=== PATIENT | male | born 1935 | race Caucasian/White ===

== ENCOUNTER 2023-05-15 15:19 | Inpatient (IN) ==
--- NOTE | 2023-05-15 15:48 | ED Triage Note ---
Date of Service May 15, 2023 History of Present Illness This patient was briefly evaluated while in triage. An abbreviated physical exam was performed. This patient is a 88-year-old Male who presents to the ED for evaluation of an elevated d-dimer. He has had shortness of breath with exertion for one month. His PCP saw him today and did some testing which indicated he may have a blood clot. He was sent here by his PCP. Physical Exam VITALS: Vitals are noted on the nurse's note and reviewed by myself. GENERAL: This is an 88-year-old male, in no acute distress, sitting in a chair in triage. SKIN: The skin was without rashes. MOUTH: Mucous membranes moist. NECK: Supple without nuchal rigidity. HEART: Regular rate and rhythm without murmurs gallops or rubs. LUNGS: Clear to auscultation bilaterally without wheezes, rales or rhonchi. NEURO: Patient was alert and oriented to person place and time. Initial orders for labs and / or imaging were placed and patient was placed in the waiting area until a bed is available. Please see further documentation for the full ED course.
[2023-05-15 17:25] LABS: Basophils # (auto) 0.06 K/uL (0-0.2); Basophils % (auto) 0.8 %; Eosinophils # (auto) 0.24 K/uL (0-0.50); Eosinophils % (auto) 3.3 %; Hematocrit (blood only) 34.4 % (42.0-52.0); Immature Granulocytes # (auto) 0.03 K/uL (0.01-0.20); Immature Granulocytes % (auto) 0.4 %; Lymphocytes # (auto) 2.57 K/uL (1.2-3.4); Lymphocytes % (auto) 35.8 %; Mean Corpuscular Hemoglobin 29.7 pg (25.0-34.0); Mean Corpuscular Hgb Conc 34.9 g/dL (32.0-36.0); Mean Corpuscular Volume 85.1 fL (80.0-100.0); Monocytes # (auto) 0.69 K/uL (0.11-0.59); Monocytes % (auto) 9.6 %; Neutrophils # (auto) 3.58 K/uL (1.40-6.50); Neutrophils % (auto) 50.1 %; Platelet Count 206 K/uL (130-400); RDW Coefficient of Variation 13.1 % (11.5-14.5); RDW Standard Deviation 40.8 fL (36.4-46.3); Red Blood Count 4.04 M/uL (4.70-6.10); White Blood Count 7.17 K/ul (4.8-10.8)
[2023-05-15 17:37] LABS: Albumin Globulin Ratio 1.5 (0.9-2); Albumin Level 4.5 gm/dl (3.4-5.0); BUN Creatinine Ratio 14.7 (10-20); Bilirubin,Total 0.6 mg/dl (0.2-1.0); Calcium 9.3 mg/dl (8.6-10.3); Creatinine Clr Calc Pharmacy 25.1 ml/min; Globulin 3.1 gm/dl (2.5-4.0); Potassium 4.3 mmol/L (3.5-5.1); Total Protein 7.6 gm/dl (6.0-8.3)
[2023-05-15 17:43] LABS: Troponin I High Sensitivity 24.1 pg/ml (0-20)
[2023-05-15] MEDS ORDERED: ALBUT/IPRATROP 3MG/0.5MG NEB 3 ML VIAL NEB STA (20:10)
[2023-05-15] MEDS ORDERED: cefTRIAXone SODIUM 1,000 MG in DEXTROSE 5% AD-VAN 50 ML IV STA (20:10)
[2023-05-15] MEDS ORDERED: AZITHROMYCIN 500 MG in DEXTROSE 5% 250 ML IV STA (20:10)
[2023-05-15] MEDS ORDERED: SODIUM CHLORIDE 0.9% 500 ML IV ONE (20:35)
[2023-05-15] MEDS ORDERED: carvediloL 3.125 MG TAB PO STA (20:37)
[2023-05-15 20:43] LABS: Magnesium 2.1 mg/dl (1.7-2.4)
[2023-05-15] MEDS ORDERED: Heparin IV Adult Wt-Based Standard *NO* Bolus Protocol IV STA (21:22)
[2023-05-15] MEDS ORDERED: ALPRAZolam 0.5 MG TABLET PO STA (21:23)
[2023-05-15] MEDS ORDERED: AMPICILLIN/SULBACTAM SOD 3,000 MG in 0.9 % SODIUM CHLORIDE 100 ML IV STA (21:24)
--- NOTE | 2023-05-15 21:25 | History & Physical Report ---
Date of Service May 15, 2023 Assessment & Plan (1) Shortness of breath on exertion: Plan: With cough symptoms Protracted asthma exacerbation secondary to possible aspiration pneumonia Underlying pulmonary hypertension Patient not septic. Rule out PE given abnormal outpatient dimer and past history of blood clots as per patient account (patient unable to provide details blood clot) Troponin elevation secondary to above in the setting of chronic kidney dysfunct ion Hyponatremia secondary to illness, home diuretic Rx chronic systolic heart failure (EF 37% TTE 2020) status post ICD, patient euvolemic to dry hx CAD status post stent chronic LBBB valvular heart disease (moderate to severe MR/TR, mild WI/AR) chronic anemia, hemoglobin at baseline hypothyroidism, euthyroid as of today's TSH paranoid schizophrenia/anxiety/mood disorder, at baseline past tobacco abuse Medical telemetry Unasyn Aspiration precautions, swallow eval Nebs RTC Patient refusing prednisone given worsening psychiatric symptoms with previous steroid Rx. VQ scan, LE Dopplers for PE work-up (CT angio study precluded by kidney dysfunction.) IV heparin until PE ruled out Follow troponin, TTE for progression Careful correction of sodium, hyponatremia work-up [facility]patient [facility] consult as per patient request for follow-up evaluation. (Patient convinced pulmonary symptoms related to recent pacemaker procedure.) DVT prophylaxis. IV heparin Conditional CODE STATUS (no intubation, okay with CPR/defibrillation ) Patient requesting updates providers. Ms. Carly Fountain, contact #[phone]. Text document was generated using [employer] voice recognition software. It may contain grammatical or spelling errors. Kindly contact undersigned for clarification of any documentation item in question. History of Present Illness Chief Complaint: Abnormal lab work, shortness of breath Primary Care Provider: Indra Asif MD History obtained from patient, family, and records. Medical history significant for chronic systolic heart failure (EF 37% TTE 2020) status post ICD, CAD status post stent, chronic LBBB, valvular heart disease (moderate to severe MR/TR, mild WI/AR), pulmonary hypertension, bronchial asthma, history of blood clots as per patient, CRI (baseline creatinine 1.9), chronic anemia (baseline hemoglobin 12), GERD, postsurgical hypothyroidism, BPH, paranoid schizophrenia, anxiety/mood disorder, past tobacco abuse. Patient underwent pacemaker generator change at same-day surgery by [facility] social services counselor 3 months ago. Normal function on subsequent interrogation on EPS follow-up visit 3 weeks ago. Patient has not felt well since EPS procedure 3 months ago. Shortness of breath worse on exertion. Junky cough symptoms. Patient admits to coughing with food/water intake if not careful. Intermittent left-sided chest pain complaints. No fluid retention. Patient compliant with home medications. Usual anxiety. Patient seen at [facility] outsole paraffiner office 2 weeks ago. He was told that his heart was okay. Bronchospasm noted on examination as per note. Patient advised to follow-up with PCP. Patient seen at PCPs office 1 today. Rhonchi and wheezing noted on lung exam. Patient prescribed doxycycline for possible bronchitis. Outpatient chest x-ray and labs requested. Abnormal dimer noted on outpatient blood work. Patient sent to the ER for evaluation. Ceftriaxone and neb treatment administered at the ER. Medical History as above Surgical History : ICD, thyroidectomy, TURP, cataract surgery, eye surgery, hernia repair, dental surgery Family History : DM, heart disease Personal/Social history : Past tobacco abuse, no EtOH intake, lives with Allergies Allergy/AdvReac Type Severity Reaction Status Date / Time sertraline Allergy Intermediate Swollen Unverified 05/15/23 20:36 Ankles prednisone AdvReac Intermediate crazy Verified 05/15/23 21:24 pantoprazole [From Protonix] AdvReac Unknown Diarrhea Unverified 05/15/23 20:36 Home Medications Medication Instructions Recorded Confirmed Type ascorbate calcium (vitamin C) 500 500 mg PO QAM 08/27/21 05/15/23 History mg tablet aspirin 81 mg tablet,delayed 81 mg PO 3XWK 08/27/21 05/15/23 History release ferrous sulfate 325 mg (65 mg 325 mg PO QAM 08/27/21 05/15/23 History iron) tablet olanzapine 10 mg tablet (Zyprexa) 10 mg PO HS 08/27/21 05/15/23 History omeprazole 20 mg capsule,delayed 20 mg PO DAILYBB 08/27/21 05/15/23 History release alprazolam 0.25 mg tablet (Xanax) See Rx Instructions .Route 09/16/21 05/15/23 History .COMPLEX PRN Anxiety clonidine HCl 0.1 mg tablet 0.05 mg PO BID #30 tabs 09/16/21 05/15/23 Rx albuterol sulfate 90 mcg/actuation 1 inh inhalation Q6H PRN shortness 12/24/21 05/15/23 Rx aerosol inhaler of breath or wheezing #8.5 grams atorvastatin 40 mg tablet 40 mg PO HS 12/24/21 05/15/23 History fluticasone furoate 100 1 inh inhalation QAM 12/24/21 05/15/23 History mcg-vilanterol 25 mcg/dose inhalation powder (Breo Ellipta) tamsulosin 0.4 mg capsule (Flomax) 0.4 mg PO QAM 12/24/21 05/15/23 History carvedilol 3.125 mg tablet 3.125 mg PO BIDM #90 tabs 03/10/22 05/15/23 Rx allopurinol 100 mg tablet 100 mg PO QAM #90 tabs 09/05/22 05/15/23 Rx furosemide 20 mg tablet 20 mg PO Q OTHER DAY #60 tabs 11/27/22 05/15/23 Rx furosemide 40 mg tablet (Lasix) 40 mg PO Q OTHER DAY #60 tabs 11/27/22 05/15/23 Rx docusate sodium 100 mg tablet 100 mg PO DAILY 03/06/23 05/15/23 History acetaminophen 500 mg tablet 1,000 mg PO DAILY PRN pain or fever 05/15/23 05/15/23 History levothyroxine 75 mcg tablet 75 mcg PO QAM 05/15/23 05/15/23 History Past Med/Surg History Medical History Aortic valve disorder Asymptomatic arteriosclerosis of coronary artery Atypical angina Atypical chest pain Automatic implantable cardiac defibrillator in situ CAD in [place] artery Cardiomyopathy Carpal tunnel syndrome Chest pain Chronic obstructive pulmonary disease Depression Dizziness Dyslipidemia Dyspnea on exertion Encounter for adjustment or management of automatic implantable cardioverter- defibrillator GERD (gastroesophageal reflux disease) Gout Hernia Hyperlipidemia Hyperplasia of prostate without lower urinary tract symptoms (LUTS) Hypertension, benign Hypothyroidism Mitral valve disorder Mitral valve insufficiency Nonrheumatic aortic (valve) insufficiency 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 cardiomyopathies Pulmonary valve disorder Shortness of breath Unspecified disorder of kidney and ureter Unspecified venous (peripheral) insufficiency Surgical History H/O heart artery stent H/O partial thyroidectomy H/O transurethral resection of prostate History of esophagogastroduodenoscopy (EGD) S/P cardiac cath S/P cataract surgery S/P eye surgery S/P hernia repair S/P tooth extraction Family History Father CHF (congestive heart failure) Mother Diabetes Brother Heart disease Social History Smoking Status: Former smoker Hx Alcohol Use: No Hx Substance Use: No Preferred Language: Greenlandic Cloth Spreader Screen Printing Required: No Beliefs That Will Affect Care: None marital status: marital status details: Carly Current Living Situation: Spouse current occupational status: retired current occupation: Clerical Feels Safe at Home: Yes caffeine: Yes (1-2 cups per day) Assistive Devices: Walker Review of Systems Review of Systems: As per HPI, all other systems reviewed and negative Physical Exam Physical Exam: GENERAL: Anxious, no respiratory distress SKIN: Pallor, warm HEENT: Partial alopecia, bespectacled, pale palpebral conjunctivae, no ptosis, dry buccal mucosa NECK : Supple, no tenderness CHEST : Decreased breath sounds, diffuse expiratory wheezes, no tenderness HEART : RRR, systolic murmur ABDOMEN: no distention, nontender EXTREMITIES : Minimal LE swelling, no LE tenderness, no other conspicuous deformities noted NEUROLOGIC : Coherent, no facial asymmetry, no other gross focality Results & Data Results & Data Vital Signs (Past 12 Hours) Vital Signs Temp Pulse Pulse Resp BP BP Pulse Ox 05/15/23 19:41 100 05/15/23 19:41 62 18 161/90 H 100 05/15/23 15:43 36.4 C L 66 20 133/82 100 O2 Del Method 05/15/23 19:41 Room Air 05/15/23 19:41 Room Air 05/15/23 15:43 Room Air Laboratory Results Laboratory Results WBC 7.17 K/ul (4.8-10.8) 05/15/23 16:56 RBC 4.04 M/uL (4.70-6.10) L 05/15/23 16:56 Hgb 12.0 g/dl (14.0-18.0) L 05/15/23 16:56 Hct 34.4 % (42.0-52.0) L 05/15/23 16:56 MCV 85.1 fL (80.0-100.0) 05/15/23 16:56 MCH 29.7 pg (25.0-34.0) 05/15/23 16:56 MCHC 34.9 g/dL (32.0-36.0) 05/15/23 16:56 RDW Std Deviation 40.8 fL (36.4-46.3) 05/15/23 16:56 RDW Coeff of Ruth 13.1 % (11.5-14.5) 05/15/23 16:56 Plt Count 206 K/uL (130-400) 05/15/23 16:56 MPV 10.0 fL (9.4-12.4) 05/15/23 16:56 Immature Gran % (Auto) 0.4 % 05/15/23 16:56 Neut % (Auto) 50.1 % 05/15/23 16:56 Lymph % (Auto) 35.8 % 05/15/23 16:56 Campbell % (Auto) 9.6 % 05/15/23 16:56 Eos % (Auto) 3.3 % 05/15/23 16:56 Baso % (Auto) 0.8 % 05/15/23 16:56 Neut # (Auto) 3.58 K/uL (1.40-6.50) 05/15/23 16:56 Lymph # (Auto) 2.57 K/uL (1.2-3.4) 05/15/23 16:56 Campbell # (Auto) 0.69 K/uL (0.11-0.59) H 05/15/23 16:56 Eos # (Auto) 0.24 K/uL (0-0.50) 05/15/23 16:56 Baso # (Auto) 0.06 K/uL (0-0.2) 05/15/23 16:56 Immature Gran # (Auto) 0.03 K/uL (0.01-0.20) 05/15/23 16:56 Sodium 127 mmol/L (136-145) L 05/15/23 16:56 Potassium 4.3 mmol/L (3.5-5.1) 05/15/23 16:56 Chloride 89 mmol/L (98-107) L 05/15/23 16:56 Carbon Dioxide 31 mmol/L (21-32) 05/15/23 16:56 Anion Gap 7 (3-11) 05/15/23 16:56 BUN 28 mg/dl (6-23) H 05/15/23 16:56 Creatinine 1.91 mg/dl (0.6-1.4) H 05/15/23 16:56 Est Cr Clr Drug Dosing 25.1 ml/min 05/15/23 16:56 Est GFR ( Amer) 36.0 ml/min 05/15/23 16:56 Est GFR (Non-Af Amer) 31.0 ml/min 05/15/23 16:56 BUN/Creatinine Ratio 14.7 (10-20) 05/15/23 16:56 Glucose 102 mg/dl (70-99(Fasting)) H 05/15/23 16:56 Osmolality 275 mOsm/kg (280-300) L 05/15/23 16:56 Calcium 9.3 mg/dl (8.6-10.3) 05/15/23 16:56 Magnesium 2.1 mg/dl (1.7-2.4) 05/15/23 16:56 Total Bilirubin 0.6 mg/dl (0.2-1.0) 05/15/23 16:56 AST 19 U/L (13-39) 05/15/23 16:56 ALT 16 U/L (7-52) 05/15/23 16:56 Alkaline Phosphatase 78 U/L (34-104) 05/15/23 16:56 Troponin I High Sens 24.1 pg/ml (0-20) H 05/15/23 16:56 Total Protein 7.6 gm/dl (6.0-8.3) 05/15/23 16:56 Albumin 4.5 gm/dl (3.4-5.0) 05/15/23 16:56 Globulin 3.1 gm/dl (2.5-4.0) 05/15/23 16:56 Albumin/Globulin Ratio 1.5 (0.9-2) 05/15/23 16:56 Diagnostic Findings Chest x-ray : 1. Cardiomegaly and AICD without radiographic evidence of congestive failure. 2. Right basilar opacities are unchanged from yesterday. Correlate clinically for evidence of a mild pneumonitis. Radiographic follow-up to resolution is recommended. EKG as per my interpretation : Rate 65, paced rhythm
[2023-05-15] MEDS ORDERED: PROMETHAZINE HCL 6.25 MG in SODIUM CHLORIDE 0.9% 50 ML IV PRN ×2 (21:38→23:13)
--- NOTE | 2023-05-15 22:10 | XRay Report ---
SINGLE VIEW CHEST CLINICAL HISTORY: Dyspnea FINDINGS: An AP, portable, upright chest radiograph is compared to study dated 05/15/2023. A 3-lead ca rdiac AICD is unchanged in position. The heart is enlarged noting atherosclerotic calcification of th e thoracic aorta. The pulmonary vasculature is noncongested. Chronic interstitial thickening is simil ar to previous. Right basilar opacities are similar to yesterday. Scarring/atelectasis is seen at bot h lung bases. No large pleural effusion or pneumothorax is identified. The skeletal structures are os teopenic. The bony thorax is grossly intact. IMPRESSION: 1. Cardiomegaly and AICD without radiographic evidence of congestive failure. 2. Right basilar opacities are unchanged from yesterday. Correlate clinically for evidence of a mild pneumonitis. Radiographic follow-up to resolution is recommended. ACT 112: Negative or not required by law. Electronically signed by: Mario Mccord M.D. 05/15/2023 10:08 PM
[2023-05-15 22:15] LABS: Partial Thromboplastin Time 29.6 Seconds (21.0-31.0)
--- NOTE | 2023-05-15 22:30 | Ultrasound Report ---
ULTRASOUND BILATERAL LOWER EXTREMITY VENOUS CLINICAL HISTORY: Elevated d-dimer. Dyspnea. COMPARISON STUDY: No priors. TECHNIQUE: Real-time, grayscale, and color Doppler sonography of the deep veins of the right and left lower extremity was performed from the inguinal crease to the calf. Compression and augmentation wer e utilized. FINDINGS: There is no sonographic evidence of deep venous thrombosis identified in the right or left lower extremity. The common femoral, superficial femoral, and popliteal veins are patent and normally compressible bilaterally. The greater saphenous vein and the profunda femoris vein at the junction w ith the common femoral vein are clear in both legs. The visualized calf veins are patent bilaterally. IMPRESSION: There is no sonographic evidence of deep venous thrombosis identified in the right or lef t lower extremity. ACT 112: Negative or not required by law. Electronically signed by: Mario Mccord M.D. 05/15/2023 10:28 PM
[2023-05-15] MEDS: HEPARIN SODIUM/DEXTROSE 25,000 UNITS/500 ML BAG IV SCH (22:41)
[2023-05-15] MEDS ORDERED: LEVALBUTEROL 1.25 MG/3 ML NEB ONE (23:56)
[2023-05-16] MEDS: OLANZapine 10 MG TAB PO SCH ×2 (00:03→21:39)
[2023-05-16] MEDS: IPRATROPIUM BROMIDE NEB SOLN 0.02% 2.5 ML VIAL INH SCH ×4 (00:13→19:15)
[2023-05-16] MEDS: LEVALBUTEROL 1.25 MG/3 ML NEB NEB SCH ×4 (00:14→19:15)
[2023-05-16 00:58] LABS: Appearance Urine Clear (Clear); Bilirubin Urine Negative (Negative); Blood Urine Negative (Negative); Color Urine Yellow; Glucose Urine UA Negative (Negative); Ketones Urine Negative (Negative); Leukocyte Esterase Urine Negative (Negative); Nitrite Urine Negative (Negative); Protein Urine Negative (Negative); Specific Gravity Urine 1.004 (1.000-1.030); Urobilinogen Urine Negative (Negative); pH Urine 7.5 (4.5-7.5)
[2023-05-16] MEDS ORDERED: XOPENEX/ATROVENT 1.25mg/0.5MG NEB COMBO NEB SCH (01:00)
[2023-05-16 01:36] LABS: Troponin I High Sensitivity 26.1 pg/ml (0-20)
--- NOTE | 2023-05-16 03:47 | Emergency Department Note ---
History of Present Illness General Chief Complaint: Referred by Doctor Stated Complaint: POSSIBLE BLOOD CLOT IN LUNGS Time Seen by Provider: 05/15/23 19:43 History of Present Illness Provider Complaint: shortness of breath Onset (ago): month(s) (1) Severity: moderate Relieved By: + rest Exacerbated By: + exertion and + coughing Known history of: asthma Associated symptoms: + chest pain, + cough, + wheezing, + sputum production and + chest congestion; no hemoptysis Home Medications Medication Instructions Recorded Confirmed Type ascorbate calcium (vitamin C) 500 500 mg PO QAM 08/27/21 05/15/23 History mg tablet aspirin 81 mg tablet,delayed 81 mg PO 3XWK 08/27/21 05/15/23 History release ferrous sulfate 325 mg (65 mg 325 mg PO QAM 08/27/21 05/15/23 History iron) tablet olanzapine 10 mg tablet (Zyprexa) 10 mg PO HS 08/27/21 05/15/23 History omeprazole 20 mg capsule,delayed 20 mg PO DAILYBB 08/27/21 05/15/23 History release alprazolam 0.25 mg tablet (Xanax) See Rx Instructions .Route 09/16/21 05/15/23 History .COMPLEX PRN Anxiety clonidine HCl 0.1 mg tablet 0.05 mg PO BID #30 tabs 09/16/21 05/15/23 Rx albuterol sulfate 90 mcg/actuation 1 inh inhalation Q6H PRN shortness 12/24/21 05/15/23 Rx aerosol inhaler of breath or wheezing #8.5 grams atorvastatin 40 mg tablet 40 mg PO HS 12/24/21 05/15/23 History fluticasone furoate 100 1 inh inhalation QAM 12/24/21 05/15/23 History mcg-vilanterol 25 mcg/dose inhalation powder (Breo Ellipta) tamsulosin 0.4 mg capsule (Flomax) 0.4 mg PO QAM 12/24/21 05/15/23 History carvedilol 3.125 mg tablet 3.125 mg PO BIDM #90 tabs 03/10/22 05/15/23 Rx allopurinol 100 mg tablet 100 mg PO QAM #90 tabs 09/05/22 05/15/23 Rx furosemide 20 mg tablet 20 mg PO Q OTHER DAY #60 tabs 11/27/22 05/15/23 Rx furosemide 40 mg tablet (Lasix) 40 mg PO Q OTHER DAY #60 tabs 11/27/22 05/15/23 Rx docusate sodium 100 mg tablet 100 mg PO DAILY 03/06/23 05/15/23 History acetaminophen 500 mg tablet 1,000 mg PO DAILY PRN pain or fever 05/15/23 05/15/23 History levothyroxine 75 mcg tablet 75 mcg PO QAM 05/15/23 05/15/23 History Allergies Allergy/AdvReac Type Severity Reaction Status Date / Time sertraline Allergy Intermediate Swollen Unverified 05/15/23 20:36 Ankles prednisone AdvReac Intermediate crazy Verified 05/15/23 21:24 pantoprazole [From Protonix] AdvReac Unknown Diarrhea Unverified 05/15/23 20:36 Past Med/Surg History Medical History Aortic valve disorder Asymptomatic arteriosclerosis of coronary artery Atypical angina Atypical chest pain Automatic implantable cardiac defibrillator in situ CAD in [place] artery Cardiomyopathy Carpal tunnel syndrome Chest pain Chronic obstructive pulmonary disease Depression Dizziness Dyslipidemia Dyspnea on exertion Encounter for adjustment or management of automatic implantable cardioverter- defibrillator GERD (gastroesophageal reflux disease) Gout Hernia Hyperlipidemia Hyperplasia of prostate without lower urinary tract symptoms (LUTS) Hypertension, benign Hypothyroidism Mitral valve disorder Mitral valve insufficiency Nonrheumatic aortic (valve) insufficiency 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 cardiomyopathies Pulmonary valve disorder Shortness of breath Unspecified disorder of kidney and ureter Unspecified venous (peripheral) insufficiency Surgical History H/O heart artery stent H/O partial thyroidectomy H/O transurethral resection of prostate History of esophagogastroduodenoscopy (EGD) S/P cardiac cath S/P cataract surgery S/P eye surgery S/P hernia repair S/P tooth extraction Family History Father CHF (congestive heart failure) Mother Diabetes Brother Heart disease Social History Smoking Status: Former smoker Hx Alcohol Use: No Hx Substance Use: No Preferred Language: Azeri Vocational Coordinator Required: No Beliefs That Will Affect Care: None marital status: marital status details: Carly Current Living Situation: Spouse current occupational status: retired current occupation: Clerical Feels Safe at Home: Yes caffeine: Yes (1-2 cups per day) Assistive Devices: Walker Physical Exam Vital Signs: Vital Signs - 24 hr 05/15/23 15:43 05/15/23 19:41 05/15/23 19:41 Temperature 36.4 C L Temperature Source Temporal Artery Sc an Pulse Rate 66 Pulse Rate [Apical ] 62 Respiratory Rate 20 18 Respiratory Effort / Characteristics Spontaneous SOB on Exertion Non-Labored Sponta neous Respiratory Depth Normal Normal Respiratory Patter n Regular Blood Pressure 133/82 Blood Pressure [Ri ght Arm] 161/90 H Blood Pressure Leonor n 99 Blood Pressure Leonor n [Right Arm] 113 Blood Pressure Pos ition [Right Arm] Lying Pulse Oximetry 100 100 100 Oxygen Delivery Me thod Room Air Room Air Room Air Sepsis Recent Feve r Within 48 Hours No Sepsis New/Unexpla ined Change in Men gordon Status N/A Sepsis Action Take n by Nursing No Action Required Physical Exam: Physical Exam GENERAL: oriented to person, place, and time. appears well-developed and well- nourished. HENT: Exam performed. - Head: Normocephalic and atraumatic. EYES: Conjunctivae and EOM are normal. Right eye exhibits no discharge. Left eye exhibits no discharge. No scleral icterus. NECK: Normal range of motion. Neck supple. No JVD present. CV: Normal rate, regular rhythm, normal heart sounds and intact distal pulses. There is no peripheral edema. Palpable radial pulses bue. PULM/CHEST: Expiratory wheezes bilaterally. ABD: The abdomen is soft. There is no tenderness. NEURO: Motor and sensation grossly intact. SKIN: Skin is warm and dry. He is not diaphoretic. PSYCH: normal mood and affect. Behavior is normal. Judgment and thought content normal. Course Course 194: The patient was evaluated in room C12. A complete history and physical exam was performed Administered Medications Heparin Sodium/Dextrose (Heparin Sodium/Dextrose) 25,000 units in 500 mls @ 24 mls/hr IV .[id number] [facility]; Protocol Stop: 06/14/23 21:44 Last Admin: 05/15/23 22:41 Dose: 1,200 units/hr, 24 mls/hr Documented By: HIEN Co-signed By: EDUARDO Ipratropium Orange (Ipratropium Orange Neb Soln 0.02% 2.5 Ml Vial) 0.5 mg INH Q6R ANOOP Stop: 06/15/23 00:59 Last Admin: 05/16/23 00:13 Dose: 0.5 mg Documented By: EBONY Levalbuterol HCl (Levalbuterol 1.25 Mg/3 Ml Neb) 1.25 mg NEB Q6R ANOOP Stop: 06/15/23 00:59 Last Admin: 05/16/23 00:14 Dose: Not Given Documented By: EBONY Olanzapine (Olanzapine 10 Mg Tab) 10 mg PO HS ANOOP Stop: 06/14/23 23:12 Last Admin: 05/16/23 00:03 Dose: 10 mg Documented By: BEATRIZ Discontinued Medications Albuterol (Albut/Ipratrop 3mg/0.5mg Neb 3 Ml Vial) 3 ml NEB NOW STA; Protocol Stop: 05/15/23 20:11 Last Admin: 05/15/23 20:28 Dose: 3 ml Documented By: HIEN Alprazolam (Alprazolam 0.5 Mg Tablet) 0.25 mg PO NOW STA Stop: 05/15/23 21:24 Last Admin: 05/15/23 22:39 Dose: 0.25 mg Documented By: HIEN Carvedilol (Carvedilol 3.125 Mg Tab) 3.125 mg PO NOW STA Stop: 05/15/23 20:38 Last Admin: 05/15/23 20:45 Dose: 3.125 mg Documented By: HIEN Heparin Sodium/Dextrose (Heparin Iv Adult Wt-Based Standard *No* Bolus Protocol) 1 each IV ONE STA; Protocol Stop: 05/15/23 21:23 Last Admin: 05/15/23 22:33 Dose: Not Given Documented By: HIEN Ceftriaxone Sodium 1,000 mg/ (Dextrose) 50 mls @ 100 mls/hr IV NOW STA Stop: 05/15/23 20:39 Last Infusion: 05/15/23 21:39 Dose: 0 mls/hr Documented By: Admin: 05/15/23 20:45 Dose: 100 mls/hr Documented By: HIEN Azithromycin 500 mg/ Dextrose 255 mls @ 127.5 mls/hr IV NOW STA Stop: 05/15/23 22:09 Last Admin: 05/15/23 22:33 Dose: Not Given Documented By: HIEN Sodium Chloride (Nss) 500 mls @ 75 mls/hr IV .[id number] ONE Stop: 05/16/23 03:14 Last Admin: 05/15/23 20:51 Dose: 75 mls/hr Documented By: HIEN Ampicillin Sodium/Sulbactam Sodium 3,000 mg/ Sodium Chloride 108 mls @ 200 mls/hr IV NOW STA Stop: 05/15/23 21:56 Last Infusion: 05/15/23 23:19 Dose: 0 mls/hr Documented By: Admin: 05/15/23 22:20 Dose: 200 mls/hr Documented By: HIEN Levalbuterol HCl (Levalbuterol 1.25 Mg/3 Ml Neb) Confirm Administered Dose 1.25 mg .ROUTE .STK-MED ONE Stop: 05/15/23 23:57 Last Admin: 05/16/23 00:14 Dose: 1.25 mg Documented By: EBONY Medical Decision Making Medical Records Attestation: I reviewed the patient's medical records. External medical records were reviewed. Patient had blood work done today which showed a D-dimer of 1440. Patient had a chest x-ray done outpatient which show ed right-sided infiltrates concerning for pneumonia. Laboratory Data Attestation: I reviewed the patient's lab results. 05/15/23 16:56 05/16/23 00:29 Lab Results 05/15/23 05/15/23 05/15/23 Range/Units 16:56 16:56 16:56 WBC 7.17 (4.8-10.8) K/ul RBC 4.04 L (4.70-6.10) M/uL Hgb 12.0 L (14.0-18.0) g/dl Hct 34.4 L (42.0-52.0) % MCV 85.1 (80.0-100.0) fL MCH 29.7 (25.0-34.0) pg MCHC 34.9 (32.0-36.0) g/dL RDW Std Deviation 40.8 (36.4-46.3) fL RDW Coeff of Ruth 13.1 (11.5-14.5) % Plt Count 206 (130-400) K/uL MPV 10.0 (9.4-12.4) fL Immature Gran % (Auto) 0.4 % Neut % (Auto) 50.1 % Lymph % (Auto) 35.8 % Geary % (Auto) 9.6 % Eos % (Auto) 3.3 % Baso % (Auto) 0.8 % Neut # (Auto) 3.58 (1.40-6.50) K/uL Lymph # (Auto) 2.57 (1.2-3.4) K/uL Geary # (Auto) 0.69 H (0.11-0.59) K/uL Eos # (Auto) 0.24 (0-0.50) K/uL Baso # (Auto) 0.06 (0-0.2) K/uL Immature Gran # (Auto) 0.03 (0.01-0.20) K/uL APTT (21.0-31.0) Seconds PTT Ratio Sodium 127 L (136-145) mmol/L Potassium 4.3 (3.5-5.1) mmol/L Chloride 89 L (98-107) mmol/L Carbon Dioxide 31 (21-32) mmol/L Anion Gap 7 (3-11) BUN 28 H (6-23) mg/dl Creatinine 1.91 H (0.6-1.4) mg/dl Est Cr Clr Drug Dosing 25.1 ml/min Est GFR ( Amer) 36.0 ml/min Est GFR (Non-Af Amer) 31.0 ml/min BUN/Creatinine Ratio 14.7 (10-20) Glucose 102 H (70-99(Fasting)) mg/dl Osmolality (280-300) mOsm/kg Calcium 9.3 (8.6-10.3) mg/dl Magnesium 2.1 (1.7-2.4) mg/dl Total Bilirubin 0.6 (0.2-1.0) mg/dl AST 19 (13-39) U/L ALT 16 (7-52) U/L Alkaline Phosphatase 78 (34-104) U/L Troponin I High Sens 24.1 H (0-20) pg/ml Total Protein 7.6 (6.0-8.3) gm/dl Albumin 4.5 (3.4-5.0) gm/dl Globulin 3.1 (2.5-4.0) gm/dl Albumin/Globulin Ratio 1.5 (0.9-2) TSH 3.723 (0.300-4.500) uIu/ml SARS-CoV-2, RNA, NAAT (NEGATIVE) 05/15/23 05/15/23 05/15/23 Range/Units 16:56 16:56 19:59 WBC (4.8-10.8) K/ul RBC (4.70-6.10) M/uL Hgb (14.0-18.0) g/dl Hct (42.0-52.0) % MCV (80.0-100.0) fL MCH (25.0-34.0) pg MCHC (32.0-36.0) g/dL RDW Std Deviation (36.4-46.3) fL RDW Coeff of Ruth (11.5-14.5) % Plt Count (130-400) K/uL MPV (9.4-12.4) fL Immature Gran % (Auto) % Neut % (Auto) % Lymph % (Auto) % Geary % (Auto) % Eos % (Auto) % Baso % (Auto) % Neut # (Auto) (1.40-6.50) K/uL Lymph # (Auto) (1.2-3.4) K/uL Geary # (Auto) (0.11-0.59) K/uL Eos # (Auto) (0-0.50) K/uL Baso # (Auto) (0-0.2) K/uL Immature Gran # (Auto) (0.01-0.20) K/uL APTT 29.6 (21.0-31.0) Seconds PTT Ratio 1.0 Sodium (136-145) mmol/L Potassium (3.5-5.1) mmol/L Chloride (98-107) mmol/L Carbon Dioxide (21-32) mmol/L Anion Gap (3-11) BUN (6-23) mg/dl Creatinine (0.6-1.4) mg/dl Est Cr Clr Drug Dosing ml/min Est GFR ( Amer) ml/min Est GFR (Non-Af Amer) ml/min BUN/Creatinine Ratio (10-20) Glucose (70-99(Fasting)) mg/dl Osmolality 275 L (280-300) mOsm/kg Calcium (8.6-10.3) mg/dl Magnesium (1.7-2.4) mg/dl Total Bilirubin (0.2-1.0) mg/dl AST (13-39) U/L ALT (7-52) U/L Alkaline Phosphatase (34-104) U/L Troponin I High Sens (0-20) pg/ml Total Protein (6.0-8.3) gm/dl Albumin (3.4-5.0) gm/dl Globulin (2.5-4.0) gm/dl Albumin/Globulin Ratio (0.9-2) TSH (0.300-4.500) uIu/ml SARS-CoV-2, RNA, NAAT NEGATIVE (NEGATIVE) ECG Data Attestation: I personally reviewed and interpreted this ECG as follows: Interpretation: Paced rhythm with rate of 67. NH 106 QRS 186 QTc 496. No ectopy. MDM Narrative Cardiac monitoring: An order was placed for continuous cardiac monitoring. The monitor shows a rate of 60 with paced rhythm interpreted by me Patient was seen during a time of extreme volume and extreme acuity in the emergency department. Nursing triage protocols were initiated and labs were drawn by protocol in the triage area. Labs show a normal white blood cell count. Sodium 127 creatinine 1.91 at patient's baseline. BNP 505.. Initial troponin 18.3 trending upwards at 24.1. Patient not reporting any chest pain. It is thought that the patient's pneumonia is causing him to have some demand ischemia. Patient be treated with IV Rocephin and IV azithromycin admitted to the [facility]ist team Dr. Baum notified. Dr. Baum notified to possibly obtain VQ scan given the patient's elevated D-dimer however it is thought that he most likely has a pneumonia based off his chest x-ray findings. Impression & Plan Pneumonia, Elevated troponin Discharge Plan Visit Data Chief Complaint: Referred by Doctor Stated Complaint: POSSIBLE BLOOD CLOT IN LUNGS ED Provider: Noah Mondragon Discharge Problem: Pneumonia, Elevated troponin Patient Disposition: Admitted As Inpatient Discharge Instructions Interventions: ED Discharge Assessment Last Done: 05/15/23 23:35
[2023-05-16] MEDS ORDERED: METOPROLOL TARTRATE 1 MG/ML VIAL IV STA (05:24)
[2023-05-16] MEDS: LEVOTHYROXINE SODIUM 75 MCG TABLET PO SCH (05:45)
[2023-05-16] MEDS: PANTOprazole 40 MG TAB PO SCH (05:46)
[2023-05-16 06:42] LABS: Basophils # (auto) 0.06 K/uL (0-0.2); Basophils % (auto) 0.9 %; Eosinophils # (auto) 0.18 K/uL (0-0.50); Eosinophils % (auto) 2.6 %; Hemoglobin 11.3 g/dl (14.0-18.0); Immature Granulocytes # (auto) 0.03 K/uL (0.01-0.20); Immature Granulocytes % (auto) 0.4 %; Lymphocytes # (auto) 2.06 K/uL (1.2-3.4); Lymphocytes % (auto) 29.7 %; Mean Corpuscular Hemoglobin 29.8 pg (25.0-34.0); Mean Corpuscular Hgb Conc 35.3 g/dL (32.0-36.0); Mean Corpuscular Volume 84.4 fL (80.0-100.0); Mean Platelet Volume 10.2 fL (9.4-12.4); Monocytes # (auto) 0.59 K/uL (0.11-0.59); Monocytes % (auto) 8.5 %; Neutrophils # (auto) 4.02 K/uL (1.40-6.50); Neutrophils % (auto) 57.9 %; Platelet Count 178 K/uL (130-400); RDW Coefficient of Variation 13.2 % (11.5-14.5); RDW Standard Deviation 40.8 fL (36.4-46.3); Red Blood Count 3.79 M/uL (4.70-6.10); White Blood Count 6.94 K/ul (4.8-10.8)
[2023-05-16 06:55] LABS: BUN Creatinine Ratio 14.5 (10-20); Calcium 8.7 mg/dl (8.6-10.3); Creatinine Clr Calc Pharmacy 27.8 ml/min; Est GFR (African American) 40.8 ml/min; Est GFR (Non-African American) 35.2 ml/min; Potassium 3.9 mmol/L (3.5-5.1)
[2023-05-16 07:01] LABS: Troponin I High Sensitivity 23.5 pg/ml (0-20)
[2023-05-16] MEDS: TAMSULOSIN HCL 0.4 MG CAP PO SCH (08:40)
[2023-05-16] MEDS: carvediloL 3.125 MG TAB PO SCH ×2 (08:41→16:50)
[2023-05-16] MEDS: DOCUSATE SODIUM 100 MG CAP PO SCH (08:41)
[2023-05-16] MEDS: FERROUS SULFATE 325 MG TAB PO SCH (08:41)
[2023-05-16] MEDS: FLUTICASONE/VILANTEROL 100/25MCG 14 PUFFS/INHALER INH SCH (08:42)
[2023-05-16] MEDS: allopurinoL 100 MG TAB PO SCH (08:42)
[2023-05-16] MEDS: ALPRAZolam 0.25 MG TABLET PO SCH ×2 (08:44→21:39)
[2023-05-16] MEDS: cloNIDine HCL 0.1 MG TAB PO SCH (08:44)
[2023-05-16 09:30] LABS: Partial Thromboplastin Ratio > 4.9
[2023-05-16 09:55] LABS: Partial Thromboplastin Time > 139.0 Seconds (21.0-31.0)
[2023-05-16] MEDS: AMPICILLIN/SULBACTAM SOD 1,500 MG in 0.9 % SODIUM CHLORIDE 100 ML IV SCH ×2 (10:24→21:39)
[2023-05-16 11:42] LABS: Partial Thromboplastin Ratio 3.9
[2023-05-16 11:45] LABS: Partial Thromboplastin Time 110.2 Seconds (21.0-31.0)
[2023-05-16 13:54] LABS: Partial Thromboplastin Ratio 1.3; Partial Thromboplastin Time 35.3 Seconds (21.0-31.0)
[2023-05-16] MEDS ORDERED: HEPARIN SOD (PORCINE) 1000 UNIT/ML IV ONE (14:08)
--- NOTE | 2023-05-16 14:27 | Hospitalist Progress Note ---
Date of Service May 16, 2023 Assessment & Plan (1) Shortness of breath on exertion: Plan 88-year-old male with PMH of chronic systolic heart failure [2020 TTE with EF of 37%] status post ICD, CAD status post stent, chronic LBBB, valvular heart disease [moderate to severe MR/TR, mild OR/AR], pulmonary HTN, bronchial asthma, CKD [baseline creatinine 1.9], chronic anemia [baseline hemoglobin 12], GERD, postsurgical hypothyroidism, BPH, paranoid schizophrenia, anxiety/mood disorder, past tobacco abuse, recent pacemaker generator exchange at same-day surgery by [facility] [place] research phlebotomist 3 months ago [normal function on subsequent interrogation on APS follow-up about 3 weeks ago] presented to the ED 05/15 with complaint of shortness of breath on exertion, reports occasional cough. Patient reports not feeling well since EPS procedure 3 months ago [employer]. Patient had abnormal D-dimer as an outpatient recently. He is being managed for the following: Dyspnea on exertion Mild asthma exacerbation Possible pneumonia Patient presents with shortness of breath on exertion, with occasional coughs. Was bronchospastic on examination on day 1. Admitting CXR with right lower lung airspace opacities which favor pneumonia. Not septic at presentation. Speech evaluated, no suspected signs and symptoms of aspiration at bedside exam. Continue with minced and moist diet, maintain aspiration precaution. Continue with Unasyn 05/16, fluticasone vilanterol inhaler, continue with RTC ipratropium and levalbuterol for now. Due to recent cardiac intervention, patient wanted cardiology eval, cardiology consulted. Concern for blood clot/PE: Patient with shortness of breath with minimal exertion, D-dimer elevated as an outpatient. Admitting BLE Doppler negative for DVT. Renal function precludes CTA chest. Awaiting VQ scan. Plan for heparin drip until VQ scan resulted. Hyponatremia secondary to illness, home diuretic Rx, improving Likely demand ischemia: Troponin mildly elevated, flat trended. Likely secondary to respiratory distress/asthma exacerbation. Other chronic medical condition: c/w home meds as able. chronic systolic heart failure (EF 37% TTE 2020) status post ICD, patient euvolemic to dry hx CAD status post stent chronic LBBB valvular heart disease (moderate to severe MR/TR, mild OR/AR) chronic anemia, hemoglobin at baseline hypothyroidism, euthyroid as of this admission's TSH paranoid schizophrenia/anxiety/mood disorder, at baseline past tobacco abuse DVT prophylaxis: Patient on IV heparin until VQ scan resulted Conditional CODE STATUS (no intubation, okay with CPR/defibrillation ) Patient Ms. Carly Fountain, contact #[phone]. Admission and Anticipated Discharge Date Admission Date: May 15, 2023 Subjective Patient seen and examined at bedside as a follow-up of shortness of breath on exertion likely secondary to protracted asthma exacerbation secondary to possible pneumonia. Patient was lying in bed, on room air, NAD, reports no new acute event overnight, reports shortness of breath with activity, was wheezing bilaterally on examination, reports eating okay and moving bowels okay, denies any chest pain, denies any headache or dizziness. Physical Exam Physical Exam: GENERAL: Alert and oriented x3. NAD, on RA. Appears anxious. HEENT: No pallor, no icterus. Pupils equal, round and reactive to light. Oral mucosa moist. NECK: No JVD, no neck masses. HEART: S1 and S2 heard. Regular rate and rhythm. + Murmur, no gallop. RESPIRATORY SYSTEM: Normal AP diameter. No accessory muscle use. + Wheezing, occasional crackles. ABDOMEN: Soft, bowel sounds present, nontender, no distention. CENTRAL NERVOUS SYSTEM: No facial droop. Speech is clear. Obeys simple commands. Moves extremities. EXTREMITIES: No edema, no erythema seen. Results & Data Results & Data Vital Signs (Past 12 Hours) Vital Signs Temp Pulse Pulse Resp BP BP Pulse Ox 05/16/23 13:07 84 16 98 05/16/23 11:42 36.8 C 65 18 142/89 H 100 05/16/23 08:00 61 05/16/23 10:31 36.8 C 68 20 134/79 99 05/16/23 09:14 05/16/23 08:08 36.8 C 60 20 143/75 H 98 05/16/23 07:01 75 16 98 05/16/23 06:11 77 115/68 05/16/23 05:45 72 130/79 05/16/23 04:27 37.1 C 65 20 130/79 98 O2 Del Method 05/16/23 13:07 Room Air 05/16/23 11:42 Room Air 05/16/23 08:00 05/16/23 10:31 Room Air 05/16/23 09:14 Room Air 05/16/23 08:08 Room Air 05/16/23 07:01 Room Air 05/16/23 06:11 05/16/23 05:45 05/16/23 04:27 Room Air
[2023-05-16] MEDS ORDERED: predniSONE 20 MG TAB PO SCH (14:45)
[2023-05-16] MEDS: ALPRAZolam 0.5 MG TABLET PO SCH (14:55)
[2023-05-16] MEDS ORDERED: ALPRAZolam 0.5 MG TABLET PO SCH (15:00)
--- NOTE | 2023-05-16 16:54 | Cardiology Consultation ---
Date of Consultation May 16, 2023 Assessment & Plan (1) HFrEF (heart failure with reduced ejection fraction): (2) Cardiomyopathy: (3) CAD in [place] artery: (4) H/O heart artery stent: (5) Hypertension, benign: (6) Hyperlipidemia: (7) Mitral valve insufficiency: (8) Shortness of breath on exertion: (9) Elevated troponin: (10) 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: Plan ASSESSMENT/PLAN: 1. Chronic heart failure with reduced EF: He does not appear to be hypervolemic but rather euvolemic. Can continue outpatient dose of diuretic. Low-sodium diet. Daily weights. Strict I's and O's while hospitalized. Continue carvedilol. Recommend Entresto for long-term management if no contraindication. Would start with low-dose. If tolerated, could then consider aldosterone antagonist and SGLT2 inhibitor as an outpatient. He is not here with heart failure exacerbation. 2. Dyspnea on exertion: Etiology unclear. Has biventricular device in place. Appears euvolemic. Chest x-ray concerning for pneumonia and is being treated by primary hospitalist service. VQ scan is pending for possible pulmonary embolism. If symptoms continue following treatment for pneumonia and if no PE, could consider outpatient myocardial perfusion study. Cannot exclude deconditioning playing a role to some degree or his underlying pulmonary issues. Could consider PFTs if not done recently. 3. CAD s/p LAD PCI: No angina. Continue aspirin 81 mg daily indefinitely. Continue beta-igor. Continue high intensity statin therapy. 4. Cardiomyopathy: Ischemic per history. Biventricular ICD in place. Medical therapy as above. Follows with EP for ICD. 5. Mitral regurgitation: Nonsevere. Monitor as an outpatient. 6. Hypertension: Blood pressure acceptable. Plan as above. 7. Dyslipidemia: High intensity statin therapy. Goal LDL <70. 8. Elevated troponin: He did not present with acute coronary syndrome. Could consider outpatient myocardial perfusion study if dyspnea exertion does not improve as noted above or if no identifiable etiology. Urgent ischemic evaluation is not necessary at this time. Heparin drip is not necessary from the standpoint but currently being used by hospitalist service while ruling out pulmonary embolism. 9. Disposition: Cardiology will continue to follow. Plan of care communicated with Dr. Kuo, of the primary hospitalist service. Today's visit was approximately 77 minutes in duration. This included [id number] time, counseling patient, coordinating care, reviewing records, personally reviewing echo images as outlined, reviewing telemetry, and completing documentation. History of Present Illness Reason for Consultation: CAD, ICD, cardiomyopathy, SOB Requesting Physician: Josué Attending Physician: Narinder Kuo MD History of Present Illness Mr. Fountain is a pleasant 88-year-old gentleman with a history significant for ischemic cardiomyopathy, CAD s/p LAD PCI (2012), LBBB, biventricular ICD, heart failure with reduced EF, hypertension, asthma, and dyslipidemia. His primary manager retirement is Dr. Westfall. He was last seen by Dr. Westfall on 05/01/2023. Echo was ordered as he was reporting dyspnea on exertion. Patient states that when he moved to this area approximately 2 years ago, he has since developed dyspnea on exertion while climbing stairs. His states that their prior home before moving had no steps but he was able to manage them when they first moved here. Now he has to sometimes stop and sit down to catch his breath after climbing a flight of stairs. After sitting a few minutes, dyspnea resolves. He denies any chest pain. He denies orthopnea. He had some transient ankle swelling after starting Zoloft for 1 week but the edema resolved with discontinuation of Zoloft. He has chronically taken Lasix alternating 40 mg with 20 mg every other day. Weight at home has been stable. He maintains a low-sodium diet. He was seen by his PCP yesterday for dyspnea. D-dimer was elevated and he was sent to the emergency department for concern of pulmonary embolism. While here, he underwent lower extremity Doppler but no DVT was noted on 05/15/2023 study. He has no symptoms while laying in bed today. He is concerned that perhaps his cardiac or pulmonary status is to blame for his breathing and he would very much like to further investigate. He reports that he received myocardial perfusion studies on a regular basis before moving to this area. He is very afraid of dying from myocardial infarction. He also notes that the dyspnea on exertion began here approximately 2 weeks after his generator change. He has been seen by electrophysiology and has been told that his device is functioning appropriately. He had an echo done as an outpatient through [facility] office yesterday. It has not yet been interpreted. His reports ejection fraction of 35% and moderate mitral regurgitation before moving to this area. He also reports a history of asthma throughout his life and uses inhalers regularly. He has noted rare sharp/dull/ache left-sided chest pain at rest lasting only 1 or 2 seconds. He denies any exertional chest discomfort. He denies melena, hematochezia, hematuria, syncope, near syncope, palpitations. Review of systems: As above. Review of systems otherwise negative/unremarkable. Family history: Family history notable for CAD and CHF. Social history: Quit smoking at the age of 12:35 years of smoking. Denies alcohol or drug abuse. Lives at home with his . They have a son who lives nearby. His was present at the bedside. Allergies Allergy/AdvReac Type Severity Reaction Status Date / Time sertraline Allergy Intermediate Swollen Unverified 05/15/23 20:36 Ankles prednisone AdvReac Intermediate crazy Verified 05/15/23 21:24 pantoprazole [From Protonix] AdvReac Unknown Diarrhea Unverified 05/15/23 20:36 Home Medications Medication Instructions Recorded Confirmed Type ascorbate calcium (vitamin C) 500 500 mg PO QAM 08/27/21 05/15/23 History mg tablet aspirin 81 mg tablet,delayed 81 mg PO [id number] 08/27/21 05/15/23 History release ferrous sulfate 325 mg (65 mg 325 mg PO QAM 08/27/21 05/15/23 History iron) tablet olanzapine 10 mg tablet (Zyprexa) 10 mg PO HS 08/27/21 05/15/23 History omeprazole 20 mg capsule,delayed 20 mg PO DAILYBB 08/27/21 05/15/23 History release alprazolam 0.25 mg tablet (Xanax) See Rx Instructions .Route 09/16/21 05/15/23 History .COMPLEX PRN Anxiety clonidine HCl 0.1 mg tablet 0.05 mg PO BID #30 tabs 09/16/21 05/15/23 Rx albuterol sulfate 90 mcg/actuation 1 inh inhalation Q6H PRN shortness 12/24/21 05/15/23 Rx aerosol inhaler of breath or wheezing #8.5 grams atorvastatin 40 mg tablet 40 mg PO HS 12/24/21 05/15/23 History fluticasone furoate 100 1 inh inhalation QAM 12/24/21 05/15/23 History mcg-vilanterol 25 mcg/dose inhalation powder (Breo Ellipta) tamsulosin 0.4 mg capsule (Flomax) 0.4 mg PO QAM 12/24/21 05/15/23 History carvedilol 3.125 mg tablet 3.125 mg PO BIDM #90 tabs 03/10/22 05/15/23 Rx allopurinol 100 mg tablet 100 mg PO QAM #90 tabs 09/05/22 05/15/23 Rx furosemide 20 mg tablet 20 mg PO Q OTHER DAY #60 tabs 11/27/22 05/15/23 Rx furosemide 40 mg tablet (Lasix) 40 mg PO Q OTHER DAY #60 tabs 11/27/22 05/15/23 Rx docusate sodium 100 mg tablet 100 mg PO DAILY 03/06/23 05/15/23 History acetaminophen 500 mg tablet 1,000 mg PO DAILY PRN pain or fever 05/15/23 05/15/23 History levothyroxine 75 mcg tablet 75 mcg PO QAM 05/15/23 05/15/23 History Patient History Medical History (Updated 05/16/23 @ 17:09 by Mark Hayward MD) Aortic valve disorder Asymptomatic arteriosclerosis of coronary artery Atypical angina Atypical chest pain Automatic implantable cardiac defibrillator in situ CAD in curyung artery Cardiomyopathy Carpal tunnel syndrome Chest pain Chronic obstructive pulmonary disease Depression Dizziness Dyslipidemia Dyspnea on exertion Encounter for adjustment or management of automatic implantable cardioverter- defibrillator GERD (gastroesophageal reflux disease) Gout Hernia HFrEF (heart failure with reduced ejection fraction) Hyperlipidemia Hyperplasia of prostate without lower urinary tract symptoms (LUTS) Hypertension, benign Hypothyroidism Mitral valve disorder Mitral valve insufficiency Nonrheumatic aortic (valve) insufficiency 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 cardiomyopathies Pulmonary valve disorder Shortness of breath Unspecified disorder of kidney and ureter Unspecified venous (peripheral) insufficiency Surgical History (Updated 05/16/23 @ 17:09 by Mark Hayward MD) H/O heart artery stent H/O partial thyroidectomy H/O transurethral resection of prostate History of esophagogastroduodenoscopy (EGD) S/P cardiac cath S/P cataract surgery S/P eye surgery S/P hernia repair S/P tooth extraction Family History Father CHF (congestive heart failure) Mother Diabetes Brother Heart disease Social History Smoking Status: Former smoker Hx Alcohol Use: No Hx Substance Use: No Preferred Language: Malay Color Print Inspector Required: No Beliefs That Will Affect Care: None marital status: marital status details: Carly Current Living Situation: Spouse current occupational status: retired current occupation: Clerical Feels Safe at Home: Yes caffeine: Yes (1-2 cups per day) Assistive Devices: Walker Physical Exam Physical Exam: Gen.: No acute distress. Alert. HEENT: Anicteric sclera. Neck: No JVD. No hepatojugular reflux noted. No bruits. Normal carotid upstrokes bilaterally. Cardiac: No ventricular heave. Regular. Normal S1-S2. 1/6 systolic murmur. Pulmonary: With deep inspiration, bilateral expiratory wheezing. With more controlled breathing, lungs were clear but decreased breath sounds bilaterally. Abdomen: Soft, nontender, nondistended, with normoactive bowel sounds. No bruits noted. Extremities: 2+ radial pulses bilaterally. 2+ posterior tibialis pulses bilaterally. No edema or cyanosis. Results & Data Vital Signs (Past 12 Hours) Vital Signs Temp Pulse Pulse Pulse Resp BP BP 05/16/23 15:55 36.9 C 62 18 101/64 05/16/23 15:10 77 05/16/23 13:07 84 16 05/16/23 11:42 36.8 C 65 18 05/16/23 08:00 61 05/16/23 10:31 36.8 C 68 20 05/16/23 09:14 05/16/23 08:08 36.8 C 60 20 05/16/23 07:01 75 16 05/16/23 06:11 77 115/68 05/16/23 05:45 72 130/79 BP Pulse Ox O2 Del Method 05/16/23 15:55 98 Room Air 05/16/23 15:10 05/16/23 13:07 98 Room Air 05/16/23 11:42 142/89 H 100 Room Air 05/16/23 08:00 05/16/23 10:31 134/79 99 Room Air 05/16/23 09:14 Room Air 05/16/23 08:08 143/75 H 98 Room Air 05/16/23 07:01 98 Room Air 05/16/23 06:11 05/16/23 05:45 Laboratory Results Laboratory Results - last 24 hr 05/15/23 05/15/23 05/15/23 16:56 16:56 16:56 WBC 7.17 RBC 4.04 L Hgb 12.0 L Hct 34.4 L MCV 85.1 MCH 29.7 MCHC 34.9 RDW Std Deviation 40.8 RDW Coeff of Ruth 13.1 Plt Count 206 MPV 10.0 Immature Gran % (Auto) 0.4 Neut % (Auto) 50.1 Lymph % (Auto) 35.8 [place] % (Auto) 9.6 Eos % (Auto) 3.3 Baso % (Auto) 0.8 Neut # (Auto) 3.58 Lymph # (Auto) 2.57 [place] # (Auto) 0.69 H Eos # (Auto) 0.24 Baso # (Auto) 0.06 Immature Gran # (Auto) 0.03 APTT PTT Ratio Sodium 127 L Potassium 4.3 Chloride 89 L Carbon Dioxide 31 Anion Gap 7 BUN 28 H Creatinine 1.91 H Est Cr Clr Drug Dosing 25.1 Est GFR ( Amer) 36.0 Est GFR (Non-Af Amer) 31.0 BUN/Creatinine Ratio 14.7 Glucose 102 H Osmolality Calcium 9.3 Magnesium 2.1 Total Bilirubin 0.6 AST 19 ALT 16 Alkaline Phosphatase 78 Troponin I High Sens 24.1 H Total Protein 7.6 Albumin 4.5 Globulin 3.1 Albumin/Globulin Ratio 1.5 TSH 3.723 Urine Color Urine Appearance Urine pH Ur Specific [place] Urine Protein Urine Glucose (UA) Urine Ketones Urine Blood Urine Nitrite Urine Bilirubin Urine Urobilinogen Ur Leukocyte Esterase Urine Osmolality Ur Random Sodium SARS-CoV-2, RNA, NAAT 05/15/23 05/15/23 05/15/23 16:56 16:56 19:59 WBC RBC Hgb Hct MCV MCH MCHC RDW Std Deviation RDW Coeff of Ruth Plt Count MPV Immature Gran % (Auto) Neut % (Auto) Lymph % (Auto) [place] % (Auto) Eos % (Auto) Baso % (Auto) Neut # (Auto) Lymph # (Auto) [place] # (Auto) Eos # (Auto) Baso # (Auto) Immature Gran # (Auto) APTT 29.6 PTT Ratio 1.0 Sodium Potassium Chloride Carbon Dioxide Anion Gap BUN Creatinine Est Cr Clr Drug Dosing Est GFR ( Amer) Est GFR (Non-Af Amer) BUN/Creatinine Ratio Glucose Osmolality 275 L Calcium Magnesium Total Bilirubin AST ALT Alkaline Phosphatase Troponin I High Sens Total Protein Albumin Globulin Albumin/Globulin Ratio TSH Urine Color Urine Appearance Urine pH Ur Specific [place] Urine Protein Urine Glucose (UA) Urine Ketones Urine Blood Urine Nitrite Urine Bilirubin Urine Urobilinogen Ur Leukocyte Esterase Urine Osmolality Ur Random Sodium SARS-CoV-2, RNA, NAAT NEGATIVE 05/16/23 05/16/23 05/16/23 00:29 00:47 00:47 WBC RBC Hgb Hct MCV MCH MCHC RDW Std Deviation RDW Coeff of Ruth Plt Count MPV Immature Gran % (Auto) Neut % (Auto) Lymph % (Auto) [place] % (Auto) Eos % (Auto) Baso % (Auto) Neut # (Auto) Lymph # (Auto) [place] # (Auto) Eos # (Auto) Baso # (Auto) Immature Gran # (Auto) APTT PTT Ratio Sodium 131 L Potassium Chloride Carbon Dioxide Anion Gap BUN Creatinine Est Cr Clr Drug Dosing Est GFR ( Amer) Est GFR (Non-Af Amer) BUN/Creatinine Ratio Glucose Osmolality Calcium Magnesium Total Bilirubin AST ALT Alkaline Phosphatase Troponin I High Sens 26.1 H Total Protein Albumin Globulin Albumin/Globulin Ratio TSH Urine Color Yellow Urine Appearance Clear Urine pH 7.5 Ur Specific [place] 1.004 Urine Protein Negative Urine Glucose (UA) Negative Urine Ketones Negative Urine Blood Negative Urine Nitrite Negative Urine Bilirubin Negative Urine Urobilinogen Negative Ur Leukocyte Esterase Negative Urine Osmolality 116 L Ur Random Sodium SARS-CoV-2, RNA, NAAT 05/16/23 05/16/23 05/16/23 00:47 05:37 05:37 WBC 6.94 RBC 3.79 L Hgb 11.3 L Hct 32.0 L MCV 84.4 MCH 29.8 MCHC 35.3 RDW Std Deviation 40.8 RDW Coeff of Ruth 13.2 Plt Count 178 MPV 10.2 Immature Gran % (Auto) 0.4 Neut % (Auto) 57.9 Lymph % (Auto) 29.7 [place] % (Auto) 8.5 Eos % (Auto) 2.6 Baso % (Auto) 0.9 Neut # (Auto) 4.02 Lymph # (Auto) 2.06 [place] # (Auto) 0.59 Eos # (Auto) 0.18 Baso # (Auto) 0.06 Immature Gran # (Auto) 0.03 APTT PTT Ratio Sodium 135 L Potassium 3.9 Chloride 99 Carbon Dioxide 28 Anion Gap 8 BUN 25 H Creatinine 1.72 H Est Cr Clr Drug Dosing 27.8 Est GFR ( Amer) 40.8 Est GFR (Non-Af Amer) 35.2 BUN/Creatinine Ratio 14.5 Glucose 106 H Osmolality Calcium 8.7 Magnesium Total Bilirubin AST ALT Alkaline Phosphatase Troponin I High Sens 23.5 H Total Protein Albumin Globulin Albumin/Globulin Ratio TSH Urine Color Urine Appearance Urine pH Ur Specific [place] Urine Protein Urine Glucose (UA) Urine Ketones Urine Blood Urine Nitrite Urine Bilirubin Urine Urobilinogen Ur Leukocyte Esterase Urine Osmolality Ur Random Sodium 29 SARS-CoV-2, RNA, NAAT 05/16/23 05/16/23 05/16/23 05:37 08:30 10:42 WBC RBC Hgb Hct MCV MCH MCHC RDW Std Deviation RDW Coeff of Ruth Plt Count MPV Immature Gran % (Auto) Neut % (Auto) Lymph % (Auto) [place] % (Auto) Eos % (Auto) Baso % (Auto) Neut # (Auto) Lymph # (Auto) [place] # (Auto) Eos # (Auto) Baso # (Auto) Immature Gran # (Auto) APTT Cancelled > 139.0 H* 110.2 H* PTT Ratio Cancelled > 4.9 3.9 Sodium Potassium Chloride Carbon Dioxide Anion Gap BUN Creatinine Est Cr Clr Drug Dosing Est GFR ( Amer) Est GFR (Non-Af Amer) BUN/Creatinine Ratio Glucose Osmolality Calcium Magnesium Total Bilirubin AST ALT Alkaline Phosphatase Troponin I High Sens Total Protein Albumin Globulin Albumin/Globulin Ratio TSH Urine Color Urine Appearance Urine pH Ur Specific [place] Urine Protein Urine Glucose (UA) Urine Ketones Urine Blood Urine Nitrite Urine Bilirubin Urine Urobilinogen Ur Leukocyte Esterase Urine Osmolality Ur Random Sodium SARS-CoV-2, RNA, NAAT 05/16/23 05/16/23 11:59 13:05 WBC RBC Hgb Hct MCV MCH MCHC RDW Std Deviation RDW Coeff of Ruth Plt Count MPV Immature Gran % (Auto) Neut % (Auto) Lymph % (Auto) [place] % (Auto) Eos % (Auto) Baso % (Auto) Neut # (Auto) Lymph # (Auto) [place] # (Auto) Eos # (Auto) Baso # (Auto) Immature Gran # (Auto) APTT Cancelled 35.3 H PTT Ratio Cancelled 1.3 Sodium Potassium Chloride Carbon Dioxide Anion Gap BUN Creatinine Est Cr Clr Drug Dosing Est GFR ( Amer) Est GFR (Non-Af Amer) BUN/Creatinine Ratio Glucose Osmolality Calcium Magnesium Total Bilirubin AST ALT Alkaline Phosphatase Troponin I High Sens Total Protein Albumin Globulin Albumin/Globulin Ratio TSH Urine Color Urine Appearance Urine pH Ur Specific [place] Urine Protein Urine Glucose (UA) Urine Ketones Urine Blood Urine Nitrite Urine Bilirubin Urine Urobilinogen Ur Leukocyte Esterase Urine Osmolality Ur Random Sodium SARS-CoV-2, RNA, NAAT Diagnostic Findings Telemetry personally reviewed: Ventricular paced. Outpatient echo from 05/15/2023 images personally reviewed: Preliminary review moderately to severely reduced systolic function with an estimated EF of 30 to 35%. Global hypokinesis but akinesis of the inferolateral wall with severe hypokinesis to akinesis of the apex and akinesis of the basal anterolateral wall. Moderate mitral regurgitation. Formal review pending by Dr. Westfall. Hospital history and physical and progress note reviewed. Chest x-ray 05/15/2023 report reviewed: Right basilar opacity in the mid right lower lung, favoring pneumonia per radiology. Venous Doppler report reviewed as noted above in HPI. ECG personally reviewed from 05/15/2023: Ventricular paced. Atrial sensed. 67 bpm. Labs personally reviewed from 05/16/2023: Abnormal but stable renal function, normal potassium, high-sensitivity troponin mildly elevated peaking at 26. BNP elevated on 05/15/2023. Stable hemoglobin. Medications Administered Current Inpatient Medications Allopurinol (Allopurinol 100 Mg Tab) 100 mg PO QAM [facility] Stop: 06/15/23 08:59 Last Admin: 05/16/23 08:42 Dose: 100 mg Alprazolam (Alprazolam 0.25 Mg Tablet) 0.25 mg PO BID@0900,2200 [facility] Stop: 06/15/23 08:59 Last Admin: 05/16/23 08:44 Dose: 0.25 mg Alprazolam (Alprazolam 0.5 Mg Tablet) 0.5 mg PO 1500 ANOOP Stop: 06/15/23 14:59 Last Admin: 05/16/23 14:55 Dose: 0.5 mg Aspirin (Aspirin 81 Mg Ectab) 81 mg PO MoWeFr [facility] Stop: 06/17/23 08:59 Atorvastatin Calcium (Atorvastatin 40 Mg Tab) 40 mg PO HS [facility] Stop: 06/15/23 20:59 Carvedilol (Carvedilol 3.125 Mg Tab) 3.125 mg PO BIDM [facility] Stop: 06/15/23 07:59 Last Admin: 05/16/23 16:50 Dose: 3.125 mg Clonidine HCl (Clonidine Hcl 0.1 Mg Tab) 0.05 mg PO DAILY [facility] Stop: 06/15/23 08:59 Last Admin: 05/16/23 08:44 Dose: 0.05 mg Docusate Sodium (Docusate Sodium 100 Mg Cap) 100 mg PO DAILY [facility] Stop: 06/15/23 08:59 Last Admin: 05/16/23 08:41 Dose: 100 mg Ferrous Sulfate (Ferrous Sulfate 325 Mg Tab) 325 mg PO QAM [facility] Stop: 06/15/23 08:59 Last Admin: 05/16/23 08:41 Dose: 325 mg Fluticasone/Vilanterol (Fluticasone/Vilanterol 100/25mcg 14 Puffs/Inhaler) [facility] Stop: 06/15/23 08:59 Last Admin: 05/16/23 08:42 Dose: 1 puffs Heparin Sodium/Dextrose (Heparin Sodium/Dextrose) 25,000 units in 500 mls @ 17 mls/hr IV .Q24H [facility]; Protocol Stop: 06/14/23 21:44 Last Titration: 05/16/23 14:53 Dose: 850 units/hr, 17 mls/hr Promethazine HCl 6.25 mg/ (Sodium Chloride) 50.25 mls @ 201 mls/hr IV Q6H PRN PRN Reason: Nausea And Vomiting Stop: 06/14/23 21:37 Promethazine HCl 6.25 mg/ (Sodium Chloride) 50.25 mls @ 201 mls/hr IV Q6H PRN PRN Reason: Nausea And Vomiting Stop: 06/14/23 23:12 Ampicillin Sodium/Sulbactam Sodium 1,500 mg/ Sodium Chloride 104 mls @ 200 mls/hr IV Q12H [facility]; Protocol Stop: 05/23/23 09:59 Last Infusion: 05/16/23 10:57 Dose: Infused Ipratropium Huxley (Ipratropium [place] Neb Soln 0.02% 2.5 Ml Vial) 0.5 mg INH Q6R [facility] Stop: 06/15/23 00:59 Last Admin: 05/16/23 13:07 Dose: 0.5 mg Levalbuterol HCl (Levalbuterol 1.25 Mg/3 Ml Neb) 1.25 mg NEB Q6R [facility] Stop: 06/15/23 00:59 Last Admin: 05/16/23 13:06 Dose: 1.25 mg Levothyroxine Sodium (Levothyroxine Sodium 75 Mcg Tablet) [facility]: 06/15/23 06:29 Last Admin: 05/16/23 05:45 Dose: 75 mcg Olanzapine (Olanzapine 10 Mg Tab) 10 mg PO HS [facility] Stop: 06/14/23 23:12 Last Admin: 05/16/23 00:03 Dose: 10 mg Pantoprazole Sodium (Pantoprazole 40 Mg Tab) 40 mg PO DAILYBB [facility] Stop: 06/15/23 06:29 Last Admin: 05/16/23 05:46 Dose: 40 mg Tamsulosin HCl (Tamsulosin Hcl 0.4 Mg Cap) [facility].4 [facility] Stop: 06/15/23 08:59 Last Admin: 05/16/23 08:40 Dose: 0.4 mg PG Care Time/CCT Total # of Minutes Spent Total Time Spent with Patient: Total time spent is greater than 50% in coordination of care (as documented) at patient's floor/unit and/or counseling patient: Coding Level of Care Code 86795 INT INP/OBS CARE 3/75MIN Diagnoses HFrEF (heart failure with reduced ejection fraction) I50.20 Cardiomyopathy I42.9 CAD in [place] artery I25.10 H/O heart artery stent Z95.5 Hypertension, benign I10 Hyperlipidemia E78.5 Mitral valve insufficiency I34.0 Shortness of breath on exertion R06.02 Elevated troponin R77.8 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 Z45.02 Time Spent (min) 77
[2023-05-16 20:49] LABS: Partial Thromboplastin Ratio 2.2
[2023-05-16 21:06] LABS: Partial Thromboplastin Time 61.2 Seconds (21.0-31.0)
[2023-05-16] MEDS: ATORVASTATIN 40 MG TAB PO SCH (21:39)
--- NOTE | 2023-05-16 21:46 | Electrocardiogram Report ---
Test Reason : Blood Pressure : / mmHG Vent. Rate : 067 BPM Atrial Rate : 067 BPM P-R Int : 106 ms QRS Dur : 186 ms QT Int : 470 ms P-R-T Axes : 074 232 061 degrees QTc Int : 496 ms Atrial-sensed ventricular-paced rhythm Biventricular pacemaker detected Abnormal ECG When compared with ECG of 24-DEC-2021 05:52, Ventricular pacing is now present Vent. rate has decreased BY 48 BPM Confirmed by Mark Hayward ([id number]) on 05/16/2023 9:45:56 PM Referred By: Debra Green Confirmed By:Mark Hayward
[2023-05-17] MEDS: HEPARIN SODIUM/DEXTROSE 25,000 UNITS/500 ML BAG IV SCH ×2 (02:40→08:36)
[2023-05-17] MEDS: LEVOTHYROXINE SODIUM 75 MCG TABLET PO SCH (06:08)
[2023-05-17] MEDS: PANTOprazole 40 MG TAB PO SCH (06:09)
[2023-05-17] MEDS: LEVALBUTEROL 1.25 MG/3 ML NEB NEB SCH ×4 (07:03→20:06)
[2023-05-17] MEDS: IPRATROPIUM BROMIDE NEB SOLN 0.02% 2.5 ML VIAL INH SCH ×4 (07:03→20:06)
[2023-05-17 07:09] LABS: Hematocrit (blood only) 30.4 % (42.0-52.0); Hemoglobin 10.4 g/dl (14.0-18.0); Mean Corpuscular Hemoglobin 29.9 pg (25.0-34.0); Mean Corpuscular Hgb Conc 34.2 g/dL (32.0-36.0); Mean Corpuscular Volume 87.4 fL (80.0-100.0); Mean Platelet Volume 9.9 fL (9.4-12.4); Platelet Count 159 K/uL (130-400); RDW Coefficient of Variation 13.5 % (11.5-14.5); RDW Standard Deviation 42.9 fL (36.4-46.3); Red Blood Count 3.48 M/uL (4.70-6.10); White Blood Count 6.62 K/ul (4.8-10.8)
[2023-05-17 07:36] LABS: BUN Creatinine Ratio 12.8 (10-20); Calcium 8.3 mg/dl (8.6-10.3); Creatinine Clr Calc Pharmacy 24.4 ml/min; Est GFR (African American) 34.9 ml/min; Est GFR (Non-African American) 30.1 ml/min; Magnesium 2.1 mg/dl (1.7-2.4); Phosphorus 3.4 mg/dl (2.5-4.9); Potassium 4.1 mmol/L (3.5-5.1)
[2023-05-17 08:09] LABS: Partial Thromboplastin Ratio 2.8
[2023-05-17 08:14] LABS: Partial Thromboplastin Time 80.3 Seconds (21.0-31.0)
[2023-05-17] MEDS: allopurinoL 100 MG TAB PO SCH (08:37)
[2023-05-17] MEDS: carvediloL 3.125 MG TAB PO SCH ×2 (08:37→16:47)
[2023-05-17] MEDS: TAMSULOSIN HCL 0.4 MG CAP PO SCH (08:37)
[2023-05-17] MEDS: FERROUS SULFATE 325 MG TAB PO SCH (08:37)
[2023-05-17] MEDS: DOCUSATE SODIUM 100 MG CAP PO SCH (08:37)
[2023-05-17] MEDS: FLUTICASONE/VILANTEROL 100/25MCG 14 PUFFS/INHALER INH SCH (08:40)
[2023-05-17] MEDS: ALPRAZolam 0.25 MG TABLET PO SCH ×2 (08:43→20:56)
[2023-05-17] MEDS: cloNIDine HCL 0.1 MG TAB PO SCH (08:43)
[2023-05-17] MEDS: AMPICILLIN/SULBACTAM SOD 1,500 MG in 0.9 % SODIUM CHLORIDE 100 ML IV SCH (10:23)
[2023-05-17] MEDS ORDERED: bisacodyL 5 MG TABEC PO PRN (10:48)
--- NOTE | 2023-05-17 11:10 | Cardiology Progress Note ---
Date of Service May 17, 2023 Assessment & Plan (1) HFrEF (heart failure with reduced ejection fraction): (2) Cardiomyopathy: (3) CAD in [place] artery: (4) H/O heart artery stent: (5) Hypertension, benign: (6) Hyperlipidemia: (7) Mitral valve insufficiency: (8) Shortness of breath on exertion: (9) Elevated troponin: (10) 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: Plan ASSESSMENT/PLAN: 1. Chronic heart failure with reduced EF: He did not present with heart failure exacerbation. Euvolemic on exam. Can continue outpatient dose of diuretic. Low-sodium diet. Daily weights. Strict I's and O's while hospitalized. Continue carvedilol. Recommend Entresto for long-term management if no contraindication. Would start with low-dose. If tolerated, could then consider aldosterone antagonist and SGLT2 inhibitor as an outpatient. He is not here w ith heart failure exacerbation. 2. Dyspnea on exertion: Etiology unclear. Has biventricular device in place. Appears euvolemic. Chest x-ray concerning for pneumonia and is being treated by primary hospitalist service. VQ scan is pending for possible pulmonary embolism. If symptoms continue following treatment for pneumonia and if no PE, could consider outpatient myocardial perfusion study. Could consider PFTs if not done recently. Overall, feeling better with antibiotic therapy after producing thick green sputum. 3. CAD s/p LAD PCI: No angina. Continue aspirin 81 mg daily indefinitely. Continue beta-igor. Continue high intensity statin therapy. 4. Cardiomyopathy: Ischemic per history. Biventricular ICD in place. Medical therapy as above. Follows with EP for ICD. 5. Mitral regurgitation: Nonsevere. Monitor as an outpatient. 6. Hypertension: Blood pressure acceptable. Plan as above. 7. Dyslipidemia: High intensity statin therapy. Goal LDL <70. 8. Elevated troponin: He did not present with acute coronary syndrome. Could consider outpatient myocardial perfusion study if dyspnea exertion does not improve as noted above or if no identifiable etiology. Urgent ischemic evaluation is not necessary at this time. Heparin drip is not necessary from the standpoint but currently being used by hospitalist service while ruling out pulmonary embolism. 9. Disposition: Dr. Westfall to resume his cardiology care tomorrow. Admission and Anticipated Discharge Date Admission Date: May 15, 2023 Subjective Patient seen this morning. He states that his breathing has significantly improved. He was able to cough and produce thick green sputum. He believes that his symptoms are due to bronchitis. He feels much better overall. He is very anxious about his recent ICD generator change. He asked multiple times if it is appropriately functioning. He has been seen by electrophysiology recently. He denies chest pain, syncope, palpitations, edema, or bleeding. He was alone in his hospital room. Physical Exam Physical Exam: Gen.: No acute distress. Alert. HEENT: Anicteric sclera. Neck: No JVD. No hepatojugular reflux noted. Cardiac: No ventricular heave. Regular. Normal S1-S2. 1/6 systolic murmur. Pulmonary: Bilateral expiratory wheezing. Abdomen: Soft, nontender, nondistended, with normoactive bowel sounds. No bruits noted. Extremities: 2+ radial pulses bilaterally. 2+ posterior tibialis pulses bilaterally. No edema or cyanosis. Results & Data Vital Signs (Past 12 Hours) Vital Signs Temp Pulse Pulse Resp BP Pulse Ox O2 Del Method 05/17/23 07:29 36.4 C L 84 18 145/95 H 100 Room Air 05/17/23 07:05 72 16 98 Room Air 05/17/23 03:00 36.6 C 80 16 116/76 95 Room Air 05/17/23 01:00 66 05/16/23 23:57 75 18 94 Room Air Intake & Output 05/15/23 05/16/23 05/17/23 05/18/23 06:59 06:59 06:59 06:59 Intake Total 838 / 838 1817.584 / 1817.584 200.900 / 200.900 Output Total 850 / 850 275 / 275 Balance - 1542.584 / 1542.584 200.900 / 200.900 Weight 143 lb 4.807 oz 143 lb 4.807 oz Laboratory Results Laboratory Results - last 24 hr 05/16/23 05/16/23 05/17/23 13:05 19:43 06:49 WBC 6.62 RBC 3.48 L Hgb 10.4 L Hct 30.4 L MCV 87.4 MCH 29.9 MCHC 34.2 RDW Std Deviation 42.9 RDW Coeff of Ruth 13.5 Plt Count 159 MPV 9.9 APTT 35.3 H 61.2 H* PTT Ratio 1.3 2.2 Sodium Potassium Chloride Carbon Dioxide Anion Gap BUN Creatinine Est Cr Clr Drug Dosing Est GFR ( Amer) Est GFR (Non-Af Amer) BUN/Creatinine Ratio Glucose Calcium Phosphorus Magnesium 05/17/23 05/17/23 06:49 06:49 WBC RBC Hgb Hct MCV MCH MCHC RDW Std Deviation RDW Coeff of Ruth Plt Count MPV APTT 80.3 H* PTT Ratio 2.8 Sodium 133 L Potassium 4.1 Chloride 99 Carbon Dioxide 29 Anion Gap 5 BUN 25 H Creatinine 1.96 H Est Cr Clr Drug Dosing 24.4 Est GFR ( Amer) 34.9 Est GFR (Non-Af Amer) 30.1 BUN/Creatinine Ratio 12.8 Glucose 95 Calcium 8.3 L Phosphorus 3.4 Magnesium 2.1 Diagnostic Findings On 05/17/2023, chart, labs, telemetry personally reviewed. Telemetry: V paced. Labs from 05/17/2023 demonstrated stable hyponatremia, abnormal but stable renal function, mild anemia. Medications Administered Current Inpatient Medications Allopurinol (Allopurinol 100 Mg Tab) 100 mg PO QAM [facility] Stop: 06/15/23 08:59 Last Admin: 05/17/23 08:37 Dose: 100 mg Alprazolam (Alprazolam 0.25 Mg Tablet) 0.25 mg PO BID@0900,2200 [facility] Stop: 06/15/23 08:59 Last Admin: 05/17/23 08:43 Dose: 0.25 mg Alprazolam (Alprazolam 0.5 Mg Tablet) 0.5 mg PO 1500 [facility] Stop: 06/15/23 14:59 Last Admin: 05/16/23 14:55 Dose: 0.5 mg Aspirin (Aspirin 81 Mg Ectab) 81 mg PO MoWeFr [facility] Stop: 06/17/23 08:59 Atorvastatin Calcium (Atorvastatin 40 Mg Tab) 40 mg PO HS [facility] Stop: 06/15/23 20:59 Last Admin: 05/16/23 21:39 Dose: 40 mg Bisacodyl (Bisacodyl 5 Mg Tabec) 5 mg PO BID PRN PRN Reason: Constipation Stop: 06/16/23 10:47 Carvedilol (Carvedilol 3.125 Mg Tab) 3.125 mg PO BIDM [facility] Stop: 06/15/23 07:59 Last Admin: 05/17/23 08:37 Dose: 3.125 mg Clonidine HCl (Clonidine Hcl 0.1 Mg Tab) 0.05 mg PO DAILY [facility] Stop: 06/15/23 08:59 Last Admin: 05/17/23 08:43 Dose: 0.05 mg Docusate Sodium (Docusate Sodium 100 Mg Cap) 100 mg PO DAILY [facility] Stop: 06/15/23 08:59 Last Admin: 05/17/23 08:37 Dose: 100 mg Ferrous Sulfate (Ferrous Sulfate 325 Mg Tab) 325 mg PO QAM [facility] Stop: 06/15/23 08:59 Last Admin: 05/17/23 08:37 Dose: 325 mg Fluticasone/Vilanterol (Fluticasone/Vilanterol 100/25mcg 14 Puffs/Inhaler) [facility] [place]: 06/15/23 08:59 Last Admin: 05/17/23 08:40 Dose: 1 puffs Heparin Sodium/Dextrose (Heparin Sodium/Dextrose) 25,000 units in 500 mls @ 16 mls/hr IV .Q24H [facility]; Protocol Stop: 06/14/23 21:44 Last Admin: 05/17/23 08:36 Dose: Not Given Promethazine HCl 6.25 mg/ (Sodium Chloride) 50.25 mls @ 201 mls/hr IV Q6H PRN PRN Reason: Nausea And Vomiting Stop: 06/14/23 21:37 Promethazine HCl 6.25 mg/ (Sodium Chloride) 50.25 mls @ 201 mls/hr IV Q6H PRN PRN Reason: Nausea And Vomiting Stop: 06/14/23 23:12 Ampicillin Sodium/Sulbactam Sodium 1,500 mg/ Sodium Chloride 104 mls @ 200 mls/hr IV Q12H [facility]; Protocol Stop: 05/23/23 09:59 Last Infusion: 05/17/23 11:25 Dose: Infused Ipratropium Rentz (Ipratropium Rentz Neb Soln 0.02% 2.5 Ml Vial) 0.5 mg INH Q6R [facility] Stop: 06/15/23 00:59 Last Admin: 05/17/23 07:03 Dose: 0.5 mg Levalbuterol HCl (Levalbuterol 1.25 Mg/3 Ml Neb) 1.25 mg NEB Q6R [facility] Stop: 06/15/23 00:59 Last Admin: 05/17/23 07:03 Dose: 1.25 mg Levothyroxine Sodium (Levothyroxine Sodium 75 Mcg Tablet) 75 mcg PO DAILYBB [facility] Stop: 06/15/23 06:29 Last Admin: 05/17/23 06:08 Dose: 75 mcg Olanzapine (Olanzapine 10 Mg Tab) 10 mg PO HS [facility] Stop: 06/14/23 23:12 Last Admin: 05/16/23 21:39 Dose: 10 mg Pantoprazole Sodium (Pantoprazole 40 Mg Tab) 40 mg PO DAILYBB [facility] Stop: 06/15/23 06:29 Last Admin: 05/17/23 06:09 Dose: 40 mg Tamsulosin HCl (Tamsulosin Hcl 0.4 Mg Cap) 0.4 mg PO QAM [facility] Stop: 06/15/23 08:59 Last Admin: 05/17/23 08:37 Dose: 0.4 mg PG Care Time/CCT Total # of Minutes Spent Total Time Spent with Patient: Total time spent is greater than 50% in coordination of care (as documented) at patient's floor/unit and/or counseling patient: Coding Level of Care Code 44747 SUB INP/OBS CARE 2/35MIN Diagnoses HFrEF (heart failure with reduced ejection fraction) I50.20 Cardiomyopathy I42.9 CAD in [place] artery I25.10 H/O heart artery stent Z95.5 Hypertension, benign I10 Hyperlipidemia E78.5 Mitral valve insufficiency I34.0 Shortness of breath on exertion R06.02 Elevated troponin R77.8 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 Z45.02
[2023-05-17] MEDS ORDERED: POLYETHYLENE (MIRALAX) 17 GM PACK PO PRN (13:24)
[2023-05-17] MEDS: ALPRAZolam 0.5 MG TABLET PO SCH (14:50)
--- NOTE | 2023-05-17 15:23 | Hospitalist Progress Note ---
Date of Service May 17, 2023 Assessment & Plan (1) Shortness of breath on exertion: Plan 88-year-old male with PMH of chronic systolic heart failure [2020 TTE with EF of 37%] status post ICD, CAD status post stent, chronic LBBB, valvular heart disease [moderate to severe MR/TR, mild [place]/AR], pulmonary HTN, bronchial asthma, CKD [baseline creatinine 1.9], chronic anemia [baseline hemoglobin 12], GERD, postsurgical hypothyroidism, BPH, paranoid schizophrenia, anxiety/mood disorder, past tobacco abuse, recent pacemaker generator exchange at same-day surgery by [facility] [place] last pattern grader 3 months ago [normal function on subsequent interrogation on APS follow-up about 3 weeks ago] presented to the ED 05/15 with complaint of shortness of breath on exertion, reports occasional cough. Patient reports not feeling well since EPS procedure 3 months ago [employer]. Patient had abnormal D-dimer as an outpatient recently. He is being managed for the following: Dyspnea on exertion Mild asthma exacerbation Possible pneumonia Patient presents with shortness of breath on exertion, with occasional coughs. Was bronchospastic on examination on day 1. Admitting CXR with right lower lung airspace opacities which favor pneumonia. Not septic at presentation. Speech evaluated, no suspected signs and symptoms of aspiration at bedside exam. Continue with minced and moist diet, maintain aspiration precaution. Continue with Unasyn 05/16, fluticasone vilanterol inhaler, continue with RTC ipratropium and levalbuterol for now. Mucinex added. Due to recent cardiac intervention, patient wanted cardiology eval, cardiology recommending initiation of entresto w/ plan to add aldactone and SGLT2 inhibitor as OP. Closely f/u cardio on DC. Concern for blood clot/PE: Patient with shortness of breath with minimal exerti on, D-dimer elevated as an outpatient. Admitting BLE Doppler negative for DVT. Renal function precludes CTA chest. Awaiting VQ scan. Plan for heparin drip until VQ scan resulted. Hyponatremia secondary to illness, home diuretic Rx, improving Likely demand ischemia: Troponin mildly elevated, flat trended. Likely secon david to respiratory distress/asthma exacerbation. Other chronic medical condition: c/w home meds as able. chronic systolic heart failure (EF 37% TTE 2020) status post ICD, patient euvolemic to dry hx CAD status post stent chronic LBBB valvular heart disease (moderate to severe MR/TR, mild [place]/AR) chronic anemia, hemoglobin at baseline hypothyroidism, euthyroid as of this admission's TSH paranoid schizophrenia/anxiety/mood disorder, at baseline past tobacco abuse DVT prophylaxis: Patient on IV heparin until VQ scan resulted Conditional CODE STATUS (no intubation, okay with CPR/defibrillation ) Patient Ms. Carly Fountain, contact #[phone]. Admission and Anticipated Discharge Date Admission Date: May 15, 2023 Subjective Patient seen and examined at bedside as a follow-up of shortness of breath on exertion likely secondary to protracted asthma exacerbation secondary to possible pneumonia. Patient was lying in bed, on room air, NAD, reports no new acute event overnight, reports feeling better w/ sob and also reports thick green mucus w/ cough; will add mucinex, was again wheezing bilaterally on examination, reports eating okay and moving bowels okay, denies any chest pain, denies any headache or dizziness. Physical Exam Physical Exam: GENERAL: Alert and oriented x3. NAD, on RA. Appears anxious. HEENT: No pallor, no icterus. Pupils equal, round and reactive to light. Oral mucosa moist. NECK: No JVD, no neck masses. HEART: S1 and S2 heard. Regular rate and rhythm. + Murmur, no gallop. RESPIRATORY SYSTEM: Normal AP diameter. No accessory muscle use. + Wheezing b/l, occasional crackles. ABDOMEN: Soft, bowel sounds present, nontender, no distention. CENTRAL NERVOUS SYSTEM: No facial droop. Speech is clear. Obeys simple commands. Moves extremities. EXTREMITIES: No edema, no erythema seen. Results & Data Results & Data Vital Signs (Past 12 Hours) Vital Signs Temp Pulse Resp BP Pulse Ox O2 Del Method 05/17/23 15:08 36.9 C 81 18 117/77 98 Room Air 05/17/23 13:18 74 16 99 Room Air 05/17/23 12:31 Room Air 05/17/23 11:40 37.0 C 81 18 131/77 95 Room Air 05/17/23 07:29 36.4 C L 84 18 145/95 H 100 Room Air 05/17/23 07:05 72 16 98 Room Air
[2023-05-17 15:44] LABS: Partial Thromboplastin Ratio 1.7
[2023-05-17 15:54] LABS: Partial Thromboplastin Time 48.4 Seconds (21.0-31.0)
[2023-05-17] MEDS: guaiFENesin 600 MG TABCR PO SCH ×2 (16:47→22:01)
[2023-05-17] MEDS: OLANZapine 10 MG TAB PO SCH (20:56)
[2023-05-17] MEDS: ATORVASTATIN 40 MG TAB PO SCH (20:56)
[2023-05-17] MEDS: VALSARTAN/SACUBITRIL 26/24MG TAB PO SCH (20:56)
[2023-05-17] MEDS: AMPICILLIN/SULBACTAM SOD 3,000 MG in 0.9 % SODIUM CHLORIDE 100 ML IV SCH (22:01)
[2023-05-18] MEDS: LEVALBUTEROL 1.25 MG/3 ML NEB NEB SCH ×3 (00:50→13:19)
[2023-05-18] MEDS: IPRATROPIUM BROMIDE NEB SOLN 0.02% 2.5 ML VIAL INH SCH ×3 (00:50→13:19)
[2023-05-18] MEDS: PANTOprazole 40 MG TAB PO SCH (06:00)
[2023-05-18] MEDS: LEVOTHYROXINE SODIUM 75 MCG TABLET PO SCH (06:00)
[2023-05-18 07:39] LABS: Hematocrit (blood only) 31.5 % (42.0-52.0); Hemoglobin 10.9 g/dl (14.0-18.0); Mean Corpuscular Hemoglobin 29.7 pg (25.0-34.0); Mean Corpuscular Hgb Conc 34.6 g/dL (32.0-36.0); Mean Corpuscular Volume 85.8 fL (80.0-100.0); Mean Platelet Volume 10.2 fL (9.4-12.4); Platelet Count 164 K/uL (130-400); RDW Coefficient of Variation 13.4 % (11.5-14.5); RDW Standard Deviation 41.9 fL (36.4-46.3); Red Blood Count 3.67 M/uL (4.70-6.10); White Blood Count 7.05 K/ul (4.8-10.8)
[2023-05-18 07:52] LABS: BUN Creatinine Ratio 14.3 (10-20); Calcium 8.3 mg/dl (8.6-10.3); Creatinine Clr Calc Pharmacy 24.4 ml/min; Est GFR (African American) 34.9 ml/min; Est GFR (Non-African American) 30.1 ml/min; Potassium 4.2 mmol/L (3.5-5.1)
[2023-05-18] MEDS: allopurinoL 100 MG TAB PO SCH (08:08)
[2023-05-18] MEDS: TAMSULOSIN HCL 0.4 MG CAP PO SCH (08:08)
[2023-05-18] MEDS: guaiFENesin 600 MG TABCR PO SCH (08:08)
[2023-05-18] MEDS: DOCUSATE SODIUM 100 MG CAP PO SCH (08:08)
[2023-05-18] MEDS: VALSARTAN/SACUBITRIL 26/24MG TAB PO SCH ×2 (08:08→18:19)
[2023-05-18] MEDS: FERROUS SULFATE 325 MG TAB PO SCH (08:08)
[2023-05-18] MEDS: carvediloL 3.125 MG TAB PO SCH ×2 (08:08→17:13)
[2023-05-18] MEDS: FLUTICASONE/VILANTEROL 100/25MCG 14 PUFFS/INHALER INH SCH (08:09)
[2023-05-18] MEDS: cloNIDine HCL 0.1 MG TAB PO SCH (08:12)
[2023-05-18] MEDS: ALPRAZolam 0.25 MG TABLET PO SCH (08:12)
[2023-05-18 08:23] LABS: Partial Thromboplastin Ratio 2.5
[2023-05-18 08:53] LABS: Partial Thromboplastin Time 71.1 Seconds (21.0-31.0)
[2023-05-18] MEDS ORDERED: ASPIRIN 81 MG ECTAB PO SCH (09:00)
[2023-05-18] MEDS: AMPICILLIN/SULBACTAM SOD 3,000 MG in 0.9 % SODIUM CHLORIDE 100 ML IV SCH (09:05)
[2023-05-18] MEDS: HEPARIN SODIUM/DEXTROSE 25,000 UNITS/500 ML BAG IV SCH (09:06)
--- NOTE | 2023-05-18 10:45 | Nuclear Medicine Report ---
NM pul perfusion CLINICAL HISTORY: Atypical chest pain. Assess for pulmonary embolus.. COMPARISON STUDY: Chest x-ray 05/15/2023. TECHNIQUE: Immediately following the intravenous administration of 5.5 mCi of technetium 99 M MAA for the perfusion scan, anterior, oblique, lateral, and posterior views of the chest were obtained. FINDINGS: The cardiac silhouette is mildly enlarged. Normal perfusion within the left lung. There are small to moderate-sized wedge-shaped perfusion defects seen within the right mid to lower lung zone. No corresponding abnormality on the recent chest x-ray. IMPRESSION: Wedge-shaped perfusion defects within the right mid to lower lung zone suggest the possi bility of an intermediate to high probability scan. ACT 112: Negative or not required by law. Electronically signed by: Lele Pena M.D. 05/18/2023 10:44 AM
[2023-05-18] MEDS: ALPRAZolam 0.5 MG TABLET PO SCH (15:05)
--- NOTE | 2023-05-18 15:21 | Discharge Summary ---
Date of Service May 18, 2023 Admission HPI Per Admitting Provider History obtained from patient, family, and records. 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 Patient underwent pacemaker generator change at same-day surgery by [facility] line construction engineer 3 months ago. Normal function on subsequent interrogation on EPS follow-up visit 3 weeks ago. Patient has not felt well since EPS procedure 3 months ago. Shortness of breath worse on exertion. Junky cough symptoms. Patient admits to coughing with food/water intake if not careful. Intermittent left-sided chest pain complaints. No fluid retention. Patient compliant with home medications. Usual anxiety. Patient seen at [facility] brass molder helper office 2 weeks ago. He was told that his heart was okay. Bronchospasm noted on examination as per note. Patient advised to follow-up with PCP. Patient seen at PCPs office 1 today. Rhonchi and wheezing noted on lung exam. Patient prescribed doxycycline for possible bronchitis. Outpatient chest x-ray and labs requested. Abnormal dimer noted on outpatient blood work. Patient sent to the ER for evaluation. Ceftriaxone and neb treatment administered at the ER. Medical History as above Surgical History : ICD, thyroidectomy, TURP, cataract surgery, eye surgery, hernia repair, dental surgery Family History : DM, heart disease Personal/Social history : Past tobacco abuse, no EtOH intake, lives with Admission Exam Per Admitting Provider GENERAL: Anxious, no respiratory distress SKIN: Pallor, warm HEENT: Partial alopecia, bespectacled, pale palpebral conjunctivae, no ptosis, dry buccal mucosa NECK : Supple, no tenderness CHEST : Decreased breath sounds, diffuse expiratory wheezes, no tenderness HEART : RRR, systolic murmur ABDOMEN: no distention, nontender EXTREMITIES : Minimal LE swelling, no LE tenderness, no other conspicuous deformities noted NEUROLOGIC : Coherent, no facial asymmetry, no other gross focality Principal Diagnosis Dyspnea on exertion Mild asthma exacerbation Possible pneumonia Pulmonary embolism Hyponatremia Demand ischemia Discharge Exam GENERAL: Alert and oriented x3. NAD, on RA. Appears anxious. HEENT: No pallor, no icterus. Pupils equal, round and reactive to light. Oral mucosa moist. NECK: No JVD, no neck masses. HEART: S1 and S2 heard. Regular rate and rhythm. + Murmur, no gallop. RESPIRATORY SYSTEM: Normal AP diameter. No accessory muscle use. + Wheezing b/l improving, occasional crackles leticia rll. ABDOMEN: Soft, bowel sounds present, nontender, no distention. CENTRAL NERVOUS SYSTEM: No facial droop. Speech is clear. Obeys simple commands. Moves extremities. EXTREMITIES: No edema, no erythema seen. Discharge Data Allergies Allergy/AdvReac Type Severity Reaction Status Date / Time sertraline Allergy Intermediate Swollen Unverified 05/15/23 20:36 Ankles prednisone AdvReac Intermediate crazy Verified 05/15/23 21:24 pantoprazole [From Protonix] AdvReac Unknown Diarrhea Unverified 05/15/23 20:36 Consultations 05/15/23 20:11 ED Decision to Admit Stat 05/15/23 21:36 Consult Cardiology Routine Ordered Studies 05/15/23 21:22 US venous doppler [facility] Hospital Course (1) Shortness of breath on exertion: Plan 88-year-old male with PMH of chronic systolic heart failure [2020 TTE with EF of 37%] status post ICD, CAD status post stent, chronic LBBB, valvular heart disease [moderate to severe MR/TR, mild MO/AR], pulmonary HTN, bronchial asthma, CKD [baseline creatinine 1.9], chronic anemia [baseline hemoglobin 12], GERD, po stsurgical hypothyroidism, BPH, paranoid schizophrenia, anxiety/mood disorder, past tobacco abuse, recent pacemaker generator exchange at same-day surgery by [facility] line construction engineer 3 months ago [normal function on subsequent interrogation on APS follow-up about 3 weeks ago] presented to the ED 05/15 with complaint of shortness of breath on exertion, reports occasional cough. Patient reports not feeling well since EPS procedure 3 months ago REGISTERED NURSE CARDIAC TELEMETRY. Patient had abnormal D-dimer as an outpatient recently. He was managed for the following: Dyspnea on exertion Mild asthma exacerbation Possible pneumonia Patient presents with shortness of breath on exertion, with occasional coughs. Was bronchospastic on examination on day 1. Admitting CXR with right lower lung airspace opacities which favor pneumonia. Not septic at presentation. Speech evaluated, no suspected signs and symptoms of aspiration at bedside exam. Continue with minced and moist diet, maintain aspiration precaution. Continue with Unasyn 05/16 to augmentin on dc to complete the course, c/w home fluticasone vilanterol inhaler, continue with RTC combivent respimat on dc for 5-7 days ---> pt and his explained at bedside. c/w Mucinex for 5 days on dc. Due to recent cardiac intervention, patient wanted cardiology eval, cardiology recommending initiation of entresto w/ plan to add aldactone and SGLT2 inhibitor as OP. Closely f/u cardio on DC. Concern for blood clot/PE: Patient with shortness of breath with minimal exertion, D-dimer elevated as an outpatient. Admitting BLE Doppler negative for DVT. Renal function precludes CTA chest. VQ scan::: Wedge-shaped perfusion defects within the right mid to lower lung zone suggest the possibility of an intermediate to high probability scan. . Transition to eliquis 10 mg bidx 7 days f/b 5 mg bid from today evening, pt and his made aware of dosing schedule. Hyponatremia secondary to illness, improving. Likely demand ischemia: Troponin mildly elevated, flat trended. Likely secondary to respiratory distress/asthma exacerbation. Other chronic medical condition: c/w home meds as able. 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 Carly Fountain, contact #[phone]. Patient being discharged home with home health with following instruction at the point of discharge: Follow-up with your primary care physician within a week time and likely you will need labs CBC/CMP/magnesium/phosphorus. For your pneumonia, you will be discharged on oral antibiotic, complete the course as prescribed. You will need repeat chest x-ray in 6 weeks time to document resolution. Coordinate with your PCP office. For your mild asthma exacerbation, continue to use DuoNebs every 4-6 hours for 5 to 7 days upon discharge. Then you can use rescue inhalers as prescribed before. Also use your other daily inhalers. Because of your blood clot history, you will benefit from hematology evaluation in 2 months time upon discharge. Coordinate with your PCP office for referral. Follow-up with cardiology as prior, you have been started on Entresto per cardiology recommendation while in hospital. Please make sure that you are able to get your medications today by calling your pharmacy before you leave the hospital so that your treatment continuity is not broken. Home Health Attestation I certify that this patient is under my care and that I, or a physicians assistant to the director working with me, had a face to-face encounter that meets the home health [id number] encounter requirements with this patient. The encounter with the patient was in whole, or in part, for the following medical condition, which is the primary reason for home health care (list medical condition): I certify that, based on my findings, the following services are medically necessary home health services: My clinical findings support the need for the above services because: Further, I certify that my clinical findings support that this patient is homebound (i.e. absences from home require considerable and taxing effort and are for medical reasons or oriental orthodox services or infrequently or of short duration when for other reasons) because: Certification for Home Health Services: Based on the above findings, I certify that this patient is confined to the home and needs intermittent usp care, physical therapy and/or speech therapy or continues to need occupational therapy. The patient is under my care, and I have initiated the establishment of the plan of care. This patient will be followed by a physician who will periodically review the plan of care. Total Time Total Time Spent Total Time Spent (In Minutes): 50 Discharge Plan Discharge Items Patient Disposition: Home - Home Health Services Reason For Visit: HYPONATREMIA, ASP PNX Discharge Diagnosis: Dyspnea on exertion Mild asthma exacerbation Possible pneumonia Pulmonary embolism Hyponatremia Demand ischemia Activity: Resume your previous activity Non-emergency contact: Primary Care Provider Call non-emergency contact if: you have any medication questions Follow-up/Referrals: Indra Asif MD [Primary Care Provider] - Diet: Heart Healthy Diet Texture: Easy to Chew Addtl Attending Provider Instructions: Follow-up with your primary care physician within a week time and likely you will need labs CBC/CMP/magnesium/phosphorus. For your pneumonia, you will be discharged on oral antibiotic, complete the course as prescribed. You will need repeat chest x-ray in 6 weeks time to document resolution. Coordinate with your PCP office. For your mild asthma exacerbation, continue to use DuoNebs every 4-6 hours for 5 to 7 days upon discharge. Then you can use rescue inhalers as prescribed befo re. Also use your other daily inhalers. Because of your blood clot history, you will benefit from hematology evaluation in 2 months time upon discharge. Coordinate with your PCP office for referral. Follow-up with cardiology as prior, you have been started on Entresto per cardiology recommendation while in hospital. Please make sure that you are able to get your medications today by calling your pharmacy before you leave the hospital so that your treatment continuity is not broken. Pending Studies at Discharge: No Stand-Alone Forms: My [facility] [employer], Smoking Cessation Medications and DC Order Prescriptions: New Eliquis 5 mg tablet 5 mg PO UD Qty: 74 0RF Rx Instructions: 10 mg twice a day for 7 days followed by 5 mg twice a day. Entresto 24-26 mg Tablet 1 tab PO BID Qty: 60 0RF guaifenesin [Mucinex] 600 mg Tablet Extended Release 12hr 600 mg PO Q12 5 Days Qty: 10 0RF amoxicillin-pot clavulanate 500-125 mg tablet 1 tab PO BID 5 Days Qty: 10 0RF Combivent Respimat 20-100 mcg/actuation mist 1 puff inhalation QID 5 Days Qty: 4 0RF Rx Instructions: space evenly during waking hours Continued clonidine HCl 0.1 mg tablet 0.05 mg PO BID Qty: 30 5RF alprazolam [Xanax] 0.25 mg tablet See Rx Instructions .ROUTE .COMPLEX PRN (Reason: Anxiety) Rx Instructions: Take 1 tablet in the morning, 2 tablets at 3pm and 1 tablet at 10pm carvedilol 3.125 mg tablet 3.125 mg PO BIDM Qty: 90 3RF Rx Instructions: must administer with a meal/food allopurinol 100 mg tablet 100 mg PO QAM Qty: 90 3RF furosemide 20 mg tablet 20 mg PO Q OTHER DAY Qty: 60 3RF Rx Instructions: Alternating with 40mg furosemide [Lasix] 40 mg tablet 40 mg PO Q OTHER DAY Qty: 60 3RF Rx Instructions: Alternating with 20mg aspirin 81 mg tablet,delayed release (DR/EC) 81 mg PO 3XWK Rx Instructions: Mon, Wed, Fri in the morning ferrous sulfate 325 mg (65 mg iron) tablet 325 mg PO QAM omeprazole 20 mg capsule,delayed release(DR/EC) 20 mg PO DAILYBB olanzapine [Zyprexa] 10 mg tablet 10 mg PO HS ascorbate calcium (vitamin C) 500 mg tablet 500 mg PO QAM atorvastatin 40 mg tablet 40 mg PO HS tamsulosin [Flomax] 0.4 mg capsule 0.4 mg PO QAM fluticasone furoate-vilanterol [Breo Ellipta] 100-25 mcg/dose blister with device 1 inh inhalation QAM albuterol sulfate 90 mcg/actuation HFA aerosol inhaler 1 inh inhalation Q6H PRN (Reason: shortness of breath or wheezing) Qty: 8.5 0RF docusate sodium 100 mg Tablet 100 mg PO DAILY acetaminophen [Tylenol Ex Str Rapid Release] 500 mg Tablet 1,000 mg PO DAILY PRN (Reason: pain or fever) levothyroxine 75 mcg tablet 75 mcg PO QAM Discharge Orders: Discharge Order (Routine); Ordered 05/18/23 Ordered By: Narinder Kuo Admission Data Admit Date/Time: 05/15/23 21:32 Attending Provider: Narinder Kuo Admit Provider: James Moses Primary Care Provider: Indra Asif Other Providers: Marcos Westfall ; James Moses ; [place]
[2023-05-18 16:14] LABS: Partial Thromboplastin Ratio 1.9
[2023-05-18 16:20] LABS: Partial Thromboplastin Time 53.4 Seconds (21.0-31.0)
[2023-05-18] MEDS ORDERED: VALSARTAN/SACUBITRIL 26/24MG TAB PO SCH (17:15)
[2023-05-18] MEDS ORDERED: IPRATROPIUM BROMIDE/ALBUTEROL respimat INH INH SCH (17:30)
[2023-05-18] MEDS ORDERED: IPRATROPIUM BROMIDE HFA INHALER INH SCH (19:00)
[2023-05-18] MEDS ORDERED: ALBUTEROL HFA 8 GM INHALER INH SCH (19:00)
[2023-05-18] MEDS ORDERED: APIXABAN 5 MG TABLET PO SCH (21:00)
== END 2023-05-18 19:13 | disposition home health service (06) | DRG 193 ==
LOC: ED 15:19 → 2W 21:32

== ENCOUNTER 2023-06-26 10:47 | Inpatient (IN) ==
[2023-06-26] MEDS ORDERED: PANTOprazole 40 MG in SYRINGE 0 ML IV ONE (11:14)
--- NOTE | 2023-06-26 11:16 | Emergency Department Note ---
Impression & Plan UGIB (upper gastrointestinal bleed), Anemia, Acute hyponatremia, Generalized muscle weakness ED Provider Note NAME: ANNE VENCES AGE: 88 SEX: M : 1935 ARRIVES VIA: Ambulance INFORMANT: Patient, ED PROVIDER(S): Marcos Stout DO CHIEF COMPLAINT: Shortness of breath HPI: The patient is an 88-year-old male who presented to the emergency department for an evaluation of weakness and shortness of breath. The patient has been getting progressively more weak especially with exertion as well as having shortness of breath and dizziness upon standing over the course the last 3 weeks. He was recently admitted to our facility and diagnosed with a pulmonary embolism with a VQ scan that was high probability. He does take Eliquis. He has noticed dark stool but he also takes iron supplementation and thought this was no problem. The patient himself went to his family doctor this week. He had laboratory studies drawn and was told to go to the emergency department because of a very low hemoglobin. He denies having any chest pain. He does note some swelling in his legs but nothing worse than usual. The patient denies having any fever. He denies having any abdominal pain. ROS: See above HPI for pertinent positives & negatives. A total of 10 systems reviewed and were otherwise negative. PAST MEDICAL HISTORY: See Below PAST SURGICAL HISTORY: See Below FAMILY HISTORY: See Below SOCIAL HISTORY: See Below HOME MEDICATIONS: See Below ALLERGIES: See Below VITALS: See Below PHYSICAL EXAMINATION: GENERAL: Patient is awake alert in no acute distress patient is resting comfortably and showing no signs of anxiety EYES: The conjunctivae are clear. The pupils are round and reactive. EARS, NOSE, MOUTH AND THROAT: The nose is without any evidence of any deformity. NECK: The neck is nontender and supple. RESPIRATORY: Normal respiratory effort is noted there is no evidence of wheezing rhonchi or rales CARDIOVASCULAR: Ectopic heart sounds were noted to auscultation. Systolic murmur was suggested. GASTROINTESTINAL: The abdomen is soft. Abdomen is nontender. Rectal exam revealed dark stool which was strongly heme positive. MUSCULOSKELETAL/EXTREMITIES: There is no evidence of gross deformity full range of motion is noted in the hips and shoulders. SKIN: There is no obvious evidence of any rash. There are no petechiae, pallor or cyanosis noted. NEUROLOGIC: Patient is awake alert and oriented x3 MEDICAL DECISION MAKING: The patient is an 88-year-old male who presented to the emergency department for an evaluation of weakness and difficulty breathing with exertion. The patient had outpatient laboratory studies which did show that he was anemic. The patient was found to have heme positive stool in the emergency department. I discussed the patient's laboratory and radiographic studies with him. Because of his findings he was started on Protonix and Pepcid in the emergency department. I discussed his condition with the on-call [facility] hospitalist group. They have agreed to evaluate the patient in the emergency department for further management and disposition. Triage Nursing notes reviewed. Prior medical records reviewed Vital Signs: reviewed and remarkable for no significant abnormalities Differential diagnosis: Infection, dehydration, metabolic abnormality, hypo/hyperglycemia, electrolyte disturbance, anemia, hypoxia, cardiac sources, intracerebral event, toxicologic, neurologic, as well as other pathologies. ER treatment provided: See below Diagnostics interpreted by me: ECG: EKG was obtained in the emergency department. My interpretation is ventricular paced rhythm at 76 bpm. [place] PVCs were also noted. This was compared to a tracing from May 15, 2023. No changes were noted. Cardiac Monitoring: An order was placed for continuous cardiac monitoring. The monitor shows a rate of 71 bpm with sinus rhythm Laboratory studies: As stated above and show below. Imaging studies: See below. Radiographic imaging was reviewed by myself Consultation(s): I discussed this case with Elizabeth who is on-call for the [facility] hospitalist group. Past Med/Surg History Medical History Aortic valve disorder Asymptomatic arteriosclerosis of coronary artery Atypical angina Atypical chest pain Automatic implantable cardiac defibrillator in situ CAD in [place] artery Cardiomyopathy Carpal tunnel syndrome Chest pain Chronic obstructive pulmonary disease Depression Dizziness Dyslipidemia Dyspnea on exertion Encounter for adjustment or management of automatic implantable cardioverter- defibrillator GERD (gastroesophageal reflux disease) Gout Hernia HFrEF (heart failure with reduced ejection fraction) Hyperlipidemia Hyperplasia of prostate without lower urinary tract symptoms (LUTS) Hypertension, benign Hypothyroidism Mitral valve disorder Mitral valve insufficiency Nonrheumatic aortic (valve) insufficiency 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 cardiomyopathies Pulmonary valve disorder Shortness of breath Unspecified disorder of kidney and ureter Unspecified venous (peripheral) insufficiency Surgical History H/O heart artery stent H/O partial thyroidectomy H/O transurethral resection of prostate History of esophagogastroduodenoscopy (EGD) S/P cardiac cath S/P cataract surgery S/P eye surgery S/P hernia repair S/P tooth extraction Family History Father CHF (congestive heart failure) Mother Diabetes Brother Heart disease Social History Smoking Status: Former smoker Tobacco Type: Cigarettes Hx Alcohol Use: No Hx Substance Use: No Preferred Language: Dutch Communication Ability: Effective Computer Repairer Required: No Beliefs That Will Affect Care: None marital status: marital status details: Carly Current Living Situation: Spouse current occupational status: retired current occupation: Clerical Feels Safe at Home: Yes caffeine: Yes (1-2 cups per day) Assistive Devices: Walker and Other Allergies Allergies Allergy/AdvReac Type Severity Reaction Status Date / Time sertraline Allergy Intermediate Swollen Unverified 05/15/23 20:36 Ankles prednisone AdvReac Intermediate crazy Verified 05/15/23 21:24 pantoprazole [From Protonix] AdvReac Unknown Diarrhea Unverified 05/15/23 20:36 ticagrelor AdvReac bleeding Verified 06/26/23 12:23 Home Meds Home Medications Medication Instructions Recorded Confirmed ascorbate calcium (vitamin C) 500 500 mg PO QAM 08/27/21 05/15/23 mg tablet aspirin 81 mg tablet,delayed 81 mg PO 3XWK 08/27/21 05/15/23 release ferrous sulfate 325 mg (65 mg 325 mg PO QAM 08/27/21 05/15/23 iron) tablet olanzapine 10 mg tablet (Zyprexa) 10 mg PO HS 08/27/21 05/15/23 omeprazole 20 mg capsule,delayed 20 mg PO DAILYBB 08/27/21 05/15/23 release alprazolam 0.25 mg tablet (Xanax) See Rx Instructions .Route 09/16/21 05/15/23 .COMPLEX PRN Anxiety atorvastatin 40 mg tablet 40 mg PO HS 12/24/21 05/15/23 fluticasone furoate 100 1 inh inhalation QAM 12/24/21 05/15/23 mcg-vilanterol 25 mcg/dose inhalation powder (Breo Ellipta) tamsulosin 0.4 mg capsule (Flomax) 0.4 mg PO QAM 12/24/21 05/15/23 docusate sodium 100 mg tablet 100 mg PO DAILY 03/06/23 05/15/23 acetaminophen 500 mg tablet 1,000 mg PO DAILY PRN pain or fever 05/15/23 05/15/23 levothyroxine 75 mcg tablet 75 mcg PO QAM 05/15/23 05/15/23 ipratropium 0.5 mg-albuterol 3 mg 3 ml inhalation QID 06/26/23 06/26/23 (2.5 mg base)/3 mL nebulization soln Previous Rx's Medication Instructions Recorded clonidine HCl 0.1 mg tablet 0.05 mg PO BID #30 tabs 09/16/21 albuterol sulfate 90 mcg/actuation 1 inh inhalation Q6H PRN shortness 12/24/21 aerosol inhaler of breath or wheezing #8.5 grams carvedilol 3.125 mg tablet 3.125 mg PO BIDM #90 tabs 03/10/22 allopurinol 100 mg tablet 100 mg PO QAM #90 tabs 09/05/22 furosemide 20 mg tablet 20 mg PO Q OTHER DAY #60 tabs 11/27/22 furosemide 40 mg tablet (Lasix) 40 mg PO Q OTHER DAY #60 tabs 11/27/22 apixaban 5 mg tablet (Eliquis) 5 mg PO UD #74 tabs 05/18/23 Results & Data (ED) Vital Signs Vital Signs - 24 hr 06/26/23 10:50 06/26/23 11:31 06/26/23 12:00 Temperature 36.6 C Temperature Source Axillary Pulse Rate 62 75 Pulse Rate from SpO2 Sensor Respiratory Rate 14 16 Respiratory Depth Normal Normal Blood Pressure 126/82 Blood Pressure [Right Arm] 121/73 Blood Pressure Mean 96 Blood Pressure Mean [Right Arm] 89 Pulse Oximetry 100 98 Oxygen Delivery Method Room Air Room Air Sepsis Recent Fever Within 48 Hours No Sepsis New/Unexplained Change in Mental Status N/A Sepsis Action Taken by Nursing No Action Required 06/26/23 11:08 06/26/23 11:30 06/26/23 12:30 Temperature Temperature Source Pulse Rate 78 74 71 Pulse Rate from SpO2 Sensor 79 79 71 Respiratory Rate 20 14 13 Respiratory Depth Blood Pressure 121/73 Blood Pressure [Right Arm] Blood Pressure Mean 89 Blood Pressure Mean [Right Arm] Pulse Oximetry 100 96 99 Oxygen Delivery Method Sepsis Recent Fever Within 48 Hours Sepsis New/Unexplained Change in Mental Status Sepsis Action Taken by Long Term Medications Current Medication List: was personally reviewed by me Laboratory Data Attestation: I reviewed the patient's lab results. 06/26/23 11:00 06/26/23 11:00 Lab Results 06/26/23 06/26/23 06/26/23 Range/Units 10:58 11:00 11:00 WBC 6.25 (4.8-10.8) K/ul RBC 2.32 L (4.70-6.10) M/uL Hgb 7.1 L (14.0-18.0) g/dl Hct 21.2 L (42.0-52.0) % MCV 91.4 (80.0-100.0) fL MCH 30.6 (25.0-34.0) pg MCHC 33.5 (32.0-36.0) g/dL RDW Std Deviation 48.8 H (36.4-46.3) fL RDW Coeff of Ruth 14.6 H (11.5-14.5) % Plt Count 152 (130-400) K/uL MPV 10.9 (9.4-12.4) fL Immature Gran % (Auto) 0.3 % Neut % (Auto) 68.7 % Lymph % (Auto) 20.6 % [place] % (Auto) 6.9 % Eos % (Auto) 3.2 % Baso % (Auto) 0.3 % Reticulocyte % (Auto) 3.6 H (0.5-2.0) % Neut # (Auto) 4.29 (1.40-6.50) K/uL Lymph # (Auto) 1.29 (1.2-3.4) K/uL [place] # (Auto) 0.43 (0.11-0.59) K/uL Eos # (Auto) 0.20 (0-0.50) K/uL Baso # (Auto) 0.02 (0-0.2) K/uL Reticulocyte # 0.08 (0.02-0.10) 10^6/uL Immature Gran # (Auto) 0.02 (0.01-0.20) K/uL Polychromasia 1+ Acanthocytes (Spur) 2+ PT 12.0 (9.0-12.0) Seconds INR 1.1 (0.9-1.1) APTT 34.2 H (21.0-31.0) Seconds PTT Ratio 1.2 Sodium (136-145) mmol/L Potassium (3.5-5.1) mmol/L Chloride (98-107) mmol/L Carbon Dioxide (21-32) mmol/L Anion Gap (3-11) BUN (6-23) mg/dl Creatinine (0.6-1.4) mg/dl Est Cr Clr Drug Dosing ml/min Est GFR ( Amer) ml/min Est GFR (Non-Af Amer) ml/min BUN/Creatinine Ratio (10-20) Glucose (70-99(Fasting)) mg/dl Calcium (8.6-10.3) mg/dl Iron (35-175) mcg/dl Transferrin (200-360) mg/dl Ferritin (8-388) ng/ml Total Bilirubin (0.2-1.0) mg/dl AST (13-39) U/L ALT (7-52) U/L Alkaline Phosphatase (34-104) U/L Troponin I High Sens (0-20) pg/ml Total Protein (6.0-8.3) gm/dl Albumin (3.4-5.0) gm/dl Globulin (2.5-4.0) gm/dl Albumin/Globulin Ratio (0.9-2) Lipase (11-82) U/L Vitamin B12 (180-914) pg/ml Folate (>5.38) ng/ml Crossmatch See Detail 06/26/23 06/26/23 06/26/23 Range/Units 11:00 11:00 11:00 WBC (4.8-10.8) K/ul RBC (4.70-6.10) M/uL Hgb (14.0-18.0) g/dl Hct (42.0-52.0) % MCV (80.0-100.0) fL MCH (25.0-34.0) pg MCHC (32.0-36.0) g/dL RDW Std Deviation (36.4-46.3) fL RDW Coeff of Ruth (11.5-14.5) % Plt Count (130-400) K/uL MPV (9.4-12.4) fL Immature Gran % (Auto) % Neut % (Auto) % Lymph % (Auto) % [place] % (Auto) % Eos % (Auto) % Baso % (Auto) % Reticulocyte % (Auto) (0.5-2.0) % Neut # (Auto) (1.40-6.50) K/uL Lymph # (Auto) (1.2-3.4) K/uL [place] # (Auto) (0.11-0.59) K/uL Eos # (Auto) (0-0.50) K/uL Baso # (Auto) (0-0.2) K/uL Reticulocyte # (0.02-0.10) 10^6/uL Immature Gran # (Auto) (0.01-0.20) K/uL Polychromasia Acanthocytes (Spur) PT (9.0-12.0) Seconds INR (0.9-1.1) APTT (21.0-31.0) Seconds PTT Ratio Sodium 127 L (136-145) mmol/L Potassium 4.5 (3.5-5.1) mmol/L Chloride 93 L (98-107) mmol/L Carbon Dioxide 25 (21-32) mmol/L Anion Gap 9 (3-11) BUN 36 H (6-23) mg/dl Creatinine 2.17 H (0.6-1.4) mg/dl Est Cr Clr Drug Dosing 22.8 ml/min Est GFR ( Amer) 30.8 ml/min Est GFR (Non-Af Amer) 26.6 ml/min BUN/Creatinine Ratio 16.6 (10-20) Glucose 120 H (70-99(Fasting)) mg/dl Calcium 8.4 L (8.6-10.3) mg/dl Iron 30 L (35-175) mcg/dl Transferrin 202 (200-360) mg/dl Ferritin 85.3 (8-388) ng/ml Total Bilirubin 0.7 (0.2-1.0) mg/dl AST 17 (13-39) U/L ALT 11 (7-52) U/L Alkaline Phosphatase 45 (34-104) U/L Troponin I High Sens 19.2 (0-20) pg/ml Total Protein 6.3 (6.0-8.3) gm/dl Albumin 3.8 (3.4-5.0) gm/dl Globulin 2.5 (2.5-4.0) gm/dl Albumin/Globulin Ratio 1.5 (0.9-2) Lipase 17 (11-82) U/L Vitamin B12 215 (180-914) pg/ml Folate 17.65 (>5.38) ng/ml Crossmatch Administered Medications Discontinued Medications Albuterol (Albut/Ipratrop 3mg/0.5mg Neb 3 Ml Vial) 3 ml NEB NOW STA; Protocol Stop: 06/26/23 13:11 Last Admin: 06/26/23 13:47 Dose: 3 ml Documented By: JOHNNY Famotidine (Pepcid 20mg Iv Push) 20 mg in 5 mls @ 2.5 mls/min IV NOW STA Stop: 06/26/23 11:15 Last Admin: 06/26/23 11:53 Dose: 2.5 mls/min Documented By: Admin: 06/26/23 11:53 Dose: 2.5 mls/min Documented By: JOHNNY Pantoprazole Sodium 40 mg/ (Syringe) 10 mls @ 5 mls/min IV NOW ONE Stop: 06/26/23 11:15 Last Admin: 06/26/23 11:55 Dose: 5 mls/min Documented By: JOHNNY Sodium Chloride (Nss 1000ml) 500 mls @ 999 mls/hr IV .Q31M ONE Stop: 06/26/23 12:46 Last Admin: 06/26/23 13:04 Dose: 999 mls/hr Documented By: JOHNNY Imaging Data Attestation: I personally reviewed and interpreted this imaging study as follows: My Impression: 1 view chest x-ray was obtained in the emergency department. My interpretation is no free air or definite infiltrate, final report below. Radiologist's Impression: Chest X-Ray 06/26/23 11:08 XR chest 1V portable CLINICAL HISTORY: Chest pain, nonspecific TECHNIQUE: Single frontal radiograph of the chest was obtained. Comparison: Comparison is made to chest radiograph 05/15/2023 FINDINGS: Pacemaker defibrillator is seen. Cardiomegaly is noted. The aortic arch is calcified. The lungs are clear. No evidence of pleural effusion or pneumothorax. IMPRESSION: No acute chest disease. ACT 112: Negative or not required by law. Electronically signed by: Reza Neri M.D. 06/26/2023 11:41 AM Discharge Plan Visit Data Chief Complaint: Abnormal Labs/Diagnostic Testing Stated Complaint: ABNORMAL LABS ED Provider: Marcos Stout Discharge Problem: UGIB (upper gastrointestinal bleed), Anemia, Acute hyponatremia, Generalized muscle weakness Patient Disposition: Being Evaluated by Hospitalist Forms Stand Alone Forms: [facility] Prescriptions Prescriptions: No Action clonidine HCl 0.1 mg tablet 0.05 mg PO BID Qty: 30 5RF alprazolam [Xanax] 0.25 mg tablet See Rx Instructions .ROUTE .COMPLEX PRN (Reason: Anxiety) Rx Instructions: Take 1 tablet in the morning, 2 tablets at 3pm and 1 tablet at 10pm carvedilol 3.125 mg tablet 3.125 mg PO BIDM Qty: 90 3RF Rx Instructions: must administer with a meal/food allopurinol 100 mg tablet 100 mg PO QAM Qty: 90 3RF furosemide 20 mg tablet 20 mg PO Q OTHER DAY Qty: 60 3RF Rx Instructions: Alternating with 40mg furosemide [Lasix] 40 mg tablet 40 mg PO Q OTHER DAY Qty: 60 3RF Rx Instructions: Alternating with 20mg aspirin 81 mg tablet,delayed release (DR/EC) 81 mg PO 3XWK Rx Instructions: Mon, Wed, Fri in the morning ferrous sulfate 325 mg (65 mg iron) tablet 325 mg PO QAM omeprazole 20 mg capsule,delayed release(DR/EC) 20 mg PO DAILYBB olanzapine [Zyprexa] 10 mg tablet 10 mg PO HS ascorbate calcium (vitamin C) 500 mg tablet 500 mg PO QAM atorvastatin 40 mg tablet 40 mg PO HS tamsulosin [Flomax] 0.4 mg capsule 0.4 mg PO QAM fluticasone furoate-vilanterol [Breo Ellipta] 100-25 mcg/dose blister with device 1 inh inhalation QAM albuterol sulfate 90 mcg/actuation HFA aerosol inhaler 1 inh inhalation Q6H PRN (Reason: shortness of breath or wheezing) Qty: 8.5 0RF ipratropium-albuterol 0.5 mg-3 mg(2.5 mg base)/3 mL solution for nebulization 3 ml INHALATION QID docusate sodium 100 mg Tablet 100 mg PO DAILY acetaminophen 500 mg Tablet 1,000 mg PO DAILY PRN (Reason: pain or fever) levothyroxine 75 mcg tablet 75 mcg PO QAM Eliquis 5 mg tablet 5 mg PO UD Qty: 74 0RF Rx Instructions: 10 mg twice a day for 7 days followed by 5 mg twice a day. Referrals Referrals: Indra Asif MD [Primary Care Provider] -
[2023-06-26 11:27] LABS: Basophils # (auto) 0.02 K/uL (0-0.2); Basophils % (auto) 0.3 %; Eosinophils % (auto) 3.2 %; Hematocrit (blood only) 21.2 % (42.0-52.0); Hemoglobin 7.1 g/dl (14.0-18.0); Immature Granulocytes # (auto) 0.02 K/uL (0.01-0.20); Immature Granulocytes % (auto) 0.3 %; Lymphocytes # (auto) 1.29 K/uL (1.2-3.4); Lymphocytes % (auto) 20.6 %; Mean Corpuscular Hemoglobin 30.6 pg (25.0-34.0); Mean Corpuscular Hgb Conc 33.5 g/dL (32.0-36.0); Mean Corpuscular Volume 91.4 fL (80.0-100.0); Mean Platelet Volume 10.9 fL (9.4-12.4); Monocytes # (auto) 0.43 K/uL (0.11-0.59); Monocytes % (auto) 6.9 %; Neutrophils # (auto) 4.29 K/uL (1.40-6.50); Neutrophils % (auto) 68.7 %; Platelet Count 152 K/uL (130-400); RDW Coefficient of Variation 14.6 % (11.5-14.5); RDW Standard Deviation 48.8 fL (36.4-46.3); Red Blood Count 2.32 M/uL (4.70-6.10); Reticulocyte % 3.6 % (0.5-2.0); Reticulocytes # 0.08 10^6/uL (0.02-0.10); White Blood Count 6.25 K/ul (4.8-10.8)
--- NOTE | 2023-06-26 11:42 | XRay Report ---
XR chest 1V portable CLINICAL HISTORY: Chest pain, nonspecific TECHNIQUE: Single frontal radiograph of the chest was obtained. Comparison: Comparison is made to chest radiograph 05/15/2023 FINDINGS: Pacemaker defibrillator is seen. Cardiomegaly is noted. The aortic arch is calcified. The lungs are c lear. No evidence of pleural effusion or pneumothorax. IMPRESSION: No acute chest disease. ACT 112: Negative or not required by law. Electronically signed by: Reza Neri M.D. 06/26/2023 11:41 AM
[2023-06-26 11:45] LABS: Acanthocytes 2+; Albumin Globulin Ratio 1.5 (0.9-2); Albumin Level 3.8 gm/dl (3.4-5.0); BUN Creatinine Ratio 16.6 (10-20); Bilirubin,Total 0.7 mg/dl (0.2-1.0); Calcium 8.4 mg/dl (8.6-10.3); Creatinine Clr Calc Pharmacy 22.8 ml/min; Est GFR (African American) 30.8 ml/min; Est GFR (Non-African American) 26.6 ml/min; Globulin 2.5 gm/dl (2.5-4.0); Polychromasia 1+; Potassium 4.5 mmol/L (3.5-5.1); Total Protein 6.3 gm/dl (6.0-8.3)
[2023-06-26 11:51] LABS: Troponin I High Sensitivity 19.2 pg/ml (0-20)
[2023-06-26] MEDS: FAMOTIDINE 20MG IV PUSH 20 MG/5 ML SYR IV STA (11:53)
[2023-06-26 11:55] LABS: INR 1.1 (0.9-1.1); Partial Thromboplastin Ratio 1.2; Partial Thromboplastin Time 34.2 Seconds (21.0-31.0)
[2023-06-26] MEDS ORDERED: SODIUM CHLORIDE 0.9% 1000ML 500 ML IV ONE (12:16)
--- NOTE | 2023-06-26 12:36 | History & Physical Report ---
Date of Service June 26, 2023 Assessment & Plan (1) Symptomatic anemia: (2) UGIB (upper gastrointestinal bleed): Plan: Patient is 88 y/o M with PMH HTN, dyslipidemia, CAD s/p LAD PCI, history ischemic cardiomyopathy, s/p ICD, systolic CHF, asthma, CKD III, hyponatremia, anxiety, recent PE on Eliquis presented to ER for worsening exertional breath and weakness x 2 weeks Possible Upper GI bleed Hgb: 7.1 (06/24/23Hgb: 7.4, 10.9 on 05/18/23). BUN: 36, Cr: 2.1 In ER given 500 mL NSS, 40 mg Protonix IV, 20 mg Pepcid IV Reported positive Hemoccult stool in ER Anemia labs pending Protonix IV twice daily Type and cross Recheck H&H this evening, if Hgb dropping plan to transfuse PRBC and give dose IV Lasix with transfusion H&H Q6H Clear liquids NPO Midnight Hold Eliquis and aspirin. Thorough discussion with patient and patient's about risks and benefits of holding with patient's possible GI bleed and recently diagnosed PE GI consult, recommends PPI IV BID, no current indication for emergent scope CBC, BMP in a.m. Blood consent was obtained from the patient as delegated by Dr. Kwok. Risks and benefits were explained. All questions were answered, and the patient and were offered the opportunity to discuss with attending physician and declined. (3) Hyponatremia: Plan: Acute on chronic hyponatremia Na: 127. Baseline ~130 Repeat BMP tonight with Na: 132 (4) Pulmonary embolism: Plan: 05/18/23 VQ Scan: Wedge-shaped perfusion defects within the right mid to lower lung zone suggest the possibility of an intermediate to high probability scan. 05/05/2023: Venous Doppler BLE without DVT CTA chest to rule out PE was unable to be performed secondary to patient's CKD On Eliquis Hold Eliquis as above for anemia and possible GI bleed Vascular surgery consult, spoke to Anamika Parnell PA-C who recommends repeating LE venous doppler to r/o DVT Repeat venous Doppler BLE today: Negative for DVT (5) CKD (chronic kidney disease), stage III: Plan: Cr: 2.1. Baseline Cr: 1.9-2.0 Monitor renal functions, avoid nephrotoxic agents when able (6) Asthma: Plan: No signs exacerbation Continue home Breo, scheduled DuoNebs (7) HFrEF (heart failure with reduced ejection fraction): (8) Cardiomyopathy: Plan: History ischemic cardiomyopathy S/P ICD Echo 05/15/2023: EF: 35-40%, apical akinesis, moderate mitral regurgitation, mild tricuspid regurgitation Will hold Lasix and reassess volume status tomorrow (9) Hypertension, benign: Plan: Continue carvedilol, clonidine (10) CAD in [place] artery: Plan: S/P LAD PCI Hold aspirin Continue carvedilol, atorvastatin (11) Paranoid schizophrenia: Plan: Continue Zyprexa, alprazolam DVT Prophylaxis SCDs Conditional Code as per discussion with pt and pt's . Does not want intubation or mechanical ventilation, is okay with CPR, defibrillation Follows with Dr Asif for routine care Pt was seen and care coordinated with Dr Kwok. See addendum I spent a total of 83 minutes reviewing notes, outpatient records, labs, medication, coordinating, documenting and providing care for this patient excluding time spent in the performance of separately billed services. History of Present Illness Chief Complaint: exertional SOB Primary Care Provider: Indra Asif MD Patient is 88 y/o M with PMH HTN, dyslipidemia, CAD s/p LAD PCI, history ischemic cardiomyopathy, s/p ICD, systolic CHF, asthma, CKD III, hyponatremia, anxiety, PE presented to ER for worsening exertional breath and weakness x 2 weeks. History obtained from patient, patient's , as well as inpatient and outpatient chart review. Patient with history of hospitalization at [facility] on 05/15/23-05/18/2023 for dyspnea on exertion, asthma exacerbation, possible pneumonia, pulmonary embolism diagnosed by intermediate to high probability VQ scan and hyponatremia. Was discharged on Eliquis. Per outpatient chart review was seen PCPs office 06/24/2023 for increased shortness of breath thought possible to asthma exacerbation, possible CHF exacerbation. 06/24/23 Outpatient labs with hemoglobin 7.4 and was referred to ER for further evaluation. Patient states at rest doesn't have any complaints. When walking and climbing stairs is SOB and dizzy. Feels like becoming more weak with walking. Uses walker at baseline. Denies any falls. Patient reports chronic dark brown/black color stools and relates this to being on iron supplements. Denies any red blood, diarrhea, abdominal pain. reports colonoscopy approximately 10 years ago and was reported as "ok". History of GI bleed and Sadia-Law tear 10 years ago while on Brilinta and states required couple units PRBCs at that time. Stopped Entresto 05/26/23 as noticed BLE edema and notified cardiology who recommended discontinuing. States has had BLE edema since discharge from hospital and denies any acute worsening. Denies fever/chills, diaphoresis, N/V/D/C, [place], syncope, vision changes, CP, SOB, orthopnea, palpitations, cough, rhinorrhea, abdominal pain, paresthesias, rashes, urinary symptoms. Allergies Allergy/AdvReac Type Severity Reaction Status Date / Time sertraline Allergy Intermediate Swollen Unverified 05/15/23 20:36 Ankles prednisone AdvReac Intermediate crazy Verified 05/15/23 21:24 pantoprazole [From Protonix] AdvReac Unknown Diarrhea Unverified 05/15/23 20:36 ticagrelor AdvReac bleeding Verified 06/26/23 12:23 Home Medications Medication Instructions Recorded Confirmed Type ascorbate calcium (vitamin C) 500 500 mg PO QAM 08/27/21 06/26/23 History mg tablet aspirin 81 mg tablet,delayed 81 mg PO 3XWK 08/27/21 06/26/23 History release ferrous sulfate 325 mg (65 mg 325 mg PO QAM 08/27/21 06/26/23 History iron) tablet olanzapine 10 mg tablet (Zyprexa) 10 mg PO HS 08/27/21 06/26/23 History omeprazole 20 mg capsule,delayed 20 mg PO DAILYBB 08/27/21 06/26/23 History release alprazolam 0.25 mg tablet (Xanax) 0.25 mg PO QID PRN Anxiety 09/16/21 06/26/23 History clonidine HCl 0.1 mg tablet 0.05 mg PO BID #30 tabs 09/16/21 06/26/23 Rx albuterol sulfate 90 mcg/actuation 1 inh inhalation Q6H PRN shortness 12/24/21 06/26/23 Rx aerosol inhaler of breath or wheezing #8.5 grams atorvastatin 40 mg tablet 40 mg PO HS 12/24/21 06/26/23 History fluticasone furoate 100 1 inh inhalation QAM 12/24/21 06/26/23 History mcg-vilanterol 25 mcg/dose inhalation powder (Breo Ellipta) tamsulosin 0.4 mg capsule (Flomax) 0.4 mg PO QAM 12/24/21 06/26/23 History carvedilol 3.125 mg tablet 3.125 mg PO BIDM #90 tabs 03/10/22 06/26/23 Rx allopurinol 100 mg tablet 100 mg PO QAM #90 tabs 09/05/22 06/26/23 Rx furosemide 20 mg tablet 20 mg PO Q OTHER DAY #60 tabs 11/27/22 06/26/23 Rx furosemide 40 mg tablet (Lasix) 40 mg PO Q OTHER DAY #60 tabs 11/27/22 06/26/23 Rx docusate sodium 100 mg tablet 100 mg PO DAILY 03/06/23 06/26/23 History acetaminophen 500 mg tablet 1,000 mg PO DAILY PRN pain or fever 05/15/23 06/26/23 History levothyroxine 75 mcg tablet 75 mcg PO QAM 05/15/23 06/26/23 History apixaban 5 mg tablet (Eliquis) 5 mg PO BID 06/26/23 06/26/23 History ipratropium 0.5 mg-albuterol 3 mg 3 ml inhalation QID 06/26/23 06/26/23 History (2.5 mg base)/3 mL nebulization soln Past Med/Surg History Medical History Aortic valve disorder Asymptomatic arteriosclerosis of coronary artery Atypical angina Atypical chest pain Automatic implantable cardiac defibrillator in situ CAD in [place] artery Cardiomyopathy Carpal tunnel syndrome Chest pain Chronic obstructive pulmonary disease CKD (chronic kidney disease), stage III Depression Dizziness Dyslipidemia Dyspnea on exertion Encounter for adjustment or management of automatic implantable cardioverter- defibrillator GERD (gastroesophageal reflux disease) Gout Hernia HFrEF (heart failure with reduced ejection fraction) Hyperlipidemia Hyperplasia of prostate without lower urinary tract symptoms (LUTS) Hypertension, benign Hypothyroidism Mitral valve disorder Mitral valve insufficiency Nonrheumatic aortic (valve) insufficiency 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 cardiomyopathies Paranoid schizophrenia Pulmonary valve disorder Shortness of breath Unspecified disorder of kidney and ureter Unspecified venous (peripheral) insufficiency Surgical History H/O heart artery stent H/O partial thyroidectomy H/O transurethral resection of prostate History of esophagogastroduodenoscopy (EGD) S/P cardiac cath S/P cataract surgery S/P eye surgery S/P hernia repair S/P tooth extraction Family History Father CHF (congestive heart failure) Mother Diabetes Brother Heart disease Social History Smoking Status: Former smoker Tobacco Type: Cigarettes Hx Alcohol Use: No Hx Substance Use: No Preferred Language: Georgian Communication Ability: Effective Pump Assembler Required: No Beliefs That Will Affect Care: None marital status: marital status details: Carly Current Living Situation: Spouse current occupational status: retired current occupation: Clerical Feels Safe at Home: Yes caffeine: Yes (1-2 cups per day) Assistive Devices: Walker and Other Review of Systems Review of Systems: All systems reviewed & are unremarkable except as noted in HPI & below Physical Exam Physical Exam: General: no acute distress, WDWN Head: normocephalic, atraumatic Eyes: conjunctiva non-injected, anicteric ENT: normal inspection external ears, nose, mucous membranes moist Neck: supple, trachea midline Lungs: clear, no respiratory distress, no wheezing/rhonchi/rales CV: RRR, no murmur, 1-2+ pretibial edema Abd: normal BS, soft, non-tender Ext: no cyanosis, no calf tenderness Neuro: A&O x 3, no focal deficits noted, normal affect Skin: warm, dry Results & Data Results & Data Vital Signs (Past 12 Hours) Vital Signs Temp Pulse Resp BP Pulse Ox O2 Del Method 06/26/23 11:31 75 06/26/23 10:50 36.6 C 62 14 126/82 100 Room Air ECG Additional Comments: Rate 72, paced rhythm per my interpretation Supervising Physician Co-Signing Physician Notes Pt seen and examined by myself, Zainab Kwok MD on the day of service. Care was coordinated with Tressa Tidwell PA-C. Please refer to her note for additional information. 88yoM with CKD and Hx of PE diagnosed on V/Q scan presenting with acutely decreased Hgb of 7.1, dizziness with ambulation and heme positive stools. AAOx3, breath sounds clear, RRR, abdomen nontender. q4h hgb trend, transfuse if decreased further, PPI drip, GI consult. Also hyponatremic, received 500ml of NSS in the ED. Otherwise as above.
[2023-06-26] MEDS ORDERED: ALBUT/IPRATROP 3MG/0.5MG NEB 3 ML VIAL NEB STA (13:10)
[2023-06-26 13:42] LABS: Ferritin 85.3 ng/ml (8-388)
--- NOTE | 2023-06-26 14:25 | Gastrointestinal Consultation ---
Date of Consultation June 26, 2023 Assessment & Plan (1) Anemia: 88 year old male with history of HTN, dyslipidemia, CAD s/p cardiac stenting, history ischemic cardiomyopathy s/p ICD, systolic CHF, asthma, CKD3, hyponatremia, anxiety, PE anticoagulated on ASA and Eliquis who is admitted thorough the ED for exertional SOB and weakness, symptomatic anemia hgb 7 without BUN elevation but report of heme positive stools in the ED. He reports formed, black stools (normal for him on PO iron) every other day without any GI distress or reports of tarry stools, BRBPR, hematemesis or coffee ground emesis. He also notes that at his age he would prefer to avoid endoscopic evaluation unless urgently needed. Recommend conservative measures for now. Trend H&H. Monitor and document GI output. Transfuse PRN. May hold AC for now. No NSAIDs. IV PPI BID x 48 hours then PO PPI BID x 3 months then 40 mg once daily thereafter. May continue iron. In the event endoscopic intervention is required, he will need to be medically optimizes as he notes worsening cardiopulmonary status requiring use of his nebulizer/inhaler a few times daily x months and new lower extremity edema. Thank you for allowing us to participate in the care of this patient. Please call with any acute changes, questions or concerns. Please see addendum below with additional recommendation from my supervising physician. Supervising Physician Co-Signing Physician Notes I saw and evaluated the patient. We were consulted for a recent drop in the patient's hemoglobin in the setting of chronic dark stools. Of note the patient is on antiplatelet therapy and anticoagulation as result of his underlying cardiac disease. Patient is quite elderly and appears to be somewhat frail. PE: No obvious distress, friendly patient, frail-appearing pallor of skin noted no abdominal tenderness We did have a long discussion with he and his and they would like to proceed with endoscopic evaluation for further assessment of his symptoms. Based on the appearance I wonder if he may have arteriovenous malformations or perhaps occult loss as result of his chronic anticoagulation and antiplatelet use. As patient does not have evidence of an acute gastrointestinal bleed we will make arrangements for the upper endoscopy and colonoscopy early next week once he has been cleared by our cardiology service (emergency endoscopy does not appear to be needed at the present time). Over the weekend please call with any additional questions or concerns otherwise coverage to resume on Thursday History of Present Illness Reason for Consultation: heme positive stools, symptomatic anemia Requesting Physician: Tressa Tidwell PA-C Attending Physician: Tressa Tidwell PA-C History of Present Illness 88 year old male with history of HTN, dyslipidemia, CAD s/p LAD PCI, history ischemic cardiomyopathy s/p ICD, systolic CHF, asthma, CKD3, hyponatremia, anxiety, PE anticoagulated on ASA and Eliquis who is admitted thorough the ED for exertional SOB and weakness. GI was asked to evaluate for a possible GI bleed. Pt was seen and evaluated in [facility] ED. at bedside who aids in history. He suggests he has been on PO iron "forever" and has chronic black, formed stools. Notes that he was started on iron as he has a chronic anemia thought secondary to chronic disease and iron deficiency. Notes that with this regimen he typically has a formed, black stool daily or every day. No change in bowel output of recent. Denies any increase in stool frequency or any dark, tarry stools. No BRB. He also denies abd pain, nausea, vomiting. No previous reports of black or bloody emesis. He does recall years ago he was on AC and had an UGI bleed secondary to bouts of vomiting and a meron dodd tear. He suggests this was about 10-20 years ago. He suggests he last had an EGD/Colonoscopy in the [facility]. Reports both of these tests are normal and was told he never needed to have a follow up. HGB 12 --> 11 --> 10.4 --> 10.9 --> 7.1 Iron 30, Ferritin 85 BUN 36, CHILD ADOLESCENT PSYCHIATRIST 2.17 Normal LFTs Normal lipase Stools were reported to me as heme positive however I cannot find this lab in the computer No ABD imaging Ate breakfast this AM Not currently interested in EGD/Colonoscopy unless emergency because of his age Allergies Allergy/AdvReac Type Severity Reaction Status Date / Time sertraline Allergy Intermediate Swollen Unverified 05/15/23 20:36 Ankles prednisone AdvReac Intermediate crazy Verified 05/15/23 21:24 pantoprazole [From Protonix] AdvReac Unknown Diarrhea Unverified 05/15/23 20:36 ticagrelor AdvReac bleeding Verified 06/26/23 12:23 Home Medications Medication Instructions Recorded Confirmed Type ascorbate calcium (vitamin C) 500 500 mg PO QAM 08/27/21 06/26/23 History mg tablet aspirin 81 mg tablet,delayed 81 mg PO 3XWK 08/27/21 06/26/23 History release ferrous sulfate 325 mg (65 mg 325 mg PO QAM 08/27/21 06/26/23 History iron) tablet olanzapine 10 mg tablet (Zyprexa) 10 mg PO HS 08/27/21 06/26/23 History omeprazole 20 mg capsule,delayed 20 mg PO DAILYBB 08/27/21 06/26/23 History release alprazolam 0.25 mg tablet (Xanax) 0.25 mg PO QID PRN Anxiety 09/16/21 06/26/23 History clonidine HCl 0.1 mg tablet 0.05 mg PO BID #30 tabs 09/16/21 06/26/23 Rx albuterol sulfate 90 mcg/actuation 1 inh inhalation Q6H PRN shortness 12/24/21 06/26/23 Rx aerosol inhaler of breath or wheezing #8.5 grams atorvastatin 40 mg tablet 40 mg PO HS 12/24/21 06/26/23 History fluticasone furoate 100 1 inh inhalation QAM 12/24/21 06/26/23 History mcg-vilanterol 25 mcg/dose inhalation powder (Breo Ellipta) tamsulosin 0.4 mg capsule (Flomax) 0.4 mg PO QAM 12/24/21 06/26/23 History carvedilol 3.125 mg tablet 3.125 mg PO BIDM #90 tabs 03/10/22 06/26/23 Rx allopurinol 100 mg tablet 100 mg PO QAM #90 tabs 09/05/22 06/26/23 Rx furosemide 20 mg tablet 20 mg PO Q OTHER DAY #60 tabs 11/27/22 06/26/23 Rx furosemide 40 mg tablet (Lasix) 40 mg PO Q OTHER DAY #60 tabs 11/27/22 06/26/23 Rx docusate sodium 100 mg tablet 100 mg PO DAILY 03/06/23 06/26/23 History acetaminophen 500 mg tablet 1,000 mg PO DAILY PRN pain or fever 05/15/23 06/26/23 History levothyroxine 75 mcg tablet 75 mcg PO QAM 05/15/23 06/26/23 History apixaban 5 mg tablet (Eliquis) 5 mg PO BID 06/26/23 06/26/23 History ipratropium 0.5 mg-albuterol 3 mg 3 ml inhalation QID 06/26/23 06/26/23 History (2.5 mg base)/3 mL nebulization soln Patient History Medical History Aortic valve disorder Asymptomatic arteriosclerosis of coronary artery Atypical angina Atypical chest pain Automatic implantable cardiac defibrillator in situ CAD in [place] artery Cardiomyopathy Carpal tunnel syndrome Chest pain Chronic obstructive pulmonary disease Depression Dizziness Dyslipidemia Dyspnea on exertion Encounter for adjustment or management of automatic implantable cardioverter- defibrillator GERD (gastroesophageal reflux disease) Gout Hernia HFrEF (heart failure with reduced ejection fraction) Hyperlipidemia Hyperplasia of prostate without lower urinary tract symptoms (LUTS) Hypertension, benign Hypothyroidism Mitral valve disorder Mitral valve insufficiency Nonrheumatic aortic (valve) insufficiency 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 cardiomyopathies Pulmonary valve disorder Shortness of breath Unspecified disorder of kidney and ureter Unspecified venous (peripheral) insufficiency Surgical History H/O heart artery stent H/O partial thyroidectomy H/O transurethral resection of prostate History of esophagogastroduodenoscopy (EGD) S/P cardiac cath S/P cataract surgery S/P eye surgery S/P hernia repair S/P tooth extraction Family History Father CHF (congestive heart failure) Mother Diabetes Brother Heart disease Social History Smoking Status: Former smoker Tobacco Type: Cigarettes Hx Alcohol Use: No Hx Substance Use: No Preferred Language: Pashto Communication Ability: Effective Pillowcase Cutter Required: No Beliefs That Will Affect Care: None marital status: marital status details: Carly Current Living Situation: Spouse current occupational status: retired current occupation: Clerical Feels Safe at Home: Yes caffeine: Yes (1-2 cups per day) Assistive Devices: Walker and Other Review of Systems Review of Systems: All systems reviewed & are unremarkable except as noted in HPI & below Physical Exam Constitutional: WD/WN, vitals as above Respiratory: normal respiratory effort and + respiratory distress (actively using nebulizer in ER) Cardiovascular: Rate/Rhythm: regular rate and regular rhythm Gastrointestinal (Abdomen): normal bowel sounds, soft, nontender, no hepatos plenomegaly Skin: no rashes, warm and dry Results & Data Vital Signs (Past 12 Hours) Vital Signs Temp Pulse Resp BP BP Pulse Ox O2 Del Method 06/26/23 12:30 71 13 99 06/26/23 11:30 74 14 121/73 96 06/26/23 11:08 78 20 100 06/26/23 12:00 16 121/73 98 Room Air 06/26/23 11:31 75 06/26/23 10:50 36.6 C 62 14 126/82 100 Room Air Laboratory Results 06/26/23 06/26/23 06/26/23 Range/Units 11:00 11:00 11:00 WBC (4.8-10.8) K/ul RBC (4.70-6.10) M/uL Hgb (14.0-18.0) g/dl Hct (42.0-52.0) % MCV (80.0-100.0) fL MCH (25.0-34.0) pg MCHC (32.0-36.0) g/dL RDW Std Deviation (36.4-46.3) fL RDW Coeff of Ruth (11.5-14.5) % Plt Count (130-400) K/uL MPV (9.4-12.4) fL Immature Gran % (Auto) % Neut % (Auto) % Lymph % (Auto) % Sutter % (Auto) % Eos % (Auto) % Baso % (Auto) % Reticulocyte % (Auto) (0.5-2.0) % Neut # (Auto) (1.40-6.50) K/uL Lymph # (Auto) (1.2-3.4) K/uL Sutter # (Auto) (0.11-0.59) K/uL Eos # (Auto) (0-0.50) K/uL Baso # (Auto) (0-0.2) K/uL Reticulocyte # (0.02-0.10) 10^6/uL Immature Gran # (Auto) (0.01-0.20) K/uL Polychromasia Acanthocytes (Spur) PT (9.0-12.0) Seconds INR (0.9-1.1) APTT (21.0-31.0) Seconds PTT Ratio Sodium 127 L (136-145) mmol/L Potassium 4.5 (3.5-5.1) mmol/L Chloride 93 L (98-107) mmol/L Carbon Dioxide 25 (21-32) mmol/L Anion Gap 9 (3-11) BUN 36 H (6-23) mg/dl Creatinine 2.17 H (0.6-1.4) mg/dl Est Cr Clr Drug Dosing 22.8 ml/min Est GFR ( Amer) 30.8 ml/min Est GFR (Non-Af Amer) 26.6 ml/min BUN/Creatinine Ratio 16.6 (10-20) Glucose 120 H (70-99(Fasting)) mg/dl Calcium 8.4 L (8.6-10.3) mg/dl Iron 30 L (35-175) mcg/dl Transferrin 202 (200-360) mg/dl Ferritin 85.3 (8-388) ng/ml Total Bilirubin 0.7 (0.2-1.0) mg/dl AST 17 (13-39) U/L ALT 11 (7-52) U/L Alkaline Phosphatase 45 (34-104) U/L Troponin I High Sens 19.2 (0-20) pg/ml Total Protein 6.3 (6.0-8.3) gm/dl Albumin 3.8 (3.4-5.0) gm/dl Globulin 2.5 (2.5-4.0) gm/dl Albumin/Globulin Ratio 1.5 (0.9-2) Lipase 17 (11-82) U/L Vitamin B12 215 (180-914) pg/ml Folate 17.65 (>5.38) ng/ml Blood Type Antibody Screen Crossmatch 06/26/23 06/26/23 06/26/23 Range/Units 11:00 11:00 10:58 WBC 6.25 (4.8-10.8) K/ul RBC 2.32 L (4.70-6.10) M/uL Hgb 7.1 L (14.0-18.0) g/dl Hct 21.2 L (42.0-52.0) % MCV 91.4 (80.0-100.0) fL MCH 30.6 (25.0-34.0) pg MCHC 33.5 (32.0-36.0) g/dL RDW Std Deviation 48.8 H (36.4-46.3) fL RDW Coeff of Ruth 14.6 H (11.5-14.5) % Plt Count 152 (130-400) K/uL MPV 10.9 (9.4-12.4) fL Immature Gran % (Auto) 0.3 % Neut % (Auto) 68.7 % Lymph % (Auto) 20.6 % Sutter % (Auto) 6.9 % Eos % (Auto) 3.2 % Baso % (Auto) 0.3 % Reticulocyte % (Auto) 3.6 H (0.5-2.0) % Neut # (Auto) 4.29 (1.40-6.50) K/uL Lymph # (Auto) 1.29 (1.2-3.4) K/uL Sutter # (Auto) 0.43 (0.11-0.59) K/uL Eos # (Auto) 0.20 (0-0.50) K/uL Baso # (Auto) 0.02 (0-0.2) K/uL Reticulocyte # 0.08 (0.02-0.10) 10^6/uL Immature Gran # (Auto) 0.02 (0.01-0.20) K/uL Polychromasia 1+ Acanthocytes (Spur) 2+ PT 12.0 (9.0-12.0) Seconds INR 1.1 (0.9-1.1) APTT 34.2 H (21.0-31.0) Seconds PTT Ratio 1.2 Sodium (136-145) mmol/L Potassium (3.5-5.1) mmol/L Chloride (98-107) mmol/L Carbon Dioxide (21-32) mmol/L Anion Gap (3-11) BUN (6-23) mg/dl Creatinine (0.6-1.4) mg/dl Est Cr Clr Drug Dosing ml/min Est GFR ( Amer) ml/min Est GFR (Non-Af Amer) ml/min BUN/Creatinine Ratio (10-20) Glucose (70-99(Fasting)) mg/dl Calcium (8.6-10.3) mg/dl Iron (35-175) mcg/dl Transferrin (200-360) mg/dl Ferritin (8-388) ng/ml Total Bilirubin (0.2-1.0) mg/dl AST (13-39) U/L ALT (7-52) U/L Alkaline Phosphatase (34-104) U/L Troponin I High Sens (0-20) pg/ml Total Protein (6.0-8.3) gm/dl Albumin (3.4-5.0) gm/dl Globulin (2.5-4.0) gm/dl Albumin/Globulin Ratio (0.9-2) Lipase (11-82) U/L Vitamin B12 (180-914) pg/ml Folate (>5.38) ng/ml Blood Type Pending Antibody Screen Pending Crossmatch See Detail (1) Anemia Anemia type: unspecified type Qualified Code(s): D64.9 - Anemia, unspecified
[2023-06-26] MEDS ORDERED: SODIUM CHLORIDE 0.9% 250 ML IV PRN ×2 (15:03→23:40)
[2023-06-26] MEDS ORDERED: ACETAMINOPHEN 325 MG TAB PO PRN (15:03)
[2023-06-26] MEDS ORDERED: POLYETHYLENE (MIRALAX) 17 GM PACK PO PRN (15:03)
[2023-06-26] MEDS ORDERED: PANTOprazole 40 MG in DEXTROSE 5% 100 ML IV SCH (15:30)
[2023-06-26] MEDS: ALBUT/IPRATROP 3MG/0.5MG NEB 3 ML VIAL NEB SCH ×2 (16:35→18:22)
[2023-06-26] MEDS: carvediloL 3.125 MG TAB PO SCH (16:51)
--- NOTE | 2023-06-26 17:02 | Ultrasound Report ---
US venous doppler LE BI CLINICAL HISTORY: R/O DVT, recent dx PE TECHNIQUE: Bilateral lower extremity real-time compression venous ultrasound with Color Doppler imagi ng. Utilizing real-time ultrasonic imaging multiple real time high-resolution ultrasonic images with compression and noncompression maneuvers of the deep venous system in addition to color doppler imagi ng were performed from the common femoral vein through the proximal calf veins. COMPARISON: None available at the time of this dictation. FINDINGS/IMPRESSION: Currently there is normal compressibility of the deep venous system from the common femoral vein thro ugh the proximal calf veins. No superficial venous thrombosis is identified. ACT 112: Negative or not required by law. Electronically signed by: Reza Neri M.D. 06/26/2023 5:00 PM
[2023-06-26 17:44] LABS: Hematocrit (blood only) 21.1 % (42.0-52.0); Hemoglobin 7.1 g/dl (14.0-18.0)
--- NOTE | 2023-06-26 17:51 | Electrocardiogram Report ---
Test Reason : Blood Pressure : / mmHG Vent. Rate : 076 BPM Atrial Rate : 076 BPM P-R Int : 110 ms QRS Dur : 192 ms QT Int : 454 ms P-R-T Axes : 013 232 048 degrees QTc Int : 510 ms Atrial-sensed ventricular-paced rhythm with occasional Premature ventricular complexes Biventricular pacemaker detected Abnormal ECG When compared with ECG of 15-MAY-2023 16:54, Premature ventricular complexes are now Present Vent. rate has increased BY 9 BPM Confirmed by Herberth Roe ([id number]) on 06/26/2023 5:50:57 PM Referred By: Confirmed By:Valentin Roe
[2023-06-26 17:55] LABS: BUN Creatinine Ratio 16.4 (10-20); Calcium 8.4 mg/dl (8.6-10.3); Creatinine Clr Calc Pharmacy 23.9 ml/min; Est GFR (African American) 32.6 ml/min; Est GFR (Non-African American) 28.2 ml/min; Potassium 3.9 mmol/L (3.5-5.1)
[2023-06-26] MEDS: ATORVASTATIN 40 MG TAB PO SCH (22:01)
[2023-06-26] MEDS: OLANZapine 10 MG TAB PO SCH (22:02)
[2023-06-26] MEDS: PANTOprazole 40 MG in SYRINGE 0 ML IV SCH (22:02)
[2023-06-26] MEDS: cloNIDine HCL 0.1 MG TAB PO SCH (22:03)
[2023-06-26] MEDS ORDERED: ALPRAZolam 0.5 MG TABLET PO PRN (22:50)
[2023-06-26 23:35] LABS: Hemoglobin 7.1 g/dl (14.0-18.0)
[2023-06-26] MEDS: ALPRAZolam 0.25 MG TABLET PO PRN (23:39)
[2023-06-27] MEDS: LEVOTHYROXINE SODIUM 75 MCG TABLET PO SCH (05:04)
[2023-06-27] MEDS: ALBUT/IPRATROP 3MG/0.5MG NEB 3 ML VIAL NEB SCH ×4 (07:03→19:26)
[2023-06-27 07:57] LABS: BUN Creatinine Ratio 14.4 (10-20); Calcium 8.5 mg/dl (8.6-10.3); Creatinine Clr Calc Pharmacy 23.7 ml/min; Est GFR (African American) 33.6 ml/min; Hematocrit (blood only) 23.2 % (42.0-52.0); Hemoglobin 7.7 g/dl (14.0-18.0); Mean Corpuscular Hemoglobin 30.2 pg (25.0-34.0); Mean Corpuscular Hgb Conc 33.2 g/dL (32.0-36.0); Mean Platelet Volume 10.3 fL (9.4-12.4); Platelet Count 165 K/uL (130-400); Potassium 3.7 mmol/L (3.5-5.1); RDW Coefficient of Variation 14.6 % (11.5-14.5); Red Blood Count 2.55 M/uL (4.70-6.10); White Blood Count 4.18 K/ul (4.8-10.8)
[2023-06-27] MEDS: allopurinoL 100 MG TAB PO SCH (11:04)
[2023-06-27] MEDS: FERROUS SULFATE 325 MG TAB PO SCH (11:04)
[2023-06-27] MEDS: cloNIDine HCL 0.1 MG TAB PO SCH ×2 (11:04→20:33)
[2023-06-27] MEDS: carvediloL 3.125 MG TAB PO SCH ×2 (11:04→17:57)
[2023-06-27] MEDS: TAMSULOSIN HCL 0.4 MG CAP PO SCH (11:04)
[2023-06-27] MEDS: FLUTICASONE/VILANTEROL 100/25MCG 14 PUFFS/INHALER INH SCH (11:05)
[2023-06-27] MEDS: DOCUSATE SODIUM 100 MG CAP PO SCH (11:05)
[2023-06-27] MEDS: PANTOprazole 40 MG in SYRINGE 0 ML IV SCH ×2 (11:05→20:35)
--- NOTE | 2023-06-27 18:13 | Hospitalist Progress Note ---
Date of Service June 27, 2023 Assessment & Plan (1) Symptomatic anemia: (2) UGIB (upper gastrointestinal bleed): Plan: Patient is 88 y/o M with PMH HTN, dyslipidemia, CAD s/p LAD PCI, history ischemic cardiomyopathy, s/p ICD, systolic CHF, asthma, CKD III, hyponatremia, anxiety, recent PE on Eliquis presented to ER for worsening exertional breath and weakness x 2 weeks Possible Upper GI bleed H/H improved after 1 unit of pRBC overnight Reported positive Hemoccult stool in ER Cont Protonix IV twice daily per GI wtih endoscopy early next week Hold eliquis and aspirin. Cont Clear liquids NPO Midnight (3) Hyponatremia: Plan: resolved (4) Pulmonary embolism: Plan: 05/18/23 VQ Scan: Wedge-shaped perfusion defects within the right mid to lower lung zone suggest the possibility of an intermediate to high probability scan. 05/05/2023: Venous Doppler BLE without DVT CTA chest to rule out PE was unable to be performed secondary to patient's CK Hold Eliquis as above for anemia and possible GI bleed Vascular surgery consult, spoke to Anamika Parnell PA-C who recommends repeating LE venous doppler to r/o DVT Repeat venous Doppler BLE today: Negative for DVT (5) CKD (chronic kidney disease), stage III: Plan: chronic, stable. Cr: 2.1. Baseline Cr: 1.9-2.0 Monitor renal functions, avoid nephrotoxic agents when able (6) Asthma: Plan: slight wheezing on exam today at bases. Patient denies any active wheezing or difficulties with breathing. He feels his asthma is stable. Continue home gustavo Gomes PRN (7) HFrEF (heart failure with reduced ejection fraction): Plan: chronic, stable. Ischemic cardiomyopathy with h/o ICD placement. Echo 05/15/2023: EF: 35-40%, apical akinesis, moderate mitral regurgitation, mild t ricuspid regurgitation Cont holding Lasix and reassess volume status tomorrow Cont Coreg, Lipitor. For unknown reason, entresto was not added to home med list. Will discuss with patient tomorrow and add back if he didn't stop taking it. (8) Hypertension, benign: Plan: chronic, stable. Continue carvedilol, clonidine per home regimen (9) CAD in [place] artery: Plan: chronic, stable. S/P LAD PCI. Aspirin held on admission. Continue carvedilol, atorvastatin (10) Paranoid schizophrenia: Plan: chronic, stable. Continue Zyprexa, alprazolam DVT Prophylaxis SCDs Conditional Code as per discussion with pt and pt's . Does not want intubation or mechanical ventilation, is okay with CPR, defibrillation Follows with Dr Asif for routine care I spent a total of 60 minutes coordinating, documenting, and providing care for this patient excluding time spent in the performance of separately billed services Lola Conrad DO [facility] Hospitalist Admission and Anticipated Discharge Date Admission Date: June 26, 2023 Subjective 88 yo M with known HFrEF presents with worsening shortness of breath. He was recently admitted for a similar issue and workup found possible pneumonia on the right and was treated with a course of antibiotic. He also underwent a VQ scan revealing possibility of a right lung PE. Lower extremity dopplers were negative for DVT. He was discharged on apixaban. H/H at discharge on 05/18 was 10.9/31.5. He returned with H/H 7.1/21.2 and reported weakness and shortness of breath. Today he denies any blood per rectum or chest pain. He is tolerating a clear liquid diet. He is fine with proceeding with endoscopy early next week. Hb is improved after 1 unit of blood overnight. Review of Systems Review of Systems: All systems were reviewed and negative except as indicated on subjective above. Physical Exam Physical Exam: CONSTITUTIONAL: thin, elderly, vitals as above, generally well-appearing, NAD EYES: normal conjunctivae, no scleral icterus ENT: external ear and nose normal, oropharynx clear, MMM NECK: trachea midline RESPIRATORY: clear to auscultation bilaterally, no crackles, rales or wheezes, normal respiratory effort CARDIOVASCULAR: regular rate and rhythm, S1 and 2 heard without murmurs, gallops or rubs, no JVD, no peripheral edema GASTROINTESTINAL: soft, nontender, ND, no guarding MUSCULOSKELETAL: strength 5/5 throughout, head is normocephalic and atraumatic SKIN: warm and dry NEUROLOGIC: CN 2-12 grossly intact, no sensory deficit, normal cognition, normal speech, no tremor PSYCHIATRIC: alert cooperative and oriented to person, place and time. Euthymic mood, makes good eye contact, language grossly intact, recent and remote memory grossly intact. Results & Data Results & Data Vital Signs (Past 12 Hours) Vital Signs Temp Pulse Pulse Pulse Resp BP Pulse Ox 06/27/23 17:56 77 16 116/67 96 06/27/23 08:00 86 06/27/23 15:27 36.6 C 78 16 95/56 L 94 06/27/23 14:34 79 15 97 06/27/23 12:18 37.2 C 81 18 132/78 95 06/27/23 10:39 79 16 99 06/27/23 08:40 36.9 C 78 18 120/71 97 06/27/23 07:05 79 15 98 O2 Del Method FiO2 06/27/23 17:56 Room Air 06/27/23 08:00 06/27/23 15:27 Room Air 06/27/23 14:34 Room Air 21 06/27/23 12:18 Room Air 06/27/23 10:39 Room Air 21 06/27/23 08:40 Room Air 06/27/23 07:05 Room Air 21 Laboratory Results Short CBC 06/26/23 06/27/23 Range/Units 23:18 06:56 WBC 4.18 L (4.8-10.8) K/ul Hgb 7.1 L 7.7 L (14.0-18.0) g/dl Hct 21.0 L 23.2 L (42.0-52.0) % Plt Count 165 (130-400) K/uL BMP 06/27/23 06:56 Sodium 135 L Potassium 3.7 Chloride 100 Carbon Dioxide 28 BUN 29 H Creatinine 2.02 H Glucose 90 Calcium 8.5 L Medications Administered Current Inpatient Medications Acetaminophen (Acetaminophen 325 Mg Tab) 650 mg PO Q4H PRN PRN Reason: Pain or Fever Stop: 07/26/23 15:02 Albuterol (Albut/Ipratrop 3mg/0.5mg Neb 3 Ml Vial) 3 ml NEB QIDR [facility]; Protocol Stop: 07/26/23 15:02 Last Admin: 06/27/23 14:34 Dose: 3 ml Allopurinol (Allopurinol 100 Mg Tab) [facility] [place] Stop: 07/27/23 08:59 Last Admin: 06/27/23 11:04 Dose: 100 mg Alprazolam (Alprazolam 0.25 Mg Tablet) 0.25 mg PO QID PRN PRN Reason: Anxiety Stop: 07/26/23 18:43 Last Admin: 06/26/23 23:39 Dose: 0.25 mg Atorvastatin Calcium (Atorvastatin 40 Mg Tab) 40 mg PO HS ANOOP Stop: 07/26/23 20:59 Last Admin: 06/26/23 22:01 Dose: 40 mg Carvedilol (Carvedilol 3.125 Mg Tab) 3.125 mg PO BIDM ANOOP Stop: 07/26/23 16:59 Last Admin: 06/27/23 17:57 Dose: 3.125 mg Clonidine HCl (Clonidine Hcl 0.1 Mg Tab) 0.05 mg PO BID ANOOP Stop: 07/26/23 20:59 Last Admin: 06/27/23 11:04 Dose: 0.05 mg Docusate Sodium (Docusate Sodium 100 Mg Cap) 100 mg PO DAILY ANOOP Stop: 07/27/23 08:59 Last Admin: 06/27/23 11:05 Dose: 100 mg Ferrous Sulfate (Ferrous Sulfate 325 Mg Tab) 325 mg PO QAM ANOOP Stop: 07/27/23 08:59 Last Admin: 06/27/23 11:04 Dose: 325 mg Fluticasone/Vilanterol (Fluticasone/Vilanterol 100/25mcg 14 Puffs/Inhaler) 1 puffs INH QAM ANOOP Stop: 07/27/23 08:59 Last Admin: 06/27/23 11:05 Dose: 1 puffs Pantoprazole Sodium 40 mg/ (Syringe) 10 mls @ 5 mls/min IV BID ANOOP Stop: 07/26/23 20:59 Last Admin: 06/27/23 11:05 Dose: 5 mls/min Levothyroxine Sodium (Levothyroxine Sodium 75 Mcg Tablet) 75 mcg PO DAILYBB ANOOP Stop: 07/27/23 06:29 Last Admin: 06/27/23 05:04 Dose: 75 mcg Olanzapine (Olanzapine 10 Mg Tab) 10 mg PO HS ANOOP Stop: 07/26/23 20:59 Last Admin: 06/26/23 22:02 Dose: 10 mg Ondansetron HCl (Ondansetron Inj 2 Mg/Ml 2 Ml Vial) 4 mg IV Q6H PRN PRN Reason: Nausea Stop: 07/26/23 15:02 Polyethylene Glycol (Polyethylene (Miralax) 17 Gm Pack) 17 gm PO DAILY PRN PRN Reason: Constipation Stop: 07/26/23 15:02 Tamsulosin HCl (Tamsulosin Hcl 0.4 Mg Cap) 0.4 mg PO [facility] Stop: 07/27/23 08:59 Last Admin: 06/27/23 11:04 Dose: 0.4 mg
[2023-06-27 18:55] LABS: Hemoglobin 8.6 g/dl (14.0-18.0); Mean Corpuscular Hemoglobin 30.6 pg (25.0-34.0); Mean Corpuscular Hgb Conc 33.1 g/dL (32.0-36.0); Mean Corpuscular Volume 92.5 fL (80.0-100.0); Mean Platelet Volume 9.7 fL (9.4-12.4); Platelet Count 166 K/uL (130-400); RDW Coefficient of Variation 14.6 % (11.5-14.5); RDW Standard Deviation 49.4 fL (36.4-46.3); Red Blood Count 2.81 M/uL (4.70-6.10); White Blood Count 5.66 K/ul (4.8-10.8)
[2023-06-27 19:10] LABS: BUN Creatinine Ratio 13.8 (10-20); Calcium 8.7 mg/dl (8.6-10.3); Creatinine Clr Calc Pharmacy 23.6 ml/min; Est GFR (African American) 33.4 ml/min; Est GFR (Non-African American) 28.8 ml/min; Magnesium 2.1 mg/dl (1.7-2.4); Potassium 3.4 mmol/L (3.5-5.1)
[2023-06-27] MEDS ORDERED: POTASSIUM CHLORIDE CRTAB 20 MEQ TABCR PO STA (20:14)
[2023-06-27] MEDS: OLANZapine 10 MG TAB PO SCH (20:34)
[2023-06-27] MEDS: ATORVASTATIN 40 MG TAB PO SCH (20:35)
[2023-06-27] MEDS ORDERED: ALBUT/IPRATROP 3MG/0.5MG NEB 3 ML VIAL NEB PRN (21:51)
[2023-06-28] MEDS: LEVOTHYROXINE SODIUM 75 MCG TABLET PO SCH (06:12)
[2023-06-28 08:31] LABS: Hemoglobin 8.2 g/dl (14.0-18.0); Mean Corpuscular Hemoglobin 30.8 pg (25.0-34.0); Mean Corpuscular Hgb Conc 34.2 g/dL (32.0-36.0); Mean Corpuscular Volume 90.2 fL (80.0-100.0); Mean Platelet Volume 10.1 fL (9.4-12.4); Platelet Count 165 K/uL (130-400); RDW Coefficient of Variation 14.4 % (11.5-14.5); RDW Standard Deviation 47.4 fL (36.4-46.3); Red Blood Count 2.66 M/uL (4.70-6.10)
[2023-06-28 08:46] LABS: BUN Creatinine Ratio 12.4 (10-20); Calcium 8.4 mg/dl (8.6-10.3); Creatinine Clr Calc Pharmacy 22.1 ml/min; Est GFR (African American) 30.8 ml/min; Est GFR (Non-African American) 26.6 ml/min
[2023-06-28] MEDS: TAMSULOSIN HCL 0.4 MG CAP PO SCH (09:03)
[2023-06-28] MEDS: FERROUS SULFATE 325 MG TAB PO SCH (09:03)
[2023-06-28] MEDS: carvediloL 3.125 MG TAB PO SCH ×2 (09:03→17:46)
[2023-06-28] MEDS: allopurinoL 100 MG TAB PO SCH (09:03)
[2023-06-28] MEDS: FLUTICASONE/VILANTEROL 100/25MCG 14 PUFFS/INHALER INH SCH (09:04)
[2023-06-28] MEDS: PANTOprazole 40 MG in SYRINGE 0 ML IV SCH ×2 (09:04→21:07)
[2023-06-28] MEDS: DOCUSATE SODIUM 100 MG CAP PO SCH (09:08)
[2023-06-28] MEDS: cloNIDine HCL 0.1 MG TAB PO SCH ×2 (09:08→21:06)
--- NOTE | 2023-06-28 10:02 | Hospitalist Progress Note ---
Date of Service June 28, 2023 Assessment & Plan (1) Symptomatic anemia: Plan: 2/ apixaban which was discontinued. (2) UGIB (upper gastrointestinal bleed): Plan: Possible Upper GI bleed H/H improved after 1 unit of pRBC overnight Reported positive Hemoccult stool in ER Cont Protonix IV twice daily per GI wtih endoscopy early next week Hold eliquis and aspirin. Cont Clear liquid diet with plans to start prep for colonoscopy early next week. (3) Hyponatremia: Plan: resolved (4) Pulmonary embolism: Plan: 05/18/23 VQ Scan: Wedge-shaped perfusion defects within the right mid to lower lung zone suggest the possibility of an intermediate to high probability scan. 05/05/2023: Venous Doppler BLE without DVT CTA chest to rule out PE was unable to be performed secondary to patient's CK Hold Eliquis as above for anemia and possible GI bleed Vascular surgery consult, spoke to Anamika Parnell PA-C who recommends repeating LE venous doppler to r/o DVT Repeat venous Doppler BLE today: Negative for DVT 06/28: need to definitively rule out PE with contrasted CT chest to avoid any additional comorbidity if unnecessary. Hold Entresto and Lasix and given gentle fluids to support renal function. CT chest w contrast this am. If negative, there is no further indication for entresto with no evidence of DVT. CT scan reviewed and negative for PE. There is no further indication for apixaban here. Given baseline CKD, his Entresto was stopped prior to this admission. (5) CKD (chronic kidney disease), stage III: Plan: chronic, stable. Cr: 2.1. Baseline Cr: 1.9-2.0 Monitor renal functions, avoid nephrotoxic agents when able Holding Lasix, cont IVf gently (6) Asthma: Plan: chronic, stable. continue home Breo, duonebs PRN (7) HFrEF (heart failure with reduced ejection fraction): Plan: chronic, stable. Ischemic cardiomyopathy with h/o ICD placement. Echo 05/15/2023: EF: 35-40%, apical akinesis, moderate mitral regurgitation, mild tricuspid regurgitation Cont holding Lasix and reassess volume status tomorrow Cont Coreg, Lipitor. BOBBY/ARB/Entresto contraindicated given CKD. (8) Hypertension, benign: Plan: chronic, stable. Continue carvedilol, clonidine per home regimen (9) CAD in [place] artery: Plan: chronic, stable. S/P LAD PCI. Aspirin held on admission. Cont to hold for now and may be added back after discharge as outpatient per cardiology. Continue carvedilol, atorvastatin (10) Paranoid schizophrenia: Plan: chronic, stable. Continue Zyprexa, alprazolam DVT Prophylaxis SCDs Conditional Code as per discussion with pt and pt's . Does not want intubation or mechanical ventilation, is okay with CPR, defibrillation Follows with Dr Asif for routine care I spent a total of 60 minutes coordinating, documenting, and providing care for this patient excluding time spent in the performance of separately billed services Lola Conrad DO [place] Hospitalist Admission and Anticipated Discharge Date Admission Date: June 26, 2023 Subjective 88 yo M with known HFrEF presents with worsening shortness of breath. He was recently admitted for a similar issue and workup found possible pneumonia on the right and was treated with a course of antibiotic. He also underwent a VQ scan revealing possibility of a right lung PE. Lower extremity dopplers were negative for DVT. He was discharged on apixaban. H/H at discharge on 05/18 was 10.9/31.5. He returned with H/H 7.1/21.2 and reported weakness and shortness of breath. He denies any blood per rectum and endorses constipation He prefers miralax and declines suppository or enema. CT scan reviewed with patient and his at bedside No PE noted, no indication for trying to rechallenge with blood thinner at this time There is some resolving pneumonia. Denies SOB today or other issues Not up and walking much but typically uses a walker at home and he was encouraged to do this. Review of Systems Review of Systems: All systems were reviewed and negative except as indicated on subjective above. Physical Exam Physical Exam: CONSTITUTIONAL: thin, elderly, vitals as above, generally well-appearing, NAD EYES: normal conjunctivae, no scleral icterus ENT: external ear and nose normal, oropharynx clear, MMM NECK: trachea midline RESPIRATORY: clear to auscultation bilaterally, no crackles, rales or wheezes, normal respiratory effort CARDIOVASCULAR: regular rate and rhythm, S1 and 2 heard without murmurs, gallops or rubs, no JVD, no peripheral edema GASTROINTESTINAL: soft, nontender, ND, no guarding MUSCULOSKELETAL: strength 5/5 throughout, head is normocephalic and atraumatic SKIN: warm and dry NEUROLOGIC: CN 2-12 grossly intact, no sensory deficit, normal cognition, normal speech, no tremor PSYCHIATRIC: alert cooperative and oriented to person, place and time. Euthymic mood, makes good eye contact, language grossly intact, recent and remote memory grossly intact. Results & Data Results & Data Vital Signs (Past 12 Hours) Vital Signs Temp Pulse Pulse Resp BP Pulse Ox O2 Del Method 06/28/23 08:22 36.8 C 82 16 124/74 97 Room Air 06/28/23 07:19 82 06/28/23 03:14 36.9 C 79 18 103/65 94 Room Air 06/27/23 23:06 37.3 C 78 18 97/59 L 96 Room Air Laboratory Results Short CBC 06/27/23 06/28/23 Range/Units 18:39 07:45 WBC 5.66 5.70 (4.8-10.8) K/ul Hgb 8.6 L 8.2 L (14.0-18.0) g/dl Hct 26.0 L 24.0 L (42.0-52.0) % Plt Count 166 165 (130-400) K/uL BMP 06/27/23 06/28/23 18:39 07:45 Sodium 136 134 L Potassium 3.4 L 4.0 Chloride 101 102 Carbon Dioxide 25 25 BUN 28 H 27 H Creatinine 2.03 H 2.17 H Glucose 141 H 99 Calcium 8.7 8.4 L Medications Administered Current Inpatient Medications Acetaminophen (Acetaminophen 325 Mg Tab) 650 mg PO Q4H PRN PRN Reason: Pain or Fever Stop: 07/26/23 15:02 Albuterol (Albut/Ipratrop 3mg/0.5mg Neb 3 Ml Vial) 3 ml NEB QIDR PRN; Protocol PRN Reason: SOB/wheezing Stop: 07/26/23 15:02 Allopurinol (Allopurinol 100 Mg Tab) 100 mg PO QAM ANOOP Stop: 07/27/23 08:59 Last Admin: 06/28/23 09:03 Dose: 100 mg Alprazolam (Alprazolam 0.25 Mg Tablet) 0.25 mg PO QID PRN PRN Reason: Anxiety Stop: 07/26/23 18:43 Last Admin: 06/26/23 23:39 Dose: 0.25 mg Atorvastatin Calcium (Atorvastatin 40 Mg Tab) 40 mg PO HS ANOOP Stop: 07/26/23 20:59 Last Admin: 06/27/23 20:35 Dose: 40 mg Carvedilol (Carvedilol 3.125 Mg Tab) 3.125 mg PO BIDM ANOOP Stop: 07/26/23 16:59 Last Admin: 06/28/23 09:03 Dose: 3.125 mg Clonidine HCl (Clonidine Hcl 0.1 Mg Tab) 0.05 mg PO BID ANOOP Stop: 07/26/23 20:59 Last Admin: 06/28/23 09:08 Dose: 0.05 mg Docusate Sodium (Docusate Sodium 100 Mg Cap) 100 mg PO DAILY ANOOP Stop: 07/27/23 08:59 Last Admin: 06/28/23 09:08 Dose: 100 mg Ferrous Sulfate (Ferrous Sulfate 325 Mg Tab) 325 mg PO QAM ANOOP Stop: 07/27/23 08:59 Last Admin: 06/28/23 09:03 Dose: 325 mg Fluticasone/Vilanterol (Fluticasone/Vilanterol 100/25mcg 14 Puffs/Inhaler) 1 puffs INH QAM ANOOP Stop: 07/27/23 08:59 Last Admin: 06/28/23 09:04 Dose: 1 puffs Pantoprazole Sodium 40 mg/ (Syringe) 10 mls @ 5 mls/min IV BID ANOOP Stop: 07/26/23 20:59 Last Admin: 06/28/23 09:04 Dose: 5 mls/min Sodium Chloride (Nss 1000ml) 1,000 mls @ 80 mls/hr IV .[id number] [facility] Stop: 06/29/23 10:59 Levothyroxine Sodium (Levothyroxine Sodium 75 Mcg Tablet) 75 mcg PO DAILYBB ANOOP Stop: 07/27/23 06:29 Last Admin: 06/28/23 06:12 Dose: 75 mcg Olanzapine (Olanzapine 10 Mg Tab) 10 mg PO HS [facility] Stop: 07/26/23 20:59 Last Admin: 06/27/23 20:34 Dose: 10 mg Ondansetron HCl (Ondansetron Inj 2 Mg/Ml 2 Ml Vial) 4 mg IV Q6H PRN PRN Reason: Nausea Stop: 07/26/23 15:02 Polyethylene Glycol (Polyethylene (Miralax) 17 Gm Pack) 17 gm PO DAILY PRN PRN Reason: Constipation Stop: 07/26/23 15:02 Last Admin: 06/28/23 09:08 Dose: 17 gm Tamsulosin HCl (Tamsulosin Hcl 0.4 Mg Cap) [facility] [place]: 07/27/23 08:59 Last Admin: 06/28/23 09:03 Dose: 0.4 mg
[2023-06-28] MEDS: SODIUM CHLORIDE 0.9% 1000ML 1,000 ML IV SCH (10:31)
--- NOTE | 2023-06-28 10:55 | Cardiology Consultation ---
Date of Consultation June 28, 2023 Assessment & Plan (1) CAD in [place] artery: -s/p LAD KIMBERLY, December 2012. -quiescent on current medications. (2) Cardiomyopathy: -mild to moderate left ventricular dysfunction with ejection fraction of 35-40%. -continue carvedilol. -not on ACEI/ARB due to renal insufficiency. (3) HFrEF (heart failure with reduced ejection fraction): -as above. -follows daily weights and sliding-scale diuretics as an outpatient. (4) Automatic implantable cardiac defibrillator in situ: -follows with Dr. Garber. -normal function on interrogation, April 2023. (5) Preop cardiovascular exam: -acceptable cardiac risk for endoscopic evaluation. History of Present Illness Attending Physician: Lola Conrad, History of Present Illness Mr. Fountain is an 88-year-old male June 26 with weakness, shortness of breath, and a significant anemia. He is to undergo upper and lower endoscopies to investigate possible GI source of his anemia. This consultation was ordered as a pre procedure evaluation. Note, patient is well known to me from the outpatient setting. His recent history began on May 18 when he was diagnosed with acute pulmonary embolism. He was placed on Eliquis and discharged home in stable fashion. Since that time, he has noted progressive exertional dyspnea, fatigue, and weakness. He carries a history of coronary artery disease which began in December 2012 when he presented with a non ST elevation AL. Cardiac catheterization revealed a tight proximal LAD stenosis and a KIMBERLY was placed at that position. 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 Left ventricular ejection fraction was 35% with an anteroapical wall motion abnormality. The patient had a biventricular ICD placed on September 14, 2014. Last interrogation was April 21, 2023 which demonstrated normal lead impedances, sensing, and thresholds. There were no defibrillator discharges. The patient was pacing 90% of the time in the ventricles. He had an echocardiogram performed on May 18 which noted mild to moderate left ventricular dysfunction with ejection fraction of 35-40%. There was apical akinesis and general hypokinesis. There was moderate mitral and mild tricuspid regurgitation. Currently, patient is resting comfortably in bed without complaints. Past medical and surgical history 1. Coronary artery disease-see above 2. Proximal LAD KIMBERLY-December 2012 3. Ischemic cardiomyopathy-35% 4. Chronic systolic CHF 5. Hypertension 6. Hypercholesterolemia 7. Mild aortic insufficiency 8. Moderate mitral regurgitation 9. Cerebrovascular disease-see above 10. Chronic renal failure 11. Hypothyroidism 12. COPD 13. GERD 14. Hiatal hernia 15. Sadia-Law tear-January 2013 16. Gout 17. BPH 18. Carpal tunnel syndrome 19. Anxiety/depression 20. Cognitive deficit 21. TURP 22. Bilateral intra-ocular lens implants 23. Right thyroid lobectomy -2006 24. Testicular cyst 25. Pulmonary embolism-May 2023 Social history and lives with his [place]oved [place] this [place] be closer to their only child Quit tobacco use at age 37 No alcohol Family history Noncontributory Review of systems A 10 review systems was undertaken and negative except for that described above. Allergies Allergy/AdvReac Type Severity Reaction Status Date / Time sertraline Allergy Intermediate Swollen Unverified 05/15/23 20:36 Ankles prednisone AdvReac Intermediate crazy Verified 05/15/23 21:24 pantoprazole [From Protonix] AdvReac Unknown Diarrhea Unverified 05/15/23 20:36 ticagrelor AdvReac bleeding Verified 06/26/23 12:23 Home Medications Medication Instructions Recorded Confirmed Type ascorbate calcium (vitamin C) 500 500 mg PO QAM 08/27/21 06/26/23 History mg tablet aspirin 81 mg tablet,delayed 81 mg PO 3XWK 08/27/21 06/26/23 History release ferrous sulfate 325 mg (65 mg 325 mg PO QAM 08/27/21 06/26/23 History iron) tablet olanzapine 10 mg tablet (Zyprexa) 10 mg PO HS 08/27/21 06/26/23 History omeprazole 20 mg capsule,delayed 20 mg PO DAILYBB 08/27/21 06/26/23 History release alprazolam 0.25 mg tablet (Xanax) 0.25 mg PO QID PRN Anxiety 09/16/21 06/26/23 History clonidine HCl 0.1 mg tablet 0.05 mg PO BID #30 tabs 09/16/21 06/26/23 Rx albuterol sulfate 90 mcg/actuation 1 inh inhalation Q6H PRN shortness 12/24/21 06/26/23 Rx aerosol inhaler of breath or wheezing #8.5 grams atorvastatin 40 mg tablet 40 mg PO HS 12/24/21 06/26/23 History fluticasone furoate 100 1 inh inhalation QAM 12/24/21 06/26/23 History mcg-vilanterol 25 mcg/dose inhalation powder (Breo Ellipta) tamsulosin 0.4 mg capsule (Flomax) 0.4 mg PO QAM 12/24/21 06/26/23 History carvedilol 3.125 mg tablet 3.125 mg PO BIDM #90 tabs 03/10/22 06/26/23 Rx allopurinol 100 mg tablet 100 mg PO QAM #90 tabs 09/05/22 06/26/23 Rx furosemide 20 mg tablet 20 mg PO Q OTHER DAY #60 tabs 11/27/22 06/26/23 Rx furosemide 40 mg tablet (Lasix) 40 mg PO Q OTHER DAY #60 tabs 11/27/22 06/26/23 Rx docusate sodium 100 mg tablet 100 mg PO DAILY 03/06/23 06/26/23 History acetaminophen 500 mg tablet 1,000 mg PO DAILY PRN pain or fever 05/15/23 06/26/23 History levothyroxine 75 mcg tablet 75 mcg PO QAM 05/15/23 06/26/23 History apixaban 5 mg tablet (Eliquis) 5 mg PO BID 06/26/23 06/26/23 History ipratropium 0.5 mg-albuterol 3 mg 3 ml inhalation QID 06/26/23 06/26/23 History (2.5 mg base)/3 mL nebulization soln sacubitril 24 mg-valsartan 26 mg 1 tab PO BID 06/27/23 06/27/23 History tablet (Entresto) Patient History Medical History Aortic valve disorder Asymptomatic arteriosclerosis of coronary artery Atypical angina Atypical chest pain Automatic implantable cardiac defibrillator in situ CAD in [place] artery Cardiomyopathy Carpal tunnel syndrome Chest pain Chronic obstructive pulmonary disease CKD (chronic kidney disease), stage III Depression Dizziness Dyslipidemia Dyspnea on exertion Encounter for adjustment or management of automatic implantable cardioverter- defibrillator GERD (gastroesophageal reflux disease) Gout Hernia HFrEF (heart failure with reduced ejection fraction) Hyperlipidemia Hyperplasia of prostate without lower urinary tract symptoms (LUTS) Hypertension, benign Hypothyroidism Mitral valve disorder Mitral valve insufficiency Nonrheumatic aortic (valve) insufficiency 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 cardiomyopathies Paranoid schizophrenia Pulmonary valve disorder Shortness of breath Unspecified disorder of kidney and ureter Unspecified venous (peripheral) insufficiency Surgical History H/O heart artery stent H/O partial thyroidectomy H/O transurethral resection of prostate History of esophagogastroduodenoscopy (EGD) S/P cardiac cath S/P cataract surgery S/P eye surgery S/P hernia repair S/P tooth extraction Family History Father CHF (congestive heart failure) Mother Diabetes Brother Heart disease Social History Smoking Status: Former smoker Tobacco Type: Cigarettes Smoking End Date: 1969; Second Hand Exposure: No; Hx Alcohol Use: No Hx Substance Use: No Preferred Language: Argentine Communication Ability: Effective Travel Cota Required: No Beliefs That Will Affect Care: None marital status: marital status details: Carly Current Living Situation: Spouse Current Living Situation Comment: Patient lives in an apartment with his . Son lives close by. current occupational status: retired current occupation: Clerical Other Information That Helps Us Care for You: No Feels Safe at Home: Yes Safety Concerns: Feels Safe At This Time caffeine: Yes (1-2 cups per day) Assistive Devices: Glasses and Walker Physical Exam Physical Exam: In general is well-developed well-nourished white male in no acute distress. H EENT exam notes poor dentition. Neck is supple with full carotid upstrokes. No carotid bruits. Jugular venous pressure is flat at 90. There is no thyromegaly. Cardiovascular exam reveals a regular rhythm with distant heart sounds. A 1/6 basal systolic ejection murmurs noted. No S3. Chest reveals a palpable device in the left subclavicular region. Lungs are clear without rales, rhonchi or wheezes. Abdomen is soft and nontender without bruits. Extremities reveal intact radial artery pulses bilaterally. There is no peripheral edema. Results & Data Vital Signs (Past 12 Hours) Vital Signs Temp Pulse Pulse Resp BP Pulse Ox O2 Del Method 06/28/23 08:22 36.8 C 82 16 124/74 97 Room Air 06/28/23 07:19 82 06/28/23 03:14 36.9 C 79 18 103/65 94 Room Air 06/27/23 23:06 37.3 C 78 18 97/59 L 96 Room Air Laboratory Results CBC notes hemoglobin 8.2, hematocrit 24.0, white count 5.7, platelet count 165 1000. Electrolytes note a sodium of 134, potassium 4.0, chloride 102, bicarb 25, BUN 27, creatinine 2.17, and glucose of 99. High sensitivity troponin is 19.2. Diagnostic Findings EKG notes atrial sensing and ventricular pacing. Biventricular device is noted. Chest x-ray notes cardiomegaly and an implantable defibrillator. PG Care Time/CCT Total # of Minutes Spent Total Time Spent with Patient: Total time spent is greater than 50% in coordination of care (as documented) at patient's floor/unit and/or counseling patient: Coding Level of Care Code 19519 INT INP/OBS CARE 375MIN Diagnoses CAD in [place] artery I25.10 Cardiomyopathy I42.9 HFrEF (heart failure with reduced ejection fraction) I50.20 Automatic implantable cardiac defibrillator in situ Z95.810 Preop cardiovascular exam Z01.810
[2023-06-28] MEDS ORDERED: IOVERSOL 350 MG 125mL Prefilled Syringe IV ONE (11:32)
[2023-06-28] MEDS ORDERED: bisacodyL 10 MG SUPP PR PRN (13:21)
--- NOTE | 2023-06-28 14:10 | CT Scan Report ---
CT angio chest PE protocol CLINICAL HISTORY: PE TECHNIQUE: Multidetector row helical CT of the chest was performed with angiographic protocol. Holloway l and sagittal reformations were obtained. Coronal and sagittal MIPS were obtained from the axial thompson a set and were submitted for review. Automated dose lowering techniques and/or adjustment according to patient size were utilized for this exam. CT DOSE: 529.04 mGy.cm Comparison: Comparison is made to chest radiograph 06/26/2023 FINDINGS: Lungs and pleura: Focal airspace opacities are seen. There is small bilateral pleural effusions. Heart and pericardium: Cardiomegaly is seen with biatrial enlargement. Vessels: No evidence of pulmonary embolism. Severe atherosclerosis is seen. Mediastinum and malina: Unremarkable. Chest wall and lower neck: Unremarkable. Abdomen: A hiatal hernia is seen. Hyperdense exophytic lesion arising from the right kidney superior pole is seen. Bones: Degenerative changes in the thoracic spine. T6 compression deformity is seen. IMPRESSION: 1. No acute abnormality and in particular no evidence of pulmonary embolus. 2. Faint airspace opacities compatible with pneumonia. Trace bilateral pleural effusions. ACT 112: Negative or not required by law. Electronically signed by: Reza Neri M.D. 06/28/2023 2:07 PM
[2023-06-28] MEDS ORDERED: IPRATROPIUM BROMIDE NEB SOLN 0.02% 2.5 ML VIAL NEB STA (20:27)
[2023-06-28 20:49] LABS: Magnesium 2.1 mg/dl (1.7-2.4)
[2023-06-28] MEDS: ALPRAZolam 0.25 MG TABLET PO PRN (21:06)
--- NOTE | 2023-06-28 21:06 | Communication Note ---
Date of Service: June 28, 2023 Patient requesting for additional neb treatment for asthma. Dry cough symptoms present on admission. Adamantly refusing steroids due to being 'crazy' from past medication administration. Patient inquiring about [id number] home neb treatment Rx. Resume DuoNebs 4 times daily home regimen.
[2023-06-28] MEDS: ATORVASTATIN 40 MG TAB PO SCH (21:07)
[2023-06-28] MEDS: OLANZapine 10 MG TAB PO SCH (21:07)
[2023-06-28] MEDS: ALBUT/IPRATROP 3MG/0.5MG NEB 3 ML VIAL NEB PRN (21:17)
[2023-06-29] MEDS: SODIUM CHLORIDE 0.9% 1000ML 1,000 ML IV SCH (01:00)
[2023-06-29] MEDS: ALBUT/IPRATROP 3MG/0.5MG NEB 3 ML VIAL NEB PRN (01:04)
[2023-06-29] MEDS: ALPRAZolam 0.25 MG TABLET PO PRN ×4 (03:24→20:58)
[2023-06-29] MEDS: LEVOTHYROXINE SODIUM 75 MCG TABLET PO SCH (05:28)
[2023-06-29] MEDS: ALBUTEROL HFA 8 GM INHALER INH PRN (05:34)
[2023-06-29] MEDS: ALBUT/IPRATROP 3MG/0.5MG NEB 3 ML VIAL NEB SCH ×5 (07:09→23:41)
--- NOTE | 2023-06-29 07:46 | XRay Report ---
XR chest 1V portable CLINICAL HISTORY: wheeze TECHNIQUE: Single frontal radiograph of the chest was obtained. Comparison: Comparison is made to chest radiograph 10/05/2023. FINDINGS: Pacemaker defibrillator is seen. Cardiomegaly is noted. The aortic arch is calcified. The lungs are c lear. No evidence of pleural effusion or pneumothorax. IMPRESSION: No acute abnormalities and in particular no radiographic evidence of pneumonia. ACT 112: Negative or not required by law. Electronically signed by: Reza Neri M.D. 06/29/2023 7:44 AM
[2023-06-29 08:14] LABS: Hemoglobin 8.6 g/dl (14.0-18.0); Mean Corpuscular Hemoglobin 30.4 pg (25.0-34.0); Mean Corpuscular Hgb Conc 33.1 g/dL (32.0-36.0); Mean Corpuscular Volume 91.9 fL (80.0-100.0); Mean Platelet Volume 10.1 fL (9.4-12.4); Platelet Count 183 K/uL (130-400); RDW Coefficient of Variation 13.9 % (11.5-14.5); RDW Standard Deviation 46.9 fL (36.4-46.3); Red Blood Count 2.83 M/uL (4.70-6.10); White Blood Count 8.35 K/ul (4.8-10.8)
[2023-06-29] MEDS: FLUTICASONE/VILANTEROL 100/25MCG 14 PUFFS/INHALER INH SCH (08:16)
[2023-06-29] MEDS: FERROUS SULFATE 325 MG TAB PO SCH (08:17)
[2023-06-29] MEDS: carvediloL 3.125 MG TAB PO SCH ×2 (08:17→16:45)
[2023-06-29] MEDS: PANTOprazole 40 MG in SYRINGE 0 ML IV SCH ×2 (08:17→20:58)
[2023-06-29] MEDS: TAMSULOSIN HCL 0.4 MG CAP PO SCH (08:17)
[2023-06-29] MEDS: allopurinoL 100 MG TAB PO SCH (08:17)
[2023-06-29] MEDS: cloNIDine HCL 0.1 MG TAB PO SCH ×2 (08:19→20:57)
[2023-06-29] MEDS: DOCUSATE SODIUM 100 MG CAP PO SCH (08:19)
[2023-06-29 08:24] LABS: BUN Creatinine Ratio 11.6 (10-20); Calcium 8.5 mg/dl (8.6-10.3); Creatinine Clr Calc Pharmacy 26.4 ml/min; Est GFR (African American) 38.4 ml/min; Est GFR (Non-African American) 33.1 ml/min; Phosphorus 3.1 mg/dl (2.5-4.9); Potassium 4.1 mmol/L (3.5-5.1)
[2023-06-29] MEDS ORDERED: bisacodyL 5 MG TABEC PO ONE (10:12)
[2023-06-29] MEDS ORDERED: LAVAGE SOLUTION 4000ML PO SCH (10:30)
--- NOTE | 2023-06-29 10:59 | Consultation ---
Date of Consultation June 29, 2023 Assessment & Plan (1) Pulmonary embolism: Pt with hx of PE dx based on high likelihood V/Q scan and sx. No definite DVT on US or sx of DVT. AC has been D/C. No indications for IVC filter insertion at this time. Pt aware. Please call if needed. History of Present Illness Reason for Consultation: PE, GI bleed Attending Physician: Lola Conrad DO History of Present Illness 88 yo m with multiple medical problems, including CAD, cardiomyopathy, ICD placement, HFrEF, CKD, hyperlipidmeia, HTN, paranoid schizophrenia, asthma, admitted with possible GI bleed, seen in consultation today to eval for IVC filter. Pt recently diagnosed with PE in May 2023 after a 3 month hx of perceived WOOD. A CTA chest was not performed d/t severe CKD, and V/Q scan indicated likelihood of PE, so AC was started. Pt with known EF of 35-40%, and was also treated for pneumonia that admission. Presents this admission with anemia and possible GI bleed. AC was stopped, and 1 U PRBC transfused, hgb appears to have stabilized. Pt denies any sx presently. Denies [place], fever, chest pain, SOB, abd pain, N/V, rest pain, claudication, other complaints. Venous US of BLE demonstrates no DVT. Venous US performed last admission also negative. Allergies Allergy/AdvReac Type Severity Reaction Status Date / Time sertraline Allergy Intermediate Swollen Unverified 05/15/23 20:36 Ankles prednisone AdvReac Intermediate crazy Verified 05/15/23 21:24 pantoprazole [From Protonix] AdvReac Unknown Diarrhea Unverified 05/15/23 20:36 ticagrelor AdvReac bleeding Verified 06/26/23 12:23 Home Medications Medication Instructions Recorded Confirmed Type ascorbate calcium (vitamin C) 500 500 mg PO QAM 08/27/21 06/26/23 History mg tablet aspirin 81 mg tablet,delayed 81 mg PO 3XWK 08/27/21 06/26/23 History release ferrous sulfate 325 mg (65 mg 325 mg PO QAM 08/27/21 06/26/23 History iron) tablet olanzapine 10 mg tablet (Zyprexa) 10 mg PO HS 08/27/21 06/26/23 History omeprazole 20 mg capsule,delayed 20 mg PO DAILYBB 08/27/21 06/26/23 History release alprazolam 0.25 mg tablet (Xanax) 0.25 mg PO QID PRN Anxiety 09/16/21 06/26/23 History clonidine HCl 0.1 mg tablet 0.05 mg PO BID #30 tabs 09/16/21 06/26/23 Rx albuterol sulfate 90 mcg/actuation 1 inh inhalation Q6H PRN shortness 12/24/21 06/26/23 Rx aerosol inhaler of breath or wheezing #8.5 grams atorvastatin 40 mg tablet 40 mg PO HS 12/24/21 06/26/23 History fluticasone furoate 100 1 inh inhalation QAM 12/24/21 06/26/23 History mcg-vilanterol 25 mcg/dose inhalation powder (Breo Ellipta) tamsulosin 0.4 mg capsule (Flomax) 0.4 mg PO QAM 12/24/21 06/26/23 History carvedilol 3.125 mg tablet 3.125 mg PO BIDM #90 tabs 03/10/22 06/26/23 Rx allopurinol 100 mg tablet 100 mg PO QAM #90 tabs 09/05/22 06/26/23 Rx furosemide 20 mg tablet 20 mg PO Q OTHER DAY #60 tabs 11/27/22 06/26/23 Rx furosemide 40 mg tablet (Lasix) 40 mg PO Q OTHER DAY #60 tabs 11/27/22 06/26/23 Rx docusate sodium 100 mg tablet 100 mg PO DAILY 03/06/23 06/26/23 History acetaminophen 500 mg tablet 1,000 mg PO DAILY PRN pain or fever 05/15/23 06/26/23 History levothyroxine 75 mcg tablet 75 mcg PO QAM 05/15/23 06/26/23 History apixaban 5 mg tablet (Eliquis) 5 mg PO BID 06/26/23 06/26/23 History ipratropium 0.5 mg-albuterol 3 mg 3 ml inhalation QID 06/26/23 06/28/23 History (2.5 mg base)/3 mL nebulization soln Patient History Medical History Aortic valve disorder Asymptomatic arteriosclerosis of coronary artery Atypical angina Atypical chest pain Automatic implantable cardiac defibrillator in situ CAD in [place] artery Cardiomyopathy Carpal tunnel syndrome Chest pain Chronic obstructive pulmonary disease CKD (chronic kidney disease), stage III Depression Dizziness Dyslipidemia Dyspnea on exertion Encounter for adjustment or management of automatic implantable cardioverter- defibrillator GERD (gastroesophageal reflux disease) Gout Hernia HFrEF (heart failure with reduced ejection fraction) Hyperlipidemia Hyperplasia of prostate without lower urinary tract symptoms (LUTS) Hypertension, benign Hypothyroidism Mitral valve disorder Mitral valve insufficiency Nonrheumatic aortic (valve) insufficiency 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 cardiomyopathies Paranoid schizophrenia Pulmonary valve disorder Shortness of breath Unspecified disorder of kidney and ureter Unspecified venous (peripheral) insufficiency Surgical History H/O heart artery stent H/O partial thyroidectomy H/O transurethral resection of prostate History of esophagogastroduodenoscopy (EGD) S/P cardiac cath S/P cataract surgery S/P eye surgery S/P hernia repair S/P tooth extraction Family History Father CHF (congestive heart failure) Mother Diabetes Brother Heart disease Social History Smoking Status: Former smoker Tobacco Type: Cigarettes Smoking End Date: 1969; Second Hand Exposure: No; Hx Alcohol Use: No Hx Substance Use: No Preferred Language: Chinese Communication Ability: Effective Plastic Molder Required: No Beliefs That Will Affect Care: None marital status: marital status details: Carly Current Living Situation: Spouse Current Living Situation Comment: Patient lives in an apartment with his . Son lives close by. current occupational status: retired current occupation: Clerical Other Information That Helps Us Care for You: No Feels Safe at Home: Yes Safety Concerns: Feels Safe At This Time caffeine: Yes (1-2 cups per day) Assistive Devices: Walker Review of Systems Review of Systems: All systems reviewed & are unremarkable except as noted in HPI & below Physical Exam Constitutional: WD/WN, vitals as above + thin, cooperative and comfortable; not ill appearing and not in distress Neck: trachea midline Respiratory: normal respiratory effort Auscultation: + diminished lung sounds and + wheezes (occasional) Cardiovascular: Rate/Rhythm: regular rate and regular rhythm Vessels: femoral pulses present, dorsalis pedis pulses present and radial pulses present; + abnormal peripheral pulses Extremities: normal capillary refill Gastrointestinal (Abdomen): Inspection/Auscultation: abdomen normal to inspection and normal bowel sounds Percussion/Palpation: abdomen soft; abdomen nontender Musculoskeletal: no cyanosis or clubbing, extremities motor strength 5/5 Skin: no rashes, warm and dry Neurologic: moves all extremities and awake; no focal motor deficits and not confused Psychiatric: A+Ox3, euthymic affect Results & Data Vital Signs (Past 12 Hours) Vital Signs Temp Pulse Pulse Resp BP BP Pulse Ox 06/29/23 07:26 06/29/23 07:27 37.3 C 91 H 19 135/81 99 06/29/23 05:56 62 06/29/23 07:09 69 20 96 06/29/23 05:35 88 19 96 06/28/23 23:55 06/29/23 01:04 88 18 97 06/28/23 23:45 36.9 C 84 18 112/69 97 06/28/23 23:09 87 O2 Del Method 06/29/23 07:26 Room Air 06/29/23 07:27 Room Air 06/29/23 05:56 06/29/23 07:09 Room Air 06/29/23 05:35 Room Air 06/28/23 23:55 Nebulizer 06/29/23 01:04 Room Air 06/28/23 23:45 Room Air 06/28/23 23:09
[2023-06-29] MEDS: ONDANSETRON INJ 2 MG/ML 2 ML VIAL IV PRN ×2 (13:42→20:58)
[2023-06-29] MEDS: METOCLOPRAMIDE HCL 5 MG TABLET PO SCH (18:43)
[2023-06-29] MEDS: ATORVASTATIN 40 MG TAB PO SCH (20:57)
[2023-06-30] MEDS: ALBUTEROL HFA 8 GM INHALER INH PRN (04:41)
[2023-06-30] MEDS: LEVOTHYROXINE SODIUM 75 MCG TABLET PO SCH (05:37)
[2023-06-30] MEDS: ALBUT/IPRATROP 3MG/0.5MG NEB 3 ML VIAL NEB SCH ×3 (07:02→15:17)
--- NOTE | 2023-06-30 08:01 | Anesthesiology Consultation ---
Date of Service June 30, 2023 Assessment & Plan (1) Encounter for pre-operative examination: Chart Review Chart Review: Acceptable Risk for Surgery, Patient NOT seen in Pre Admission Testing and entry level programmer initiated Consults Requested none History Surgery Operation Date: 06/30/23 16:30 Proposed Procedures p Colonscopy EGD Dr Kaba - Laquita Kaba MD Height/Weight Height: 5 ft 6 in Weight: 64.5 kg Allergies Allergy/AdvReac Type Severity Reaction Status Date / Time sertraline Allergy Intermediate Swollen Unverified 05/15/23 20:36 Ankles prednisone AdvReac Intermediate crazy Verified 05/15/23 21:24 pantoprazole [From Protonix] AdvReac Unknown Diarrhea Unverified 05/15/23 20:36 ticagrelor AdvReac bleeding Verified 06/26/23 12:23 Medications Home Medications Medication Instructions Recorded Confirmed Last Taken ascorbate calcium (vitamin C) 500 500 mg PO QAM 08/27/21 06/26/23 06/26/23 mg tablet aspirin 81 mg tablet,delayed 81 mg PO 3XWK 08/27/21 06/26/23 06/24/23 release ferrous sulfate 325 mg (65 mg 325 mg PO QAM 08/27/21 06/26/23 06/26/23 iron) tablet olanzapine 10 mg tablet (Zyprexa) 10 mg PO HS 08/27/21 06/26/23 06/26/23 omeprazole 20 mg capsule,delayed 20 mg PO DAILYBB 08/27/21 06/26/23 06/26/23 release alprazolam 0.25 mg tablet (Xanax) 0.25 mg PO QID PRN Anxiety 09/16/21 06/26/23 06/26/23 clonidine HCl 0.1 mg tablet 0.05 mg PO BID #30 tabs 09/16/21 06/26/23 06/26/23 albuterol sulfate 90 mcg/actuation 1 inh inhalation Q6H PRN shortness 12/24/21 06/26/23 Unknown aerosol inhaler of breath or wheezing #8.5 grams atorvastatin 40 mg tablet 40 mg PO HS 12/24/21 06/26/23 06/25/23 fluticasone furoate 100 1 inh inhalation QAM 12/24/21 06/26/23 06/26/23 mcg-vilanterol 25 mcg/dose inhalation powder (Breo Ellipta) tamsulosin 0.4 mg capsule (Flomax) 0.4 mg PO QAM 12/24/21 06/26/23 06/26/23 carvedilol 3.125 mg tablet 3.125 mg PO BIDM #90 tabs 03/10/22 06/26/23 06/26/23 allopurinol 100 mg tablet 100 mg PO QAM #90 tabs 09/05/22 06/26/23 06/26/23 furosemide 20 mg tablet 20 mg PO Q OTHER DAY #60 tabs 11/27/22 06/26/23 06/25/23 furosemide 40 mg tablet (Lasix) 40 mg PO Q OTHER DAY #60 tabs 11/27/22 06/26/23 06/26/23 docusate sodium 100 mg tablet 100 mg PO DAILY 03/06/23 06/26/23 06/26/23 acetaminophen 500 mg tablet 1,000 mg PO DAILY PRN pain or fever 05/15/23 06/26/23 Unknown levothyroxine 75 mcg tablet 75 mcg PO QAM 05/15/23 06/26/23 06/26/23 apixaban 5 mg tablet (Eliquis) 5 mg PO BID 06/26/23 06/26/23 06/25/23 ipratropium 0.5 mg-albuterol 3 mg 3 ml inhalation QID 06/26/23 06/28/23 Unknown (2.5 mg base)/3 mL nebulization soln Active Medications Generic Name Dose Route Start Last Admin Trade Name Freq PRN Reason Stop Dose Admin Albuterol 3 ml 06/28/23 20:30 06/29/23 01:04 Albut/Ipratrop 3mg/0.5mg Neb 3 Ml Vial NEB 07/28/23 20:29 3 ml Q2H PRN Administration Wheezing Protocol Albuterol 3 ml 06/29/23 07:00 06/30/23 07:02 Albut/Ipratrop 3mg/0.5mg Neb 3 Ml Vial NEB 07/29/23 06:59 3 ml QIDR ANOOP Administration Protocol Albuterol 2 puffs 06/29/23 03:58 06/30/23 04:41 Albuterol Hfa 8 Gm Inhaler INH 07/29/23 03:57 2 puffs Q2H PRN Administration sob/wheeze Allopurinol 100 mg 06/27/23 09:00 06/29/23 08:17 Allopurinol 100 Mg Tab PO 07/27/23 08:59 100 mg QAM ANOOP Administration Alprazolam 0.25 mg 06/26/23 18:44 06/29/23 20:58 Alprazolam 0.25 Mg Tablet PO 07/26/23 18:43 0.25 mg QID PRN Administration Anxiety Atorvastatin Calcium 40 mg 06/26/23 21:00 06/29/23 20:57 Atorvastatin 40 Mg Tab PO 07/26/23 20:59 40 mg HS ANOOP Administration Bisacodyl 10 mg 06/28/23 13:21 06/29/23 17:20 Bisacodyl 10 Mg Supp NM 07/28/23 13:20 10 mg Q24H PRN Administration Constipation Carvedilol 3.125 mg 06/26/23 17:00 06/29/23 16:45 Carvedilol 3.125 Mg Tab PO 07/26/23 16:59 3.125 mg BIDM ANOOP Administration Clonidine HCl 0.05 mg 06/26/23 21:00 06/29/23 20:57 Clonidine Hcl 0.1 Mg Tab PO 07/26/23 20:59 0.05 mg BID ANOOP Administration Docusate Sodium 100 mg 06/27/23 09:00 06/29/23 08:19 Docusate Sodium 100 Mg Cap PO 07/27/23 08:59 100 mg DAILY ANOOP Administration Fluticasone/Vilanterol 1 puffs 06/27/23 09:00 06/29/23 08:16 Fluticasone/Vilanterol 100/25mcg 14 Puffs/Inhaler INH 07/27/23 08:59 1 puffs QAM ANOOP Administration Pantoprazole Sodium 40 mg/ 10 mls @ 5 mls/min 06/26/23 21:00 06/29/23 20:58 Syringe IV 07/26/23 20:59 5 mls/min BID ANOOP Administration Levothyroxine Sodium 75 mcg 06/27/23 06:30 06/30/23 05:37 Levothyroxine Sodium 75 Mcg Tablet PO 07/27/23 06:29 75 mcg DAILYBB ANOOP Administration Metoclopramide HCl 5 mg 06/29/23 17:30 06/29/23 18:43 Metoclopramide Hcl 5 Mg Tablet PO 07/29/23 17:29 5 mg AC ANOOP Administration Olanzapine 10 mg 06/26/23 21:00 06/28/23 21:07 Olanzapine 10 Mg Tab PO 07/26/23 20:59 10 mg HS ANOOP Administration Ondansetron HCl 4 mg 06/26/23 15:03 06/29/23 20:58 Ondansetron Inj 2 Mg/Ml 2 Ml Vial IV 07/26/23 15:02 4 mg Q6H PRN Administration Nausea Polyethylene Glycol 17 gm 06/26/23 15:03 06/28/23 09:08 Polyethylene (Miralax) 17 Gm Pack PO 07/26/23 15:02 17 gm DAILY PRN Administration Constipation Tamsulosin HCl 0.4 mg 06/27/23 09:00 06/29/23 08:17 Tamsulosin Hcl 0.4 Mg Cap PO 07/27/23 08:59 0.4 mg QAM ANOOP Administration Past Medical History Medical History (Updated 06/30/23 @ 08:07 by Herberth Perez MD) Aortic valve disorder Asymptomatic arteriosclerosis of coronary artery Atypical angina Atypical chest pain Automatic implantable cardiac defibrillator in situ CAD in [place] artery Cardiomyopathy Carpal tunnel syndrome Chest pain Chronic obstructive pulmonary disease CKD (chronic kidney disease), stage III Depression Dizziness Dyslipidemia Dyspnea on exertion Encounter for adjustment or management of automatic implantable cardioverter- defibrillator Encounter for pre-operative examination GERD (gastroesophageal reflux disease) Gout Hernia HFrEF (heart failure with reduced ejection fraction) Hyperlipidemia Hyperplasia of prostate without lower urinary tract symptoms (LUTS) Hypertension, benign Hypothyroidism Mitral valve disorder Mitral valve insufficiency Nonrheumatic aortic (valve) insufficiency 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 cardiomyopathies Paranoid schizophrenia Pulmonary valve disorder Shortness of breath Unspecified disorder of kidney and ureter Unspecified venous (peripheral) insufficiency Past Family History Family History Father CHF (congestive heart failure) Mother Diabetes Brother Heart disease Past Surgical History Surgical History H/O heart artery stent H/O partial thyroidectomy H/O transurethral resection of prostate History of esophagogastroduodenoscopy (EGD) S/P cardiac cath S/P cataract surgery S/P eye surgery S/P hernia repair S/P tooth extraction Social History Smoking Status: Former smoker Smoking End Date: 1969 Hx Alcohol Use: No Hx Substance Use: No Physical Exam Vital Signs Last Vital Signs Temp 36.7 C 06/30/23 03:17 Pulse 70 06/30/23 07:19 Resp 18 06/30/23 07:02 BP 131/81 06/30/23 03:17 Pulse Ox 93 06/30/23 07:02 O2 Del Method Room Air 06/30/23 07:02 FiO2 21 06/27/23 14:34 Testing Laboratory Results 06/29/23 07:21 06/29/23 07:21 PT 12.0 Seconds (9.0-12.0) 06/26/23 11:00 INR 1.1 (0.9-1.1) 06/26/23 11:00 APTT 34.2 Seconds (21.0-31.0) H 06/26/23 11:00 Blood Type O Positive 06/26/23 10:58 Antibody Screen NEGATIVE 06/26/23 10:58 Electrocardiogram Date: 06/26/23 Test Reason : Blood Pressure : / mmHG Vent. Rate : 076 BPM Atrial Rate : 076 BPM P-R Int : 110 ms QRS Dur : 192 ms QT Int : 454 ms P-R-T Axes : 013 232 048 degrees QTc Int : 510 ms Atrial-sensed ventricular-paced rhythm with occasional Premature ventricular complexes Biventricular pacemaker detected Abnormal ECG When compared with ECG of 15-MAY-2023 16:54, Premature ventricular complexes are now Present Vent. rate has increased BY 9 BPM Confirmed by Herberth Roe ([id number]) on 06/26/2023 5:50:57 PM Chest X-Ray Date: 06/28/23 XR chest 1V portable CLINICAL HISTORY: wheeze TECHNIQUE: Single frontal radiograph of the chest was obtained. Comparison: Comparison is made to chest radiograph 10/05/2023. FINDINGS: Pacemaker defibrillator is seen. Cardiomegaly is noted. The aortic arch is calcified. The lungs are clear. No evidence of pleural effusion or pneumothorax. IMPRESSION: No acute abnormalities and in particular no radiographic evidence of pneumonia. Echocardiogram Date: 05/18/23 EF: 35-40 LV Function: dysfunctional RWMA: + akinetic (apical) Other Findings: + LVH (mild; LV mod dilated) Valvular Disease: + MR (moderate; mild TR)
--- NOTE | 2023-06-30 08:37 | History & Physical Report ---
Date of Service June 30, 2023 Assessment & Plan Admission and Anticipated Discharge Date Admission Date: June 26, 2023 History of Present Illness Primary Care Provider: Indra Asif MD dark stool CV: RRR Resp: CTA Abd: soft A/p: EGD + Cscopy today Allergies Allergy/AdvReac Type Severity Reaction Status Date / Time sertraline Allergy Intermediate Swollen Unverified 05/15/23 20:36 Ankles prednisone AdvReac Intermediate crazy Verified 05/15/23 21:24 pantoprazole [From Protonix] AdvReac Unknown Diarrhea Unverified 05/15/23 20:36 ticagrelor AdvReac bleeding Verified 06/26/23 12:23 Home Medications Medication Instructions Recorded Confirmed Type ascorbate calcium (vitamin C) 500 500 mg PO QAM 08/27/21 06/26/23 History mg tablet aspirin 81 mg tablet,delayed 81 mg PO 3XWK 08/27/21 06/26/23 History release ferrous sulfate 325 mg (65 mg 325 mg PO QAM 08/27/21 06/26/23 History iron) tablet olanzapine 10 mg tablet (Zyprexa) 10 mg PO HS 08/27/21 06/26/23 History omeprazole 20 mg capsule,delayed 20 mg PO DAILYBB 08/27/21 06/26/23 History release alprazolam 0.25 mg tablet (Xanax) 0.25 mg PO QID PRN Anxiety 09/16/21 06/26/23 History clonidine HCl 0.1 mg tablet 0.05 mg PO BID #30 tabs 09/16/21 06/26/23 Rx albuterol sulfate 90 mcg/actuation 1 inh inhalation Q6H PRN shortness 12/24/21 06/26/23 Rx aerosol inhaler of breath or wheezing #8.5 grams atorvastatin 40 mg tablet 40 mg PO HS 12/24/21 06/26/23 History fluticasone furoate 100 1 inh inhalation QAM 12/24/21 06/26/23 History mcg-vilanterol 25 mcg/dose inhalation powder (Breo Ellipta) tamsulosin 0.4 mg capsule (Flomax) 0.4 mg PO QAM 12/24/21 06/26/23 History carvedilol 3.125 mg tablet 3.125 mg PO BIDM #90 tabs 03/10/22 06/26/23 Rx allopurinol 100 mg tablet 100 mg PO QAM #90 tabs 09/05/22 06/26/23 Rx furosemide 20 mg tablet 20 mg PO Q OTHER DAY #60 tabs 11/27/22 06/26/23 Rx furosemide 40 mg tablet (Lasix) 40 mg PO Q OTHER DAY #60 tabs 11/27/22 06/26/23 Rx docusate sodium 100 mg tablet 100 mg PO DAILY 03/06/23 06/26/23 History acetaminophen 500 mg tablet 1,000 mg PO DAILY PRN pain or fever 05/15/23 06/26/23 History levothyroxine 75 mcg tablet 75 mcg PO QAM 05/15/23 06/26/23 History apixaban 5 mg tablet (Eliquis) 5 mg PO BID 06/26/23 06/26/23 History ipratropium 0.5 mg-albuterol 3 mg 3 ml inhalation QID 06/26/23 06/28/23 History (2.5 mg base)/3 mL nebulization soln Past Med/Surg History Medical History (Updated 06/30/23 @ 08:07 by Herberth Perez MD) Aortic valve disorder Asymptomatic arteriosclerosis of coronary artery Atypical angina Atypical chest pain Automatic implantable cardiac defibrillator in situ CAD in [place] artery Cardiomyopathy Carpal tunnel syndrome Chest pain Chronic obstructive pulmonary disease CKD (chronic kidney disease), stage III Depression Dizziness Dyslipidemia Dyspnea on exertion Encounter for adjustment or management of automatic implantable cardioverter- defibrillator Encounter for pre-operative examination GERD (gastroesophageal reflux disease) Gout Hernia HFrEF (heart failure with reduced ejection fraction) Hyperlipidemia Hyperplasia of prostate without lower urinary tract symptoms (LUTS) Hypertension, benign Hypothyroidism Mitral valve disorder Mitral valve insufficiency Nonrheumatic aortic (valve) insufficiency 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 cardiomyopathies Paranoid schizophrenia Pulmonary valve disorder Shortness of breath Unspecified disorder of kidney and ureter Unspecified venous (peripheral) insufficiency Surgical History H/O heart artery stent H/O partial thyroidectomy H/O transurethral resection of prostate History of esophagogastroduodenoscopy (EGD) S/P cardiac cath S/P cataract surgery S/P eye surgery S/P hernia repair S/P tooth extraction Family History Father CHF (congestive heart failure) Mother Diabetes Brother Heart disease Social History Smoking Status: Former smoker Tobacco Type: Cigarettes Smoking End Date: 1969; Second Hand Exposure: No; Hx Alcohol Use: No Hx Substance Use: No Preferred Language: Amharic Communication Ability: Effective Service Worker Required: No Beliefs That Will Affect Care: None marital status: marital status details: Carly Current Living Situation: Spouse Current Living Situation Comment: Patient lives in an apartment with his . Son lives close by. current occupational status: retired current occupation: Clerical Other Information That Helps Us Care for You: No Feels Safe at Home: Yes Safety Concerns: Feels Safe At This Time caffeine: Yes (1-2 cups per day) Assistive Devices: Walker Results & Data Results & Data Vital Signs (Past 12 Hours) Vital Signs Temp Pulse Pulse Resp BP BP Pulse Ox 06/30/23 08:26 36.5 C 82 18 154/86 H 100 06/30/23 08:00 36.5 C 73 18 112/72 100 06/30/23 07:19 70 06/30/23 07:02 80 18 93 06/30/23 03:59 74 19 96 06/30/23 03:17 36.7 C 52 L 16 131/81 100 06/30/23 01:35 70 06/30/23 01:35 37.2 C 97 H 18 120/73 98 06/29/23 23:41 18 95 06/29/23 22:48 O2 Del Method 06/30/23 08:26 Room Air 06/30/23 08:00 Room Air 06/30/23 07:19 06/30/23 07:02 Room Air 06/30/23 03:59 Room Air 06/30/23 03:17 Room Air 06/30/23 01:35 06/30/23 01:35 Room Air 06/29/23 23:41 Room Air 06/29/23 22:48 Room Air Code Status & VTE Plan VTE Prophylaxis Plan VTE Prophylaxis will be ordered: No
[2023-06-30] MEDS ORDERED: ALBUTEROL 0.083% NEBU SOLN 3 ML VIAL INH STA (08:42)
[2023-06-30] MEDS ORDERED: KETAMINE 50 MG/5 ML SYRINGE ONE (09:05)
[2023-06-30] MEDS ORDERED: LIDOCAINE 2% 2 ML VIAL/AMP(20MG/ML) INFIL ONE (09:06)
[2023-06-30] MEDS ORDERED: PROPOFOL IV EMULSION 10 MG/ML 20 ML VIAL IV ONE (09:06)
[2023-06-30] MEDS ORDERED: GLUCAGON FOR INJ 1 MG VIAL ONE (09:26)
--- NOTE | 2023-06-30 10:12 | GI REPORT ---
Patient Name: Jb Fountain Procedure Date: 06/30/2023 8:27 AM Date of : 1935 Admit Type: Inpatient Age: 88 Gender: Male Attending MD: Laquita Kaba MD, Procedure: Upper GI endoscopy/ small bowel enteroscopy Providers: Laquita Kaba MD Referring MD: Davide Whitley Md Indications: Iron deficiency anemia secondary to chronic blood loss Medicines: See the Anesthesia note for documentation of the administered medications Complications: No immediate complications. Estimated Blood Loss: Estimated blood loss: none. Procedure: Pre-Anesthesia Assessment: - ASA Grade Assessment: IV - A patient with severe systemic disease that is a constant threat to life. After obtaining informed consent, the endoscope was passed under direct vision. Throughout the procedure, the patient's blood pressure, pulse, and oxygen saturations were monitored continuously. The Endoscope was introduced through the mouth, and advanced to the proximal jejunum. The upper GI endoscopy was accomplished without difficulty. The patient tolerated the procedure well. Findings: The GE junction was at 37 cm. The esophagus was normal. There was a hiatal hernia measuring 5-6 cm in length. Hill 4. There was patchy erythema in the fundus. There was a small 2-3 mm linear erosion in the fundus. The stomach was otherwise normal. Random biopsies done. The duodenum was normal. 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 This was clipped x 1. Impression: Anemia may be related to Dylan's erosions or AVM's. Recommendation: - Discharge patient to floor. See cscopy note for recommendations. Laquita Kaba M.D. Laquita Kaba MD 06/30/2023 10:11:38 AM This report has been signed electronically. Note Initiated On: 06/30/2023 8:27 AM Number of Addenda: 0 I attest to the content of the Intraoperative Record and orders documented therein, exceptions below {[id number]}
--- NOTE | 2023-06-30 10:22 | GI REPORT ---
Patient Name: Jb Fountain Procedure Date: 06/30/2023 8:27 AM Date of : 1935 Admit Type: Inpatient Age: 88 Gender: Male Attending MD: Laquita Kaba MD, Procedure: Colonoscopy Providers: Laquita Kaba MD Referring MD: Davide Whitley Md Indications: Iron deficiency anemia secondary to chronic blood loss Medicines: See the Anesthesia note for documentation of the administered medications Complications: No immediate complications. Estimated Blood Loss: Estimated blood loss: none. Procedure: Pre-Anesthesia Assessment: - ASA Grade Assessment: IV - A patient with severe systemic disease that is a constant threat to life. After I obtained informed consent, the scope was passed under direct vision. Throughout the procedure, the patient's blood pressure, pulse, and oxygen saturations were monitored continuously. The scope was introduced through the anus with the intention of advancing to the ileum. The scope was advanced to the rectum before the procedure was aborted. Medications were given. The colonoscopy was performed without difficulty. The patient tolerated the procedure well. The quality of the bowel preparation was unsatisfactory. Findings: Hemorrhoids were found on perianal exam. There was a large amount of stool in the rectum, and the procedure was aborted. Impression: - Preparation of the colon was unsatisfactory. - Hemorrhoids found on perianal exam. - No specimens collected. Recommendation: - Discharge patient to floor. Given his frailty and his comorbids, would not pursue re-attempt at colonoscopy. The onset of his anemia appears to coincide with his anticoagulation; hopefully, he will not have recurrence of his anemia now that his anticoagulation has been discontinued. Continue iron supplementation, would ask PCP to follow hgb periodically. Please call qith questions. Laquita Kaba M.D. Laquita Kaba MD 06/30/2023 10:22:08 AM This report has been signed electronically. Note Initiated On: 06/30/2023 8:27 AM Number of Addenda: 0 I attest to the content of the Intraoperative Record and orders documented therein, exceptions below {[id number]}
[2023-06-30] MEDS: DOCUSATE SODIUM 100 MG CAP PO SCH (10:28)
[2023-06-30] MEDS: FLUTICASONE/VILANTEROL 100/25MCG 14 PUFFS/INHALER INH SCH (10:28)
[2023-06-30] MEDS: PANTOprazole 40 MG in SYRINGE 0 ML IV SCH (10:28)
[2023-06-30] MEDS: allopurinoL 100 MG TAB PO SCH (10:29)
[2023-06-30] MEDS: TAMSULOSIN HCL 0.4 MG CAP PO SCH (10:29)
[2023-06-30] MEDS: carvediloL 3.125 MG TAB PO SCH ×2 (10:29→17:45)
[2023-06-30] MEDS: METOCLOPRAMIDE HCL 5 MG TABLET PO SCH ×3 (10:29→17:45)
[2023-06-30] MEDS: ALPRAZolam 0.25 MG TABLET PO PRN ×2 (10:31→17:47)
[2023-06-30] MEDS: cloNIDine HCL 0.1 MG TAB PO SCH (10:31)
--- NOTE | 2023-06-30 13:35 | Anesthesiology Progress Note ---
Date of Service June 30, 2023 Anesthesia Post Procedure Vital Signs Vital Signs: Temp Pulse Pulse Resp BP BP Pulse Ox 06/30/23 13:09 36.6 C 72 17 124/75 98 06/30/23 10:30 06/30/23 12:00 36.5 C 72 16 107/69 98 06/30/23 11:16 36.5 C 75 16 110/67 98 06/30/23 10:57 36.5 C 78 16 128/75 97 06/30/23 10:27 36.5 C 86 18 151/73 H 99 06/30/23 09:00 81 18 94 06/30/23 10:09 76 16 128/70 99 06/30/23 09:54 85 16 125/69 98 06/30/23 09:39 72 16 132/74 100 06/30/23 08:26 36.5 C 82 18 154/86 H 100 06/30/23 08:00 36.5 C 73 18 112/72 100 06/30/23 07:19 70 06/30/23 07:02 80 18 93 06/30/23 03:59 74 19 96 06/30/23 03:17 36.7 C 52 L 16 131/81 100 06/30/23 01:35 70 06/30/23 01:35 37.2 C 97 H 18 120/73 98 06/29/23 23:41 18 95 06/29/23 22:48 06/29/23 20:25 37.6 C H 73 18 136/71 96 06/29/23 19:02 71 18 96 06/29/23 16:03 36.8 C 66 16 118/73 97 06/29/23 14:11 73 06/29/23 15:26 71 18 94 O2 Del Method 06/30/23 13:09 Room Air 06/30/23 10:30 Room Air 06/30/23 12:00 Room Air 06/30/23 11:16 Room Air 06/30/23 10:57 Room Air 06/30/23 10:27 Room Air 06/30/23 09:00 Room Air 06/30/23 10:09 Room Air 06/30/23 09:54 Room Air 06/30/23 09:39 Room Air 06/30/23 08:26 Room Air 06/30/23 08:00 Room Air 06/30/23 07:19 08/15/23 07:02 Room Air 06/30/23 03:59 Room Air 06/30/23 03:17 Room Air 06/30/23 01:35 06/30/23 01:35 Room Air 06/29/23 23:41 Room Air 06/29/23 22:48 Room Air 06/29/23 20:25 Room Air 06/29/23 19:02 Room Air 06/29/23 16:03 Room Air 06/29/23 14:11 06/29/23 15:26 Room Air Transfer of Care Handoff Completed per policy Notes Mental Status: alert / awake / arousable and participated in evaluation Patient Amnestic to Procedure: Yes Nausea / Vomiting: adequately controlled Pain: adequately controlled Airway Patency, RR, SpO2: stable & adequate BP & HR: stable & adequate Hydration State: stable & adequate Anesthetic Complications: no major complications apparent
--- NOTE | 2023-06-30 17:16 | Hospitalist Progress Note ---
Date of Service June 29, 2023 Assessment & Plan (1) Symptomatic anemia: Plan: 2/ apixaban which was discontinued. Acute blood loss anemia, improved after blood transfusion. (2) UGIB (upper gastrointestinal bleed): Plan: Possible Upper GI bleed H/H improved after 1 unit of pRBC overnight Reported positive Hemoccult stool in ER Protonix, apixaban stopped as above. aspirin on hold. (3) Hyponatremia: Plan: resolved (4) Pulmonary embolism: Plan: 05/18/23 VQ Scan: Wedge-shaped perfusion defects within the right mid to lower lung zone suggest the possibility of an intermediate to high probability scan. 05/05/2023: Venous Doppler BLE without DVT CTA chest to rule out PE was unable to be performed secondary to patient's CK Hold Eliquis as above for anemia and possible GI bleed Vascular surgery consult, spoke to Anamika Parnell PA-C who recommends repeating LE venous doppler to r/o DVT Repeat venous Doppler BLE today: Negative for DVT 06/28: need to definitively rule out PE with contrasted CT chest to avoid any additional comorbidity if unnecessary. Hold Entresto and Lasix and given gentle fluids to support renal function. CT chest w contrast this am. If negative, there is no further indication for entresto with no evidence of DVT. CT scan reviewed and negative for PE. There is no further indication for apixaban here. Given baseline CKD, his Entresto was stopped prior to this admission. (5) CKD (chronic kidney disease), stage III: Plan: chronic, stable. Monitor renal functions, avoid nephrotoxic agents when able Holding Lasix, cont IVF gently Pt is currently undergoing a prep. (6) Asthma: Plan: chronic, stable. continue home Breo, duonebs PRN (7) HFrEF (heart failure with reduced ejection fraction): Plan: chronic, stable. Ischemic cardiomyopathy with h/o ICD placement. Echo 05/15/2023: EF: 35-40%, apical akinesis, moderate mitral regurgitation, mild tricuspid regurgitation Cont holding Lasix and reassess volume status tomorrow Cont Coreg, Lipitor. BOBBY/ARB/Entresto contraindicated given CKD. (8) Hypertension, benign: Plan: chronic, stable. Continue carvedilol, clonidine per home regimen (9) CAD in [place] artery: Plan: chronic, stable. S/P LAD PCI. Aspirin held on admission. Cont to hold for now and may be added back after discharge as outpatient per cardiology. Continue carvedilol, atorvastatin (10) Paranoid schizophrenia: Plan: chronic, stable. Continue Zyprexa, alprazolam DVT Prophylaxis SCDs Conditional Code as per discussion with pt and pt's . Does not want intubation or mechanical ventilation, is okay with CPR, defibrillation Follows with Dr Asif for routine care I spent a total of 60 minutes coordinating, documenting, and providing care for this patient excluding time spent in the performance of separately billed services Lola Conrad DO [facility] and Anticipated Discharge Date Admission Date: June 26, 2023 Subjective 88 yo M with known HFrEF presents with worsening shortness of breath. He was recently admitted for a similar issue and workup found possible pneumonia on the right and was treated with a course of antibiotic. He also underwent a VQ scan revealing possibility of a right lung PE. Lower extremity dopplers were negative for DVT. He was discharged on apixaban. H/H at discharge on 05/18 was 10.9/31.5. He returned with H/H 7.1/21.2 and reported weakness and shortness of breath. vomiting profusely after taking prep very quickly remains nauseous and bloated no other issues at this time. is at bedside and assists with the history Review of Systems Review of Systems: All systems were reviewed and negative except as indicated on subjective above. Physical Exam Physical Exam: CONSTITUTIONAL: thin, elderly, vitals as above, generally well-appearing, NAD EYES: normal conjunctivae, no scleral icterus ENT: external ear and nose normal, oropharynx clear, MMM NECK: trachea midline RESPIRATORY: clear to auscultation bilaterally, no crackles, rales or wheezes, normal respiratory effort CARDIOVASCULAR: regular rate and rhythm, S1 and 2 heard without murmurs, gallops or rubs, no JVD, no peripheral edema GASTROINTESTINAL: soft, bloating and generalized discomfort, no guarding MUSCULOSKELETAL: strength 5/5 throughout, head is normocephalic and atraumatic SKIN: warm and dry NEUROLOGIC: CN 2-12 grossly intact, no sensory deficit, normal cognition, normal speech, no tremor PSYCHIATRIC: alert cooperative and oriented to person, place and time. Euthymic mood, makes good eye contact, language grossly intact, recent and remote memory grossly intact. Results & Data Results & Data Vital Signs (Past 12 Hours) Vital Signs Temp Pulse Pulse Resp BP BP Pulse Ox 06/30/23 16:12 72 06/30/23 15:18 82 16 94 06/30/23 15:12 36.3 C L 71 16 110/71 99 06/30/23 13:47 36.6 C 72 15 127/78 98 06/30/23 13:09 36.6 C 72 17 124/75 98 06/30/23 10:30 06/30/23 12:00 36.5 C 72 16 107/69 98 06/30/23 11:16 36.5 C 75 16 110/67 98 06/30/23 10:57 36.5 C 78 16 128/75 97 06/30/23 10:27 36.5 C 86 18 151/73 H 99 06/30/23 09:00 81 18 94 06/30/23 10:09 76 16 128/70 99 06/30/23 09:54 85 16 125/69 98 06/30/23 09:39 72 16 132/74 100 06/30/23 08:26 36.5 C 82 18 154/86 H 100 06/30/23 08:00 36.5 C 73 18 112/72 100 06/30/23 07:19 70 06/30/23 07:02 80 18 93 O2 Del Method 06/30/23 16:12 06/30/23 15:18 Room Air 06/30/23 15:12 Room Air 06/30/23 13:47 Room Air 06/30/23 13:09 Room Air 06/30/23 10:30 Room Air 06/30/23 12:00 Room Air 06/30/23 11:16 Room Air 06/30/23 10:57 Room Air 06/30/23 10:27 Room Air 06/30/23 09:00 Room Air 06/30/23 10:09 Room Air 06/30/23 09:54 Room Air 06/30/23 09:39 Room Air 06/30/23 08:26 Room Air 06/30/23 08:00 Room Air 06/30/23 07:19 06/30/23 07:02 Room Air Medications Administered Current Inpatient Medications Acetaminophen (Acetaminophen 325 Mg Tab) 650 mg PO Q4H PRN PRN Reason: Pain or Fever Stop: 07/26/23 15:02 Albuterol (Albut/Ipratrop 3mg/0.5mg Neb 3 Ml Vial) 3 ml NEB Q2H PRN; Protocol PRN Reason: Wheezing Stop: 07/28/23 20:29 Last Admin: 06/29/23 01:04 Dose: 3 ml Albuterol (Albut/Ipratrop 3mg/0.5mg Neb 3 Ml Vial) 3 ml NEB QIDR ANOOP; Protocol Stop: 07/29/23 06:59 Last Admin: 06/30/23 15:17 Dose: 3 ml Albuterol (Albuterol Hfa 8 Gm Inhaler) 2 puffs INH Q2H PRN PRN Reason: sob/wheeze Stop: 07/29/23 03:57 Last Admin: 06/30/23 04:41 Dose: 2 puffs Allopurinol (Allopurinol 100 Mg Tab) 100 mg PO QAM [facility] Stop: 07/27/23 08:59 Last Admin: 06/30/23 10:29 Dose: 100 mg Alprazolam (Alprazolam 0.25 Mg Tablet) 0.25 mg PO QID PRN PRN Reason: Anxiety Stop: 07/26/23 18:43 Last Admin: 06/30/23 10:31 Dose: 0.25 mg Atorvastatin Calcium (Atorvastatin 40 Mg Tab) 40 mg PO HS [facility] Stop: 07/26/23 20:59 Last Admin: 06/29/23 20:57 Dose: 40 mg Bisacodyl (Bisacodyl 10 Mg Supp) 10 mg ND Q24H PRN PRN Reason: Constipation Stop: 07/28/23 13:20 Last Admin: 06/29/23 17:20 Dose: 10 mg Carvedilol (Carvedilol 3.125 Mg Tab) 3.125 mg PO BIDM [facility] Stop: 07/26/23 16:59 Last Admin: 06/30/23 10:29 Dose: 3.125 mg Clonidine HCl (Clonidine Hcl 0.1 Mg Tab) 0.05 mg PO BID [facility] Stop: 07/26/23 20:59 Last Admin: 06/30/23 10:31 Dose: 0.05 mg Docusate Sodium (Docusate Sodium 100 Mg Cap) 100 mg PO DAILY [facility] Stop: 07/27/23 08:59 Last Admin: 06/30/23 10:28 Dose: Not Given Fluticasone/Vilanterol (Fluticasone/Vilanterol 100/25mcg 14 Puffs/Inhaler) 1 puffs INH QAM [facility] Stop: 07/27/23 08:59 Last Admin: 06/30/23 10:28 Dose: 1 puffs Pantoprazole Sodium 40 mg/ (Syringe) 10 mls @ 5 mls/min IV BID [facility] Stop: 07/26/23 20:59 Last Admin: 06/30/23 10:28 Dose: 5 mls/min Levothyroxine Sodium (Levothyroxine Sodium 75 Mcg Tablet) 75 mcg PO DAILYBB [facility] Stop: 07/27/23 06:29 Last Admin: 06/30/23 05:37 Dose: 75 mcg Metoclopramide HCl (Metoclopramide Hcl 5 Mg Tablet) 5 mg PO AC [facility] Stop: 07/29/23 17:29 Last Admin: 06/30/23 10:29 Dose: 5 mg Olanzapine (Olanzapine 10 Mg Tab) 10 mg PO HS [facility] Stop: 07/26/23 20:59 Last Admin: 06/28/23 21:07 Dose: 10 mg Ondansetron HCl (Ondansetron Inj 2 Mg/Ml 2 Ml Vial) 4 mg IV Q6H PRN PRN Reason: Nausea Stop: 07/26/23 15:02 Last Admin: 06/29/23 20:58 Dose: 4 mg Polyethylene Glycol (Polyethylene (Miralax) 17 Gm Pack) 17 gm PO DAILY PRN PRN Reason: Constipation Stop: 07/26/23 15:02 Last Admin: 06/28/23 09:08 Dose: 17 gm Tamsulosin HCl (Tamsulosin Hcl 0.4 Mg Cap) 0.4 mg PO QAM [facility] Stop: 07/27/23 08:59 Last Admin: 06/30/23 10:29 Dose: 0.4 mg
--- NOTE | 2023-06-30 17:16 | Discharge Summary ---
Discharge Summary Date of Service June 30, 2023 Notes For Next Care Provider Medication Changes From Visit STOP apixaban START Omeprazole BID Admission HPI Per Admitting Provider History obtained from patient, family, and records. Medical history significant for chronic systolic heart failure (EF 37% TTE 2020) status post ICD, CAD status post stent, chronic LBBB, valvular heart disease (moderate to severe MR/TR, mild [place]/AR), pulmonary hypertension, bronchial asthma, history of blood clots as per patient, CRI (baseline creatinine 1.9), chronic anemia (baseline hemoglobin 12), GERD, postsurgical hypothyroidism, BPH, paranoid schizophrenia, anxiety/mood disorder, past tobacco abuse. Patient underwent pacemaker generator change at same-day surgery by [facility] engine generator assembler 3 months ago. Normal function on subsequent interrogation on EPS follow-up visit 3 weeks ago. Patient has not felt well since EPS procedure 3 months ago. Shortness of breath worse on exertion. Junky cough symptoms. Patient admits to coughing with food/water intake if not careful. Intermittent left-sided chest pain complaints. No fluid retention. Patient compliant with home medications. Usual anxiety. Patient seen at [facility] can crimper office 2 weeks ago. He was told that his heart was okay. Bronchospasm noted on examination as per note. Patient advised to follow-up with PCP. Patient seen at PCPs office 1 today. Rhonchi and wheezing noted on lung exam. Patient prescribed doxycycline for possible bronchitis. Outpatient chest x-ray and labs requested. Abnormal dimer noted on outpatient blood work. Patient sent to the ER for evaluation. Ceftriaxone and neb treatment administered at the ER. Admission Exam Per Admitting Provider GENERAL: Anxious, no respiratory distress SKIN: Pallor, warm HEENT: Partial alopecia, bespectacled, pale palpebral conjunctivae, no ptosis, dry buccal mucosa NECK : Supple, no tenderness CHEST : Decreased breath sounds, diffuse expiratory wheezes, no tenderness HEART : RRR, systolic murmur ABDOMEN: no distention, nontender EXTREMITIES : Minimal LE swelling, no LE tenderness, no other conspicuous deformities noted NEUROLOGIC : Coherent, no facial asymmetry, no other gross focality Principal Dx & Hospital Course #1 = Principal Diagnosis (1) Symptomatic anemia: Hemorrhagic disorder d/t apixaban anticoagulant 2/2 apixaban which was discontinued. Acute blood loss anemia, improved after blood transfusion. (2) UGIB (upper gastrointestinal bleed): (3) Hyponatremia: resolved (4) Pulmonary embolism: (5) CKD (chronic kidney disease), stage III: (6) Asthma: (7) HFrEF (heart failure with reduced ejection fraction): (8) Hypertension, benign: (9) CAD in [place] artery: (10) Paranoid schizophrenia: Plan 88-year-old man presented to the ER for evaluation of weakness and shortness of breath. Work-up revealed significant drop in H&H of approximately 3 g from just 1 month ago. At that time he had been started on apixaban, therefore acute blood loss anemia possibly secondary to upper GI bleed was considered. He was started on intravenous Protonix and required 1 unit of blood for support. He remained hemodynamically stable and afebrile and was relatively constipated throughout his stay. Aspirin was also held, and he has a noted history of CAD. He was admitted to medicine and GI was consulted. There was no indication for emergent scope and he remained on medical management over the weekend. During this time cardiology was consulted for preoperative evaluation and felt he was optimized to go undergo anesthesia. He has a known cardiomyopathy with a left ventricular dysfunction with ejection fraction 35 to 40% and is not on BOBBY inhibitor/ARB due to renal insufficiency. He remained euvolemic during his stay. A CT chest with contrast was performed which ruled out PE, previously diagnosed from a nuc med study during the admission where he also had an pneumonia in the affected lung. Lower extremity Dopplers were also negative for DVT. Therefore the patient was not requiring apixaban. Endoscopy and colonoscopy were performed on 06/30. There was patchy erythema in the fundus with a 2 to 3 mm linear erosion. The stomach was otherwise normal and random biopsies were performed. The duodenum was normal. 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 Anemia was thought related to Dylan's erosions or AVMs. Colonoscopy revealed a large amount of stool in the rectum and the procedure was aborted. Perianal hemorrhoids were found. Every attempt a colonoscopy was not recommended given the patient's frailty and comorbidities. The onset of his anemia appeared to coincide with his anticoagulation and hopefully without this he will not have a recurrence. He was continued on iron supplementation and twice daily PPI. At time of discharge he was hemodynamically stable and afebrile and tolerating p.o. He was mentating and ambulating at baseline and oxygenating well on room air. He was discharged in stable condition with the support and assist of his at home. Close primary care follow-up was recommended. Updated Medication List Medication Instructions Recorded Confirmed Type ascorbate calcium (vitamin C) 500 500 mg PO QAM 08/27/21 06/26/23 History mg tablet aspirin 81 mg tablet,delayed 81 mg PO [id number] 08/27/21 06/26/23 History release ferrous sulfate 325 mg (65 mg 325 mg PO QAM 08/27/21 06/26/23 History iron) tablet olanzapine 10 mg tablet (Zyprexa) 10 mg PO HS 08/27/21 06/26/23 History alprazolam 0.25 mg tablet (Xanax) 0.25 mg PO QID PRN Anxiety 09/16/21 06/26/23 History clonidine HCl 0.1 mg tablet 0.05 mg PO BID #30 tabs 09/16/21 06/26/23 Rx albuterol sulfate 90 mcg/actuation 1 inh inhalation Q6H PRN shortness 12/24/21 06/26/23 Rx aerosol inhaler of breath or wheezing #8.5 grams atorvastatin 40 mg tablet 40 mg PO HS 12/24/21 06/26/23 History fluticasone furoate 100 1 inh inhalation QAM 12/24/21 06/26/23 History mcg-vilanterol 25 mcg/dose inhalation powder (Breo Ellipta) tamsulosin 0.4 mg capsule (Flomax) 0.4 mg PO QAM 12/24/21 06/26/23 History carvedilol 3.125 mg tablet 3.125 mg PO BIDM #90 tabs 03/10/22 06/26/23 Rx allopurinol 100 mg tablet 100 mg PO QAM #90 tabs 09/05/22 06/26/23 Rx furosemide 20 mg tablet 20 mg PO Q OTHER DAY #60 tabs 11/27/22 06/26/23 Rx furosemide 40 mg tablet (Lasix) 40 mg PO Q OTHER DAY #60 tabs 11/27/22 06/26/23 Rx docusate sodium 100 mg tablet 100 mg PO DAILY 03/06/23 06/26/23 History acetaminophen 500 mg tablet 1,000 mg PO DAILY PRN pain or fever 05/15/23 06/26/23 History levothyroxine 75 mcg tablet 75 mcg PO QAM 05/15/23 06/26/23 History ipratropium 0.5 mg-albuterol 3 mg 3 ml inhalation QID 06/26/23 06/28/23 History (2.5 mg base)/3 mL nebulization soln omeprazole 40 mg capsule,delayed 40 mg PO BID #60 caps 06/30/23 Rx release Hospital Stay Data Consultations 06/26/23 12:16 ED Decision to Admit Stat 06/26/23 13:59 Consult Gastroenterology Routine 06/27/23 16:34 Consult Cardiology Routine 06/29/23 08:00 Consult Vascular Surgery Routine Procedures Performed Operation Date: 06/30/23 16:30 Actual Procedures p EGD Biopsy Cytology - Laquita Kaba MD s Small Bowel Enteroscopy EGD - Laquita Kaba MD s Colonoscopy - Laquita Kaba MD Diagnostic Imagining Performed 06/26/23 14:20 US venous doppler LE BI Urgent 06/28/23 10:00 CT angio chest PE protocol Urgent Discharge Instructions Given to Patient (Per Discharging Provider) Please take all medications as instructed on discharge list below. Please note you are now off the APIXABAN. Please continue taking baby aspirin as you had previously. Your upper endoscopy showed some areas of redness in the stomach which were biopsied. The result of the biopsy will be back in a few days. Someone should call you with the results of this next week, or please touch base with your primary care physician about them. 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 These areas may have been the source of bleeding. Your colonoscopy prep was not enough to allow full visualization of the colon, so this was not evaluated. A repeat colonoscopy attempt is not advised. You did have evidence of hemorrhoids which also may have contributed to blood loss and anemia. You underwent chest imaging that showed no evidence of blood clot, and there was no evidence of blood clot in the veins of your legs on ultrasound evaluation. Your APIXABAN was stopped as a result. You may continue taking baby aspirin for coronary disease. Please continue taking PROTONIX which is a medication that will protect your stomach lining in the setting of this recent bleed. It is recommended that you followup with your primary care physician within one week of hospital discharge to ensure you are still doing well after returning home. It was a pleasure taking care of you! Please call if you have any questions or problems. You can reach a [facility] hospitalist on duty at [facility] 24 hours a day by calling [phone]. Take care of yourself. Lola Conrad DO [facility] Total Time Total Time Spent Total Time Spent (In Minutes): 60
== END 2023-06-30 18:53 | disposition home or self-care (01) | DRG 813 ==
LOC: ED 10:47 → SUATTDRO 13:43 → EDINP 13:43 → 2W 14:54 → 2N 06-28 18:39

== ENCOUNTER 2024-09-02 16:19 | Inpatient (IN) ==
[2024-09-02] MEDS: ALBUT/IPRATROP 3MG/0.5MG NEB 3 ML VIAL NEB STA ×2 (16:55→21:57)
[2024-09-02 17:12] LABS: Albumin Globulin Ratio 1.6 (0.9-2); BUN Creatinine Ratio 13.3 (10-20); Bilirubin,Total 0.7 mg/dl (0.2-1.0); Calcium 8.7 mg/dl (8.6-10.3); Creatinine Clr Calc Pharmacy 26.8 ml/min; Globulin 2.5 gm/dl (2.5-4.0); Total Protein 6.5 gm/dl (6.0-8.3)
[2024-09-02 17:13] LABS: Basophils # (auto) 0.07 K/uL (0.00-0.20); Basophils % (auto) 0.9 %; Eosinophils # (auto) 0.27 K/uL (0.00-0.50); Eosinophils % (auto) 3.5 %; Hematocrit (blood only) 33.9 % (42.0-52.0); Hemoglobin 11.1 g/dl (14.0-18.0); Immature Granulocytes # (auto) 0.04 K/uL (0.01-0.20); Immature Granulocytes % (auto) 0.5 %; Lymphocytes # (auto) 1.65 K/uL (1.20-3.40); Lymphocytes % (auto) 21.2 %; Mean Corpuscular Hemoglobin 29.1 pg (25.0-34.0); Mean Corpuscular Hgb Conc 32.7 g/dL (32.0-36.0); Mean Platelet Volume 11.4 fL (9.4-12.4); Monocytes # (auto) 0.31 K/uL (0.11-0.59); Neutrophils # (auto) 5.44 K/uL (1.40-6.50); Neutrophils % (auto) 69.9 %; Platelet Count 156 K/uL (130-400); RDW Coefficient of Variation 14.2 % (11.5-14.5); RDW Standard Deviation 46.2 fL (36.4-46.3); Red Blood Count 3.81 M/uL (4.70-6.10); White Blood Count 7.78 K/ul (4.8-10.8)
--- NOTE | 2024-09-02 17:39 | XRay Report ---
XR chest 1V portable CLINICAL HISTORY: Dyspnea COMPARISON STUDY: Chest CT and chest radiograph June 28, 2023. FINDINGS: A left subclavian biventricular pacer/AICD is in place. Moderate cardiomegaly is unchanged. There is no pneumothorax. Small bilateral pleural effusions are present. There are mild bibasilar op acities. Interstitial thickening and patchy bilateral airspace opacities are greater within the right lung. IMPRESSION: 1. Cardiomegaly with mild interstitial pulmonary edema and small bilateral pleural effusions. 2. Patchy asymmetric right lung opacities which could reflect alveolar pulmonary edema or superimpose d pneumonia. ACT 112: Negative or not required by law. Electronically signed by: Ang Flores M.D. 09/02/2024 5:38 PM
[2024-09-02 18:08] LABS: Adenovirus PCR Not Detected (NotDetected); Bordetella parapertussis PCR Not Detected (NotDetected); Bordetella pertussis PCR Not Detected (NotDetected); Chlamydia pneumoniae PCR Not Detected (NotDetected); Coronavirus 229E PCR Not Detected (NotDetected); Coronavirus CoV-2 (COVID19)PCR Not Detected (NotDetected); Coronavirus HKU1 PCR Not Detected (NotDetected); Coronavirus NL63 PCR Not Detected (NotDetected); Coronavirus OC43PCR Not Detected (NotDetected); Human Metapneumovirus PCR Not Detected (NotDetected); Influenza A PCR Not Detected (NotDetected); Influenza B PCR Not Detected (NotDetected); Mycoplasma pneumoniae PCR Not Detected (NotDetected); Parainfluenza Virus 1 PCR Not Detected (NotDetected); Parainfluenza Virus 2 PCR Not Detected (NotDetected); Parainfluenza Virus 3 PCR Not Detected (NotDetected); Parainfluenza Virus 4 PCR Not Detected (NotDetected); Respiratory Syncytial VirusPCR Not Detected (NotDetected); Rhinovirus/Enterovirus PCR Not Detected (NotDetected)
--- NOTE | 2024-09-02 18:47 | Emergency Department Note ---
Impression & Plan Breathlessness, Asthma, CHF (congestive heart failure) ED Provider Note Provider: Arvind Melissa MD DATE OF SERVICE: 09/02/2024 CHIEF COMPLAINT: Shortness of breath HISTORY OF PRESENT ILLNESS: Patient is a 89-year-old gentleman history of paroxysmal atrial fibrillation not apparently on anticoagulation, asthma, CAD, hypertension, AICD, heart failure, GI bleed, and schizophrenia presenting via ambulance from home. Patient states it felt like he had an asthma had suddenly occurred at home. Was doing leg lifts in his chair when this happened. [place] like some panic came on afterwards as well. Patient denies any pain. Denies any syncope or trauma or falls. Denies significant fever or rhinorrhea or sore throat/sick contact. Patient not normally on oxygen at home. Received DuoNeb and 125 mg IV Solu-Medrol per EMS and route is having some improvement. States he feels still short of breath. Has not had asthma issues in decades according to him. Unclear what might have set things off. Does state that he uses Breo inhalation at home and has been taking his Lasix. Denies significant new leg swelling. PAST MEDICAL HISTORY: As noted above MEDICATIONS: Reviewed home medication includes Lasix and Breo SOCIAL HISTORY: Reports a non-smoking status PHYSICAL EXAM: GENERAL: alert and oriented in no acute distress on stretcher Head: normocephalic and atraumatic EYES: No injection, discharge or icterus. EOMI. NECK: Trachea midline. Good range of motion ENT: Mucous membranes pink and moist. LUNGS: Airway patent. No retractions. Breath sounds crackles and some faint wheeze on exhalation HEART: Regular rate and rhythm. No chest wall tenderness ABDOMEN: Soft and non-tender, without guarding or rebound. SKIN: Acyanotic, warm, dry, without rashes EXTREMITIES: Without swelling, tenderness or deformity NEUROLOGICAL: No focal deficits. No aphasia. No facial droop or slurred speech. Ambulatory. EK bpm atrially sensed ventricular paced rhythm without PVC noted. Intraventricular conduction delay appreciable without clear acute ST segment elevation QTc 497. CONTINUOUS CARDIAC MONITORING: was ordered and showed a heart rate of 70s to 90s bpm in atrially sensed ventricular paced rhythm Patient's laboratory studies and imaging reviewed. Differential includes Reactive airway disease, pneumonia, pneumothorax, COPD, CHF, infections, cardiac ischemia, pulmonary embolism, musculoskeletal, gastrointestinal, as well as other pathologies. IMPRESSION/MEDICAL DECISION MAKING: No palpitations syncope or trauma reported. Pacemaker interrogation ordered. Having improvement after nebulizer and steroid and route. We have small additional nebulizer although I question how much of this is reactive airway disease versus possible fluid overload. Does have significant CHF history. Chest x-ray does show evidence cardiomegaly and some pulmonary edema and small effusions and some little bit of asymmetry in the right lungs. Denies other fever or infectious symptoms lower suspicion for pneumonia. Respiratory viral panel negative here. No leukocytosis. Stable mild anemia. Chronic CKD although may be slightly worsened sodium level 128 today. Troponin not elevated but BNP significantly elevated 1472. Will give some additional Lasix for diuresis. Patient is improving here however given his age and comorbidities with some concern for fluid overload believe staying for further monitor diuresis with his hyponatremia and renal dysfunction is most prudent and the patient is agreeable. Have been able to wean the patient for less than a liter of oxygen. Patient does not seem tachycardic irregular suspicion for PE at this time. DIAGNOSIS: Shortness of breath, CHF, hyponatremia, CKD DISPOSITION: Hospitalist will evaluate Patient was agreeable with this plan. Past Med/Surg History Problem List (Updated 09/02/24 @ 21:21 by Arvind Melissa M.D.) CHF (congestive heart failure) (Acute) Asthma (Acute) Breathlessness (Acute) Paroxysmal atrial fibrillation Paranoid schizophrenia Asthma CKD (chronic kidney disease), stage III Pulmonary embolism Hyponatremia Symptomatic anemia UGIB (upper gastrointestinal bleed) (Acute) Anemia (Acute) Generalized muscle weakness (Acute) Mitral valve insufficiency H/O heart artery stent HFrEF (heart failure with reduced ejection fraction) Shortness of breath on exertion Pneumonia (Acute) Elevated troponin (Acute) 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 Nonrheumatic aortic (valve) insufficiency Hyperlipidemia Hypertension, benign Automatic implantable cardiac defibrillator in situ Cardiomyopathy CAD in [place] artery Medical History Encounter for pre-operative examination Dyspnea on exertion Asymptomatic arteriosclerosis of coronary artery Atypical angina Atypical chest pain Dyslipidemia Encounter for adjustment or management of automatic implantable cardioverter- defibrillator Other primary cardiomyopathies Occlusion and stenosis of bilateral carotid arteries Depression 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 Chest pain Pulmonary valve disorder Old myocardial infarction Aortic valve disorder Hyperplasia of prostate without lower urinary tract symptoms (LUTS) Gout Unspecified venous (peripheral) insufficiency Carpal tunnel syndrome Unspecified disorder of kidney and ureter Hernia Chronic obstructive pulmonary disease GERD (gastroesophageal reflux disease) Nonrheumatic tricuspid (valve) insufficiency Mitral valve disorder Shortness of breath Hypothyroidism Dizziness Surgical History History of esophagogastroduodenoscopy (EGD) S/P cardiac cath S/P hernia repair S/P cataract surgery S/P eye surgery S/P tooth extraction H/O transurethral resection of prostate H/O partial thyroidectomy Family History Father CHF (congestive heart failure) Mother Diabetes Brother Heart disease Social History Smoking Status: Never smoker Tobacco Type: Cigarettes Second Hand Exposure: No; Hx Alcohol Use: No Hx Substance Use: No Preferred Language: Georgian Communication Ability: Effective 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 Son lives close by. current occupational status: retired current occupation: Clerical Feels Safe at Home: Yes caffeine: Yes (1-2 cups per day) Assistive Devices: Walker Allergies Allergies Allergy/AdvReac Type Severity Reaction Status Date / Time sertraline Allergy Intermediate Swollen Unverified 09/02/24 21:10 Ankles prednisone AdvReac Intermediate crazy Verified 09/02/24 21:10 pantoprazole [From Protonix] AdvReac Unknown Diarrhea Unverified 09/02/24 21:10 ticagrelor AdvReac bleeding Verified 09/02/24 21:10 Home Meds Home Medications Medication Instructions Recorded Confirmed ascorbate calcium (vitamin C) 500 500 mg PO QAM 08/27/21 09/02/24 mg tablet aspirin 81 mg tablet,delayed 81 mg PO 3XWK 08/27/21 09/02/24 release olanzapine 10 mg tablet (Zyprexa) 10 mg PO HS 08/27/21 09/02/24 atorvastatin 40 mg tablet 40 mg PO HS 12/24/21 09/02/24 fluticasone furoate 100 1 inh inhalation QAM 12/24/21 09/02/24 mcg-vilanterol 25 mcg/dose inhalation powder (Breo Ellipta) tamsulosin 0.4 mg capsule (Flomax) 0.4 mg PO QAM 12/24/21 09/02/24 acetaminophen 500 mg tablet 1,000 mg PO DAILY PRN pain or fever 05/15/23 09/02/24 levothyroxine 75 mcg tablet 75 mcg PO QAM 05/15/23 09/02/24 albuterol sulfate 90 mcg/actuation 2 inh inhalation Q6H PRN shortness 07/17/23 09/02/24 aerosol inhaler of breath or wheezing ferrous sulfate 325 mg (65 mg 325 mg PO BID 09/02/23 09/02/24 iron) tablet omeprazole 40 mg capsule,delayed 40 mg PO DAILY 11/06/23 09/02/24 release psyllium [Metamucil (sugar)] See Rx Instructions .Route .COMPLEX 11/06/23 09/02/24 alprazolam 0.25 mg tablet (Xanax) 0.25 mg PO QID Anxiety 08/08/24 09/02/24 Previous Rx's Medication Instructions Recorded clonidine HCl 0.1 mg tablet 0.05 mg (1/2 x 0.1 mg) PO BID #30 09/16/21 tabs allopurinol 100 mg tablet 100 mg PO QAM #90 tabs 09/05/22 furosemide 20 mg tablet 20 mg PO Q OTHER DAY #60 tabs 11/27/22 furosemide 40 mg tablet (Lasix) 40 mg PO Q OTHER DAY #60 tabs 11/27/22 cholecalciferol (vitamin D3) 50 50 mcg PO DAILY #90 caps 04/14/24 mcg (2,000 unit) capsule carvedilol 12.5 mg tablet 12.5 mg PO BIDM #180 tabs 06/09/24 Results & Data (ED) Vital Signs Vital Signs - 24 hr 09/02/24 16:23 09/02/24 16:35 09/02/24 16:35 Pulse Rate 78 80 Pulse Rhythm Regular Pulse Strength Normal Respiratory Rate 20 Respiratory Effort / Characteristics Non-Labored Respiratory Depth Normal Respiratory Pattern Regular Blood Pressure 132/98 Blood Pressure [Right Arm] Blood Pressure Mean 109 Blood Pressure Mean [Right Arm] Blood Pressure Position Lying Blood Pressure Position [Right Arm] Pulse Oximetry 98 Oxygen Delivery Method Room Air Nasal Cannula Oxygen Flow Rate 2 Sepsis Recent Fever Within 48 Hours No Sepsis New/Unexplained Change in Mental Status No Sepsis Action Taken by Nursing No Action Required 09/02/24 16:45 09/02/24 16:46 09/02/24 20:27 Pulse Rate 76 81 Pulse Rhythm Regular Pulse Strength Respiratory Rate 20 20 Respiratory Effort / Characteristics Short of Breath Respiratory Depth Normal Respiratory Pattern Regular Blood Pressure Blood Pressure [Right Arm] 132/98 Blood Pressure Mean Blood Pressure Mean [Right Arm] 109 Blood Pressure Position Blood Pressure Position [Right Arm] Lying Pulse Oximetry 94 94 Oxygen Delivery Method Nasal Cannula Nasal Cannula Oxygen Flow Rate 2 2 Sepsis Recent Fever Within 48 Hours Sepsis New/Unexplained Change in Mental Status Sepsis Action Taken by Nursing Laboratory Data 09/02/24 16:26 09/02/24 16:26 Lab Results 09/02/24 09/02/24 09/02/24 Range/Units 16:26 16:57 18:35 WBC 7.78 (4.8-10.8) K/ul RBC 3.81 L (4.70-6.10) M/uL Hgb 11.1 L (14.0-18.0) g/dl Hct 33.9 L (42.0-52.0) % MCV 89.0 (80.0-100.0) fL MCH 29.1 (25.0-34.0) pg MCHC 32.7 (32.0-36.0) g/dL RDW Std Deviation 46.2 (36.4-46.3) fL RDW Coeff of Ruth 14.2 (11.5-14.5) % Plt Count 156 (130-400) K/uL MPV 11.4 (9.4-12.4) fL Immature Gran % (Auto) 0.5 % Neut % (Auto) 69.9 % Lymph % (Auto) 21.2 % [place] % (Auto) 4.0 % Eos % (Auto) 3.5 % Baso % (Auto) 0.9 % Neut # (Auto) 5.44 (1.40-6.50) K/uL Lymph # (Auto) 1.65 (1.20-3.40) K/uL [place] # (Auto) 0.31 (0.11-0.59) K/uL Eos # (Auto) 0.27 (0.00-0.50) K/uL Baso # (Auto) 0.07 (0.00-0.20) K/uL Immature Gran # (Auto) 0.04 (0.01-0.20) K/uL PT Cancelled 11.8 INR Cancelled 1.1 Sodium 128 L (136-145) mmol/L Potassium 5.0 (3.5-5.1) mmol/L Chloride 91 L (98-107) mmol/L Carbon Dioxide 30 (21-32) mmol/L Anion Gap 7 (3-11) BUN 25 H (6-23) mg/dl Creatinine 1.88 H (0.6-1.4) mg/dl Est Cr Clr Drug Dosing 26.8 ml/min eGFR 34.15 BUN/Creatinine Ratio 13.3 (10-20) Glucose 171 H (70-99(Fasting)) mg/dl Osmolality 278 L (280-300) mOsm/kg Calcium 8.7 (8.6-10.3) mg/dl Magnesium 2.0 (1.7-2.4) mg/dl Total Bilirubin 0.7 (0.2-1.0) mg/dl AST 19 (13-39) U/L ALT 17 (7-52) U/L Alkaline Phosphatase 68 (34-104) U/L Troponin I High Sens 16.0 (0-20) pg/ml B-Natriuretic Peptide 1472 H (0-100) pg/ml Total Protein 6.5 (6.0-8.3) gm/dl Albumin 4.0 (3.4-5.0) gm/dl Globulin 2.5 (2.5-4.0) gm/dl Albumin/Globulin Ratio 1.6 (0.9-2) TSH 3.452 (0.300-4.500) uIu/ml Urine Color Urine Appearance (Clear) Urine pH (4.5-7.5) Ur Specific [place] (1.000-1.030) Urine Protein (Negative) Urine Glucose (UA) (Negative) Urine Ketones (Negative) Urine Blood (Negative) Urine Nitrite (Negative) Urine Bilirubin (Negative) Urine Urobilinogen (Negative) Ur Leukocyte Esterase (Negative) Adenovirus (PCR) Not Detected (NotDetected) B. pertussis DNA (PCR) Not Detected (NotDetected) B.parapertussis DNA PCR Not Detected (NotDetected) C. pneumoniae DNA (PCR) Not Detected (NotDetected) Coronavirus OC43 (PCR) Not Detected (NotDetected) Coronavirus HKU1 (PCR) Not Detected (NotDetected) Coronavirus 229E (PCR) Not Detected (NotDetected) SARS-CoV-2 (PCR) Not Detected (NotDetected) Coronavirus NL63 (PCR) Not Detected (NotDetected) Human Metapneumovir PCR Not Detected (NotDetected) Influenza Type A (PCR) Not Detected (NotDetected) Influenza Type B (PCR) Not Detected (NotDetected) M. pneumoniae (PCR) Not Detected (NotDetected) Parainfluenza 1 (PCR) Not Detected (NotDetected) Parainfluenza 2 (PCR) Not Detected (NotDetected) Parainfluenza 3 (PCR) Not Detected (NotDetected) Parainfluenza 4 (PCR) Not Detected (NotDetected) RSV (PCR) Not Detected (NotDetected) Entero/Rhino (PCR) Not Detected (NotDetected) 09/02/24 Range/Units 20:20 WBC (4.8-10.8) K/ul RBC (4.70-6.10) M/uL Hgb (14.0-18.0) g/dl Hct (42.0-52.0) % MCV (80.0-100.0) fL MCH (25.0-34.0) pg MCHC (32.0-36.0) g/dL RDW Std Deviation (36.4-46.3) fL RDW Coeff of Ruth (11.5-14.5) % Plt Count (130-400) K/uL MPV (9.4-12.4) fL Immature Gran % (Auto) % Neut % (Auto) % Lymph % (Auto) % [place] % (Auto) % Eos % (Auto) % Baso % (Auto) % Neut # (Auto) (1.40-6.50) K/uL Lymph # (Auto) (1.20-3.40) K/uL [place] # (Auto) (0.11-0.59) K/uL Eos # (Auto) (0.00-0.50) K/uL Baso # (Auto) (0.00-0.20) K/uL Immature Gran # (Auto) (0.01-0.20) K/uL PT INR Sodium (136-145) mmol/L Potassium (3.5-5.1) mmol/L Chloride (98-107) mmol/L Carbon Dioxide (21-32) mmol/L Anion Gap (3-11) BUN (6-23) mg/dl Creatinine (0.6-1.4) mg/dl Est Cr Clr Drug Dosing ml/min eGFR BUN/Creatinine Ratio (10-20) Glucose (70-99(Fasting)) mg/dl Osmolality (280-300) mOsm/kg Calcium (8.6-10.3) mg/dl Magnesium (1.7-2.4) mg/dl Total Bilirubin (0.2-1.0) mg/dl AST (13-39) U/L ALT (7-52) U/L Alkaline Phosphatase (34-104) U/L Troponin I High Sens (0-20) pg/ml B-Natriuretic Peptide (0-100) pg/ml Total Protein (6.0-8.3) gm/dl Albumin (3.4-5.0) gm/dl Globulin (2.5-4.0) gm/dl Albumin/Globulin Ratio (0.9-2) TSH (0.300-4.500) uIu/ml Urine Color Yellow Urine Appearance Clear (Clear) Urine pH 5.5 (4.5-7.5) Ur Specific [place] 1.006 (1.000-1.030) Urine Protein Negative (Negative) Urine Glucose (UA) Negative (Negative) Urine Ketones Negative (Negative) Urine Blood Negative (Negative) Urine Nitrite Negative (Negative) Urine Bilirubin Negative (Negative) Urine Urobilinogen Negative (Negative) Ur Leukocyte Esterase Negative (Negative) Adenovirus (PCR) (NotDetected) B. pertussis DNA (PCR) (NotDetected) B.parapertussis DNA PCR (NotDetected) C. pneumoniae DNA (PCR) (NotDetected) Coronavirus OC43 (PCR) (NotDetected) Coronavirus HKU1 (PCR) (NotDetected) Coronavirus 229E (PCR) (NotDetected) SARS-CoV-2 (PCR) (NotDetected) Coronavirus NL63 (PCR) (NotDetected) Human Metapneumovir PCR (NotDetected) Influenza Type A (PCR) (NotDetected) Influenza Type B (PCR) (NotDetected) M. pneumoniae (PCR) (NotDetected) Parainfluenza 1 (PCR) (NotDetected) Parainfluenza 2 (PCR) (NotDetected) Parainfluenza 3 (PCR) (NotDetected) Parainfluenza 4 (PCR) (NotDetected) RSV (PCR) (NotDetected) Entero/Rhino (PCR) (NotDetected) Administered Medications Discontinued Medications Albuterol (Albut/Ipratrop 3mg/0.5mg Neb 3 Ml Vial) 3 ml NEB NOW STA; Protocol Stop: 09/02/24 16:39 Last Admin: 09/02/24 16:55 Dose: 3 ml Documented By: TIRSO Furosemide (Furosemide Inj 20 Mg/2 Ml Vial) 20 mg IV ONE ONE Stop: 09/02/24 18:48 Last Admin: 09/02/24 19:05 Dose: 20 mg Documented By: RANJITH Imaging Data Radiologist's Impression: Chest X-Ray 09/02/24 16:38 XR chest 1V portable CLINICAL HISTORY: Dyspnea COMPARISON STUDY: Chest CT and chest radiograph June 28, 2023. FINDINGS: A left subclavian biventricular pacer/AICD is in place. Moderate cardiomegaly is unchanged. There is no pneumothorax. Small bilateral pleural effusions are present. There are mild bibasilar opacities. Interstitial thickening and patchy bilateral airspace opacities are greater within the right lung. IMPRESSION: 1. Cardiomegaly with mild interstitial pulmonary edema and small bilateral pleural effusions. 2. Patchy asymmetric right lung opacities which could reflect alveolar pulmonary edema or superimposed pneumonia. ACT 112: Negative or not required by law. Electronically signed by: Ang Flores M.D. 09/02/2024 5:38 PM Discharge Plan Visit Data Chief Complaint: Shortness of Breath/Dyspnea Stated Complaint: SOB ED Provider: Arvind Melissa Discharge Problem: Breathlessness, Asthma, CHF (congestive heart failure) Patient Disposition: Being Evaluated by Hospitalist Forms Stand Alone Forms: My [facility] Prescriptions Prescriptions: No Action clonidine HCl 0.1 mg tablet 0.05 mg PO BID Qty: 30 5RF Rx Instructions: Per patient take 1/2 tablet twice daily allopurinol 100 mg tablet 100 mg PO QAM Qty: 90 3RF furosemide 20 mg tablet 20 mg PO Q OTHER DAY Qty: 60 3RF Rx Instructions: Alternating with 40mg furosemide [Lasix] 40 mg tablet 40 mg PO Q OTHER DAY Qty: 60 3RF Rx Instructions: Alternating with 20mg cholecalciferol (vitamin D3) 50 mcg (2,000 unit) capsule 50 mcg PO DAILY Qty: 90 2RF carvedilol 12.5 mg tablet 12.5 mg PO BIDM Qty: 180 3RF Rx Instructions: must administer with a meal/food alprazolam [Xanax] 0.25 mg tablet 0.25 mg PO QID aspirin 81 mg tablet,delayed release (DR/EC) 81 mg PO 3XWK Rx Instructions: Mon, Wed, Fri in the morning olanzapine [Zyprexa] 10 mg tablet 10 mg PO HS ascorbate calcium (vitamin C) 500 mg tablet 500 mg PO QAM omeprazole 40 mg capsule,delayed release(DR/EC) 40 mg PO DAILY psyllium [Metamucil (sugar)] See Rx Instructions .ROUTE .COMPLEX Rx Instructions: Per patient take this every morning with breakfast albuterol sulfate 90 mcg/actuation HFA aerosol inhaler 2 inh inhalation Q6H PRN (Reason: shortness of breath or wheezing) ferrous sulfate 325 mg (65 mg iron) tablet 325 mg PO BID atorvastatin 40 mg tablet 40 mg PO HS tamsulosin [Flomax] 0.4 mg capsule 0.4 mg PO QAM fluticasone furoate-vilanterol [Breo Ellipta] 100-25 mcg/dose blister with device 1 inh inhalation QAM acetaminophen 500 mg Tablet 1,000 mg PO DAILY PRN (Reason: pain or fever) levothyroxine 75 mcg tablet 75 mcg PO QAM Referrals Referrals: Indra Asif MD [Primary Care Provider] -
[2024-09-02] MEDS: FUROSEMIDE INJ 20 MG/2 ML VIAL IV ONE ×2 (19:05→21:42)
[2024-09-02 19:16] LABS: INR 1.1 (0.9-1.1); Prothrombin Time 11.8 Seconds (9.0-12.0)
[2024-09-02 20:31] LABS: Appearance Urine Clear (Clear); Bilirubin Urine Negative (Negative); Blood Urine Negative (Negative); Color Urine Yellow; Glucose Urine UA Negative (Negative); Ketones Urine Negative (Negative); Leukocyte Esterase Urine Negative (Negative); Nitrite Urine Negative (Negative); Protein Urine Negative (Negative); Specific Gravity Urine 1.006 (1.000-1.030); Urobilinogen Urine Negative (Negative); pH Urine 5.5 (4.5-7.5)
--- NOTE | 2024-09-02 21:35 | History & Physical Report ---
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 %, TTE 2022) status post ICD Underlying pulmonary hypertension Unclear precipitant for now Hypertension, BP on the lower side hx CAD status post stent chronic LBBB PAF, not on anticoagulation secondary to GI bleed from AVM,paced rhythm valvular heart disease (moderate MR, mild TR) bronchial asthma, patient with wheezing symptoms secondary to CHF history of blood clots as per patient Acute on chronic hyponatremia secondary to CHF CRI, creatinine at baseline chronic anemia, hemoglobin at baseline postsurgical hypothyroidism, euthyroid as of today's TSH paranoid schizophrenia, anxiety/mood disorder, at baseline Hyperglycemia ro DM past tobacco abuse PCU Diuretic Rx dosed for renal function Update TTE, Cardiology consult Re: Decompensated heart failure Subsequent diuretic Rx as per cardiology Decrease maintenance Coreg and clonidine dosing for now given borderline hypotension Check hemoglobin A1c DVT prophylaxis. SCDs re: history GI bleed DNR Patient requesting updates providers. Carly Fountain, contact #[phone]. Text document was generated using [employer] voice recognition software. It may contain grammatical or spelling errors. Kindly contact undersigned for clarification of any documentation item in question. History of Present Illness Chief Complaint: Shortness of breath Primary Care Provider: Indra Asif MD History obtained from patient, family, and records. Medical history significant for chronic systolic heart failure (EF 35-40 %, TTE 2022) status post ICD, CAD status post stent, chronic LBBB, PAF, valvular heart disease (moderate MR, mild TR), pulmonary hypertension, bronchial asthma, history of blood clots as per patient, chronic hyponatremia, CRI (baseline creatinine 1.7-2.1), chronic anemia (baseline hemoglobin 11), GERD, AVM, postsurgical hypothyroidism, BPH, paranoid schizophrenia, anxiety/mood disorder, past tobacco abuse. Last confinement June 2023 for symptomatic anemia secondary to UGIB. Jejuneal AVMs on endoscopy status post clipping. Patient Eliquis for A-fib stopped on discharge. Patient more short of breath on exertion today. No unusual cough symptoms. Denies chest pain. Denies weight gain. Denies unusual leg swelling. No improvement with home inhaler Rx. Symptoms not like usual asthma attack. EMS called to patient's home. Patient initially refused to come to ER. Solu-Medrol and neb treatment administered at the ER. IV Lasix administered at the ER. Medical History as above Surgical History : ICD, thyroidectomy, TURP, cataract surgery, eye surgery, hernia repair, dental surgery Family History : DM, heart disease Personal/Social history : Past tobacco abuse, no EtOH intake, lives with Allergies Allergy/AdvReac Type Severity Reaction Status Date / Time sertraline Allergy Intermediate Swollen Unverified 09/02/24 21:10 Ankles prednisone AdvReac Intermediate crazy Verified 09/02/24 21:10 pantoprazole [From Protonix] AdvReac Unknown Diarrhea Unverified 09/02/24 21:10 ticagrelor AdvReac bleeding Verified 09/02/24 21:10 Home Medications Medication Instructions Recorded Confirmed Type ascorbate calcium (vitamin C) 500 500 mg PO QAM 08/27/21 09/02/24 History mg tablet aspirin 81 mg tablet,delayed 81 mg PO 3XWK 08/27/21 09/02/24 History release olanzapine 10 mg tablet (Zyprexa) 10 mg PO HS 08/27/21 09/02/24 History clonidine HCl 0.1 mg tablet 0.05 mg (1/2 x 0.1 mg) PO BID #30 09/16/21 09/02/24 Rx tabs atorvastatin 40 mg tablet 40 mg PO HS 12/24/21 09/02/24 History fluticasone furoate 100 1 inh inhalation QAM 12/24/21 09/02/24 History mcg-vilanterol 25 mcg/dose inhalation powder (Breo Ellipta) tamsulosin 0.4 mg capsule (Flomax) 0.4 mg PO QAM 12/24/21 09/02/24 History allopurinol 100 mg tablet 100 mg PO QAM #90 tabs 09/05/22 09/02/24 Rx furosemide 20 mg tablet 20 mg PO Q OTHER DAY #60 tabs 11/27/22 09/02/24 Rx furosemide 40 mg tablet (Lasix) 40 mg PO Q OTHER DAY #60 tabs 11/27/22 09/02/24 Rx acetaminophen 500 mg tablet 1,000 mg PO DAILY PRN pain or fever 05/15/23 09/02/24 History levothyroxine 75 mcg tablet 75 mcg PO QAM 05/15/23 09/02/24 History albuterol sulfate 90 mcg/actuation 2 inh inhalation Q6H PRN shortness 07/17/23 09/02/24 History aerosol inhaler of breath or wheezing ferrous sulfate 325 mg (65 mg 325 mg PO BID 09/02/23 09/02/24 History iron) tablet omeprazole 40 mg capsule,delayed 40 mg PO DAILY 11/06/23 09/02/24 History release psyllium [Metamucil (sugar)] See Rx Instructions .Route .COMPLEX 11/06/23 09/02/24 History cholecalciferol (vitamin D3) 50 50 mcg PO DAILY #90 caps 04/14/24 09/02/24 Rx mcg (2,000 unit) capsule carvedilol 12.5 mg tablet 12.5 mg PO BIDM #180 tabs 06/09/24 09/02/24 Rx alprazolam 0.25 mg tablet (Xanax) 0.25 mg PO QID Anxiety 08/08/24 09/02/24 History Past Med/Surg History Problem List (Updated 09/02/24 @ 21:21 by Arvind Melissa M.D.) CHF (congestive heart failure) (Acute) Asthma (Acute) Breathlessness (Acute) Paroxysmal atrial fibrillation Paranoid schizophrenia Asthma CKD (chronic kidney disease), stage III Pulmonary embolism Hyponatremia Symptomatic anemia UGIB (upper gastrointestinal bleed) (Acute) Anemia (Acute) Generalized muscle weakness (Acute) Mitral valve insufficiency H/O heart artery stent HFrEF (heart failure with reduced ejection fraction) Shortness of breath on exertion Pneumonia (Acute) Elevated troponin (Acute) 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 Nonrheumatic aortic (valve) insufficiency Hyperlipidemia Hypertension, benign Automatic implantable cardiac defibrillator in situ Cardiomyopathy CAD in [place] artery Medical History Encounter for pre-operative examination Dyspnea on exertion Asymptomatic arteriosclerosis of coronary artery Atypical angina Atypical chest pain Dyslipidemia Encounter for adjustment or management of automatic implantable cardioverter- defibrillator Other primary cardiomyopathies Occlusion and stenosis of bilateral carotid arteries Depression 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 Chest pain Pulmonary valve disorder Old myocardial infarction Aortic valve disorder Hyperplasia of prostate without lower urinary tract symptoms (LUTS) Gout Unspecified venous (peripheral) insufficiency Carpal tunnel syndrome Unspecified disorder of kidney and ureter Hernia Chronic obstructive pulmonary disease GERD (gastroesophageal reflux disease) Nonrheumatic tricuspid (valve) insufficiency Mitral valve disorder Shortness of breath Hypothyroidism Dizziness Surgical History History of esophagogastroduodenoscopy (EGD) S/P cardiac cath S/P hernia repair S/P cataract surgery S/P eye surgery S/P tooth extraction H/O transurethral resection of prostate H/O partial thyroidectomy Family History Father CHF (congestive heart failure) Mother Diabetes Brother Heart disease Social History Smoking Status: Former smoker Tobacco Type: Cigarettes Second Hand Exposure: No; Do You Dip or Chew Tobacco: No; Hx Alcohol Use: No Hx Substance Use: No Preferred Language: Salvadorean Communication Ability: Effective Track Superintendent Required: No Beliefs That Will Affect Care: None marital status: marital status details: Carly Current Living Situation: Spouse Current Living Situation Comment: home alone with current occupational status: retired current occupation: Clerical Feels Safe at Home: Yes Safety Concerns: Feels Safe At This Time caffeine: Yes (1-2 cups per day) Assistive Devices: Glasses and Walker Review of Systems Review of Systems: As per HPI, all other systems reviewed and negative Physical Exam Physical Exam: GENERAL: Slightly anxious, no respiratory distress SKIN: Pallor, warm HEENT: Partial alopecia, bespectacled, pale palpebral conjunctivae, no ptosis, dry buccal mucosa, nasal cannula in place NECK : Supple, no tenderness CHEST : Decreased breath sounds, scattered expiratory wheezes, no tenderness HEART : RRR, systolic murmur ABDOMEN: no distention, nontender EXTREMITIES : Minimal LE swelling, no LE tenderness, no other conspicuous deformities noted NEUROLOGIC : Coherent, no facial asymmetry, no other gross focality Results & Data Results & Data Vital Signs (Past 12 Hours) Vital Signs Pulse Resp BP BP Pulse Ox O2 Del Method O2 Flow Rate 09/02/24 20:27 81 09/02/24 16:46 20 132/98 94 Nasal Cannula 2 09/02/24 16:45 76 20 94 Nasal Cannula 2 09/02/24 16:35 Nasal Cannula 2 09/02/24 16:35 80 20 132/98 98 Room Air 09/02/24 16:23 78 Laboratory Results Laboratory Results WBC 7.78 K/ul (4.8-10.8) 09/02/24 16: RBC 3.81 M/uL (4.70-6.10) L 09/02/24 16: Hgb 11.1 g/dl (14.0-18.0) L 09/02/24 16: Hct 33.9 % (42.0-52.0) L 09/02/24 16: MCV 89.0 fL (80.0-100.0) 09/02/24 16: MCH 29.1 pg (25.0-34.0) 09/02/24 16: MCHC 32.7 g/dL (32.0-36.0) 09/02/24 16: RDW Std Deviation 46.2 fL (36.4-46.3) 09/02/24 16: RDW Coeff of Ruth 14.2 % (11.5-14.5) 09/02/24 16: Plt Count 156 K/uL (130-400) 09/02/24 16: MPV 11.4 fL (9.4-12.4) 09/02/24 16: Immature Gran % (Auto) 0.5 % 09/02/24 16: Neut % (Auto) 69.9 % 09/02/24 16: Lymph % (Auto) 21.2 % 09/02/24 16: [place] % (Auto) 4.0 % 09/02/24 16: Eos % (Auto) 3.5 % 09/02/24 16: Baso % (Auto) 0.9 % 09/02/24 16: Neut # (Auto) 5.44 K/uL (1.40-6.50) 09/02/24 16: Lymph # (Auto) 1.65 K/uL (1.20-3.40) 09/02/24 16: [place] # (Auto) 0.31 K/uL (0.11-0.59) 09/02/24 16: Eos # (Auto) 0.27 K/uL (0.00-0.50) 09/02/24 16:26 Baso # (Auto) 0.07 K/uL (0.00-0.20) 09/02/24 16:26 Immature Gran # (Auto) 0.04 K/uL (0.01-0.20) 09/02/24 16:26 PT 11.8 Seconds (9.0-12.0) 09/02/24 18:35 INR 1.1 (0.9-1.1) 09/02/24 18:35 Sodium 128 mmol/L (136-145) L 09/02/24 16:26 Potassium 5.0 mmol/L (3.5-5.1) 09/02/24 16:26 Chloride 91 mmol/L (98-107) L 09/02/24 16:26 Carbon Dioxide 30 mmol/L (21-32) 09/02/24 16:26 Anion Gap 7 (3-11) 09/02/24 16:26 BUN 25 mg/dl (6-23) H 09/02/24 16:26 Creatinine 1.88 mg/dl (0.6-1.4) H 09/02/24 16:26 Est Cr Clr Drug Dosing 26.8 ml/min 09/02/24 16:26 eGFR 34.15 09/02/24 16:26 BUN/Creatinine Ratio 13.3 (10-20) 09/02/24 16:26 Glucose 171 mg/dl (70-99(Fasting)) H 09/02/24 16:26 Osmolality 278 mOsm/kg (280-300) L 09/02/24 16:26 Calcium 8.7 mg/dl (8.6-10.3) 09/02/24 16:26 Magnesium 2.0 mg/dl (1.7-2.4) 09/02/24 16:26 Total Bilirubin 0.7 mg/dl (0.2-1.0) 09/02/24 16:26 AST 19 U/L (13-39) 09/02/24 16:26 ALT 17 U/L (7-52) 09/02/24 16:26 Alkaline Phosphatase 68 U/L (34-104) 09/02/24 16:26 Troponin I High Sens 16.0 pg/ml (0-20) 09/02/24 16:26 B-Natriuretic Peptide 1472 pg/ml (0-100) H 09/02/24 16:26 Total Protein 6.5 gm/dl (6.0-8.3) 09/02/24 16:26 Albumin 4.0 gm/dl (3.4-5.0) 09/02/24 16: Globulin 2.5 gm/dl (2.5-4.0) 09/02/24 16:26 Albumin/Globulin Ratio 1.6 (0.9-2) 09/02/24 16:26 TSH 3.452 uIu/ml (0.300-4.500) 09/02/24 18:35 Urine Color Yellow 09/02/24 20:20 Urine Appearance Clear (Clear) 09/02/24 20:20 Urine pH 5.5 (4.5-7.5) 09/02/24 20:20 Ur Specific [place] [employer] 1.006 (1.000-1.030) 09/02/24 20:20 Urine Protein Negative (Negative) 09/02/24 20:20 Urine Glucose (UA) Negative (Negative) 09/02/24 20:20 Urine Ketones Negative (Negative) 09/02/24 20:20 Urine Blood Negative (Negative) 09/02/24 20:20 Urine Nitrite Negative (Negative) 09/02/24 20:20 Urine Bilirubin Negative (Negative) 09/02/24 20:20 Urine Urobilinogen Negative (Negative) 09/02/24 20:20 Ur Leukocyte Esterase Negative (Negative) 09/02/24 20:20 Adenovirus (PCR) Not Detected (NotDetected) 09/02/24 16:57 B. pertussis DNA (PCR) Not Detected (NotDetected) 09/02/24 16:57 B.parapertussis DNA PCR Not Detected (NotDetected) 09/02/24 16:57 C. pneumoniae DNA (PCR) Not Detected (NotDetected) 09/02/24 16:57 Coronavirus OC43 (PCR) Not Detected (NotDetected) 09/02/24 16:57 Coronavirus HKU1 (PCR) Not Detected (NotDetected) 09/02/24 16:57 Coronavirus 229E (PCR) Not Detected (NotDetected) 09/02/24 16:57 SARS-CoV-2 (PCR) Not Detected (NotDetected) 09/02/24 16:57 Coronavirus NL63 (PCR) Not Detected (NotDetected) 09/02/24 16:57 Human Metapneumovir PCR Not Detected (NotDetected) 09/02/24 16:57 Influenza Type A (PCR) Not Detected (NotDetected) 09/02/24 16:57 Influenza Type B (PCR) Not Detected (NotDetected) 09/02/24 16:57 M. pneumoniae (PCR) Not Detected (NotDetected) 09/02/24 16:57 Parainfluenza 1 (PCR) Not Detected (NotDetected) 09/02/24 16:57 Parainfluenza 2 (PCR) Not Detected (NotDetected) 09/02/24 16:57 Parainfluenza 3 (PCR) Not Detected (NotDetected) 09/02/24 16:57 Parainfluenza 4 (PCR) Not Detected (NotDetected) 09/02/24 16:57 RSV (PCR) Not Detected (NotDetected) 09/02/24 16:57 Entero/Rhino (PCR) Not Detected (NotDetected) 09/02/24 16:57 Impressions Chest X-Ray 09/02/24 16:38 XR chest 1V portable CLINICAL HISTORY: Dyspnea COMPARISON STUDY: Chest CT and chest radiograph June 28, 2023. FINDINGS: A left subclavian biventricular pacer/AICD is in place. Moderate cardiomegaly is unchanged. There is no pneumothorax. Small bilateral pleural effusions are present. There are mild bibasilar opacities. Interstitial thickening and patchy bilateral airspace opacities are greater within the right lung. IMPRESSION: 1. Cardiomegaly with mild interstitial pulmonary edema and small bilateral pleural effusions. 2. Patchy asymmetric right lung opacities which could reflect alveolar pulmonary edema or superimposed pneumonia. ACT 112: Negative or not required by law. Electronically signed by: Ang Flores M.D. 09/02/2024 5:38 PM Diagnostic Findings EKG as per my interpretation :Rate 80, paced rhythm
[2024-09-02] MEDS ORDERED: PROMETHAZINE 6.25 MG/50.25 ML BAG IV PRN (21:38)
[2024-09-02] MEDS: ALBUMIN 25% 12.5 GM/50 ML VIAL IV ONE (21:42)
[2024-09-02] MEDS ORDERED: ALBUT/IPRATROP 3MG/0.5MG NEB 3 ML VIAL NEB PRN (21:42)
[2024-09-02] MEDS: ALPRAZolam 0.25 MG TABLET PO SCH (22:07)
[2024-09-02] MEDS: OLANZapine 10 MG TAB PO ONE (22:16)
[2024-09-02 22:59] LABS: Base Excess VBG 1.7 mEq/L; HCO3 VBG 27 mmol/L; Oxygen Saturation VBG 61.2 %; PCO2 VBG 45 mmHg (38-50); PO2 VBG 34 mmHg; pH VBG 7.39 (7.36-7.41)
[2024-09-02] MEDS: HEPARIN SOD 5,000 UNIT/0.5 ML VIAL SQ SCH (23:45)
--- OUTSIDE RECORDS SUMMARY | 2024-09-03 05:45 | External Medical Summary | Summary of Care ---
Author Name Unknown Organization [facility] Address [address] [place] [address] Phone [phone] Care Team Providers Care English Composition Teacher Name Role Phone Indra Asif MD Primary Care Provider [phone] Reason for Visit * Reason Onset Date Comments Medication Administration 08/18/2024 Flu an d/or Pneumo Inj Encounter Details Date Type Department Care Team (Late st Contact Info) Description 08/18/2024 11:00 AM EDT Immunization Ancillary Department, [address] [id number] [place] [address] [place] [address] Need for prophylactic vaccination and inoculation against influenza* Allergies Active Allergy Reactions Criticality Noted Date Comments Pantoprazole Diarrhea 09/30/2016 Ticagrelor Bleeding High 05/21/2018 Tramadol 01/25/2021 Other reaction(s): Altered Mental Status documented as of this encounter (statuses as of 08/18/2024) Medications Medication Sig Dispensed Refills Start Date End Date Status Polyethylene Glycol 3350 17 GM Oral Packet Take 1 Packet by mouth in the morning. Active Calcium Carbonate Antacid 500 MG Oral Tablet Chewable Take 1 Tablet by mouth in the morning. Active Vitamin C 500 MG Oral Capsule Take by mouth. Active Aspirin 81 MG Oral Capsule Take by mouth . Mon, wed, thursday Active Docusate Sodium 100 MG Oral Capsule (Colace) Take 1 Capsule by mouth in the morning and 1 Capsule before bedtime. Active Ferrous Sulfate 325 (65 Fe) MG Oral Tablet (Feosol) Take 1 Tablet by mouth in the morning and 1 Tablet before bedtime. Active guaiFENesin ER 600 MG Oral Tablet Extended Release 12 Hour Take 1 Tablet by mouth in the morning and 1 Tablet before bedtime. 05/18/2023 Active Acetaminophen 500 MG Oral Tablet (Tylenol) 2 Tablets. 05/15/2023 Act indu Sacubitril-Valsartan 24-26 MG Oral Tablet (Entresto) 1 Tablet in the morning and 1 Tablet before bedtime. 05/18/2023 Active Ventolin HFA 108 (90 Base) MCG/ACT Inhalation Aerosol SolutionIndications:M ild persistent asthma without complication Inhale 2 Puffs by mouth every 4 hours as needed for Wheezing. 18 g 5 06/24/2023 Active Ipratropium-Albuterol 0.5-2.5 (3) MG/3ML Inhalation Solution (Duoneb)Indications:M ild persistent asthma without complication Inhale 3 mL via nebulizer in the morning and 3 mL at noon and 3 mL in the evening and 3 mL before bedtime. 36 mL 2 06/24/2023 Active Additional Information Patient not taking.Reported on 10/07/2023 Levothyroxine Sodium 75 MCG Oral Tablet (Levoxyl)Indications: Hypothyroidism, unspecified type take 1 tablet by mouth every morning AT LEAST 30 MINUTES PRIOR TO BREAKFAST/OTHER MEDS 90 Tablet 3 08/25/2023 Active Tamsulosin HCl 0.4 MG Oral Capsule (Flomax) take 1 capsule by mouth every morning 90 Capsule 3 09/15/2023 Active Metamucil Fiber 51.7 % Oral Packet (Psyllium) Take by mouth. Active Breo Ellipta 100-25 MCG/ACT Inhalation Aerosol Powder Breath Activated Inhale 1 Puff by mouth in the morning. 180 Blister Dosing Unit 3 11/13/2023 Active Allopurinol 100 MG Oral Tablet (Zyloprim) Take 1 Tablet by mouth in the morning. 90 Tablet 3 12/10/2023 Active Carvedilol 12.5 MG Oral Tablet (Coreg) Take 1 Tablet by mouth in the morning and 1 Tablet before bedtime. 09/27/2023 Active Atorvastatin Calcium 40 MG Oral Tablet (Lipitor)Indications: Dyslipidemia take 1 tablet by mouth at bedtime 90 Tablet 3 01/27/2024 Active Omeprazole 40 MG Oral Capsule Delayed Release (PriLOSEC)Indications :Gastrointestinal hemorrhage, unspecified gastrointestinal hemorrhage type Take 1 Capsule by mouth in the morning. 90 Capsule 3 02/15/2024 Active cloNIDine HCl 0.1 MG Oral Tablet (Catapres) take 1/2 tablet by mouth every morning and 1/2 tablet by mouth BEFORE BEDTIME 90 Tablet 3 03/11/2024 Active Furosemide 20 MG Oral Tablet (Lasix) Take 1 Tablet by mouth every other day. 40mg one day, 20mg the next day (alternating back and forth) 45 Tablet 3 03/21/2024 Active Furosemide 40 MG Oral Tablet (Lasix) Take 1 Tablet by mouth every other day. 40mg one day, 20mg the next day (alternating back and forth) 45 Tablet 3 03/21/2024 Active Vitamin D (Cholecalciferol) 50 MCG (2000 UT) Oral Capsule Take by mouth daily. Active ALPRAZolam 0.25 MG Oral Tablet (xaNAX)Indications:Pa ranoid schizophrenia (HCC) Take 1 Tablet by mouth 4 times a day as needed for Anxiety. Do not start before August 16, 2024. 120 Tablet 3 08/16/2024 Active OLANZapine 10 MG Oral Tablet (zyPREXA)Indications: Paranoid schizophrenia (HCC) Take 1 Tablet by mouth at bedtime. 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 03/24/2022 Chronic systolic CHF (congestive heart failure) 03/24/2022 Ischemic cardiomyopathy 03/24/2022 Nonrheumatic aortic valve insufficiency 03/24/20 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 03/24/2022 Mild persistent asthma without complication 07/2022 documented as of this encounter (statuses as of 08/18/2024) Immunizations Name Administration Dates Next Due COVID-19 mRNA, LNP-s, No Pre serve, 2-Dose Series (Proper Cloth) 10/14/2022,04/02/2022,10/15/2021,02/15,01/25/2021 COVID-19, MRNA-LNP, 23-24, P F, 30 MCG/0.3 mL, 12 YRS AND ABOVE, IM (PFIZER-Comirnaty) 09/08/2023 Pneumococcal Conjugate Vacc, 13 Valent (Prevnar) 07/07/2018 Pneumococcal Polysaccharide PPV23 (Pneumovax) 07/03/2010 Seasonal Influenza Vac., MDV , IM, 0.5 mL (Fluzone) 08/15/2015,07/29/2013,07/20/2012,07/31,08/20/2010,08/23/2009 Seasonal Influenza Virus Vac cine, Unspecified Formulation 08/20/2020,08/26/2019,08/20/2018 Seasonal Influenza, High Dos e, Trivalent, PF, IM (Fluzone HD) 08/18/2024 Seasonal Influenza, Quadriva lent Hd (Fluzone Hd) 08/12/2023,08/06/2022,07/30/2021 Seasonal Influenza, Trivalen t, (IIV3), PF, (Fluzone) 08/13/2017,08/12/2016 documented as of this encounter Social History Tobacco Use Types Packs/Day Years Used Date Smoking Tobacco: Former Cigarettes 1.5 10 1 962 - 1971 Passive Smoke Exposure: Past Smokeless Tobacco: Never Comments:Smoked for 10 years 27 - 37 yrs of age. Passive Exposure Comments:As a child Alcohol Use Standard Drinks/Week Comments Never 0 (1 standard drink = 0.6 oz pur e alcohol) PHQ-2 Answer Date Recorded PHQ Adult Total Score 6 05/31/2024 Hunger Vital Sign Answer Date Recorded Within the past 12 months, y ou worried that your food would run out before you got the money to buy more. Never true 07/27/20 24 Within the past 12 months, t he food you bought just didn't last and you didn't have money to get more. Never true 07/27/2024 Childcare Answer Date Recorded Do you feel overwhelmed with taking care of a child, family member or friend? No 07/27/2024 Does your family need help f inding childcare? (Household - for ages 0-17 years) Not on file 07/27/2024 Clothing Answer Date Recorded Have you been unable to get clothing when it was really needed? No 07/27/2024 Is your family able to get c lothes or diapers when needed? (Household - for ages 0-17 years) Not on file 07/27/2024 Personal Safety Answer Date Recorded Do you feel unsafe or have concerns for your saf ety? No 07/27/2024 Do you have concerns for you r family's safety? (Household - for ages 0-17 years) Not on file 07/27/2024 Utilities Answer Date Recorded Do you have trouble paying y our heating, water, or electric bill? No 07/27/2024 Is your family able to pay t he heat, water, or electric bill? (Household - for ages 0-17 years) Not on file 07/27/2024 Does your family have access to good internet? (Household - for ages 0-17 years) Not on file 07/27/2024 Employment Status Answer Date Recorded Are you unemployed or without regular income? Ye s 07/27/2024 Does the household have a re gular source of income? (Household - for ages 0-17 years) Not on file 07/27/2024 Social Connections Answer Date Recorded How often do you feel lonely or isolated from th ose around you? Never 07/27/2024 Financial Resource Strain Answer Date R ecorded Do you have any trouble payi ng for your medications, or do you think you might in the future? No 07/27/2024 Does your family have troubl e paying for medicine? (Household - for ages 0-17 years) Not on file 07/27/2024 Transportation Needs Answer Date Record ed READ ONLY Do you have troubl e getting a ride to medical visits or work? Never True 07/27/2024 Does your family have a hard time getting a ride to doctors visits? (Household - for ages 0-17 years) Not on file 07/27/2024 Has lack of transportation k ept you from medical appointments, meetings, work, or from getting things needed for daily living? Check all that apply. No 07/27/2024 Do you (or your family) have trouble finding or paying for a ride (transportation)? (Household - for ages 0-17 years) Not on file 07/27/2024 Housing Stability Answer Date Recorded Do you currently live in a s helter or have no steady place to sleep at night? No 07/27/2024 READ ONLY Do you think you a re at risk of becoming homeless? No 07/27/2024 Does your family worry about paying for your home or becoming homeless? (Household - for ages 0-17 years) Not on file 0 07/27/2024 Are you homeless or worried that you might be in the future? No 07/27/2024 Are you (or your family) clive eless or worried that you might be in the future? (Household - for ages 0-17 years) Not on file Food Insecurity Answer Date Recorded Do you need food for this week? No 07/27/2024 Are you able to get enough f ood for your family? (Household - for ages 0-17 years) Not on file 07/27/2024 Does your family need food t his week? (Household - for ages 0-17 years) Not on file 07/27/2024 Do you always have enough fo od for your family? (Household - for ages 0-17 years) Not on file 07/27/2024 Sex and Gender Information Value Date Recorded Sex Assigned at Male 03/24/2023 2:31 PM EDT Gender Identity Male 03/24/2023 2:31 PM EDT Sexual Orientation Straight 03/24/2023 2: 31 PM EDT Job Start Date Occupation Industry Not on file Not on file Not on file documented as of this encounter Progress Notes * Audrey Lambert LPN - 08/18/2024 10:29 AM EDT PRE - ADMINISTRATION DOCUMENTATION Are you experiencing any cold symptoms or fever? No Have you had Guillain-[place]view Syndrome (an illness that causes paralysis) within the last 6 weeks? No Have you had the flu shot in the past? YES Have you ever had a reaction to the flu shot? No Audrey Lambert LPN, 08/18/2024 10:29 AM documented in this encounter Plan of Treatment Upcoming Encounters Date Type Department Care Team (Late st Contact Info) Description 08/31/2024 10:30 AM EDT Nurse Only Ancillary Department, [facility] [address] [place] [address] [facility], Nurse [address] [place] [address] 10/26/2024 3:00 PM EST Telemedicine Psychiatry [facility] [address] [place] [address] Tommy Smith CRNP [address] [place] [address] 11/03/2024 10:40 AM EST Office Visit Family Practice, [facility] [address] [place] [id number] Indra Asif MD [address], [place] [id number] 06/07/2025 11:00 AM EDT Nurse Only Ancillary Department, [facility] [address], [place] [id number] [facility], Nurse Annual Wellness [address] [place] [address] Health Maintenance Due Date Last Done Comments DTap/Tdap Vaccines (1 - Tdap) 1954 Zoster Vaccines (1 of 2) 1987 *SPIROMETRY ONCE FOR ASTHMA-ADULT 03/27/2022 COVID-19 Vaccine (2023- season) 2024 09/08/2023, 10/14/2022, 10/14/2022, Additional history exists Albumin/Creatinine Ratio 08/31/2024 08/31/2023, 03/16 CKD HGB USE SMARTSET 82257 10/07/202410/07, 07/24/2023, 07/07/2023, Additional history exists CKD PHOS USE SMARTSET 83042 10/07/202409/17, 05/22/2023, 03/25/2023 TSH 10/07/2024 10/07/2023, 06/17, 03/25/2023, Additional history exists Adult Wellness Visit 05/31/2025 05/31/2024, 05/26/20 23 Depression Screening 05/31/2025 05/31/2024, 05/31/20 24 Pneumococcal Vaccine: 65+ Years Completed 07/07/2018, 07/03/2010 Influenza Vaccine (FLU shot) Completed 01/2024, 08/12/2023, 08/06/2022, Additional history exists HPV (Gardasil) Vaccine Aged Out No lo nger eligible based on patient's age to complete this topic Hepatitis B Vaccine Aged Out No longe r eligible based on patient's age to complete this topic MENINGOCOCCAL (MENACTRA/MENVEO) Aged Out No longer eligible based on patient's age to complete this topic documented as of this encounter Medical Devices Not on filedocumented as of this encounter Visit Diagnoses Diagnosis Need for prophylactic vaccination and inoculation against influenza- Primary documented in this encounter Care Teams English Composition Teacher Relationship Specialty Start Date End Date Indra Asif MD [address] [place] [address] PCP - General Family Medicine 09/24/22 documented as of this encounter
[2024-09-03] MEDS: LEVOTHYROXINE SODIUM 75 MCG TABLET PO SCH (06:13)
[2024-09-03 06:32] LABS: Basophils # (auto) 0.01 K/uL (0.00-0.20); Basophils % (auto) 0.2 %; Hematocrit (blood only) 31.4 % (42.0-52.0); Hemoglobin 10.6 g/dl (14.0-18.0); Immature Granulocytes # (auto) 0.04 K/uL (0.01-0.20); Immature Granulocytes % (auto) 0.6 %; Lymphocytes # (auto) 0.81 K/uL (1.20-3.40); Lymphocytes % (auto) 12.9 %; Mean Corpuscular Hemoglobin 29.6 pg (25.0-34.0); Mean Corpuscular Hgb Conc 33.8 g/dL (32.0-36.0); Mean Corpuscular Volume 87.7 fL (80.0-100.0); Monocytes # (auto) 0.07 K/uL (0.11-0.59); Monocytes % (auto) 1.1 %; Neutrophils # (auto) 5.37 K/uL (1.40-6.50); Neutrophils % (auto) 85.2 %; Platelet Count 119 K/uL (130-400); RDW Coefficient of Variation 14.2 % (11.5-14.5); RDW Standard Deviation 45.8 fL (36.4-46.3); Red Blood Count 3.58 M/uL (4.70-6.10)
[2024-09-03 07:03] LABS: BUN Creatinine Ratio 15.7 (10-20); Calcium 8.7 mg/dl (8.6-10.3); Creatinine Clr Calc Pharmacy 24.7 ml/min; Potassium 3.7 mmol/L (3.5-5.1)
[2024-09-03 07:30] LABS: Estimated Average Glucose 111 mg/dl; Hemoglobin A1C 5.5 % (4.5-5.6)
[2024-09-03] MEDS ORDERED: carvediloL 12.5 MG TAB PO SCH (08:00)
[2024-09-03] MEDS: FERROUS SULFATE 325 MG TAB PO SCH (08:40)
[2024-09-03] MEDS: carvediloL 3.125 MG TAB PO SCH (08:41)
[2024-09-03] MEDS ORDERED: cloNIDine HCL 0.1 MG TAB PO SCH (09:00)
[2024-09-03] MEDS: TAMSULOSIN HCL 0.4 MG CAP PO SCH (09:16)
[2024-09-03] MEDS: PANTOprazole 40 MG TAB PO SCH (09:16)
[2024-09-03] MEDS: PSYLLIUM or GUAR GUM FIBER 4GM PACKET PO SCH (09:17)
[2024-09-03] MEDS: cloNIDine HCL 0.1 MG TAB PO SCH (09:17)
[2024-09-03] MEDS: allopurinoL 100 MG TAB PO SCH (09:17)
[2024-09-03] MEDS: FLUTICASONE/VILANTEROL 100/25MCG 14 PUFFS/INHALER INH SCH (09:17)
--- NOTE | 2024-09-03 10:25 | Cardiology Consultation ---
Date of Consultation September 03, 2024 Assessment & Plan (1) Acute on chronic HFrEF (heart failure with reduced ejection fraction): (2) CAD in [place] artery: (3) H/O heart artery stent: (4) Shortness of breath on exertion: (5) Hypertension, benign: (6) Hyperlipidemia: (7) Cardiomyopathy: (8) Paroxysmal atrial fibrillation: Plan ASSESSMENT/PLAN: 1. Acute on chronic heart failure with reduced EF: He does not appear to be significantly hypervolemic but feels back to baseline. He received another intravenous dose of Lasix earlier this afternoon by hospitalist service. Can n resume outpatient oral Lasix scheduled tomorrow. Low-sodium diet. Recommend fluid restriction given hyponatremia of 1.5 L/day. Strict I's and O's. Daily weights. He reports that he did not tolerate Entresto. Considered SGLT2 inhibitor and mineralocorticoid receptor antagonist however patient refuses any new medications for his heart failure unless outlined by his primary hatchery manager. Continue carvedilol. Carvedilol has been reduced by hospitalist service. Recommend continuing his home dose which has been well-tolerated, 12.5 mg twice daily. 2. CAD s/p LAD PCI: No angina. Continue aspirin 81 mg daily. Continue beta- igor. Continue high intensity statin therapy. 3. Dyspnea on exertion: Seems to be doing better however has not yet ambulated. Reports having asthma and says that is his only problem today. Seems to have improved with treatment of heart failure. 4. Ischemic cardiomyopathy: Biventricular ICD in place. Medical therapy as above. Follows with EP for his ICD management. 5. Mitral regurgitation: Nonsevere when last evaluated. Has an echo pending. 6. Hypertension: Blood pressure acceptable. Resume home dose of carvedilol. 7. Dyslipidemia: Continue high intensity statin therapy. 8. Disposition: Cardiology will sign off at this time, pending any significant change on echo. Follow-up with cardiology within 1 week of discharge. Call with any further questions or concerns. Plan of care communicated with primary hospitalist, Dr. Wilmer Andrew. HF program referral to assist with close follow up. Thank you for allowing me to participate in the care of your patient. Please call for any other questions or concerns. Sincerely, Morgan Hayward M.D. History of Present Illness Reason for Consultation: "CHF" Requesting Physician: Dr. Moses Attending Physician: Wilmer Andrew DO History of Present Illness Mr. Fountain is a pleasant 89-year-old gentleman with a history significant for ischemic cardiomyopathy, CAD s/p LAD PCI (2012), LBBB, biventricular ICD, heart failure with reduced EF, hypertension, asthma, and dyslipidemia. His primary hatchery manager is Dr. Westfall. He follows with Dr. Garber for his ICD. He was admitted on 09/02/2024 for shortness of breath. When I walked in the room and identified myself as a hatchery manager, he proclaimed that he does not need a hatchery manager because he is here for asthma. He states that his heart is doing well. He weighs himself at home and his weight has been stable. He maintains a low- sodium diet. His admits that he has had some edema, although mild, for the past few months. He is compliant with Lasix 20 mg alternating with 40 mg. He denies orthopnea. He states that he could not catch his breath and therefore called for an ambulance. He feels back to baseline however admits that he has not been ambulating since here. He was given intravenous Lasix in the ER and also albumin as well as nebulizers. He apparently had been on Entresto in the past and his states that his heart failure got worse. He and his do not want any medication changes made to his outpatient heart failure regimen and wished only for Dr. Westfall to make changes as he seems appropriate. Review of systems: As above. Family history: Family history notable for CAD and CHF. Social history: Quit smoking at the age of 32 after smoking for 10 years. Denies alcohol or drug abuse. Lives at home with his . They have a son who lives nearby. His was present at the bedside. Allergies Allergy/AdvReac Type Severity Reaction Status Date / Time sertraline Allergy Intermediate Swollen Unverified 09/02/24 21:10 Ankles prednisone AdvReac Intermediate crazy Verified 09/02/24 21:10 pantoprazole [From Protonix] AdvReac Unknown Diarrhea Unverified 09/02/24 21:10 ticagrelor AdvReac bleeding Verified 09/02/24 21:10 Home Medications Medication Instructions Recorded Confirmed Type ascorbate calcium (vitamin C) 500 500 mg PO QAM 08/27/21 09/02/24 History mg tablet aspirin 81 mg tablet,delayed 81 mg PO 3XWK 08/27/21 09/02/24 History release olanzapine 10 mg tablet (Zyprexa) 10 mg PO HS 08/27/21 09/02/24 History clonidine HCl 0.1 mg tablet 0.05 mg (1/2 x 0.1 mg) PO BID #30 09/16/21 09/02/24 Rx tabs atorvastatin 40 mg tablet 40 mg PO HS 12/24/21 09/02/24 History fluticasone furoate 100 1 inh inhalation QAM 12/24/21 09/02/24 History mcg-vilanterol 25 mcg/dose inhalation powder (Breo Ellipta) tamsulosin 0.4 mg capsule (Flomax) 0.4 mg PO QAM 12/24/21 09/02/24 History allopurinol 100 mg tablet 100 mg PO QAM #90 tabs 09/05/22 09/02/24 Rx furosemide 20 mg tablet 20 mg PO Q OTHER DAY #60 tabs 11/27/22 09/02/24 Rx furosemide 40 mg tablet (Lasix) 40 mg PO Q OTHER DAY #60 tabs 11/27/22 09/02/24 Rx acetaminophen 500 mg tablet 1,000 mg PO DAILY PRN pain or fever 05/15/23 09/02/24 History levothyroxine 75 mcg tablet 75 mcg PO QAM 05/15/23 09/02/24 History albuterol sulfate 90 mcg/actuation 2 inh inhalation Q6H PRN shortness 07/17/23 09/02/24 History aerosol inhaler of breath or wheezing ferrous sulfate 325 mg (65 mg 325 mg PO BID 09/02/23 09/02/24 History iron) tablet omeprazole 40 mg capsule,delayed 40 mg PO DAILY 11/06/23 09/02/24 History release psyllium [Metamucil (sugar)] See Rx Instructions .Route .COMPLEX 11/06/23 09/02/24 History cholecalciferol (vitamin D3) 50 50 mcg PO DAILY #90 caps 04/14/24 09/02/24 Rx mcg (2,000 unit) capsule carvedilol 12.5 mg tablet 12.5 mg PO BIDM #180 tabs 06/09/24 09/02/24 Rx alprazolam 0.25 mg tablet (Xanax) 0.25 mg PO QID Anxiety 08/08/24 09/02/24 History Problem List (Updated 09/03/24 @ 14:19 by Mark Hayward MD) Acute on chronic HFrEF (heart failure with reduced ejection fraction) Hypothyroidism (acquired) Arteriovenous malformation of stomach Chronic blood loss anemia Acute bronchospasm Acute on chronic systolic congestive heart failure CHF (congestive heart failure) (Acute) Asthma (Acute) Breathlessness (Acute) Paroxysmal atrial fibrillation Paranoid schizophrenia Asthma CKD (chronic kidney disease), stage III Pulmonary embolism Hyponatremia Symptomatic anemia UGIB (upper gastrointestinal bleed) (Acute) Anemia (Acute) Generalized muscle weakness (Acute) Mitral valve insufficiency H/O heart artery stent HFrEF (heart failure with reduced ejection fraction) Shortness of breath on exertion Pneumonia (Acute) Elevated troponin (Acute) 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 Nonrheumatic aortic (valve) insufficiency Hyperlipidemia Hypertension, benign Automatic implantable cardiac defibrillator in situ Cardiomyopathy CAD in [place] artery Patient History Medical History Encounter for pre-operative examination Dyspnea on exertion Asymptomatic arteriosclerosis of coronary artery Atypical angina Atypical chest pain Dyslipidemia Encounter for adjustment or management of automatic implantable cardioverter- defibrillator Other primary cardiomyopathies Occlusion and stenosis of bilateral carotid arteries Depression 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 Chest pain Pulmonary valve disorder Old myocardial infarction Aortic valve disorder Hyperplasia of prostate without lower urinary tract symptoms (LUTS) Gout Unspecified venous (peripheral) insufficiency Carpal tunnel syndrome Unspecified disorder of kidney and ureter Hernia Chronic obstructive pulmonary disease GERD (gastroesophageal reflux disease) Nonrheumatic tricuspid (valve) insufficiency Mitral valve disorder Shortness of breath Hypothyroidism Dizziness Surgical History History of esophagogastroduodenoscopy (EGD) S/P cardiac cath S/P hernia repair S/P cataract surgery S/P eye surgery S/P tooth extraction H/O transurethral resection of prostate H/O partial thyroidectomy Family History Father CHF (congestive heart failure) Mother Diabetes Brother Heart disease Social History Smoking Status: Former smoker Tobacco Type: Cigarettes Second Hand Exposure: No; Do You Dip or Chew Tobacco: No; Hx Alcohol Use: No Hx Substance Use: No Preferred Language: Israeli Communication Ability: Effective Granulator Required: No Beliefs That Will Affect Care: None marital status: marital status details: Carly Current Living Situation: Spouse Current Living Situation Comment: home alone with current occupational status: retired current occupation: Clerical Feels Safe at Home: Yes Safety Concerns: Feels Safe At This Time caffeine: Yes (1-2 cups per day) Assistive Devices: Glasses and Walker Physical Exam Physical Exam: Gen.: No acute distress. Alert. HEENT: Anicteric sclera. Neck: No JVD. No hepatojugular reflux noted. Cardiac: No ventricular heave. Regular. Normal S1-S2. 1/6 systolic murmur. Pulmonary: Mild bilateral expiratory wheezing. Occasional crackle at the left base. Abdomen: Soft, nontender, nondistended, with normoactive bowel sounds. No bruits noted. Extremities: 2+ radial pulses bilaterally. 2+ posterior tibialis pulses bilaterally. Trace bilateral lower extremity edema. No cyanosis. Results & Data Vital Signs (Past 12 Hours) Vital Signs Temp Pulse Resp BP Pulse Ox O2 Del Method O2 Flow Rate 09/03/24 08:40 80 09/03/24 07:46 Nasal Cannula 2 09/03/24 07:34 36.6 C 64 18 129/70 97 Nasal Cannula 1 09/03/24 03:20 36.4 C L 59 L 17 119/74 98 Nasal Cannula 1 09/02/24 23:30 Nasal Cannula 2 09/02/24 23:14 36.9 C 87 16 138/80 100 Nasal Cannula 2 09/02/24 22:31 80 18 140/93 98 Nasal Cannula 2 Intake & Output 09/01/24 09/02/24 09/03/24 09/04/24 06:59 06:59 06:59 06:59 Intake Total 475 / 475 Output Total 1150 / 1150 125 / 125 Balance -675 / -675 -125 / -125 Weight 131 lb 9.855 oz Laboratory Results Laboratory Results - last 24 hr 09/02/24 09/02/24 09/02/24 16:26 16:57 18:35 WBC 7.78 RBC 3.81 L Hgb 11.1 L Hct 33.9 L MCV 89.0 MCH 29.1 MCHC 32.7 RDW Std Deviation 46.2 RDW Coeff of Ruth 14.2 Plt Count 156 MPV 11.4 Immature Gran % (Auto) 0.5 Neut % (Auto) 69.9 Lymph % (Auto) 21.2 Mcdonald % (Auto) 4.0 Eos % (Auto) 3.5 Baso % (Auto) 0.9 Neut # (Auto) 5.44 Lymph # (Auto) 1.65 Mcdonald # (Auto) 0.31 Eos # (Auto) 0.27 Baso # (Auto) 0.07 Immature Gran # (Auto) 0.04 PT Cancelled 11.8 INR Cancelled 1.1 VBG pH VBG pCO2 VBG pO2 VBG HCO3 VBG O2 Saturation VBG Base Excess Sodium 128 L Potassium 5.0 Chloride 91 L Carbon Dioxide 30 Anion Gap 7 BUN 25 H Creatinine 1.88 H Est Cr Clr Drug Dosing 26.8 eGFR 34.15 BUN/Creatinine Ratio 13.3 Glucose 171 H Estimat Average Glucose 111 Hemoglobin A1c 5.5 Osmolality 278 L Calcium 8.7 Magnesium 2.0 Total Bilirubin 0.7 AST 19 ALT 17 Alkaline Phosphatase 68 Troponin I High Sens 16.0 B-Natriuretic Peptide 1472 H Total Protein 6.5 Albumin 4.0 Globulin 2.5 Albumin/Globulin Ratio 1.6 TSH 3.452 Urine Color Urine Appearance Urine pH Ur Specific [place] Urine Protein Urine Glucose (UA) Urine Ketones Urine Blood Urine Nitrite Urine Bilirubin Urine Urobilinogen Ur Leukocyte Esterase Urine Osmolality Ur Random Sodium Adenovirus (PCR) Not Detected B. pertussis DNA (PCR) Not Detected B.parapertussis DNA PCR Not Detected C. pneumoniae DNA (PCR) Not Detected Coronavirus OC43 (PCR) Not Detected Coronavirus HKU1 (PCR) Not Detected Coronavirus 229E (PCR) Not Detected SARS-CoV-2 (PCR) Not Detected Coronavirus NL63 (PCR) Not Detected Human Metapneumovir PCR Not Detected Influenza Type A (PCR) Not Detected Influenza Type B (PCR) Not Detected M. pneumoniae (PCR) Not Detected Parainfluenza 1 (PCR) Not Detected Parainfluenza 2 (PCR) Not Detected Parainfluenza 3 (PCR) Not Detected Parainfluenza 4 (PCR) Not Detected RSV (PCR) Not Detected Entero/Rhino (PCR) Not Detected 09/02/24 09/02/24 09/02/24 20:20 22:46 Unknown WBC RBC Hgb Hct MCV MCH MCHC RDW Std Deviation RDW Coeff of Ruth Plt Count MPV Immature Gran % (Auto) Neut % (Auto) Lymph % (Auto) Mcdonald % (Auto) Eos % (Auto) Baso % (Auto) Neut # (Auto) Lymph # (Auto) Mcdonald # (Auto) Eos # (Auto) Baso # (Auto) Immature Gran # (Auto) PT INR VBG pH 7.39 VBG pCO2 45 VBG pO2 34 VBG HCO3 27 VBG O2 Saturation 61.2 VBG Base Excess 1.7 Sodium 132 L Potassium Chloride Carbon Dioxide Anion Gap BUN Creatinine Est Cr Clr Drug Dosing eGFR BUN/Creatinine Ratio Glucose Estimat Average Glucose Hemoglobin A1c Osmolality Calcium Magnesium Total Bilirubin AST ALT Alkaline Phosphatase Troponin I High Sens B-Natriuretic Peptide Total Protein Albumin Globulin Albumin/Globulin Ratio TSH Urine Color Yellow Urine Appearance Clear Urine pH 5.5 Ur Specific [place] 1.006 Urine Protein Negative Urine Glucose (UA) Negative Urine Ketones Negative Urine Blood Negative Urine Nitrite Negative Urine Bilirubin Negative Urine Urobilinogen Negative Ur Leukocyte Esterase Negative Urine Osmolality 204 L Ur Random Sodium 42 Adenovirus (PCR) B. pertussis DNA (PCR) B.parapertussis DNA PCR C. pneumoniae DNA (PCR) Coronavirus OC43 (PCR) Coronavirus HKU1 (PCR) Coronavirus 229E (PCR) SARS-CoV-2 (PCR) Coronavirus NL63 (PCR) Human Metapneumovir PCR Influenza Type A (PCR) Influenza Type B (PCR) M. pneumoniae (PCR) Parainfluenza 1 (PCR) Parainfluenza 2 (PCR) Parainfluenza 3 (PCR) Parainfluenza 4 (PCR) RSV (PCR) Entero/Rhino (PCR) 09/03/24 06:04 WBC 6.30 RBC 3.58 L Hgb 10.6 L Hct 31.4 L MCV 87.7 MCH 29.6 MCHC 33.8 RDW Std Deviation 45.8 RDW Coeff of Ruth 14.2 Plt Count 119 L MPV 11.0 Immature Gran % (Auto) 0.6 Neut % (Auto) 85.2 Lymph % (Auto) 12.9 Mcdonald % (Auto) 1.1 Eos % (Auto) 0.0 Baso % (Auto) 0.2 Neut # (Auto) 5.37 Lymph # (Auto) 0.81 L Mcdonald # (Auto) 0.07 L Eos # (Auto) 0.00 Baso # (Auto) 0.01 Immature Gran # (Auto) 0.04 PT INR VBG pH VBG pCO2 VBG pO2 VBG HCO3 VBG O2 Saturation VBG Base Excess Sodium 133 L Potassium 3.7 D Chloride 93 L Carbon Dioxide 28 Anion Gap 12 H BUN 28 H Creatinine 1.78 H Est Cr Clr Drug Dosing 24.7 eGFR 36.47 BUN/Creatinine Ratio 15.7 Glucose 110 H Estimat Average Glucose Hemoglobin A1c Osmolality Calcium 8.7 Magnesium Total Bilirubin AST ALT Alkaline Phosphatase Troponin I High Sens B-Natriuretic Peptide Total Protein Albumin Globulin Albumin/Globulin Ratio TSH Urine Color Urine Appearance Urine pH Ur Specific [place] Urine Protein Urine Glucose (UA) Urine Ketones Urine Blood Urine Nitrite Urine Bilirubin Urine Urobilinogen Ur Leukocyte Esterase Urine Osmolality Ur Random Sodium Adenovirus (PCR) B. pertussis DNA (PCR) B.parapertussis DNA PCR C. pneumoniae DNA (PCR) Coronavirus OC43 (PCR) Coronavirus HKU1 (PCR) Coronavirus 229E (PCR) SARS-CoV-2 (PCR) Coronavirus NL63 (PCR) Human Metapneumovir PCR Influenza Type A (PCR) Influenza Type B (PCR) M. pneumoniae (PCR) Parainfluenza 1 (PCR) Parainfluenza 2 (PCR) Parainfluenza 3 (PCR) Parainfluenza 4 (PCR) RSV (PCR) Entero/Rhino (PCR) Diagnostic Findings Telemetry personally reviewed: Ventricular paced. ECG personally reviewed from 09/02/2024: Atrial sensed and ventricular paced 78 bpm. Labs reviewed and notable for elevated BNP, normal high-sensitivity troponin, abnormal but stable renal function, normal potassium, mild hyponatremia, chronic and stable anemia, normal transaminase levels, normal TSH. Echo 05/18/2023 report reviewed: LVEF 35 to 40%. Apical akinesis. Moderate MR. History and physical report reviewed. Chest x-ray 09/02/2024: Interstitial thickening per radiology. Small bilateral pleural effusions. Mild bibasilar opacities. Medications Administered Current Inpatient Medications Albuterol (Albut/Ipratrop 3mg/0.5mg Neb 3 Ml Vial) 3 ml NEB Q2H PRN; Protocol PRN Reason: sob wheeze Stop: 10/02/24 21:41 Allopurinol (Allopurinol 100 Mg Tab) 100 mg PO QAM [facility] Stop: 10/03/24 08:59 Last Admin: 09/03/24 09:17 Dose: 100 mg Alprazolam (Alprazolam 0.25 Mg Tablet) 0.25 mg PO QID [facility] Stop: 10/02/24 21:39 Last Admin: 09/03/24 09:16 Dose: 0.25 mg Aspirin (Aspirin 81 Mg Ectab) 81 mg PO MoWeFr [facility] Stop: 10/05/24 08:59 Atorvastatin Calcium (Atorvastatin 40 Mg Tab) 40 mg PO HS [facility] Stop: 10/03/24 20:59 Carvedilol (Carvedilol 3.125 Mg Tab) 3.125 mg PO BIDM [facility] Stop: 10/03/24 07:59 Last Admin: 09/03/24 08:41 Dose: 3.125 mg Clonidine HCl (Clonidine Hcl 0.1 Mg Tab) 0.05 mg PO DAILY [facility]OOP Stop: 10/03/24 08:59 Last Admin: 09/03/24 09:17 Dose: 0.05 mg Ferrous Sulfate (Ferrous Sulfate 325 Mg Tab) 325 mg PO BIDM [facility] Stop: 10/03/24 07:59 Last Admin: 09/03/24 08:40 Dose: 325 mg Fluticasone/Vilanterol (Fluticasone/Vilanterol 100/25mcg 14 Puffs/Inhaler) 1 puffs INH QAM [facility] Stop: 10/03/24 08:59 Last Admin: 09/03/24 09:17 Dose: 1 puffs Promethazine HCl (Phenergan) 6.25 mg in 50.25 mls @ 201 mls/hr IV Q6H PRN PRN Reason: Nausea And Vomiting Stop: 10/02/24 21:37 Levothyroxine Sodium (Levothyroxine Sodium 75 Mcg Tablet) 75 mcg PO DAILYBB [facility] Stop: 10/03/24 06:29 Last Admin: 09/03/24 06:13 Dose: 75 mcg Olanzapine (Olanzapine 10 Mg Tab) 10 mg PO HS [facility] Stop: 10/03/24 20:59 Pantoprazole Sodium (Pantoprazole 40 Mg Tab) 40 mg PO DAILY [facility] Stop: 10/03/24 08:59 Last Admin: 09/03/24 09:16 Dose: 40 mg Psyllium Hydrophilic Mucilloid (Psyllium Or Guar Gum Fiber 4gm Packet) 4 gm PO DAILY ANOOP Stop: 10/03/24 08:59 Last Admin: 09/03/24 09:17 Dose: 4 gm Tamsulosin HCl (Tamsulosin Hcl 0.4 Mg Cap) 0.4 mg PO QAM [facility] Stop: 10/03/24 08:59 Last Admin: 09/03/24 09:16 Dose: 0.4 mg PG Care Time/CCT Total # of Minutes Spent Total Time Spent with Patient: Total time spent is greater than 50% in coordination of care (as documented) at patient's floor/unit and/or counseling patient: Coding Level of Care Code 06891 INT INP/OBS CARE 3/75MIN Diagnoses Acute on chronic HFrEF (heart failure with reduced ejection fraction) I50.23 CAD in [place] artery I25.10 H/O heart artery stent Z95.5 Shortness of breath on exertion R06.02 Hypertension, benign I10 Hyperlipidemia E78.5 Cardiomyopathy I42.9 Paroxysmal atrial fibrillation I48.0
--- NOTE | 2024-09-03 12:52 | Hospitalist Progress Note ---
Date of Service September 03, 2024 Assessment & Plan (1) Acute on chronic systolic congestive heart failure: (2) Acute bronchospasm: (3) Paroxysmal atrial fibrillation: (4) CKD (chronic kidney disease), stage III: (5) Chronic blood loss anemia: (6) Arteriovenous malformation of stomach: (7) Hypothyroidism (acquired): Plan Patient with acute hypoxia due to decompensated systolic heart failure and subsequent bronchospasm Believe patient was significantly improved with ongoing diuresis. Continue other medical therapies Continue inhalers and nebulizer treatments Follow electrolytes and renal function Therapies Admission and Anticipated Discharge Date Admission Date: September 02, 2024 Subjective Patient reports that his breathing has significantly improved. He is convinced that he had a asthma attack Physical Exam Physical Exam: Constitutional: Alert, nontoxic, no acute distress HEENT: Mucous membranes moist. Lungs: Decreased breath sounds, coarse rhonchi, rales at bases, few scattered wheezes CV: S1-S2, regular Abdomen: Soft, nontender, nondistended Extremities: No significant edema Neuro: No focal deficits Psych: Cooperative, normal mood Results & Data Results & Data Vital Signs (Past 12 Hours) Vital Signs Temp Pulse Resp BP Pulse Ox O2 Del Method O2 Flow Rate 09/03/24 11:08 36.9 C 54 L 19 112/64 99 Room Air 09/03/24 08:40 80 09/03/24 07:46 Nasal Cannula 2 09/03/24 07:34 36.6 C 64 18 129/70 97 Nasal Cannula 1 09/03/24 03:20 36.4 C L 59 L 17 119/74 98 Nasal Cannula 1 Diagnostic Findings Reviewed imaging, laboratory and diagnostic studies. Pertinent findings as below. Hemoglobin 10.6 Sodium 133 Creatinine 1.78 Personally reviewed EKG, paced rhythm Personally reviewed chest x-ray, consistent with volume overload
[2024-09-03] MEDS: FUROSEMIDE 40 MG/4 ML VIAL IV SCH (13:55)
--- NOTE | 2024-09-03 15:58 | XCELERA ---
[id number]
[2024-09-03] MEDS: carvediloL 12.5 MG TAB PO SCH (17:31)
[2024-09-03] MEDS: OLANZapine 10 MG TAB PO SCH (20:07)
[2024-09-03] MEDS: ALPRAZolam 0.5 MG TABLET PO SCH (20:07)
[2024-09-03] MEDS: ATORVASTATIN 40 MG TAB PO SCH (20:08)
[2024-09-04 00:22] VITALS: O2SAT 97
[2024-09-04 04:20] VITALS: RESP 18
[2024-09-04 05:37] LABS: BUN Creatinine Ratio 19.5 (10-20); Calcium 8.4 mg/dl (8.6-10.3); Creatinine Clr Calc Pharmacy 21.4 ml/min; Magnesium 1.9 mg/dl (1.7-2.4); Potassium 3.5 mmol/L (3.5-5.1)
[2024-09-04 07:46] VITALS: BP 118/74; TEMP 97.9
[2024-09-04 08:44] VITALS: PULSE 68
[2024-09-04] MEDS: FUROSEMIDE 40 MG TAB PO SCH (09:18)
--- NOTE | 2024-09-04 09:40 | Discharge Summary ---
Discharge Summary Date of Service September 04, 2024 Principal Dx & Hospital Course #1 = Principal Diagnosis (1) Acute on chronic systolic congestive heart failure: (2) Acute bronchospasm: (3) Paroxysmal atrial fibrillation: (4) CKD (chronic kidney disease), stage III: (5) Chronic blood loss anemia: (6) Arteriovenous malformation of stomach: (7) Hypothyroidism (acquired): Plan Patient presented the emergency room with increasing shortness of breath or bronchospasm. Patient has a history of systolic heart failure as well as asthma. Evaluation in the emergency room were consistent with heart failure. Patient was admitted to the hospital. Given IV diuresis. He rapidly improved with improvement of his lung sounds and his wheezing. He was titrated off oxygen onto room air. He was evaluated by cardiology who agreed with ongoing diuresis. Echocardiogram was performed which showed ejection fraction of 35% but also significant change and increased pulmonary hypertension. On the morning of discharge his vital signs are stable. He was on room air. He had minimal wheezing no edema. He will be continued on his oral Lasix and follow-up with his outpatient PCP and cardiology. was updated at the time of tamar dillon and will help with his discharge instructions as well. Notes For Next Care Provider We did discuss increasing patient's goal-directed medical therapy for heart failure he wanted to speak with his PCP and outpatient medical record administrator before making any significant changes in his medical regimen. Medication Changes From Visit Lasix increased to 40 mg daily Admission HPI Per Admitting Provider History obtained from patient, family, and records. Medical history significant for chronic systolic heart failure (EF 35-40 %, TTE 2022) status post ICD, CAD status post stent, chronic LBBB, PAF, valvular heart disease (moderate MR, mild TR), pulmonary hypertension, bronchial asthma, history of blood clots as per patient, chronic hyponatremia, CRI (baseline creatinine 1.7-2.1), chronic anemia (baseline hemoglobin 11), G ERD, AVM, postsurgical hypothyroidism, BPH, paranoid schizophrenia, anxiety/mood disorder, past tobacco abuse. Last confinement June 2023 for symptomatic anemia secondary to UGIB. Jejuneal AVMs on endoscopy status post clipping. Patient Eliquis for A-fib stopped on discharge. Patient more short of breath on exertion today. No unusual cough symptoms. Denies chest pain. Denies weight gain. Denies unusual leg swelling. No improvement with home inhaler Rx. Symptoms not like usual asthma attack. EMS called to patient's home. Patient initially refused to come to ER. Solu-Medrol and neb treatment administered at the ER. IV Lasix administered at the ER. Medical History as above Surgical History : ICD, thyroidectomy, TURP, cataract surgery, eye surgery, hernia repair, dental surgery Family History : DM, heart disease Personal/Social history : Past tobacco abuse, no EtOH intake, lives with Admission Exam Per Admitting Provider See H&P Discharge Exam Constitutional: Alert, nontoxic HEENT: Mucous membranes moist. Lungs: Decreased breath sounds, prolonged expiratory phase, few scattered wheezes, Rales resolved CV: S1-S2, regular Abdomen: Soft, nontender, nondistended Extremities: No significant edema Neuro: No focal deficits Psych: Cooperative, normal mood Updated Medication List Medication Instructions Recorded Confirmed Type ascorbate calcium (vitamin C) 500 500 mg PO QAM 08/27/21 09/02/24 History mg tablet aspirin 81 mg tablet,delayed 81 mg PO 3XWK 08/27/21 09/02/24 History release olanzapine 10 mg tablet (Zyprexa) 10 mg PO HS 08/27/21 09/02/24 History clonidine HCl 0.1 mg tablet 0.05 mg (1/2 x 0.1 mg) PO BID #30 09/16/21 09/02/24 Rx tabs atorvastatin 40 mg tablet 40 mg PO HS 12/24/21 09/02/24 History fluticasone furoate 100 1 inh inhalation QAM 12/24/21 09/02/24 History mcg-vilanterol 25 mcg/dose inhalation powder (Breo Ellipta) tamsulosin 0.4 mg capsule (Flomax) 0.4 mg PO QAM 12/24/21 09/02/24 History allopurinol 100 mg tablet 100 mg PO QAM #90 tabs 09/05/22 09/02/24 Rx furosemide 20 mg tablet 20 mg PO Q OTHER DAY #60 tabs 11/27/22 09/02/24 Rx acetaminophen 500 mg tablet 1,000 mg PO DAILY PRN pain or fever 05/15/23 09/02/24 History levothyroxine 75 mcg tablet 75 mcg PO QAM 05/15/23 09/02/24 History albuterol sulfate 90 mcg/actuation 2 inh inhalation Q6H PRN shortness 07/17/23 09/02/24 History aerosol inhaler of breath or wheezing ferrous sulfate 325 mg (65 mg 325 mg PO BID 09/02/23 09/02/24 History iron) tablet omeprazole 40 mg capsule,delayed 40 mg PO DAILY 11/06/23 09/02/24 History release psyllium [Metamucil (sugar)] See Rx Instructions .Route .COMPLEX 11/06/23 09/02/24 History cholecalciferol (vitamin D3) 50 50 mcg PO DAILY #90 caps 04/14/24 09/02/24 Rx mcg (2,000 unit) capsule carvedilol 12.5 mg tablet 12.5 mg PO BIDM #180 tabs 06/09/24 09/02/24 Rx alprazolam 0.25 mg tablet (Xanax) 0.25 mg PO QID Anxiety 08/08/24 09/02/24 History furosemide 40 mg tablet 40 mg PO DAILY #60 tabs 09/04/24 Rx Hospital Stay Data Consultations 09/02/24 19:35 ED Decision to Admit Stat 09/02/24 23:11 Consult Cardiology Routine 09/03/24 14:35 [facility] [place] [facility] Referral Routine Diagnostic Imagining Performed Reviewed imaging, laboratory and diagnostic studies. Pertinent findings as below. Echocardiogram showed ejection fraction of 35%, pulmonary hypertension of 65 mmHg, moderate mitral regurgitation Creatinine 2.0, within his baseline Sodium 132 Creatinine 3.5 Pending Results Patient Have Any Pending Studies at Discharge: No Discharge Instructions Given to Patient (Per Discharging Provider) Follow-up with your medical record administrator for ongoing management of your heart issues Recommend weighing yourself daily Total Time Total Time Spent Total Time Spent (In Minutes): 33
[2024-09-05] MEDS ORDERED: ASPIRIN 81 MG ECTAB PO SCH (09:00)
== END 2024-09-04 11:40 | disposition home or self-care (01) | DRG 291 ==
LOC: ED 16:19 → 4W 21:36

== ENCOUNTER 2025-07-30 19:15 | Inpatient (IN) ==
--- NOTE | 2025-07-30 19:42 | Emergency Department Note ---
Impression & Plan CHF (congestive heart failure), Breathlessness ED Provider Note Provider: Arvind Melissa MD CHIEF COMPLAINT: Weakness, shortness of breath, leg swelling HISTORY OF PRESENT ILLNESS: Patient is a 89-year-old gentleman unfortunate history of severe CHF, schizophrenia, appears of atrial fibrillation on Xarelto, CKD presenting here today via ambulance from home. Patient has been declining for some time according to . This evening however had significant weakness with trying to ambulate and shortness of breath. No falls reported or known. Has had some increased swelling in lower extremities and started to have some clear serous weeping of the left leg. Denies pain to me. Not that short of breath at rest. Denies chest pain occasional palpitation is reported. Denies abdominal pain does have a decent appetite. Does not feel that he is peeing as much as he should but has been taking his medications. PAST MEDICAL HISTORY: As noted above MEDICATIONS: Reviewed home medication no longer on clonidine but increase Lasix is on Xarelto and states compliance SOCIAL HISTORY: lives at home with PHYSICAL EXAM: GENERAL: alert and oriented in no acute distress on stretcher Head: normocephalic and atraumatic EYES: No injection, discharge or icterus. EOMI. NECK: Trachea midline. ENT: Mucous membranes pink and moist. LUNGS: Airway patent. No retractions. Breath sounds diminished lung sounds with crackles in the bases HEART: Regular rate and rhythm. No chest wall tenderness ABDOMEN: Soft and non-tender, without guarding or rebound. SKIN: Acyanotic, warm, dry, without rashes EXTREMITIES: Bilateral compression stockings with 2+ edema. Some slight weeping from the left blunt. NEUROLOGICAL: No focal deficits. No aphasia. No facial droop or slurred speech. Normal strength and tone in the extremities. Sensation to gross touch normal. EK bpm atrial fibrillation occasional paced complexes with PVC. No clear acute ST segment elevation or depression with an interventricular conduction delay. QTc 482. CONTINUOUS CARDIAC MONITORING: was ordered and showed a heart rate of 90s to 110s bpm in atrial fibrillation Patient's laboratory studies and imaging reviewed. Differential includes Reactive airway disease, pneumonia, pneumothorax, COPD, CHF, infections, cardiac ischemia, pulmonary embolism, musculoskeletal, gastrointestinal, as well as other pathologies. IMPRESSION/MEDICAL DECISION MAKING: Patient in no apparent distress here. Reportedly hypotensive for EMS but not here. Multiple cardiac comorbidities. states he also seemed maybe not quite himself and as such given his anticoagulation will complete a CT of the head. Did not seem to have significant focal deficits generalized weakness increased leg swelling. Question CHF. Laboratory studies were sent. Chest x- ray obtained. Anticoagulated and doubt PE or DVT. Blood work here without significant leukocytosis or anemia. No fevers reported. Lower suspicion for infection. Respiratory viral panel negative. Creatinine today 2.4 similar to previous but at the higher end of recent values. BUN 48. No transaminitis. Troponin 30.4 slightly higher than previous with a significantly of a BNP of 1200 seems consistent with fluid overload. Will try some additional IV diuresis. Given dose of IV Lasix here. CT of the head per radiology completed to exclude bleed. Chest x-ray per my review shows some obscuration of the left base and a question of fluid overload here but no diffuse pulmonary edema noted. Will bring in given his weakness and swelling for further diuresis and care. Hospitalist was contacted. DIAGNOSIS: Acute CHF, CKD, ambulatory dysfunction DISPOSITION: Hospitalist will evaluate Patient was agreeable with this plan. Past Med/Surg History Problem List (Updated 07/31/25 @ 01:13 by Arvind Melissa M.D.) Atrial fibrillation, permanent Pulmonary hypertension Acute on chronic HFrEF (heart failure with reduced ejection fraction) Hypothyroidism (acquired) Arteriovenous malformation of stomach Chronic blood loss anemia Acute bronchospasm Acute on chronic systolic congestive heart failure CHF (congestive heart failure) (Acute) Asthma (Acute) Breathlessness (Acute) Paroxysmal atrial fibrillation Paranoid schizophrenia Asthma CKD (chronic kidney disease), stage III Pulmonary embolism Hyponatremia Symptomatic anemia UGIB (upper gastrointestinal bleed) (Acute) Anemia (Acute) Generalized muscle weakness (Acute) Mitral valve insufficiency H/O heart artery stent HFrEF (heart failure with reduced ejection fraction) Shortness of breath on exertion Pneumonia (Acute) Elevated troponin (Acute) 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 Nonrheumatic aortic (valve) insufficiency Hyperlipidemia Hypertension, benign Automatic implantable cardiac defibrillator in situ Cardiomyopathy CAD in [place] artery Medical History Encounter for pre-operative examination Dyspnea on exertion Asymptomatic arteriosclerosis of coronary artery Atypical angina Atypical chest pain Dyslipidemia Encounter for adjustment or management of automatic implantable cardioverter- defibrillator Other primary cardiomyopathies Occlusion and stenosis of bilateral carotid arteries Depression 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 Chest pain Pulmonary valve disorder Old myocardial infarction Aortic valve disorder Hyperplasia of prostate without lower urinary tract symptoms (LUTS) Gout Unspecified venous (peripheral) insufficiency Carpal tunnel syndrome Unspecified disorder of kidney and ureter Hernia Chronic obstructive pulmonary disease GERD (gastroesophageal reflux disease) Nonrheumatic tricuspid (valve) insufficiency Mitral valve disorder Shortness of breath Hypothyroidism Dizziness Surgical History History of esophagogastroduodenoscopy (EGD) S/P cardiac cath S/P hernia repair S/P cataract surgery S/P eye surgery S/P tooth extraction H/O transurethral resection of prostate H/O partial thyroidectomy Family History Father CHF (congestive heart failure) Mother Diabetes Brother Heart disease Social History Smoking Status: Former smoker Tobacco Type: Cigarettes Second Hand Exposure: No; Do You Dip or Chew Tobacco: No; Hx Alcohol Use: No Hx Substance Use: No Preferred Language: Turkmen Communication Ability: Effective Clinical Nursing Director Required: No Beliefs That Will Affect Care: None marital status: marital status details: Carly Current Living Situation: Spouse Current Living Situation Comment: home alone with current occupational status: retired current occupation: Clerical Feels Safe at Home: Yes caffeine: Yes (1-2 cups per day) Assistive Devices: Glasses and Walker Allergies Allergies Allergy/AdvReac Type Severity Reaction Status Date / Time pantoprazole [From Protonix] AdvReac Intermediate Diarrhea Verified 07/30/25 21:14 prednisone AdvReac Intermediate crazy Verified 07/30/25 21:14 sertraline AdvReac Intermediate Swollen Verified 07/30/25 21:14 Ankles ticagrelor AdvReac Intermediate bleeding Verified 07/30/25 21:14 Home Meds Home Medications Medication Instructions Recorded Confirmed ascorbate calcium (vitamin C) 500 500 mg PO QAM 08/27/21 07/30/25 mg tablet aspirin 81 mg tablet,delayed 81 mg PO 3XWK 08/27/21 07/30/25 release atorvastatin 40 mg tablet 40 mg PO HS 12/24/21 07/30/25 tamsulosin 0.4 mg capsule (Flomax) 0.4 mg PO QAM 12/24/21 07/30/25 acetaminophen 500 mg tablet 1,000 mg PO DAILY PRN pain or fever 05/15/23 07/30/25 levothyroxine 75 mcg tablet 75 mcg PO QAM 05/15/23 07/30/25 ferrous sulfate 325 mg (65 mg 325 mg PO BID 09/02/23 07/30/25 iron) tablet omeprazole 40 mg capsule,delayed 40 mg PO DAILY 11/06/23 07/30/25 release propylene glycol 0.6 % eye drops 1 drp ophthalmic (eye) BID PRN Dry 04/03/25 07/30/25 (Systane Complete) Eyes furosemide 40 mg tablet 80 mg PO DAILY 07/10/25 07/30/25 albuterol sulfate 0.63 mg/3 mL 0.63 mg inhalation DIRECTED PRN 07/30/25 07/30/25 solution for nebulization Shortness Of Breath Or Wheezing fluticasone 250 mcg-salmeterol 50 1 inh inhalation BID 07/30/25 07/30/25 mcg/dose blistr powdr for inhalation olanzapine 10 mg tablet 10 mg PO HS 07/30/25 07/30/25 psyllium husk 3.4 gram/5.4 gram 1 tbsp PO DAILY 07/30/25 07/30/25 oral powder (Metamucil) tiotropium bromide 2.5 2 inh inhalation QAM 07/30/25 07/30/25 mcg/actuation mist for inhalation (Spiriva Respimat) Previous Rx's Medication Instructions Recorded clonidine HCl 0.1 mg tablet 0.05 mg (1/2 x 0.1 mg) PO BID #30 09/16/21 tabs allopurinol 100 mg tablet 100 mg PO QAM #90 tabs 09/05/22 cholecalciferol (vitamin D3) 50 50 mcg PO DAILY #90 caps 04/14/24 mcg (2,000 unit) capsule albuterol sulfate 90 mcg/actuation 2 inh inhalation Q4H PRN shortness 09/04/24 aerosol inhaler of breath or wheezing #0 grams alprazolam 0.25 mg tablet (Xanax) 0.25 mg PO USEASDIRECTD Anxiety #0 09/04/24 tabs calcitriol 0.25 mcg capsule 0.25 mcg PO DAILY #90 caps 02/06/25 rivaroxaban 15 mg tablet (Xarelto) 15 mg PO DAILY #30 tabs 02/09/25 carvedilol 12.5 mg tablet 12.5 mg PO BIDM #180 tabs 06/12/25 Results & Data (ED) Vital Signs Vital Signs - 24 hr 07/30/25 19:08 07/30/25 19:20 07/30/25 19:26 Temperature Temperature Source Pulse Rate 100 H Pulse Rate [Apical] Pulse Rhythm Pulse Rhythm [Apical] Pulse Strength Pulse Strength [Apical] Respiratory Rate Respiratory Effort / Characteristics Respiratory Depth Respiratory Pattern Blood Pressure Blood Pressure [Right Arm] Blood Pressure Mean Blood Pressure Mean [Right Arm] Blood Pressure Position Blood Pressure Position [Right Arm] Pulse Oximetry 95 95 Oxygen Delivery Method Room Air Room Air Sepsis Recent Fever Within 48 Hours Sepsis New/Unexplained Change in Mental Status Sepsis Action Taken by Nursing 07/30/25 19:56 07/30/25 21:08 07/30/25 23:19 Temperature 37.1 C Temperature Source Oral Pulse Rate 110 H 106 H Pulse Rate [Apical] 107 H Pulse Rhythm Regular Pulse Rhythm [Apical] Regular Pulse Strength Normal Pulse Strength [Apical] Normal Respiratory Rate 17 17 Respiratory Effort / Characteristics Non-Labored Non-Labored Respiratory Depth Normal Normal Respiratory Pattern Regular Regular Blood Pressure 99/73 L Blood Pressure [Right Arm] 92/66 L Blood Pressure Mean 81 Blood Pressure Mean [Right Arm] 74 Blood Pressure Position Sitting Blood Pressure Position [Right Arm] Sitting Pulse Oximetry 95 99 Oxygen Delivery Method Room Air Room Air Sepsis Recent Fever Within 48 Hours No Sepsis New/Unexplained Change in Mental Status No Sepsis Action Taken by Nursing Physician Notified 07/31/25 00:11 Temperature Temperature Source Pulse Rate Pulse Rate [Apical] 97 H Pulse Rhythm Pulse Rhythm [Apical] Pulse Strength Pulse Strength [Apical] Respiratory Rate 16 Respiratory Effort / Characteristics Non-Labored Spontaneous Respiratory Depth Respiratory Pattern Blood Pressure Blood Pressure [Right Arm] 95/68 L Blood Pressure Mean Blood Pressure Mean [Right Arm] 77 Blood Pressure Position Blood Pressure Position [Right Arm] Lying Pulse Oximetry 97 Oxygen Delivery Method Room Air Sepsis Recent Fever Within 48 Hours Sepsis New/Unexplained Change in Mental Status Sepsis Action Taken by Nursing Laboratory Data 07/30/25 19:32 07/30/25 19:32 Lab Results 07/30/25 07/30/25 07/30/25 Range/Units 19:32 19:33 21:32 WBC 9.17 (4.8-10.8) K/ul RBC 3.87 L (4.70-6.10) M/uL Hgb 11.4 L (14.0-18.0) g/dl Hct 34.8 L (42.0-52.0) % MCV 89.9 (80.0-100.0) fL MCH 29.5 (25.0-34.0) pg MCHC 32.8 (32.0-36.0) g/dL RDW Std Deviation 49.3 H (36.4-46.3) fL RDW Coeff of Ruth 15.0 H (11.5-14.5) % Plt Count 129 L (130-400) K/uL MPV 11.2 (9.4-12.4) fL Immature Gran % (Auto) 0.5 % Neut % (Auto) 77.1 % Lymph % (Auto) 15.9 % [place] % (Auto) 5.9 % Eos % (Auto) 0.4 % Baso % (Auto) 0.2 % Neut # (Auto) 7.06 H (1.40-6.50) K/uL Lymph # (Auto) 1.46 (1.20-3.40) K/uL [place] # (Auto) 0.54 (0.11-0.59) K/uL Eos # (Auto) 0.04 (0.00-0.50) K/uL Baso # (Auto) 0.02 (0.00-0.20) K/uL Immature Gran # (Auto) 0.05 (0.01-0.20) K/uL PT 17.1 H (9.0-12.0) Seconds INR 1.6 H (0.9-1.1) Sodium 137 (136-145) mmol/L Potassium 4.1 (3.5-5.1) mmol/L Chloride 97 L (98-107) mmol/L Carbon Dioxide 29 (21-32) mmol/L Anion Gap 11 (3-11) BUN 48 H (6-23) mg/dl Creatinine 2.40 H (0.6-1.4) mg/dl Est Cr Clr Drug Dosing 19.7 ml/min eGFR 25.32 BUN/Creatinine Ratio 20.0 (10-20) Glucose 124 H (70-99(Fasting)) mg/dl Calcium 9.0 (8.6-10.3) mg/dl Magnesium 2.1 (1.7-2.4) mg/dl Total Bilirubin 0.7 (0.2-1.0) mg/dl AST 20 (13-39) U/L ALT 36 (7-52) U/L Alkaline Phosphatase 104 (34-104) U/L Troponin I High Sens 30.4 H 31.7 H (0-20) pg/ml B-Natriuretic Peptide 1200 H (0-100) pg/ml Total Protein 6.1 (6.0-8.3) gm/dl Albumin 3.5 (3.4-5.0) gm/dl Globulin 2.6 (2.5-4.0) gm/dl Albumin/Globulin Ratio 1.3 (0.9-2) TSH 4.590 H (0.300-4.500) uIu/ml Free T4 1.05 (0.61-1.60) ng/dl Urine Color Urine Appearance (Clear) Urine pH (4.5-7.5) Ur Specific [place] (1.000-1.030) Urine Protein (Negative) Urine Glucose (UA) (Negative) Urine Ketones (Negative) Urine Blood (Negative) Urine Nitrite (Negative) Urine Bilirubin (Negative) Urine Urobilinogen (Negative) Ur Leukocyte Esterase (Negative) Urine Comment Adenovirus (PCR) Not Detected (NotDetected) B. pertussis DNA (PCR) Not Detected (NotDetected) B.parapertussis DNA PCR Not Detected (NotDetected) C. pneumoniae DNA (PCR) Not Detected (NotDetected) Coronavirus OC43 (PCR) Not Detected (NotDetected) Coronavirus HKU1 (PCR) Not Detected (NotDetected) Coronavirus 229E (PCR) Not Detected (NotDetected) SARS-CoV-2 (PCR) Not Detected (NotDetected) Coronavirus NL63 (PCR) Not Detected (NotDetected) Human Metapneumovir PCR Not Detected (NotDetected) Influenza Type A (PCR) Not Detected (NotDetected) Influenza Type B (PCR) Not Detected (NotDetected) M. pneumoniae (PCR) Not Detected (NotDetected) Parainfluenza 1 (PCR) Not Detected (NotDetected) Parainfluenza 2 (PCR) Not Detected (NotDetected) Parainfluenza 3 (PCR) Not Detected (NotDetected) Parainfluenza 4 (PCR) Not Detected (NotDetected) RSV (PCR) Not Detected (NotDetected) Entero/Rhino (PCR) Not Detected (NotDetected) 07/31/25 Range/Units 00:01 WBC (4.8-10.8) K/ul RBC (4.70-6.10) M/uL Hgb (14.0-18.0) g/dl Hct (42.0-52.0) % MCV (80.0-100.0) fL MCH (25.0-34.0) pg MCHC (32.0-36.0) g/dL RDW Std Deviation (36.4-46.3) fL RDW Coeff of Ruth (11.5-14.5) % Plt Count (130-400) K/uL MPV (9.4-12.4) fL Immature Gran % (Auto) % Neut % (Auto) % Lymph % (Auto) % [place] % (Auto) % Eos % (Auto) % Baso % (Auto) % Neut # (Auto) (1.40-6.50) K/uL Lymph # (Auto) (1.20-3.40) K/uL [place] # (Auto) (0.11-0.59) K/uL Eos # (Auto) (0.00-0.50) K/uL Baso # (Auto) (0.00-0.20) K/uL Immature Gran # (Auto) (0.01-0.20) K/uL PT (9.0-12.0) Seconds INR (0.9-1.1) Sodium (136-145) mmol/L Potassium (3.5-5.1) mmol/L Chloride (98-107) mmol/L Carbon Dioxide (21-32) mmol/L Anion Gap (3-11) BUN (6-23) mg/dl Creatinine (0.6-1.4) mg/dl Est Cr Clr Drug Dosing ml/min eGFR BUN/Creatinine Ratio (10-20) Glucose (70-99(Fasting)) mg/dl Calcium (8.6-10.3) mg/dl Magnesium (1.7-2.4) mg/dl Total Bilirubin (0.2-1.0) mg/dl AST (13-39) U/L ALT (7-52) U/L Alkaline Phosphatase (34-104) U/L Troponin I High Sens (0-20) pg/ml B-Natriuretic Peptide (0-100) pg/ml Total Protein (6.0-8.3) gm/dl Albumin (3.4-5.0) gm/dl Globulin (2.5-4.0) gm/dl Albumin/Globulin Ratio (0.9-2) TSH (0.300-4.500) uIu/ml Free T4 (0.61-1.60) ng/dl Urine Color Yellow Urine Appearance Clear (Clear) Urine pH 6.0 (4.5-7.5) Ur Specific [place] 1.008 (1.000-1.030) Urine Protein Negative (Negative) Urine Glucose (UA) Negative (Negative) Urine Ketones Negative (Negative) Urine Blood Negative (Negative) Urine Nitrite Negative (Negative) Urine Bilirubin Negative (Negative) Urine Urobilinogen Negative (Negative) Ur Leukocyte Esterase Negative (Negative) Urine Comment Adenovirus (PCR) (NotDetected) B. pertussis DNA (PCR) (NotDetected) B.parapertussis DNA PCR (NotDetected) C. pneumoniae DNA (PCR) (NotDetected) Coronavirus OC43 (PCR) (NotDetected) Coronavirus HKU1 (PCR) (NotDetected) Coronavirus 229E (PCR) (NotDetected) SARS-CoV-2 (PCR) (NotDetected) Coronavirus NL63 (PCR) (NotDetected) Human Metapneumovir PCR (NotDetected) Influenza Type A (PCR) (NotDetected) Influenza Type B (PCR) (NotDetected) M. pneumoniae (PCR) (NotDetected) Parainfluenza 1 (PCR) (NotDetected) Parainfluenza 2 (PCR) (NotDetected) Parainfluenza 3 (PCR) (NotDetected) Parainfluenza 4 (PCR) (NotDetected) RSV (PCR) (NotDetected) Entero/Rhino (PCR) (NotDetected) Administered Medications Discontinued Medications Doxycycline Hyclate (Doxycycline Hyclate 100 Mg Cap) 100 mg PO NOW STA Stop: 07/30/25 23:39 Last Admin: 07/31/25 00:16 Dose: 100 mg Documented By: MARIELA Furosemide (Furosemide 40 Mg/4 Ml Vial) 40 mg IV ONE ONE Stop: 07/30/25 21:10 Last Admin: 07/30/25 21:34 Dose: 40 mg Documented By: [facility] Imaging Data Radiologist's Impression: Chest X-Ray 07/30/25 19:26 Exam(s): XR CXR 1 VIEW EXAM: XR Chest, 1 View CLINICAL HISTORY: Shortness of breath, swelling. TECHNIQUE: Frontal view of the chest. COMPARISON: Chest radiographs 09/02/2024 FINDINGS: Lungs: Airspace opacities of the left lower lobe could represent atelectasis, can not exclude pneumonia or aspiration. Pleural space: Small left pleural effusion. No pneumothorax. Heart: Cardiomegaly. Mediastinum: Unremarkable. Normal mediastinal contour. Bones/joints: There are degenerative changes of the spine. No acute fracture. Tubes, lines and devices: There is a left cardiac defibrillator. IMPRESSION: 1. Airspace opacities of the left lower lobe could represent atelectasis, can not exclude pneumonia or aspiration. 2. Small left pleural effusion. 3. Cardiomegaly. Electronically signed by: Radha Parra MD 07/30/25 23:[address] 07/30/25 19:35 Exam(s): CT HEAD Without Contrast EXAM: CT Head Without Intravenous Contrast CLINICAL HISTORY: Weakness. TECHNIQUE: Axial computed tomography images of the head/brain without intravenous contrast. CTDI is 37 mGy and DLP is 546 mGy-cm. Automated exposure control was utilized for the study. A dose lowering technique was utilized adhering to the principles of ALARA. COMPARISON: No relevant prior studies available. FINDINGS: Brain: No intracranial hemorrhage, mass-effect or midline shift. No abnormal extra axial fluid. No evidence of acute infarct. Mild periventricular white matter hypodensities are most consistent with chronic microangiopathy. Ventricles: Unremarkable. No ventriculomegaly. Bones/joints: Unremarkable. No acute fracture. Soft tissues: Unremarkable. Sinuses: Unremarkable as visualized. No acute sinusitis. Mastoid air cells: Unremarkable as visualized. No mastoid effusion. IMPRESSION: No acute intracranial finding. Electronically signed by: Radha Parra MD 07/30/25 23:04 PM Discharge Plan Visit Data Chief Complaint: Hypotension Stated Complaint: DIFFICULTY AMBULATING, HYPOTENSION ED Provider: Arvind Melissa Discharge Problem: CHF (congestive heart failure), Breathlessness Patient Disposition: Being Evaluated by Hospitalist Condition: Fair Forms Stand Alone Forms: My [facility] Prescriptions Prescriptions: No Action clonidine HCl 0.1 mg tablet 0.05 mg PO BID Qty: 30 5RF Hold Instructions: Home Medication placed on hold at Doctor's office Rx Instructions: ON HOLD Per patient take 1/2 tablet twice daily allopurinol 100 mg tablet 100 mg PO QAM Qty: 90 3RF cholecalciferol (vitamin D3) 50 mcg (2,000 unit) capsule 50 mcg PO DAILY Qty: 90 2RF carvedilol 12.5 mg tablet 12.5 mg PO BIDM Qty: 180 3RF Rx Instructions: must administer with a meal/food aspirin 81 mg tablet,delayed release (DR/EC) 81 mg PO 3XWK Rx Instructions: Mon, Wed, Fri in the morning ascorbate calcium (vitamin C) 500 mg tablet 500 mg PO QAM omeprazole 40 mg capsule,delayed release(DR/EC) 40 mg PO DAILY ferrous sulfate 325 mg (65 mg iron) tablet 325 mg PO BID Systane Complete 0.6 % drops 1 drp ophthalmic (eye) BID PRN (Reason: Dry Eyes) furosemide 40 mg tablet 80 mg PO DAILY calcitriol 0.25 mcg capsule 0.25 mcg PO DAILY Qty: 90 3RF Xarelto 15 mg tablet 15 mg PO DAILY Qty: 30 5RF atorvastatin 40 mg tablet 40 mg PO HS tamsulosin [Flomax] 0.4 mg capsule 0.4 mg PO QAM acetaminophen 500 mg Tablet 1,000 mg PO DAILY PRN (Reason: pain or fever) levothyroxine 75 mcg tablet 75 mcg PO QAM albuterol sulfate 0.63 mg/3 mL solution for nebulization 0.63 mg inhalation DIRECTED PRN (Reason: Shortness Of Breath Or Wheezing) fluticasone propion-salmeterol 250-50 mcg/dose blister with device 1 inh INHALATION BID olanzapine 10 mg tablet 10 mg PO HS Spiriva Respimat 2.5 mcg/actuation mist 2 inh INHALATION QAM Metamucil 3.4 gram/5.4 gram Powder 1 tbsp PO DAILY Rx Instructions: mix into at least 8 oz of water or juice before administering alprazolam [Xanax] 0.25 mg tablet 0.25 mg PO USEASDIRECTD Qty: 0 0RF Rx Instructions: TAKES 1 TAB QAM, THEN 2 TABS AT 1500, THEN 1 TAB QHS albuterol sulfate 90 mcg/actuation HFA aerosol inhaler 2 inh inhalation Q4H PRN (Reason: shortness of breath or wheezing) Qty: 0 0RF Referrals Referrals: Indra Asif MD [Primary Care Provider] -
[2025-07-30 19:49] LABS: Hematocrit (blood only) 34.8 % (42.0-52.0); Hemoglobin 11.4 g/dl (14.0-18.0); Immature Granulocytes # (auto) 0.05 K/uL (0.01-0.20); Immature Granulocytes % (auto) 0.5 %; Mean Corpuscular Hemoglobin 29.5 pg (25.0-34.0); Mean Corpuscular Volume 89.9 fL (80.0-100.0); Platelet Count 129 K/uL (130-400); RDW Standard Deviation 49.3 fL (36.4-46.3); Red Blood Count 3.87 M/uL (4.70-6.10); White Blood Count 9.17 K/ul (4.8-10.8)
[2025-07-30 20:07] LABS: Alanine Aminotransferase 36.0 U/L (7-52); Albumin Globulin Ratio 1.3 (0.9-2); Alkaline Phosphatase 104.0 U/L (34-104); Anion Gap 11.0 (3-11); Bilirubin,Total 0.7 mg/dl (0.2-1.0); Blood Urea Nitrogen 48.0 mg/dl (6-23); Calcium 9.0 mg/dl (8.6-10.3); Carbon Dioxide 29.0 mmol/L (21-32); Chloride 97.0 mmol/L (98-107); Creatinine Clr Calc Pharmacy 19.7 ml/min; Globulin 2.6 gm/dl (2.5-4.0); Glucose 124.0 mg/dl (70-99(Fasting)); Magnesium 2.1 mg/dl (1.7-2.4); Potassium 4.1 mmol/L (3.5-5.1); Sodium 137.0 mmol/L (136-145); Total Protein 6.1 gm/dl (6.0-8.3)
[2025-07-30 20:17] LABS: INR 1.6 (0.9-1.1); Prothrombin Time 17.1 Seconds (9.0-12.0)
[2025-07-30 20:23] LABS: Thyroid Stimulating Hormone 4.59 uIu/ml (0.300-4.500)
[2025-07-30 21:10] LABS: Chlamydia pneumoniae PCR Not Detected (NotDetected); Coronavirus 229E PCR Not Detected (NotDetected); Coronavirus CoV-2 (COVID19)PCR Not Detected (NotDetected); Coronavirus HKU1 PCR Not Detected (NotDetected); Coronavirus NL63 PCR Not Detected (NotDetected); Coronavirus OC43PCR Not Detected (NotDetected); Human Metapneumovirus PCR Not Detected (NotDetected); Parainfluenza Virus 1 PCR Not Detected (NotDetected); Parainfluenza Virus 2 PCR Not Detected (NotDetected); Parainfluenza Virus 3 PCR Not Detected (NotDetected); Parainfluenza Virus 4 PCR Not Detected (NotDetected); Respiratory Syncytial VirusPCR Not Detected (NotDetected); Rhinovirus/Enterovirus PCR Not Detected (NotDetected)
[2025-07-30] MEDS: FUROSEMIDE 40 MG/4 ML VIAL IV ONE (21:34)
--- NOTE | 2025-07-30 23:05 | CT Scan Report ---
Exam(s): CT HEAD Without Contrast EXAM: CT Head Without Intravenous Contrast CLINICAL HISTORY: Weakness. TECHNIQUE: Axial computed tomography images of the head/brain without intravenous contrast. CTDI is 37 mGy and DLP is 546 mGy-cm. Automated exposure control was utilized for the study. A dose lowering technique was utilized adhering to the principles of ALARA. COMPARISON: No relevant prior studies available. FINDINGS: Brain: No intracranial hemorrhage, mass-effect or midline shift. No abnormal extra axial fluid. No evidence of acute infarct. Mild periventricular white matter hypodensities are most consistent with chronic microangiopathy. Ventricles: Unremarkable. No ventriculomegaly. Bones/joints: Unremarkable. No acute fracture. Soft tissues: Unremarkable. Sinuses: Unremarkable as visualized. No acute sinusitis. Mastoid air cells: Unremarkable as visualized. No mastoid effusion. IMPRESSION: No acute intracranial finding. Electronically signed by: Radha Parra MD 07/30/25 23:04 PM
--- NOTE | 2025-07-30 23:06 | XRay Report ---
Exam(s): XR CXR 1 VIEW EXAM: XR Chest, 1 View CLINICAL HISTORY: Shortness of breath, swelling. TECHNIQUE: Frontal view of the chest. COMPARISON: Chest radiographs 09/02/2024 FINDINGS: Lungs: Airspace opacities of the left lower lobe could represent atelectasis, can not exclude pneumonia or aspiration. Pleural space: Small left pleural effusion. No pneumothorax. Heart: Cardiomegaly. Mediastinum: Unremarkable. Normal mediastinal contour. Bones/joints: There are degenerative changes of the spine. No acute fracture. Tubes, lines and devices: There is a left cardiac defibrillator. IMPRESSION: 1. Airspace opacities of the left lower lobe could represent atelectasis, can not exclude pneumonia or aspiration. 2. Small left pleural effusion. 3. Cardiomegaly. Electronically signed by: Radha Parra MD 07/30/25 23:05 PM
[2025-07-31] MEDS: DOXYCYCLINE HYCLATE 100 MG CAP PO STA (00:16)
[2025-07-31 00:17] LABS: Appearance Urine Clear (Clear); Glucose Urine UA Negative (Negative)
--- NOTE | 2025-07-31 00:48 | History & Physical Report ---
Date of Service July 30, 2025 Assessment & Plan (1) Acute on chronic HFrEF (heart failure with reduced ejection fraction): Plan: 89-year-old male with past medical history significant for hypothyroidism, dyslipidemia, mild persistent asthma, chronic systolic CHF, status post ICD paroxysmal atrial fibrillation, history of CAD, CKD stage IIIb, paranoid schizophrenia, generalized anxiety disorder who lives at home and ambulates with a walker was brought in because of weakness. Patient states he could not walk today because of weakness. He is also getting shortness of breath on exertion. Has cough and sometimes brings up phlegm. Denies any fevers. Denies any chest pain. No dizziness. No earache or runny nose or sore throat. Appetite is okay. But he states he can eat only soft food. No nausea. No abdominal pain. States having trouble micturating. He is constipated. Has edema in the lower extremities. Recently saw [facility] pulmonary for cough and asthma and inhalers and nebs were changed. Patient thinks current inhalers and nebs are working better. Patient is concerned about getting asthmatic attack and states he needs nebs treatment as soon as possible so not to make it worse. Patient cannot take prednisone due to psychosis associated with it. Currently resting comfortably. Acute on chronic systolic CHF Dyspnea on exertion and also bilateral EXTR edema Weakness BNP 1200 Currently on home Lasix 80 mg daily Received IV Lasix 40 mg in the ER Boogie Continue with IV Lasix 40 mL twice daily Recent echo on July 21, 2025 shows EF of 15 to 20%, moderate to severe mitral regurgitation, moderate tricuspid regurgitation, severe global hypokinesis of the left ventricle Status post ICD Blood pressure is soft Close monitor blood pressure while getting IV Lasix Coreg with holding parameters Telemetry I's and O's and daily weights Consult cardiology in a.m. for further recommendations Possible acute bronchitis History of asthma Bilateral rhonchi exam Will continue home inhalers Will place on nebs [id number] and as needed Empiric doxycycline Will follow CT chest-possible pneumonia. added Rocephin SARAHY and CKD stage III/IV Baseline creatinine 1.7- 2.2 Presented with creatinine of 2.4 Close monitor while getting IV diuretics Patient says there is a plan for renal ultrasound next week. Will get while he is in the hospital Consult nephrology in a.m. Anemia chronic disease Hemoglobin 11.4 around baseline Continue iron supplements Will follow labs Hypertension Blood pressure is soft Coreg with holding parameters Close monitor while getting IV Lasix Holding clonidine Will monitor History of paranoid schizophrenia Generalized anxiety disorder Continue olanzapine Xanax as needed Hypothyroidism Consult Synthyroid GERD Continue Omeprazole A-fib and left bundle branch block Status post biventricular ICD On Coreg and Xarelto will monitor History of CAD status post LAD drug-eluting stent in 2013 On aspirin, statin and beta-igor Will monitor BPH On Flomax Currently placed on Boogie catheter Constipation Stool softeners DVT prophylaxis On Xarelto Disposition Telemetry CODE STATUS okay for CPR and meds and shocks but no intubation and artificial ventilation per discussion with patient and . History of Present Illness Chief Complaint: Weakness and shortness of breath on exertion Primary Care Provider: Indra Asif MD 89-year-old male with past medical history significant for hypothyroidism, dyslipidemia, mild persistent asthma, chronic systolic CHF, status post ICD paroxysmal atrial fibrillation, history of CAD, CKD stage IIIb, paranoid schizophrenia, generalized anxiety disorder who lives at home and ambulates with a walker was brought in because of weakness. Patient states he could not walk today because of weakness. He is also getting shortness of breath on exertion. Has cough and sometimes brings up phlegm. Denies any fevers. Denies any chest pain. No dizziness. No earache or runny nose or sore throat. Appetite is okay. But he states he can eat only soft food. No nausea. No abdominal pain. States having trouble micturating. He is constipated. Has edema in the lower extremities. Recently saw [facility] pulmonary for cough and asthma and inhalers and nebs were changed. Patient thinks current inhalers and nebs are working better. Patient is concerned about getting asthmatic attack and states he needs nebs treatment as soon as possible so not to make it worse. Patient cannot take prednisone due to psychosis associated with it. Currently resting comfortably. Past medical history. As mentioned above Past surgical history. Colonoscopy and EGD. ICD. Social history. . Quit smoking 1971. Smoked 1.5 pack a day for 10 years. No alcohol. No drug use. Family history. No family history on file. Allergies Allergy/AdvReac Type Severity Reaction Status Date / Time pantoprazole [From Protonix] AdvReac Intermediate Diarrhea Verified 07/30/25 21:14 prednisone AdvReac Intermediate crazy Verified 07/30/25 21:14 sertraline AdvReac Intermediate Swollen Verified 07/30/25 21:14 Ankles ticagrelor AdvReac Intermediate bleeding Verified 07/30/25 21:14 Home Medications Medication Instructions Recorded Confirmed Type ascorbate calcium (vitamin C) 500 500 mg PO QAM 08/27/21 07/30/25 History mg tablet aspirin 81 mg tablet,delayed 81 mg PO 3XWK 08/27/21 07/30/25 History release clonidine HCl 0.1 mg tablet 0.05 mg (1/2 x 0.1 mg) PO BID #30 09/16/21 07/30/25 Rx tabs atorvastatin 40 mg tablet 40 mg PO HS 12/24/21 07/30/25 History tamsulosin 0.4 mg capsule (Flomax) 0.4 mg PO QAM 12/24/21 07/30/25 History allopurinol 100 mg tablet 100 mg PO QAM #90 tabs 09/05/22 07/30/25 Rx acetaminophen 500 mg tablet 1,000 mg PO DAILY PRN pain or fever 05/15/23 07/30/25 History levothyroxine 75 mcg tablet 75 mcg PO QAM 05/15/23 07/30/25 History ferrous sulfate 325 mg (65 mg 325 mg PO BID 09/02/23 07/30/25 History iron) tablet omeprazole 40 mg capsule,delayed 40 mg PO DAILY 11/06/23 07/30/25 History release cholecalciferol (vitamin D3) 50 50 mcg PO DAILY #90 caps 04/14/24 07/30/25 Rx mcg (2,000 unit) capsule albuterol sulfate 90 mcg/actuation 2 inh inhalation Q4H PRN shortness 09/04/24 07/30/25 Rx aerosol inhaler of breath or wheezing #0 grams alprazolam 0.25 mg tablet (Xanax) 0.25 mg PO USEASDIRECTD Anxiety #0 09/04/24 07/30/25 Rx tabs calcitriol 0.25 mcg capsule 0.25 mcg PO DAILY #90 caps 02/06/25 07/30/25 Rx rivaroxaban 15 mg tablet (Xarelto) 15 mg PO DAILY #30 tabs 02/09/25 07/30/25 Rx propylene glycol 0.6 % eye drops 1 drp ophthalmic (eye) BID PRN Dry 04/03/25 07/30/25 History (Systane Complete) Eyes carvedilol 12.5 mg tablet 12.5 mg PO BIDM #180 tabs 06/12/25 07/30/25 Rx furosemide 40 mg tablet 80 mg PO DAILY 07/10/25 07/30/25 History albuterol sulfate 0.63 mg/3 mL 0.63 mg inhalation DIRECTED PRN 07/30/25 07/30/25 History solution for nebulization Shortness Of Breath Or Wheezing fluticasone 250 mcg-salmeterol 50 1 inh inhalation BID 07/30/25 07/30/25 History mcg/dose blistr powdr for inhalation olanzapine 10 mg tablet 10 mg PO HS 07/30/25 07/30/25 History psyllium husk 3.4 gram/5.4 gram 1 tbsp PO DAILY 07/30/25 07/30/25 History oral powder (Metamucil) tiotropium bromide 2.5 2 inh inhalation QAM 07/30/25 07/30/25 History mcg/actuation mist for inhalation (Spiriva Respimat) Past Med/Surg History Problem List (Updated 07/31/25 @ 01:13 by Arvind Melissa M.D.) Atrial fibrillation, permanent Pulmonary hypertension Acute on chronic HFrEF (heart failure with reduced ejection fraction) Hypothyroidism (acquired) Arteriovenous malformation of stomach Chronic blood loss anemia Acute bronchospasm Acute on chronic systolic congestive heart failure CHF (congestive heart failure) (Acute) Asthma (Acute) Breathlessness (Acute) Paroxysmal atrial fibrillation Paranoid schizophrenia Asthma CKD (chronic kidney disease), stage III Pulmonary embolism Hyponatremia Symptomatic anemia UGIB (upper gastrointestinal bleed) (Acute) Anemia (Acute) Generalized muscle weakness (Acute) Mitral valve insufficiency H/O heart artery stent HFrEF (heart failure with reduced ejection fraction) Shortness of breath on exertion Pneumonia (Acute) Elevated troponin (Acute) 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 Nonrheumatic aortic (valve) insufficiency Hyperlipidemia Hypertension, benign Automatic implantable cardiac defibrillator in situ Cardiomyopathy CAD in [place] artery Medical History Encounter for pre-operative examination Dyspnea on exertion Asymptomatic arteriosclerosis of coronary artery Atypical angina Atypical chest pain Dyslipidemia Encounter for adjustment or management of automatic implantable cardioverter- defibrillator Other primary cardiomyopathies Occlusion and stenosis of bilateral carotid arteries Depression 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 Chest pain Pulmonary valve disorder Old myocardial infarction Aortic valve disorder Hyperplasia of prostate without lower urinary tract symptoms (LUTS) Gout Unspecified venous (peripheral) insufficiency Carpal tunnel syndrome Unspecified disorder of kidney and ureter Hernia Chronic obstructive pulmonary disease GERD (gastroesophageal reflux disease) Nonrheumatic tricuspid (valve) insufficiency Mitral valve disorder Shortness of breath Hypothyroidism Dizziness Surgical History History of esophagogastroduodenoscopy (EGD) S/P cardiac cath S/P hernia repair S/P cataract surgery S/P eye surgery S/P tooth extraction H/O transurethral resection of prostate H/O partial thyroidectomy Family History Father CHF (congestive heart failure) Mother Diabetes Brother Heart disease Social History Smoking Status: Former smoker Tobacco Type: Cigarettes Second Hand Exposure: No; Do You Dip or Chew Tobacco: No; Hx Alcohol Use: No Hx Substance Use: No Preferred Language: Luxembourger Communication Ability: Effective Juice [employer] Team Member Required: No Beliefs That Will Affect Care: None marital status: marital status details: Carly Current Living Situation: Spouse Current Living Situation Comment: home alone with current occupational status: retired current occupation: Clerical Feels Safe at Home: Yes caffeine: Yes (1-2 cups per day) Assistive Devices: Glasses and Walker Review of Systems Review of Systems: All systems reviewed & are unremarkable except as noted in HPI & below Physical Exam Physical Exam: General- Not in distress Head- atraumatic Eyes- PERRL. ENT- oropharynx clear Neck- supple, no JVD. Lungs- clear to auscultation mild b/l rhonchi heard Heart- regular rhythm; no murmur, no gallop. Abdomen- normal bowel sounds, soft, nontender, no distension Extremities- b/l lower extremity +2 edema present, no erythema seen Neuro- alert, oriented ; PERRL, no facial palsy; no dysarthria; moves extremities Results & Data Results & Data Vital Signs (Past 12 Hours) Vital Signs Temp Pulse Pulse Resp BP BP Pulse Ox 07/30/25 21:08 107 H 17 92/66 L 99 09/14/25 19:56 37.1 C 110 H 17 99/73 L 95 07/30/25 19:26 95 07/30/25 19:20 100 H 07/30/25 19:08 95 O2 Del Method 07/30/25 21:08 Room Air 07/30/25 19:56 Room Air 07/30/25 19:26 Room Air 07/30/25 19:20 07/30/25 19:08 Room Air Diagnostic Findings Laboratory Results WBC 9.17 K/ul (4.8-10.8) 07/30/25 19:32 RBC 3.87 M/uL (4.70-6.10) L 07/30/25 19:32 Hgb 11.4 g/dl (14.0-18.0) L 07/30/25 19:32 Hct 34.8 % (42.0-52.0) L 07/30/25 19:32 MCV 89.9 fL (80.0-100.0) 07/30/25 19:32 MCH 29.5 pg (25.0-34.0) 07/30/25 19:32 MCHC 32.8 g/dL (32.0-36.0) 07/30/25 19:32 RDW Std Deviation 49.3 fL (36.4-46.3) H 07/30/25 19:32 RDW Coeff of Ruth 15.0 % (11.5-14.5) H 07/30/25 19:32 Plt Count 129 K/uL (130-400) L 07/30/25 19:32 MPV 11.2 fL (9.4-12.4) 07/30/25 19:32 Immature Gran % (Auto) 0.5 % 07/30/25 19:32 Neut % (Auto) 77.1 % 07/30/25 19:32 Lymph % (Auto) 15.9 % 07/30/25 19:32 Baker % (Auto) 5.9 % 07/30/25 19:32 Eos % (Auto) 0.4 % 07/30/25 19:32 Baso % (Auto) 0.2 % 07/30/25 19:32 Neut # (Auto) 7.06 K/uL (1.40-6.50) H 07/30/25 19:32 Lymph # (Auto) 1.46 K/uL (1.20-3.40) 07/30/25 19:32 Baker # (Auto) 0.54 K/uL (0.11-0.59) 07/30/25 19:32 Eos # (Auto) 0.04 K/uL (0.00-0.50) 07/30/25 19:32 Baso # (Auto) 0.02 K/uL (0.00-0.20) 07/30/25 19:32 Immature Gran # (Auto) 0.05 K/uL (0.01-0.20) 07/30/25 19:32 PT 17.1 Seconds (9.0-12.0) H 07/30/25 19:32 INR 1.6 (0.9-1.1) H 07/30/25 19:32 Sodium 137 mmol/L (136-145) 07/30/25 19:32 Potassium 4.1 mmol/L (3.5-5.1) 07/30/25 19:32 Chloride 97 mmol/L (98-107) L 07/30/25 19:32 Carbon Dioxide 29 mmol/L (21-32) 07/30/25 19:32 Anion Gap 11 (3-11) 07/30/25 19:32 BUN 48 mg/dl (6-23) H 07/30/25 19:32 Creatinine 2.40 mg/dl (0.6-1.4) H 07/30/25 19:32 Est Cr Clr Drug Dosing 19.7 ml/min 07/30/25 19:32 eGFR 25.32 07/30/25 19:32 BUN/Creatinine Ratio 20.0 (10-20) 07/30/25 19:32 Glucose 124 mg/dl (70-99(Fasting)) H 07/30/25 19:32 Calcium 9.0 mg/dl (8.6-10.3) 07/30/25 19:32 Magnesium 2.1 mg/dl (1.7-2.4) 07/30/25 19:32 Total Bilirubin 0.7 mg/dl (0.2-1.0) 07/30/25 19:32 AST 20 U/L (13-39) 07/30/25 19:32 ALT 36 U/L (7-52) 07/30/25 19:32 Alkaline Phosphatase 104 U/L (34-104) 07/30/25 19:32 Troponin I High Sens 31.7 pg/ml (0-20) H 07/30/25 21:32 B-Natriuretic Peptide 1200 pg/ml (0-100) H 07/30/25 19:32 Total Protein 6.1 gm/dl (6.0-8.3) 07/30/25 19: Albumin 3.5 gm/dl (3.4-5.0) 07/30/25 19: Globulin 2.6 gm/dl (2.5-4.0) 07/30/25 19: Albumin/Globulin Ratio 1.3 (0.9-2) 07/30/25 19: TSH 4.590 uIu/ml (0.300-4.500) H 07/30/25: Free T4 1.05 ng/dl (0.61-1.60) 07/30/25: Urine Color Yellow 07/31/25 00:01 Urine Appearance Clear (Clear) 07/31/25 00:01 Urine pH 6.0 (4.5-7.5) 07/31/25 00:01 Ur Specific [place] 1.008 (1.000-1.030) 07/31/25 00:01 Urine Protein Negative (Negative) 07/31/25 00:01 Urine Glucose (UA) Negative (Negative) 07/31/25 00:01 Urine Ketones Negative (Negative) 07/31/25 00:01 Urine Blood Negative (Negative) 07/31/25 00:01 Urine Nitrite Negative (Negative) 07/31/25 00:01 Urine Bilirubin Negative (Negative) 07/31/25 00:01 Urine Urobilinogen Negative (Negative) 07/31/25 00:01 Ur Leukocyte Esterase Negative (Negative) 07/31/25 00:01 Urine Comment 07/31/25 00:01 Adenovirus (PCR) Not Detected (NotDetected) 07/30/25 19: B. pertussis DNA (PCR) Not Detected (NotDetected) 07/30/25 19: B.parapertussis DNA PCR Not Detected (NotDetected) 07/30/25: C. pneumoniae DNA (PCR) Not Detected (NotDetected) 07/30/25 19:33 Coronavirus OC43 (PCR) Not Detected (NotDetected) 07/30/25 19:33 Coronavirus HKU1 (PCR) Not Detected (NotDetected) 07/30/25 19:33 Coronavirus 229E (PCR) Not Detected (NotDetected) 07/30/25 19:33 SARS-CoV-2 (PCR) Not Detected (NotDetected) 07/30/25 19:33 Coronavirus NL63 (PCR) Not Detected (NotDetected) 07/30/25 19:33 Human Metapneumovir PCR Not Detected (NotDetected) 07/30/25 19:33 Influenza Type A (PCR) Not Detected (NotDetected) 07/30/25 19:33 Influenza Type B (PCR) Not Detected (NotDetected) 07/30/25 19:33 M. pneumoniae (PCR) Not Detected (NotDetected) 07/30/25 19:33 Parainfluenza 1 (PCR) Not Detected (NotDetected) 07/30/25 19:33 Parainfluenza 2 (PCR) Not Detected (NotDetected) 07/30/25 19:33 Parainfluenza 3 (PCR) Not Detected (NotDetected) 07/30/25 19:33 Parainfluenza 4 (PCR) Not Detected (NotDetected) 07/30/25 19:33 RSV (PCR) Not Detected (NotDetected) 07/30/25 19:33 Entero/Rhino (PCR) Not Detected (NotDetected) 07/30/25 19:33 Impressions Chest X-Ray 07/30/25 19:26 Exam(s): XR CXR 1 VIEW EXAM: XR Chest, 1 View CLINICAL HISTORY: Shortness of breath, swelling. TECHNIQUE: Frontal view of the chest. COMPARISON: Chest radiographs 09/02/2024 FINDINGS: Lungs: Airspace opacities of the left lower lobe could represent atelectasis, can not exclude pneumonia or aspiration. Pleural space: Small left pleural effusion. No pneumothorax. Heart: Cardiomegaly. Mediastinum: Unremarkable. Normal mediastinal contour. Bones/joints: There are degenerative changes of the spine. No acute fracture. Tubes, lines and devices: There is a left cardiac defibrillator. IMPRESSION: 1. Airspace opacities of the left lower lobe could represent atelectasis, can not exclude pneumonia or aspiration. 2. Small left pleural effusion. 3. Cardiomegaly. Electronically signed by: Radha Parra MD 07/30/25 23:[address] 07/30/25 19:35 Exam(s): CT HEAD Without Contrast EXAM: CT Head Without Intravenous Contrast CLINICAL HISTORY: Weakness. TECHNIQUE: Axial computed tomography images of the head/brain without intravenous contrast. CTDI is 37 mGy and DLP is 546 mGy-cm. Automated exposure control was utilized for the study. A dose lowering technique was utilized adhering to the principles of ALARA. COMPARISON: No relevant prior studies available. FINDINGS: Brain: No intracranial hemorrhage, mass-effect or midline shift. No abnormal extra axial fluid. No evidence of acute infarct. Mild periventricular white matter hypodensities are most consistent with chronic microangiopathy. Ventricles: Unremarkable. No ventriculomegaly. Bones/joints: Unremarkable. No acute fracture. Soft tissues: Unremarkable. Sinuses: Unremarkable as visualized. No acute sinusitis. Mastoid air cells: Unremarkable as visualized. No mastoid effusion. IMPRESSION: No acute intracranial finding. Electronically signed by: Radha Parra MD 07/30/25 23:04 PM ECG Additional Comments: ECG. Atrial fibrillation with occasional PVCs rate of 98. Nonspecific intraventricular conduction block. Minimal voltage for LVH. QTc 482. Code Status & VTE Plan VTE Prophylaxis Plan VTE Prophylaxis will be ordered: Yes
[2025-07-31] MEDS ORDERED: ACETAMINOPHEN 325 MG TAB PO PRN (01:37)
[2025-07-31] MEDS ORDERED: LEVALBUTEROL 1.25 MG/3 ML NEB NEB PRN (01:37)
[2025-07-31] MEDS ORDERED: ALBUTEROL HFA 8 GM INHALER INH PRN (01:37)
[2025-07-31] MEDS ORDERED: ARTIFICIAL TEARS OP PRN (01:51)
--- NOTE | 2025-07-31 02:02 | CT Scan Report ---
EXAM: CT chest diagnostic wo con CLINICAL HISTORY: WOOD, cough TECHNIQUE: Contiguous axial images were obtained from the neck base through the upper abdomen without contrast. In addition, sagittal and coronal reconstructions were performed to potentially increase the sensitivity for the detection of disease. CT scan was performed according to ALARA (as low as reasonably achievable). COMPARISON: 10:28:02 DAIRY ASSOCIATE. FINDINGS: Patchy nodular infiltrates are noted involving superior and basal segment of left lower lobe, lingula and right middle lobe. Mild left and minimal right pleural effusion with basal subsegmental collapse of both lower lobes are seen. The central airways are patent. Evaluation of the mediastinum and malina is limited due to the lack of intravenous contrast. No axillary or mediastinal adenopathy is identified. The thyroid is unremarkable. The heart, aorta, and pulmonary arteries are of normal size and configuration. There are appreciable coronary artery and aortic atherosclerotic calcifications. No pericardial effusion is identified. Imaged portions of the upper abdomen are unremarkable. No aggressive appearing osseous lesions are identified. Spondylodegenerative changes in visualised spine. IMPRESSION: Patchy nodular infiltrates are noted involving superior and basal segment of left lower lobe, lingula and right middle lobe.- possibility of infective etiology. - clinical correlation suggested.- reduced compared to prior study. Mild left and minimal right pleural effusion with basal subsegmental collapse of both lower lobes are seen. - increased on left side and reduced on right side. Electronically signed by Vance Swann 07-31-2025 02:02 AM
[2025-07-31 05:22] LABS: Hematocrit (blood only) 33.8 % (42.0-52.0); Hemoglobin 10.8 g/dl (14.0-18.0); Immature Granulocytes # (auto) 0.04 K/uL (0.01-0.20); Immature Granulocytes % (auto) 0.6 %; Mean Corpuscular Hemoglobin 28.8 pg (25.0-34.0); Mean Corpuscular Volume 90.1 fL (80.0-100.0); Platelet Count 115 K/uL (130-400); RDW Standard Deviation 49.5 fL (36.4-46.3); Red Blood Count 3.75 M/uL (4.70-6.10); White Blood Count 7.09 K/ul (4.8-10.8)
[2025-07-31 05:36] LABS: Anion Gap 7.0 (3-11); Blood Urea Nitrogen 50.0 mg/dl (6-23); Calcium 8.9 mg/dl (8.6-10.3); Carbon Dioxide 33.0 mmol/L (21-32); Chloride 99.0 mmol/L (98-107); Creatinine Clr Calc Pharmacy 17.6 ml/min; Glucose 100.0 mg/dl (70-99(Fasting)); Magnesium 2.2 mg/dl (1.7-2.4); Potassium 4.2 mmol/L (3.5-5.1); Sodium 139.0 mmol/L (136-145)
[2025-07-31] MEDS: LEVOTHYROXINE SODIUM 75 MCG TABLET PO SCH (06:14)
[2025-07-31] MEDS: LEVALBUTEROL HCL 0.63 MG/3 ML NEB NEB SCH (07:48)
[2025-07-31] MEDS: cefTRIAXone SODIUM 2,000 MG/50 ML BAG IV SCH (09:04)
[2025-07-31] MEDS: ASCORBIC ACID 500 MG TAB PO SCH (09:05)
[2025-07-31] MEDS: ASPIRIN 81 MG ECTAB PO SCH (09:05)
[2025-07-31] MEDS: CALCITRIOL 0.25 MCG CAPSULE PO SCH (09:05)
[2025-07-31] MEDS: CHOLECALCIFEROL 25 MCG (1000 UNITS) TAB PO SCH (09:06)
[2025-07-31] MEDS: DOXYCYCLINE HYCLATE 100 MG CAP PO SCH (09:07)
[2025-07-31] MEDS: RIVAROXABAN 15 MG TAB PO SCH (09:07)
[2025-07-31] MEDS: FERROUS SULFATE 325 MG TAB PO SCH (09:07)
[2025-07-31] MEDS: TAMSULOSIN HCL 0.4 MG CAP PO SCH (09:07)
[2025-07-31] MEDS: PSYLLIUM HUSK 4GM PACKET PO SCH (09:07)
[2025-07-31] MEDS: FUROSEMIDE 40 MG/4 ML VIAL IV SCH (09:07)
[2025-07-31] MEDS: UMECLIDINIUM BROMIDE 62.5MCG/BLISTER 7 PUFFS/INHALER INH SCH (09:08)
[2025-07-31] MEDS: FLUTICASONE/VILANTEROL 200/25MCG 14 PUFFS/INHALER INH SCH (09:08)
--- NOTE | 2025-07-31 09:10 | Ultrasound Report ---
ULTRASOUND KIDNEYS AND BLADDER CLINICAL HISTORY: Acute on chronic kidney disease. COMPARISON STUDY: No priors TECHNIQUE: Real-time, grayscale, and color flow sonography of the kidneys and bladder is performed. I mages are reviewed in the transverse and longitudinal planes. FINDINGS: Kidneys: The kidneys are atrophic echogenic. The right kidney measures 9.0 x 4.0 x 4.3 cm and the lef t kidney measures 9.2 x 3.2 x 3.6 cm. There is no hydronephrosis. No shadowing renal calculi are christopher ntified. A 1.3 cm solid-appearing nodule arises from the lower pole of the right kidney. Left renal c ysts measure up to 1.3 cm. No perinephric fluid is identified. Bladder: The bladder is decompressed around a Boogie catheter and appears thick walled. IMPRESSION: 1. The kidneys are atrophic and echogenic indicative of medical renal disease. 2. There is no hydronephrosis. 3. A 1.3 cm solid-appearing nodule arises from the lower pole of right kidney. A renal cell carcinoma is to be excluded. A nonemergent contrast-enhanced renal protocol abdominal CT scan or MRI is recomm ended for further assessment. 4. The bladder is decompressed around a Boogie catheter and appears thick walled. Correlate with clini marcio findings and urinalysis. ACT 112: Positive. There are findings on this exam that require communication between the performing entity and the patient following Patient Test Result Information Act ([place] Act 112) guidelines. Electronically signed by: Mario Mccord M.D. 07/31/2025 9:08 AM
--- NOTE | 2025-07-31 10:58 | Nephrology Consultation ---
Date of Consultation July 31, 2025 Assessment & Plan (1) Acute kidney injury: (2) Acute on chronic HFrEF (heart failure with reduced ejection fraction): (3) Anemia of chronic disease: (4) Bilateral leg edema: (5) Hypertension, benign: (6) Pneumonia: (7) Generalized muscle weakness: Plan 89 yo gentleman with stage 3B/4 CKD , b/l cr 2.0 mg/dl, admitted to the hospital with shortness of breath, volume overload and generalized weakness, and left lower lobe pneumonia, empirically started on ceftriaxone and doxycycline. started on Lasix 40 mg IV twice a day. Had decent urine output, more than 1200 ml overnight. Cr was 32.4 mg/dl on admission, staying relatively stable at 2.5 mg/dl this am , electrolyte acceptable. BP fair. Volume status slightly improved. Clinically doing slightly better asymptomatic except significant bilateral early lower extremity weakness. --Agree with continuing on Lasix 40 mg IV twice a day, aim for net -0.5 to 1 L/day --measure accurate intake and output, check kidney function and electrolyte, may need to accept slight azotemia in order to improve volume status. Mr. Fountain clearly expressed his wishes of not to consider dialysis in future. -- Dose medications for eGFR less than 30 mL/min --Will check iron study with am lab --Recommend physical therapy Thank you for allowing me to participate in your patient's care. It was a pleasure to see Mr. Fountain. History of Present Illness Reason for Consultation: SARAHY with advanced CKD, volume overload. Attending Physician: Lefty Leija MD History of Present Illness Mr. Jb Fountain is a 89-year-old gentleman with stage IIIb/IV CKD, history of congestive heart failure with severe cardiomyopathy, pulmonary hypertension, atrial fibrillation admitted to the hospital with shortness of breath, volume overload and generalized weakness. Nephrology consult was requested for management of SARAHY in setting of advanced CKD and volume overload. EMR records were reviewed in detail during patient's visit. Adam presented to ER yesterday with progressive shortness of breath, generalized weakness and worsening lower extremity edema. On admission he was noted to be volume overloaded. Blood pressure was reasonable. Chest x-ray showed mild pulmonary congestion and possible left lower lobe pneumonia, empirically started on ceftriaxone and doxycycline. Lab was notable for elevated BNP around 1200. CBC showed hemoglobin 10.8 but no leukocytosis. Creatinine was 2.4 mg/dl with BUN 48 and baseline creatinine has been around 2.0 mg/dl although slight increase in creatinine noted over last few months. Last echo in June showed EF 15 to 20%, moderate to severe mitral stenosis. She was previously on Lasix 40 mg daily which was increased to 80 mg daily few weeks ago with progressive lower extremity edema and decreased urine output. Has history of chronic hyponatremia, sodium was normal on admission. Diuretic was changed to Lasix 40 mg IV twice a day. Had decent urine output, more than 1200 ml overnight. Stage IIIb/IV CKD, to be secondary to microvascular disease, baseline creatinine has been around 2.0 mg/dl with some variability in creatinine. No significant proteinuria. Prior imaging unremarkable. Progressive worsening of kidney function noted over last few months. Has history of coronary artery disease and chronic congestive heart failure with reduced ejection fraction, last echo showed EF 15 to 20%, has AICD. History of A-fib, was on anticoagulation with apixaban. Has history of schizophrenia, has been on olanzapine. Ex smoker. No family history of CKD or ESKD, family history mainly significant for hypertension coronary artery disease. Adam reports feeling slightly better today although he is concerned with profound weakness in his legs. Reports some improvement in shortness of breath, denies any chest pain. Has been having some cough but no fever or chills. Labs this morning showed kidney function staying relatively stable, electrolyte acceptable, decent urine output. Allergies Allergy/AdvReac Type Severity Reaction Status Date / Time pantoprazole [From Protonix] AdvReac Intermediate Diarrhea Verified 07/30/25 21:14 prednisone AdvReac Intermediate crazy Verified 07/30/25 21:14 sertraline AdvReac Intermediate Swollen Verified 07/30/25 21:14 Ankles ticagrelor AdvReac Intermediate bleeding Verified 07/30/25 21:14 Home Medications Medication Instructions Recorded Confirmed Type ascorbate calcium (vitamin C) 500 500 mg PO QAM 08/27/21 07/30/25 History mg tablet aspirin 81 mg tablet,delayed 81 mg PO 3XWK 08/27/21 07/30/25 History release clonidine HCl 0.1 mg tablet 0.05 mg (1/2 x 0.1 mg) PO BID #30 09/16/21 07/30/25 Rx tabs atorvastatin 40 mg tablet 40 mg PO HS 12/24/21 07/30/25 History tamsulosin 0.4 mg capsule (Flomax) 0.4 mg PO QAM 12/24/21 07/30/25 History allopurinol 100 mg tablet 100 mg PO QAM #90 tabs 09/05/22 07/30/25 Rx acetaminophen 500 mg tablet 1,000 mg PO DAILY PRN pain or fever 05/15/23 07/30/25 History levothyroxine 75 mcg tablet 75 mcg PO QAM 05/15/23 07/30/25 History ferrous sulfate 325 mg (65 mg 325 mg PO BID 09/02/23 07/30/25 History iron) tablet omeprazole 40 mg capsule,delayed 40 mg PO DAILY 11/06/23 07/30/25 History release cholecalciferol (vitamin D3) 50 50 mcg PO DAILY #90 caps 04/14/24 07/30/25 Rx mcg (2,000 unit) capsule albuterol sulfate 90 mcg/actuation 2 inh inhalation Q4H PRN shortness 09/04/24 07/30/25 Rx aerosol inhaler of breath or wheezing #0 grams alprazolam 0.25 mg tablet (Xanax) 0.25 mg PO USEASDIRECTD Anxiety #0 09/04/24 07/30/25 Rx tabs calcitriol 0.25 mcg capsule 0.25 mcg PO DAILY #90 caps 02/06/25 07/30/25 Rx rivaroxaban 15 mg tablet (Xarelto) 15 mg PO DAILY #30 tabs 02/09/25 07/30/25 Rx propylene glycol 0.6 % eye drops 1 drp ophthalmic (eye) BID PRN Dry 04/03/25 07/30/25 History (Systane Complete) Eyes carvedilol 12.5 mg tablet 12.5 mg PO BIDM #180 tabs 06/12/25 07/30/25 Rx furosemide 40 mg tablet 80 mg PO DAILY 07/10/25 07/30/25 History albuterol sulfate 0.63 mg/3 mL 0.63 mg inhalation DIRECTED PRN 07/30/25 07/30/25 History solution for nebulization Shortness Of Breath Or Wheezing fluticasone 250 mcg-salmeterol 50 1 inh inhalation BID 07/30/25 07/30/25 History mcg/dose blistr powdr for inhalation olanzapine 10 mg tablet 10 mg PO HS 07/30/25 07/30/25 History psyllium husk 3.4 gram/5.4 gram 1 tbsp PO DAILY 07/30/25 07/30/25 History oral powder (Metamucil) tiotropium bromide 2.5 2 inh inhalation QAM 07/30/25 07/30/25 History mcg/actuation mist for inhalation (Spiriva Respimat) Patient History Medical History Encounter for pre-operative examination Dyspnea on exertion Asymptomatic arteriosclerosis of coronary artery Atypical angina Atypical chest pain Dyslipidemia Encounter for adjustment or management of automatic implantable cardioverter- defibrillator Other primary cardiomyopathies Occlusion and stenosis of bilateral carotid arteries Depression 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 Chest pain Pulmonary valve disorder Old myocardial infarction Aortic valve disorder Hyperplasia of prostate without lower urinary tract symptoms (LUTS) Gout Unspecified venous (peripheral) insufficiency Carpal tunnel syndrome Unspecified disorder of kidney and ureter Hernia Chronic obstructive pulmonary disease GERD (gastroesophageal reflux disease) Nonrheumatic tricuspid (valve) insufficiency Mitral valve disorder Shortness of breath Hypothyroidism Dizziness Surgical History History of esophagogastroduodenoscopy (EGD) S/P cardiac cath S/P hernia repair S/P cataract surgery S/P eye surgery S/P tooth extraction H/O transurethral resection of prostate H/O partial thyroidectomy Family History Father CHF (congestive heart failure) Mother Diabetes Brother Heart disease Social History Smoking Status: Former smoker Tobacco Type: Cigarettes Second Hand Exposure: No; Do You Dip or Chew Tobacco: No; Hx Alcohol Use: No Hx Substance Use: No Preferred Language: Kitt[place] Communication Ability: Effective Management Trainee Required: No Beliefs That Will Affect Care: None marital status: marital status details: Carly Current Living Situation: Spouse Current Living Situation Comment: home alone with current occupational status: retired current occupation: Clerical Feels Safe at Home: Yes caffeine: Yes (1-2 cups per day) Assistive Devices: Glasses and Walker Review of Systems Review of Systems: Detailed review of system was done and pertinent positives and negatives are mentioned above. Physical Exam Constitutional: WD/WN, vitals as above no acute distress Eyes: + anicteric sclerae Neck: normal visual inspection Respiratory: no respiratory distress Auscultation: + rhonchi; no wheezes Cardiovascular: Rate/Rhythm: + irregularly irregular Heart Sounds: normal S1 and normal S2 Extremities: + edema Gastrointestinal (Abdomen): Inspection/Auscultation: abdomen normal to inspection Percussion/Palpation: abdomen soft; abdomen nontender Musculoskeletal: Extremities: extremities normal to inspection Skin: no rashes, warm and dry Neurologic: no focal motor deficits Psychiatric: Orientation: alert and oriented x 3 Affect: euthymic affect Results & Data Vital Signs (Past 12 Hours) Vital Signs Temp Pulse Pulse Resp BP BP Pulse Ox 07/31/25 08:00 36.4 C L 109 H 18 112/79 98 07/31/25 07:50 111 H 18 98 07/31/25 04:19 112 H 07/31/25 04:00 07/31/25 04:00 36.5 C 102 H 18 103/69 99 07/31/25 03:03 112 H 18 99/76 L 99 07/31/25 02:12 100 H 17 98/63 L 98 07/31/25 01:06 113 H 16 93/71 L 96 07/31/25 00:11 97 H 16 95/68 L 97 07/30/25 23:19 106 H O2 Del Method 07/31/25 08:00 Room Air 07/31/25 07:50 Room Air 07/31/25 04:19 07/31/25 04:00 Room Air 07/31/25 04:00 Room Air 07/31/25 03:03 Room Air 07/31/25 02:12 Room Air 07/31/25 01:06 Room Air 07/31/25 00:11 Room Air 07/30/25 23:19 PG Care Time/CCT Total # of Minutes Spent Total Time Spent with Patient: Total time spent is greater than 50% in coordination of care (as documented) at patient's floor/unit and/or counseling patient: Coding Level of Care Code 32678 INT INP/OBS CARE 3/75MIN Diagnoses Acute kidney injury N17.9 Acute on chronic HFrEF (heart failure with reduced ejection fraction) I50.23 Anemia of chronic disease D63.8 Bilateral leg edema R60.0 Hypertension, benign I10 Pneumonia J18.9 Laterality: unspecified laterality Lung location: unspecified part of lung Pneumonia type: due to unspecified organism Generalized muscle weakness M62.81 (6) Pneumonia Laterality: unspecified laterality Lung location: unspecified part of lung Pneumonia type: due to unspecified organism Qualified Code(s): J18.9 - Pneumonia, unspecified organism
--- NOTE | 2025-07-31 11:13 | Cardiology Consultation ---
Date of Consultation July 31, 2025 Assessment & Plan (1) HFrEF (heart failure with reduced ejection fraction): (2) Cardiomyopathy: (3) CAD in [place] artery: (4) H/O heart artery stent: (5) Hypertension, benign: (6) Hyperlipidemia: (7) Mitral valve insufficiency: (8) Shortness of breath on exertion: (9) 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: Plan -Per his echo from 07/21/2025, his ejection fracture has worsened and is now 10 to 15%. -Patient does not wish to pursue any further cardiac treatments -Both he and his are interested in palliative care/hospice -May continue his current medication cardiac regimen as seen fit Supervising Physician Co-Signing Physician Notes Chart reviewed, reviewed in detail with Chitra. Given the severity of his cardiac disease and his predilection to not pursue evaluation (which I think is reasonable) we are not going to pursue evaluation. Palliative care is involved. History of Present Illness Attending Physician: Lefty Leija MD History of Present Illness Jb is an 89-year-old male with a past medical history of chronic systolic heart failure, ischemic cardiomyopathy s/p BiV ICD, CAD s/p PCI to LAD (2012), permanent A-fib on Xarelto, valvular insufficiency, HTN, HLD, PE, CKD 3, hypothyroidism, schizophrenia and asthma who presented to the ER on 07/30/25 via EMS for weakness, lower extremity swelling and shortness of breath. Per EMS, he was hypotensive and route. His pressures have been a little soft during this hospital stay, but nothing significant. In the ER, his peak high-sensitivity troponin was 31.7, BNP 1200. EKG reveals afib with occasional V paced complexes. Unfortunately, his echocardiogram which was completed on 07/21/25 reveals worsening LV function since his last in August 2024. Most recent echocardiogram reveals an EF of 15 to 20% with severe global hypokinesis of the left ventricle. There is mild concentric left ventricular hypertrophy. Moderate to severe mitral regurgitation is noted along with moderate tricuspid regurgitation. He denies having any recent episodes of chest pain at rest or with exertion. He reports that he regularly has trouble with going up the steps due to shortness of breath. Walking short distances, at times, can cause shortness of breath for him. He denies SOB at rest. He does typically have BLE edema, but not as much as what he has now. He follows with Dr. Westfall and Dr. Garber at our office regularly. Before I was able to go into detail with the patient regarding his cardiac work up he told me, "I know my heart is shot. I don't feel like I have much time left." We did go over the findings from his cardiac workup. I did explain to the patient that we could consider making medication adjustments which could potentially improve his quality of life. The patient is not interested in making any medication changes nor does he want to take any more medications. Both he and his are interested in palliative care at this time. Device Information Device Type: LEAD WELDER-D Device Location: Left Pre-Pectoral Device/ICD Land Classifier, Model, Serial #: [employer], Model, Serial # Atrial Leads: [employer], Model, Serial # R Ventricular Leads: [employer], Model, Serial # L Ventricular Leads: [employer], Model, Serial # Implantation Date: September 14, 2014 Generator Changes: March 06, 2023 Device MRI Compatible: No (The atrial lead is noncompatible, the rest of the system is) Magnet Response: Inhibits therapy Mode: DDD Lower Rate: 60 Upper Rate: 110 ZULEIMA/Longevity: 6.4 years Allergies Allergy/AdvReac Type Severity Reaction Status Date / Time pantoprazole [From Protonix] AdvReac Intermediate Diarrhea Verified 07/30/25 21:14 prednisone AdvReac Intermediate crazy Verified 07/30/25 21:14 sertraline AdvReac Intermediate Swollen Verified 07/30/25 21:14 Ankles ticagrelor AdvReac Intermediate bleeding Verified 07/30/25 21:14 Home Medications Medication Instructions Recorded Confirmed Type ascorbate calcium (vitamin C) 500 500 mg PO QAM 08/27/21 07/30/25 History mg tablet aspirin 81 mg tablet,delayed 81 mg PO 3XWK 08/27/21 07/30/25 History release clonidine HCl 0.1 mg tablet 0.05 mg (1/2 x 0.1 mg) PO BID #30 09/16/21 07/30/25 Rx tabs atorvastatin 40 mg tablet 40 mg PO HS 12/24/21 07/30/25 History tamsulosin 0.4 mg capsule (Flomax) 0.4 mg PO QAM 12/24/21 07/30/25 History allopurinol 100 mg tablet 100 mg PO QAM #90 tabs 09/05/22 07/30/25 Rx acetaminophen 500 mg tablet 1,000 mg PO DAILY PRN pain or fever 05/15/23 07/30/25 History levothyroxine 75 mcg tablet 75 mcg PO QAM 05/15/23 07/30/25 History ferrous sulfate 325 mg (65 mg 325 mg PO BID 09/02/23 07/30/25 History iron) tablet omeprazole 40 mg capsule,delayed 40 mg PO DAILY 11/06/23 07/30/25 History release cholecalciferol (vitamin D3) 50 50 mcg PO DAILY #90 caps 04/14/24 07/30/25 Rx mcg (2,000 unit) capsule albuterol sulfate 90 mcg/actuation 2 inh inhalation Q4H PRN shortness 09/04/24 07/30/25 Rx aerosol inhaler of breath or wheezing #0 grams alprazolam 0.25 mg tablet (Xanax) 0.25 mg PO USEASDIRECTD Anxiety #0 09/04/24 07/30/25 Rx tabs calcitriol 0.25 mcg capsule 0.25 mcg PO DAILY #90 caps 02/06/25 07/30/25 Rx propylene glycol 0.6 % eye drops 1 drp ophthalmic (eye) BID PRN Dry 04/03/25 07/30/25 History (Systane Complete) Eyes carvedilol 12.5 mg tablet 12.5 mg PO BIDM #180 tabs 06/12/25 07/30/25 Rx furosemide 40 mg tablet 80 mg PO DAILY 07/10/25 07/30/25 History albuterol sulfate 0.63 mg/3 mL 0.63 mg inhalation DIRECTED PRN 07/30/25 07/30/25 History solution for nebulization Shortness Of Breath Or Wheezing fluticasone 250 mcg-salmeterol 50 1 inh inhalation BID 07/30/25 07/30/25 History mcg/dose blistr powdr for inhalation olanzapine 10 mg tablet 10 mg PO HS 07/30/25 07/30/25 History psyllium husk 3.4 gram/5.4 gram 1 tbsp PO DAILY 07/30/25 07/30/25 History oral powder (Metamucil) tiotropium bromide 2.5 2 inh inhalation QAM 07/30/25 07/30/25 History mcg/actuation mist for inhalation (Spiriva Respimat) rivaroxaban 15 mg tablet (Xarelto) 15 mg PO DAILY #30 tabs 07/31/25 Rx Patient History Medical History Encounter for pre-operative examination Dyspnea on exertion Asymptomatic arteriosclerosis of coronary artery Atypical angina Atypical chest pain Dyslipidemia Encounter for adjustment or management of automatic implantable cardioverter- defibrillator Other primary cardiomyopathies Occlusion and stenosis of bilateral carotid arteries Depression 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 Chest pain Pulmonary valve disorder Old myocardial infarction Aortic valve disorder Hyperplasia of prostate without lower urinary tract symptoms (LUTS) Gout Unspecified venous (peripheral) insufficiency Carpal tunnel syndrome Unspecified disorder of kidney and ureter Hernia Chronic obstructive pulmonary disease GERD (gastroesophageal reflux disease) Nonrheumatic tricuspid (valve) insufficiency Mitral valve disorder Shortness of breath Hypothyroidism Dizziness Surgical History History of esophagogastroduodenoscopy (EGD) S/P cardiac cath S/P hernia repair S/P cataract surgery S/P eye surgery S/P tooth extraction H/O transurethral resection of prostate H/O partial thyroidectomy Family History Father CHF (congestive heart failure) Mother Diabetes Brother Heart disease Social History Smoking Status: Former smoker Tobacco Type: Cigarettes Second Hand Exposure: No; Do You Dip or Chew Tobacco: No; Hx Alcohol Use: No Hx Substance Use: No Preferred Language: Citizen Of [place] Communication Ability: Effective Software Quality Assurance Specialist Required: No Beliefs That Will Affect Care: Spiritual marital status: marital status details: Carly Current Living Situation: Spouse Current Living Situation Comment: home alone with current occupational status: retired current occupation: Clerical Feels Safe at Home: Yes caffeine: Yes (1-2 cups per day) Assistive Devices: Walker Review of Systems Review of Systems: per hpi Physical Exam Physical Exam: Physical Exam: AOx3. Mood affect appear normal. All questions appropriately. HEENT: Sclerae are anicteric. Pupils are equal and reactive to light and accommodation. Extraocular movements were intact. Neuro: Cranial nerves intact Lungs: Lungs are clear to auscultation bilaterally. There are no rales wheezes or rhonchi. Normal respiratory effort without use of accessory muscles. Cardiac: Irregularly irregularly with 3/6 apical holosystolic murmur. No gallops or rubs. Significant JVD present at 45 degrees Extremities: There is no evidence cyanosis or clubbing. +3 bilateral lower extremity edema extending from feet up to mid thigh. Skin: There are no rashes noted on examination today. Results & Data Vital Signs (Past 12 Hours) Vital Signs Temp Pulse Pulse Resp BP BP Pulse Ox 07/31/25 08:00 36.4 C L 109 H 18 112/79 98 07/31/25 07:50 111 H 18 98 07/31/25 04:19 112 H 07/31/25 04:00 07/31/25 04:00 36.5 C 102 H 18 103/69 99 07/31/25 03:03 112 H 18 99/76 L 99 07/31/25 02:12 100 H 17 98/63 L 98 07/31/25 01:06 113 H 16 93/71 L 96 07/31/25 00:11 97 H 16 95/68 L 97 07/30/25 23:19 106 H O2 Del Method 07/31/25 08:00 Room Air 07/31/25 07:50 Room Air 07/31/25 04:19 07/31/25 04:00 Room Air 07/31/25 04:00 Room Air 07/31/25 03:03 Room Air 07/31/25 02:12 Room Air 07/31/25 01:06 Room Air 07/31/25 00:11 Room Air 07/30/25 23:19 PG Care Time/CCT Total # of Minutes Spent Total Time Spent with Patient: Total time spent is greater than 50% in coordination of care (as documented) at patient's floor/unit and/or counseling patient: Coding [place] [address] IN/OBS CONSULT LVL 4,60M Patient Type Established Medical Decision Making Moderate Complexity Diagnoses HFrEF (heart failure with reduced ejection fraction) I50.20 Ischemic cardiomyopathy I25.5 Cardiomyopathy type: ischemic CAD in [place] artery I25.10 H/O heart artery stent Z95.5 Hypertension, benign I10 Mixed hyperlipidemia E78.2 Hyperlipidemia type: mixed hyperlipidemia Nonrheumatic mitral valve regurgitation I34.0 Cardiac valve disease etiology: nonrheumatic Shortness of breath on exertion R06.02 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 Z45.02 (2) Cardiomyopathy Cardiomyopathy type: ischemic Qualified Code(s): I25.5 - Ischemic cardiomyopathy (6) Hyperlipidemia Hyperlipidemia type: mixed hyperlipidemia Qualified Code(s): E78.2 - Mixed hyperlipidemia (7) Mitral valve insufficiency Cardiac valve disease etiology: nonrheumatic Qualified Code(s): I34.0 - Nonrheumatic mitral (valve) insufficiency
--- NOTE | 2025-07-31 16:33 | Hospitalist Progress Note ---
Date of Service July 31, 2025 Assessment & Plan (1) Acute on chronic HFrEF (heart failure with reduced ejection fraction): Plan: 89-year-old male with past medical history significant for hypothyroidism, dyslipidemia, mild persistent asthma, chronic systolic CHF, status post ICD paroxysmal atrial fibrillation, history of CAD, CKD stage IIIb, paranoid schizophrenia, generalized anxiety disorder who lives at home and ambulates with a walker was brought in because of weakness. Patient states he could not walk today because of weakness. He is also getting shortness of breath on exertion. Has cough and sometimes brings up phlegm. Denies any fevers. Denies any chest pain. No dizziness. No earache or runny nose or sore throat. Appetite is okay. But he states he can eat only soft food. No nausea. No abdominal pain. States having trouble micturating. He is constipated. Has edema in the lower extremities. Recently saw [facility] pulmonary for cough and asthma and inhalers and nebs were changed. Patient thinks current inhalers and nebs are working better. Patient is concerned about getting asthmatic attack and states he needs nebs treatment as soon as possible so not to make it worse. Patient cannot take prednisone due to psychosis associated with it. Currently resting comfortably. Acute on chronic systolic CHF Dyspnea on exertion and also bilateral EXTR edema Weakness BNP 1200 Currently on home Lasix 80 mg daily Received IV Lasix 40 mg in the ER Boogie Continue with IV Lasix 40 mL twice daily Recent echo on July 21, 2025 shows EF of 15 to 20%, moderate to severe mitral regurgitation, moderate tricuspid regurgitation, severe global hypokinesis of the left ventricle Status post ICD Blood pressure is low on admission Close monitor blood pressure while getting IV Lasix Coreg with holding parameters Telemetry I's and O's and daily weights Consulted cardiology for further recommendations - contacted by cardiology PA that pt would like palliative care consult - placed. Will cont. w/ IV lasix for now as pt feels somewhat improved. Currently denies any chest pain or shortness of breath, he is concerned about his LE edema, has a lot of questions about his conditions but states himself that his heart is bad and he knows that Possible acute bronchitis History of asthma Bilateral rhonchi exam Will continue home inhalers Will place on nebs [id number] and as needed Empiric doxycycline CT chest-possible pneumonia. added Rocephin SARAHY and CKD stage III/IV Baseline creatinine 1.7- 2.2 Presented with creatinine of 2.4 Close monitor while getting IV diuretics Patient says there is a plan for renal ultrasound next week. Will get while he is in the hospital Consult nephrology Anemia chronic disease Hemoglobin 11.4 around baseline Continue iron supplements Will follow labs Hypertension Blood pressure is soft Coreg with holding parameters Close monitor while getting IV Lasix Holding clonidine Will monitor History of paranoid schizophrenia Generalized anxiety disorder Continue olanzapine Xanax as needed Hypothyroidism Consult Synthyroid GERD Continue Omeprazole A-fib and left bundle branch block Status post biventricular ICD On Coreg and Xarelto will monitor History of CAD status post LAD drug-eluting stent in 2012 On aspirin, statin and beta-igor Will monitor BPH On Flomax Currently placed on Boogie catheter Constipation Stool softeners DVT prophylaxis On Xarelto Disposition Telemetry CODE STATUS okay for CPR and meds and shocks but no intubation and artificial ventilation per discussion with patient and . However, now pt wants palliative consult and asking about hospice - will involve them for further discussions Admission and Anticipated Discharge Date Admission Date: July 30, 2025 Subjective Pt seen in follow up Presents with weakness, shortness of breath on exertion, CHF, CKD Cardiology and nephrology consulted Pt seen sitting in bed in [facility], with his present at the bedside I was contacted by cardiology PA - that pt wishes for palliative consult Pt currently fairly comfortable, denies any chest pain, breathing on RA - does confirm he wants to see palliative care. Also has a lot of questions about his condition, discussed swelling, low EF, etc. Review of Systems Review of Systems: All systems reviewed & are unremarkable except as noted in Subjective Physical Exam Physical Exam: General- frail, elderly M in NAD Head- atraumatic Eyes- PERRL. Neck- supple, no JVD. Lungs- +mild b/l rhonchi noted Heart- regular rhythm; no murmur Abdomen- normal bowel sounds, soft, nontender, no distension Extremities- b/l lower extremity +1 edema present, no erythema seen Neuro- alert, oriented ; PERRL, no facial palsy; no dysarthria; moves extremities Results & Data Results & Data Vital Signs (Past 12 Hours) Vital Signs Temp Pulse Pulse Resp BP BP Pulse Ox 07/31/25 16:25 36.3 C L 106 H 18 104/74 100 07/31/25 16:00 112 H 98/66 L 07/31/25 15:50 103 H 17 98 07/31/25 14:40 116 H 07/31/25 11:57 36.6 C 92 H 18 88/59 L 98 07/31/25 08:00 104 H 07/31/25 08:00 07/31/25 08:00 36.4 C L 109 H 18 112/79 98 07/31/25 07:50 111 H 18 98 O2 Del Method 07/31/25 16:25 Nebulizer 07/31/25 16:00 07/31/25 15:50 Room Air 07/31/25 14:40 07/31/25 11:57 Room Air 07/31/25 08:00 07/31/25 08:00 Room Air 07/31/25 08:00 Room Air 07/31/25 07:50 Room Air Laboratory Results 07/31/25 07/31/25 07/30/25 Range/Units 05:01 00:01 21:32 WBC 7.09 (4.8-10.8) K/ul RBC 3.75 L (4.70-6.10) M/uL Hgb 10.8 L (14.0-18.0) g/dl Hct 33.8 L (42.0-52.0) % MCV 90.1 (80.0-100.0) fL MCH 28.8 (25.0-34.0) pg MCHC 32.0 (32.0-36.0) g/dL RDW Std Deviation 49.5 H (36.4-46.3) fL RDW Coeff of Ruth 15.0 H (11.5-14.5) % Plt Count 115 L (130-400) K/uL MPV 11.0 (9.4-12.4) fL Immature Gran % (Auto) 0.6 % Neut % (Auto) 70.8 % Lymph % (Auto) 20.3 % [place] % (Auto) 7.2 % Eos % (Auto) 0.7 % Baso % (Auto) 0.4 % Neut # (Auto) 5.02 (1.40-6.50) K/uL Lymph # (Auto) 1.44 (1.20-3.40) K/uL [place] # (Auto) 0.51 (0.11-0.59) K/uL Eos # (Auto) 0.05 (0.00-0.50) K/uL Baso # (Auto) 0.03 (0.00-0.20) K/uL Immature Gran # (Auto) 0.04 (0.01-0.20) K/uL PT (9.0-12.0) Seconds INR (0.9-1.1) Sodium 139 (136-145) mmol/L Potassium 4.2 (3.5-5.1) mmol/L Chloride 99 (98-107) mmol/L Carbon Dioxide 33 H (21-32) mmol/L Anion Gap 7 (3-11) BUN 50 H (6-23) mg/dl Creatinine 2.48 H (0.6-1.4) mg/dl Est Cr Clr Drug Dosing 17.6 ml/min eGFR 24.34 BUN/Creatinine Ratio 20.2 H (10-20) Glucose 100 H (70-99(Fasting)) mg/dl Calcium 8.9 (8.6-10.3) mg/dl Magnesium 2.2 (1.7-2.4) mg/dl Total Bilirubin (0.2-1.0) mg/dl AST (13-39) U/L ALT (7-52) U/L Alkaline Phosphatase (34-104) U/L Troponin I High Sens 31.7 H (0-20) pg/ml B-Natriuretic Peptide (0-100) pg/ml Total Protein (6.0-8.3) gm/dl Albumin (3.4-5.0) gm/dl Globulin (2.5-4.0) gm/dl Albumin/Globulin Ratio (0.9-2) Procalcitonin 0.29 (0-0.5) ng/ml TSH (0.300-4.500) uIu/ml Free T4 (0.61-1.60) ng/dl Urine Color Yellow Urine Appearance Clear (Clear) Urine pH 6.0 (4.5-7.5) Ur Specific [place] 1.008 (1.000-1.030) Urine Protein Negative (Negative) Urine Glucose (UA) Negative (Negative) Urine Ketones Negative (Negative) Urine Blood Negative (Negative) Urine Nitrite Negative (Negative) Urine Bilirubin Negative (Negative) Urine Urobilinogen Negative (Negative) Ur Leukocyte Esterase Negative (Negative) Urine Comment Adenovirus (PCR) (NotDetected) B. pertussis DNA (PCR) (NotDetected) B.parapertussis DNA PCR (NotDetected) C. pneumoniae DNA (PCR) (NotDetected) Coronavirus OC43 (PCR) (NotDetected) Coronavirus HKU1 (PCR) (NotDetected) Coronavirus 229E (PCR) (NotDetected) SARS-CoV-2 (PCR) (NotDetected) Coronavirus NL63 (PCR) (NotDetected) Human Metapneumovir PCR (NotDetected) Influenza Type A (PCR) (NotDetected) Influenza Type B (PCR) (NotDetected) M. pneumoniae (PCR) (NotDetected) Parainfluenza 1 (PCR) (NotDetected) Parainfluenza 2 (PCR) (NotDetected) Parainfluenza 3 (PCR) (NotDetected) Parainfluenza 4 (PCR) (NotDetected) RSV (PCR) (NotDetected) Entero/Rhino (PCR) (NotDetected) 07/30/25 07/30/25 Range/Units 19:33 19:32 WBC 9.17 (4.8-10.8) K/ul RBC 3.87 L (4.70-6.10) M/uL Hgb 11.4 L (14.0-18.0) g/dl Hct 34.8 L (42.0-52.0) % MCV 89.9 (80.0-100.0) fL MCH 29.5 (25.0-34.0) pg MCHC 32.8 (32.0-36.0) g/dL RDW Std Deviation 49.3 H (36.4-46.3) fL RDW Coeff of Ruth 15.0 H (11.5-14.5) % Plt Count 129 L (130-400) K/uL MPV 11.2 (9.4-12.4) fL Immature Gran % (Auto) 0.5 % Neut % (Auto) 77.1 % Lymph % (Auto) 15.9 % [place] % (Auto) 5.9 % Eos % (Auto) 0.4 % Baso % (Auto) 0.2 % Neut # (Auto) 7.06 H (1.40-6.50) K/uL Lymph # (Auto) 1.46 (1.20-3.40) K/uL [place] # (Auto) 0.54 (0.11-0.59) K/uL Eos # (Auto) 0.04 (0.00-0.50) K/uL Baso # (Auto) 0.02 (0.00-0.20) K/uL Immature Gran # (Auto) 0.05 (0.01-0.20) K/uL PT 17.1 H (9.0-12.0) Seconds INR 1.6 H (0.9-1.1) Sodium 137 (136-145) mmol/L Potassium 4.1 (3.5-5.1) mmol/L Chloride 97 L (98-107) mmol/L Carbon Dioxide 29 (21-32) mmol/L Anion Gap 11 (3-11) BUN 48 H (6-23) mg/dl Creatinine 2.40 H (0.6-1.4) mg/dl Est Cr Clr Drug Dosing 19.7 ml/min eGFR 25.32 BUN/Creatinine Ratio 20.0 (10-20) Glucose 124 H (70-99(Fasting)) mg/dl Calcium 9.0 (8.6-10.3) mg/dl Magnesium 2.1 (1.7-2.4) mg/dl Total Bilirubin 0.7 (0.2-1.0) mg/dl AST 20 (13-39) U/L ALT 36 (7-52) U/L Alkaline Phosphatase 104 (34-104) U/L Troponin I High Sens 30.4 H (0-20) pg/ml B-Natriuretic Peptide 1200 H (0-100) pg/ml Total Protein 6.1 (6.0-8.3) gm/dl Albumin 3.5 (3.4-5.0) gm/dl Globulin 2.6 (2.5-4.0) gm/dl Albumin/Globulin Ratio 1.3 (0.9-2) Procalcitonin (0-0.5) ng/ml TSH 4.590 H (0.300-4.500) uIu/ml Free T4 1.05 (0.61-1.60) ng/dl Urine Color Urine Appearance (Clear) Urine pH (4.5-7.5) Ur Specific [place] (1.000-1.030) Urine Protein (Negative) Urine Glucose (UA) (Negative) Urine Ketones (Negative) Urine Blood (Negative) Urine Nitrite (Negative) Urine Bilirubin (Negative) Urine Urobilinogen (Negative) Ur Leukocyte Esterase (Negative) Urine Comment Adenovirus (PCR) Not Detected (NotDetected) B. pertussis DNA (PCR) Not Detected (NotDetected) B.parapertussis DNA PCR Not Detected (NotDetected) C. pneumoniae DNA (PCR) Not Detected (NotDetected) Coronavirus OC43 (PCR) Not Detected (NotDetected) Coronavirus HKU1 (PCR) Not Detected (NotDetected) Coronavirus 229E (PCR) Not Detected (NotDetected) SARS-CoV-2 (PCR) Not Detected (NotDetected) Coronavirus NL63 (PCR) Not Detected (NotDetected) Human Metapneumovir PCR Not Detected (NotDetected) Influenza Type A (PCR) Not Detected (NotDetected) Influenza Type B (PCR) Not Detected (NotDetected) M. pneumoniae (PCR) Not Detected (NotDetected) Parainfluenza 1 (PCR) Not Detected (NotDetected) Parainfluenza 2 (PCR) Not Detected (NotDetected) Parainfluenza 3 (PCR) Not Detected (NotDetected) Parainfluenza 4 (PCR) Not Detected (NotDetected) RSV (PCR) Not Detected (NotDetected) Entero/Rhino (PCR) Not Detected (NotDetected) Medications Administered Current Inpatient Medications Acetaminophen (Acetaminophen 325 Mg Tab) 650 mg PO Q4H PRN PRN Reason: Pain or Fever Stop: 08/30/25 01:36 Albuterol (Albuterol Hfa 8 Gm Inhaler) 2 puffs INH Q4H PRN PRN Reason: shortness of breath or wheezin Stop: 08/30/25 01:36 Allopurinol (Allopurinol 100 Mg Tab) 100 mg PO QAM ANOOP Stop: 08/30/25 08:59 Last Admin: 07/31/25 09:05 Dose: 100 mg Alprazolam (Alprazolam 0.25 Mg Tablet) 0.25 mg PO BID ANOOP Stop: 08/30/25 08:59 Last Admin: 07/31/25 09:18 Dose: 0.25 mg Alprazolam (Alprazolam 0.5 Mg Tablet) 0.5 mg PO DAILY@1500 ANOOP Stop: 08/30/25 14:59 Last Admin: 07/31/25 16:08 Dose: 0.5 mg Artificial Tears (Artificial Tears) 1 drops OP BID PRN PRN Reason: Dry Eyes Stop: 08/30/25 01:50 Ascorbic Acid (Ascorbic Acid 500 Mg Tab) 500 mg PO QAM ANOOP Stop: 08/30/25 08:59 Last Admin: 07/31/25 09:05 Dose: 500 mg Aspirin (Aspirin 81 Mg Ectab) 81 mg PO MoWeFr@0900 ANOOP Stop: 08/30/25 08:59 Last Admin: 07/31/25 09:05 Dose: 81 mg Atorvastatin Calcium (Atorvastatin 40 Mg Tab) 40 mg PO HS [facility] Stop: 08/30/25 20:59 Calcitriol (Calcitriol 0.25 Mcg Capsule) 0.25 mcg PO DAILY ANOOP Stop: 08/30/25 08:59 Last Admin: 07/31/25 09:05 Dose: 0.25 mcg Carvedilol (Carvedilol 12.5 Mg Tab) 12.5 mg PO BIDM ANOOP Stop: 08/30/25 07:59 Last Admin: 07/31/25 09:05 Dose: 12.5 mg Doxycycline Hyclate (Doxycycline Hyclate 100 Mg Cap) 100 mg PO BID ANOOP Stop: 08/05/25 08:59 Last Admin: 07/31/25 09:07 Dose: 100 mg Ferrous Sulfate (Ferrous Sulfate 325 Mg Tab) 325 mg PO BID ANOOP Stop: 08/30/25 08:59 Last Admin: 07/31/25 09:07 Dose: 325 mg Fluticasone/Vilanterol (Fluticasone/Vilanterol 200/25mcg 14 Puffs/Inhaler) 1 puffs INH DAILY ANOOP Stop: 08/30/25 08:59 Last Admin: 07/31/25 09:08 Dose: 1 puffs Furosemide (Furosemide 40 Mg/4 Ml Vial) 40 mg IV BID17 ANOOP Stop: 08/30/25 08:59 Last Admin: 07/31/25 09:07 Dose: 40 mg Ceftriaxone Sodium (Rocephin) 2,000 mg in 50 mls @ 100 mls/hr IV Q24H ANOOP Stop: 08/05/25 07:14 Last Infusion: 07/31/25 10:09 Dose: Infused Levalbuterol HCl (Levalbuterol 1.25 Mg/3 Ml Neb) 1.25 mg NEB Q4H PRN PRN Reason: Shortness Of Breath Or Wheezing Stop: 08/30/25 01:36 Levalbuterol HCl (Levalbuterol Hcl 0.63 Mg/3 Ml Neb) 0.63 mg NEB Q8R ANOOP; Protocol Stop: 08/30/25 06:59 Last Admin: 07/31/25 15:49 Dose: 0.63 mg Levothyroxine Sodium (Levothyroxine Sodium 75 Mcg Tablet) 75 mcg PO DAILYBB ANOOP Stop: 08/30/25 06:29 Last Admin: 07/31/25 06:14 Dose: 75 mcg Miconazole Nitrate (Miconazole Nitrate Powder 85 Gm) 1 appln EXT PRN PRN PRN Reason: Affected Skin Folds Stop: 08/30/25 15:59 Miscellaneous (Omeprazole - Order Awaiting Action) 1 each N/A QS ANOOP Stop: 08/30/25 07:59 Olanzapine (Olanzapine 10 Mg Tab) 10 mg PO HS ANOOP Stop: 08/30/25 20:59 Polyethylene Glycol (Polyethylene (Miralax) 17 Gm Pack) 17 gm PO DAILY PRN PRN Reason: Constipation Stop: 08/30/25 01:36 Psyllium Hydrophilic Mucilloid (Psyllium Husk 4gm Packet) 4 gm PO DAILY ANOOP Stop: 08/30/25 08:59 Last Admin: 07/31/25 09:07 Dose: 4 gm Rivaroxaban (Rivaroxaban 15 Mg Tab) 15 mg PO DAILY ANOOP Stop: 08/30/25 08:59 Last Admin: 07/31/25 09:07 Dose: 15 mg Tamsulosin HCl (Tamsulosin Hcl 0.4 Mg Cap) 0.4 mg PO QAM ANOOP Stop: 08/30/25 08:59 Last Admin: 07/31/25 09:07 Dose: 0.4 mg Umeclidinium [place] (Umeclidinium [place] 62.5mcg/Blister 7 Puffs/Inhaler) 1 puffs INH QAM ANOOP Stop: 08/30/25 08:59 Last Admin: 07/31/25 09:08 Dose: 1 puffs Vitamin D (Cholecalciferol 25 Mcg (1000 Units) Tab) 50 mcg PO DAILY [facility] Stop: 08/30/25 08:59 Last Admin: 07/31/25 09:06 Dose: 50 mcg
[2025-07-31] MEDS: OLANZapine 10 MG TAB PO SCH (20:49)
[2025-07-31] MEDS: ATORVASTATIN 40 MG TAB PO SCH (20:49)
[2025-08-01 06:23] LABS: Anion Gap 8.0 (3-11); Blood Urea Nitrogen 48.0 mg/dl (6-23); Calcium 8.5 mg/dl (8.6-10.3); Carbon Dioxide 31.0 mmol/L (21-32); Chloride 99.0 mmol/L (98-107); Creatinine Clr Calc Pharmacy 18.7 ml/min; Glucose 96.0 mg/dl (70-99(Fasting)); Iron 28.0 mcg/dl (35-175); Potassium 3.7 mmol/L (3.5-5.1); Sodium 138.0 mmol/L (136-145); Total Iron Binding Cap Calc 260.0 mcg/dl (250-450); Transferrin 186.0 mg/dl (200-360); Transferrin (FE) Percent Satur 11.0 % (20-50)
[2025-08-01 06:43] LABS: Ferritin 84.6 ng/ml (8-388)
--- NOTE | 2025-08-01 08:41 | Nephrology Progress Note ---
Date of Service August 01, 2025 Assessment & Plan (1) Acute kidney injury: (2) Acute on chronic HFrEF (heart failure with reduced ejection fraction): (3) Anemia of chronic disease: (4) Bilateral leg edema: (5) Hypertension, benign: (6) Pneumonia: (7) Generalized muscle weakness: Plan 89 yo gentleman with stage 3B/4 CKD , b/l cr 2.0 mg/dl, admitted to the hospital with shortness of breath, volume overload and generalized weakness, and left lower lobe pneumonia, empirically started on ceftriaxone and doxycycline. started on Lasix 40 mg IV twice a day. Had decent urine output, more than 1200 ml overnight. Cr was 32.4 mg/dl on admission, staying relatively stable at 2.5 mg/dl this am , electrolyte acceptable. BP fair. Volume status slightly improved. Clinically doing better b continues to be bothered by lower extremity weakness. Hemoglobin 10.8 with iron deficiency. --continue on Lasix 40 mg IV twice a day for now, aim for net -0.5 to 1 L/day --measure accurate intake and output, check kidney function and electrolyte, may need to accept slight azotemia in order to improve volume status. Mr. Fountain clearly expressed his wishes of not to consider dialysis in future. --Dose medications for eGFR less than 30 mL/min --start on venofer --Recommend physical therapy Admission and Anticipated Discharge Date Admission Date: July 30, 2025 Subjective Adam was seen and evaluated this morning. He denies any significant shortness of breath, overall reports feeling slightly better. Blood pressure relatively low but asymptomatic. Decent response to diuretics, net negative although unclear how much as intake was not documented well. Kidney function staying relatively stable, electrolyte acceptable. Review of Systems Review of Systems: Detailed review of system was done and pertinent positives and negatives are mentioned above. Physical Exam Constitutional: WD/WN, vitals as above no acute distress Respiratory: no respiratory distress Auscultation: + crackles; no wheezes Cardiovascular: Rate/Rhythm: + irregularly irregular Heart Sounds: normal S1 and normal S2 Extremities: + edema Musculoskeletal: Extremities: extremities normal to inspection Skin: no rashes, warm and dry Neurologic: no focal motor deficits Psychiatric: Orientation: alert and oriented x 3 Affect: euthymic affect Results & Data Vital Signs (Past 12 Hours) Vital Signs Temp Pulse Resp BP Pulse Ox O2 Del Method 08/01/25 07:55 36.4 C L 87 16 103/72 100 Room Air 08/01/25 07:17 90 17 94 Room Air 08/01/25 03:34 36.5 C 96 H 18 109/75 98 Room Air 08/01/25 03:23 Room Air 07/31/25 23:35 36.4 C L 90 18 96/70 L 98 Room Air 07/31/25 23:04 90 18 98 Room Air 07/31/25 20:50 Room Air PG Care Time/CCT Total # of Minutes Spent Total Time Spent with Patient: Total time spent is greater than 50% in coordination of care (as documented) at patient's floor/unit and/or counseling patient: Coding Level of Care Code 22554 SUB INP/OBS CARE 2MIN Diagnoses Acute kidney injury N17.9 Acute on chronic HFrEF (heart failure with reduced ejection fraction) I50.23 Anemia of chronic disease D63.8 Bilateral leg edema R60.0 Hypertension, benign I10 Pneumonia J18.9 Laterality: unspecified laterality Lung location: unspecified part of lung Pneumonia type: due to unspecified organism Generalized muscle weakness M62.81 (6) Pneumonia Laterality: unspecified laterality Lung location: unspecified part of lung Pneumonia type: due to unspecified organism Qualified Code(s): J18.9 - Pneumonia, unspecified organism
--- NOTE | 2025-08-01 08:43 | Palliative Care Consultation ---
Date of Consultation August 01, 2025 Assessment & Plan (1) SOB (shortness of breath) on exertion: (2) Weakness generalized: (3) Palliative care by specialist: Palliative care will continue to follow for ongoing EOL pt care and family support. (4) Counseling regarding goals of care: Met with pt and his at bedside today from 13:00 - 13:40 for ACP. We discussed at length the patient's acute and chronic medical conditions, general prognosis, treatment options, and goals of care. Discussed feasibility of attending rehab, pt states that he does not feel strong enough nor wish to pursue rehab. He shared that he most values time at home with his family. He shared that he was told by cardiology that his heart is very weak and "could up and quit at anytime, so there is no sense in trying to fight it". Confirmed Adam does not want aggressive measures at this time. He shared that his AICD has never fired, but that cardiology told him there is no point in allowing it to fire now, his heart "is too far gone". Discussed code status and helped patient understand that CPR is only done after a person has and involves uncomfortable and invasive procedures that, if successful. have high risk of multiple complications including but not limited to rib fractures, pneumo/hemothorax, SARAHY, ventilator dependence, anoxic brain injury, and jail/permanent cognitive and functional deficits. Pt verbalized understanding and requests that his AICD be deactivated and change to DNR/DNI status. Discussed hospice benefit: an interdisciplinary program offered by nurses, nurses aides, social workers, chaplains and a bilingual medical assistant for patients with a terminal condition and a life expectancy of less than 6 months. This is covered by Medicare at 100%/no out of pocket expense to patient and all meds/supplies needed by patient for the reason they are on hospice are paid for/covered by hospice. The goal is assure quality of life of the patient in their home setting (home, skilled nursing, inpatient hospice setting) by providing symptoms management, psychosocial and spiritual support. However, they cannot offer 24 hours care and if the family is unable to provide that care, they will have to consider personal care with out of pocket cost vs. skilled nursing placement. We discussed the goals of hospice as a patient service and the goals of care; we discussed EOL trajectories and transitions leticia the emotional impact of realizing mortality as a concrete reality from prior abstract considerations. Pt was reassured that no matter where they are along this trajectory, they are not alone - their medical team will remain by their side through their journey. Discussed the pros/cons of accepting help when especially weakened and distressed by pain-which would also help provide relief/decrease caregiver burden/strain. Pt expressed desire to be discharged home to spend what time he has left with his and son. He would like hospice care and his requests referral to [facility]. they did express concern for time needed to arrange for delivery of DME prior to discharge, but state she will work on making space for bed and bedside commode. (5) Need for comfort care: Patient and his are in agreement to pursue discharge to home with hospice care, Carly requests referral to [facility]. CM aware. Plan plan for DNR/DNI with discharge to home with hospice. History of Present Illness Reason for Consultation: goals of care Requesting Physician: Lefty Leija MD Attending Physician: Lefty Leija MD History of Present Illness Jb Fountain is an 89-year-old male with a past medical history of chronic systolic heart failure, ischemic cardiomyopathy s/p BiV ICD, CAD s/p PCI to LAD (2012), permanent A-fib on Xarelto, valvular insufficiency, HTN, HLD, PE, CKD 3/4, hypothyroidism, schizophrenia and asthma who presented to the ER on 07/30/25 via EMS for weakness, lower extremity swelling and shortness of breath. Per EMS, he was hypotensive enroute. Admitted for medical mgmt. Echocardiogram which was completed on 07/21/25 reveals worsening LV function since his last in August 2024. Most recent echocardiogram reveals an EF of 15 to 20% with severe global hypokinesis of the left ventricle. Allergies Allergy/AdvReac Type Severity Reaction Status Date / Time pantoprazole [From Protonix] AdvReac Intermediate Diarrhea Verified 07/30/25 21:14 prednisone AdvReac Intermediate crazy Verified 07/30/25 21:14 sertraline AdvReac Intermediate Swollen Verified 07/30/25 21:14 Ankles ticagrelor AdvReac Intermediate bleeding Verified 07/30/25 21:14 Home Medications Medication Instructions Recorded Confirmed Type ascorbate calcium (vitamin C) 500 500 mg PO QAM 08/27/21 07/30/25 History mg tablet aspirin 81 mg tablet,delayed 81 mg PO 3XWK 08/27/21 07/30/25 History release clonidine HCl 0.1 mg tablet 0.05 mg (1/2 x 0.1 mg) PO BID #30 09/16/21 07/30/25 Rx tabs atorvastatin 40 mg tablet 40 mg PO HS 12/24/21 07/30/25 History tamsulosin 0.4 mg capsule (Flomax) 0.4 mg PO QAM 12/24/21 07/30/25 History allopurinol 100 mg tablet 100 mg PO QAM #90 tabs 09/05/22 07/30/25 Rx acetaminophen 500 mg tablet 1,000 mg PO DAILY PRN pain or fever 05/15/23 07/30/25 History levothyroxine 75 mcg tablet 75 mcg PO QAM 05/15/23 07/30/25 History ferrous sulfate 325 mg (65 mg 325 mg PO BID 09/02/23 07/30/25 History iron) tablet omeprazole 40 mg capsule,delayed 40 mg PO DAILY 11/06/23 07/30/25 History release cholecalciferol (vitamin D3) 50 50 mcg PO DAILY #90 caps 04/14/24 07/30/25 Rx mcg (2,000 unit) capsule albuterol sulfate 90 mcg/actuation 2 inh inhalation Q4H PRN shortness 09/04/24 07/30/25 Rx aerosol inhaler of breath or wheezing #0 grams alprazolam 0.25 mg tablet (Xanax) 0.25 mg PO USEASDIRECTD Anxiety #0 09/04/24 07/30/25 Rx tabs calcitriol 0.25 mcg capsule 0.25 mcg PO DAILY #90 caps 02/06/25 07/30/25 Rx propylene glycol 0.6 % eye drops 1 drp ophthalmic (eye) BID PRN Dry 04/03/25 History (Systane Complete) Eyes carvedilol 12.5 mg tablet 12.5 mg PO BIDM #180 tabs 06/12/25 07/30/25 Rx furosemide 40 mg tablet 80 mg PO DAILY 07/10/25 07/30/25 History albuterol sulfate 0.63 mg/3 mL 0.63 mg inhalation DIRECTED PRN 07/30/25 07/30/25 History solution for nebulization Shortness Of Breath Or Wheezing fluticasone 250 mcg-salmeterol 50 1 inh inhalation BID 07/30/25 07/30/25 History mcg/dose blistr powdr for inhalation olanzapine 10 mg tablet 10 mg PO HS 07/30/25 07/30/25 History psyllium husk 3.4 gram/5.4 gram 1 tbsp PO DAILY 07/30/25 07/30/25 History oral powder (Metamucil) tiotropium bromide 2.5 2 inh inhalation QAM 07/30/25 07/30/25 History mcg/actuation mist for inhalation (Spiriva Respimat) rivaroxaban 15 mg tablet (Xarelto) 15 mg PO DAILY #30 tabs 07/31/25 Rx Patient History Medical History Encounter for pre-operative examination Dyspnea on exertion Asymptomatic arteriosclerosis of coronary artery Atypical angina Atypical chest pain Dyslipidemia Encounter for adjustment or management of automatic implantable cardioverter- defibrillator Other primary cardiomyopathies Occlusion and stenosis of bilateral carotid arteries Depression 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 Chest pain Pulmonary valve disorder Old myocardial infarction Aortic valve disorder Hyperplasia of prostate without lower urinary tract symptoms (LUTS) Gout Unspecified venous (peripheral) insufficiency Carpal tunnel syndrome Unspecified disorder of kidney and ureter Hernia Chronic obstructive pulmonary disease GERD (gastroesophageal reflux disease) Nonrheumatic tricuspid (valve) insufficiency Mitral valve disorder Shortness of breath Hypothyroidism Dizziness Surgical History History of esophagogastroduodenoscopy (EGD) S/P cardiac cath S/P hernia repair S/P cataract surgery S/P eye surgery S/P tooth extraction H/O transurethral resection of prostate H/O partial thyroidectomy Family History Father CHF (congestive heart failure) Mother Diabetes Brother Heart disease Social History Smoking Status: Former smoker Tobacco Type: Cigarettes Second Hand Exposure: No; Do You Dip or Chew Tobacco: No; Hx Alcohol Use: No Hx Substance Use: No Preferred Language: Grenadian Communication Ability: Effective Sprinkler Driver Required: No Beliefs That Will Affect Care: Spiritual marital status: marital status details: Carly Current Living Situation: Spouse Current Living Situation Comment: home alone with current occupational status: retired current occupation: Clerical Feels Safe at Home: Yes caffeine: Yes (1-2 cups per day) Assistive Devices: Walker Review of Systems Review of Systems: All systems reviewed & are unremarkable except as noted in HPI & below Physical Exam Constitutional: WD/WN, vitals as above no acute distress Respiratory: no respiratory distress Auscultation: + crackles; no wheezes Cardiovascular: Rate/Rhythm: + irregularly irregular Heart Sounds: normal S1 and normal S2 Extremities: + edema Musculoskeletal: Extremities: extremities normal to inspection Skin: no rashes, warm and dry Neurologic: no focal motor deficits Psychiatric: Orientation: alert and oriented x 3 Affect: euthymic affect Results & Data Vital Signs (Past 12 Hours) Vital Signs Temp Pulse Resp BP Pulse Ox O2 Del Method 08/01/25 07:55 36.4 C L 87 16 103/72 100 Room Air 08/01/25 07:17 90 17 94 Room Air 08/01/25 03:34 36.5 C 96 H 18 109/75 98 Room Air 08/01/25 03:23 Room Air 07/31/25 23:35 36.4 C L 90 18 96/70 L 98 Room Air 07/31/25 23:04 90 18 98 Room Air 07/31/25 20:50 Room Air Laboratory Results Abnormal lab results 08/01/25 Range/Units 05:44 BUN 48 H (6-23) mg/dl Creatinine 2.35 H (0.6-1.4) mg/dl BUN/Creatinine Ratio 20.4 H (10-20) Calcium 8.5 L (8.6-10.3) mg/dl Iron 28 L (35-175) mcg/dl Transferrin 186 L (200-360) mg/dl Transferrin % Sat 11 L (20-50) % Albumin 3.1 L (3.4-5.0) gm/dl Diagnostic Findings Chest X-Ray 07/30/25 19:26 Exam(s): XR CXR 1 VIEW EXAM: XR Chest, 1 View CLINICAL HISTORY: Shortness of breath, swelling. TECHNIQUE: Frontal view of the chest. COMPARISON: Chest radiographs 09/02/2024 FINDINGS: Lungs: Airspace opacities of the left lower lobe could represent atelectasis, can not exclude pneumonia or aspiration. Pleural space: Small left pleural effusion. No pneumothorax. Heart: Cardiomegaly. Mediastinum: Unremarkable. Normal mediastinal contour. Bones/joints: There are degenerative changes of the spine. No acute fracture. Tubes, lines and devices: There is a left cardiac defibrillator. IMPRESSION: 1. Airspace opacities of the left lower lobe could represent atelectasis, can not exclude pneumonia or aspiration. 2. Small left pleural effusion. 3. Cardiomegaly. Electronically signed by: Radha Parra MD 07/30/25 23:[address] 07/30/25 19:35 Exam(s): CT HEAD Without Contrast EXAM: CT Head Without Intravenous Contrast CLINICAL HISTORY: Weakness. TECHNIQUE: Axial computed tomography images of the head/brain without intravenous contrast. CTDI is 37 mGy and DLP is 546 mGy-cm. Automated exposure control was utilized for the study. A dose lowering technique was utilized adhering to the principles of ALARA. COMPARISON: No relevant prior studies available. FINDINGS: Brain: No intracranial hemorrhage, mass-effect or midline shift. No abnormal extra axial fluid. No evidence of acute infarct. Mild periventricular white matter hypodensities are most consistent with chronic microangiopathy. Ventricles: Unremarkable. No ventriculomegaly. Bones/joints: Unremarkable. No acute fracture. Soft tissues: Unremarkable. Sinuses: Unremarkable as visualized. No acute sinusitis. Mastoid air cells: Unremarkable as visualized. No mastoid effusion. IMPRESSION: No acute intracranial finding. Electronically signed by: Radha Parra MD 07/30/25 23:[address] 07/30/25 23:37 EXAM: CT chest diagnostic wo con CLINICAL HISTORY: WOOD, cough TECHNIQUE: Contiguous axial images were obtained from the neck base through the upper abdomen without contrast. In addition, sagittal and coronal reconstructions were performed to potentially increase the sensitivity for the detection of disease. CT scan was performed according to ALARA (as low as reasonably achievable). 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 FINDINGS: Patchy nodular infiltrates are noted involving superior and basal segment of left lower lobe, lingula and right middle lobe. Mild left and minimal right pleural effusion with basal subsegmental collapse of both lower lobes are seen. The central airways are patent. Evaluation of the mediastinum and malina is limited due to the lack of intravenous contrast. No axillary or mediastinal adenopathy is identified. The thyroid is unremarkable. The heart, aorta, and pulmonary arteries are of normal size and configuration. There are appreciable coronary artery and aortic atherosclerotic calcifications. No pericardial effusion is identified. Imaged portions of the upper abdomen are unremarkable. No aggressive appearing osseous lesions are identified. Spondylodegenerative changes in visualised spine. IMPRESSION: Patchy nodular infiltrates are noted involving superior and basal segment of left lower lobe, lingula and right middle lobe.- possibility of infective etiology. - clinical correlation suggested.- reduced compared to prior study. Mild left and minimal right pleural effusion with basal subsegmental collapse of both lower lobes are seen. - increased on left side and reduced on right side. Electronically signed by Vance Swann 07-31-2025 02:02 AM Renal Ultrasound 07/31/25 09:00 ULTRASOUND KIDNEYS AND BLADDER CLINICAL HISTORY: Acute on chronic kidney disease. COMPARISON STUDY: No priors TECHNIQUE: Real-time, grayscale, and color flow sonography of the kidneys and bladder is performed. Images are reviewed in the transverse and longitudinal planes. FINDINGS: Kidneys: The kidneys are atrophic echogenic. The right kidney measures 9.0 x 4.0 x 4.3 cm and the left kidney measures 9.2 x 3.2 x 3.6 cm. There is no hydronephrosis. No shadowing renal calculi are identified. A 1.3 cm solid- appearing nodule arises from the lower pole of the right kidney. Left renal cysts measure up to 1.3 cm. No perinephric fluid is identified. Bladder: The bladder is decompressed around a Boogie catheter and appears thick walled. IMPRESSION: 1. The kidneys are atrophic and echogenic indicative of medical renal disease. 2. There is no hydronephrosis. 3. A 1.3 cm solid-appearing nodule arises from the lower pole of right kidney. A renal cell carcinoma is to be excluded. A nonemergent contrast-enhanced renal protocol abdominal CT scan or MRI is recommended for further assessment. 4. The bladder is decompressed around a Boogie catheter and appears thick walled. Correlate with clinical findings and urinalysis. ACT 112: Positive. There are findings on this exam that require communication between the performing entity and the patient following Patient Test Result Information Act ([place] Act 112) guidelines. Electronically signed by: Mario Mccord M.D. 07/31/2025 9:08 AM Medications Administered Current Inpatient Medications Acetaminophen (Acetaminophen 325 Mg Tab) 650 mg PO Q4H PRN PRN Reason: Pain or Fever Stop: 08/30/25 01:36 Albuterol (Albuterol Hfa 8 Gm Inhaler) 2 puffs INH Q4H PRN PRN Reason: shortness of breath or wheezin Stop: 08/30/25 01:36 Allopurinol (Allopurinol 100 Mg Tab) 100 mg PO QAM [facility] Stop: 08/30/25 08:59 Last Admin: 07/31/25 09:05 Dose: 100 mg Alprazolam (Alprazolam 0.25 Mg Tablet) 0.25 mg PO BID [facility] Stop: 08/30/25 08:59 Last Admin: 07/31/25 20:49 Dose: 0.25 mg Alprazolam (Alprazolam 0.5 Mg Tablet) 0.5 mg PO DAILY@1500 [facility] Stop: 08/30/25 14:59 Last Admin: 07/31/25 16:08 Dose: 0.5 mg Artificial Tears (Artificial Tears) 1 drops OP BID PRN PRN Reason: Dry Eyes Stop: 08/30/25 01:50 Ascorbic Acid (Ascorbic Acid 500 Mg Tab) 500 mg PO QAM [facility] Stop: 08/30/25 08:59 Last Admin: 07/31/25 09:05 Dose: 500 mg Aspirin (Aspirin 81 Mg Ectab) 81 mg PO MoWeFr@0900 [facility] Stop: 08/30/25 08:59 Last Admin: 07/31/25 09:05 Dose: 81 mg Atorvastatin Calcium (Atorvastatin 40 Mg Tab) 40 mg PO HS [facility] Stop: 08/30/25 20:59 Last Admin: 07/31/25 20:49 Dose: 40 mg Calcitriol (Calcitriol 0.25 Mcg Capsule) 0.25 mcg PO DAILY [facility] Stop: 08/30/25 08:59 Last Admin: 07/31/25 09:05 Dose: 0.25 mcg Carvedilol (Carvedilol 12.5 Mg Tab) 12.5 mg PO BIDM [facility] Stop: 08/30/25 07:59 Last Admin: 08/01/25 07:52 Dose: 12.5 mg Doxycycline Hyclate (Doxycycline Hyclate 100 Mg Cap) 100 mg PO BID [facility] Stop: 08/05/25 08:59 Last Admin: 07/31/25 20:49 Dose: 100 mg Ferrous Sulfate (Ferrous Sulfate 325 Mg Tab) 325 mg PO BID ANOOP Stop: 08/30/25 08:59 Last Admin: 07/31/25 20:49 Dose: 325 mg Fluticasone/Vilanterol (Fluticasone/Vilanterol 200/25mcg 14 Puffs/Inhaler) 1 puffs INH DAILY ANOOP Stop: 08/30/25 08:59 Last Admin: 07/31/25 09:08 Dose: 1 puffs Furosemide (Furosemide 40 Mg/4 Ml Vial) 40 mg IV BID17 ANOOP Stop: 08/30/25 08:59 Last Admin: 07/31/25 17:33 Dose: 40 mg Ceftriaxone Sodium (Rocephin) 2,000 mg in 50 mls @ 100 mls/hr IV Q24H ANOOP Stop: 08/05/25 07:14 Last Infusion: 08/01/25 08:26 Dose: Infused Levalbuterol HCl (Levalbuterol 1.25 Mg/3 Ml Neb) 1.25 mg NEB Q4H PRN PRN Reason: Shortness Of Breath Or Wheezing Stop: 08/30/25 01:36 Levalbuterol HCl (Levalbuterol Hcl 0.63 Mg/3 Ml Neb) 0.63 mg NEB Q8R [facility]; Protocol Stop: 08/30/25 06:59 Last Admin: 08/01/25 07:16 Dose: 0.63 mg Levothyroxine Sodium (Levothyroxine Sodium 75 Mcg Tablet) 75 mcg PO DAILYBB ANOOP Stop: 08/30/25 06:29 Last Admin: 08/01/25 05:53 Dose: 75 mcg Miconazole Nitrate (Miconazole Nitrate Powder 85 Gm) 1 appln EXT PRN PRN PRN Reason: Affected Skin Folds Stop: 08/30/25 15:59 Miscellaneous (Omeprazole - Order Awaiting Action) 1 each N/A QS ANOOP Stop: 08/30/25 07:59 Last Admin: 08/01/25 08:22 Dose: Not Given Olanzapine (Olanzapine 10 Mg Tab) 10 mg PO HS ANOOP Stop: 08/30/25 20:59 Last Admin: 07/31/25 20:49 Dose: 10 mg Polyethylene Glycol (Polyethylene (Miralax) 17 Gm Pack) 17 gm PO DAILY PRN PRN Reason: Constipation Stop: 08/30/25 01:36 Psyllium Hydrophilic Mucilloid (Psyllium Husk 4gm Packet) 4 gm PO DAILY ANOOP Stop: 08/30/25 08:59 Last Admin: 07/31/25 09:07 Dose: 4 gm Rivaroxaban (Rivaroxaban 15 Mg Tab) 15 mg PO DAILY ANOOP Stop: 08/30/25 08:59 Last Admin: 07/31/25 09:07 Dose: 15 mg Tamsulosin HCl (Tamsulosin Hcl 0.4 Mg Cap) 0.4 mg PO QAM ANOOP Stop: 08/30/25 08:59 Last Admin: 07/31/25 09:07 Dose: 0.4 mg Umeclidinium [place] (Umeclidinium [place] 62.5mcg/Blister 7 Puffs/Inhaler) 1 puffs INH QAM ANOOP Stop: 08/30/25 08:59 Last Admin: 07/31/25 09:08 Dose: 1 puffs Vitamin D (Cholecalciferol 25 Mcg (1000 Units) Tab) 50 mcg PO DAILY ANOOP Stop: 08/30/25 08:59 Last Admin: 07/31/25 09:06 Dose: 50 mcg PG Care Time/CCT Total # of Minutes Spent Total Time Spent with Patient: Total time spent is greater than 50% in coordination of care (as documented) at patient's floor/unit and/or counseling patient: Advanced Care Planning 28479 Advanced Care Planning 30 [place] [address] IN/OBS CONSULT LVL 4,60M Patient Type New History Expanded Problem Focused Exam Expanded Problem Focused Medical Decision Making Moderate Complexity Diagnoses SOB (shortness of breath) on exertion R06.02 Weakness generalized R53.1 Palliative care by specialist Z51.5 Counseling regarding goals of care Z71.89 Need for comfort care Additional Codes Advanced Care Planning - 80956 Advanced Care Planning 30 Min: 38320 Advanced Care Planning 30 Min ([id number])
[2025-08-01] MEDS: POLYETHYLENE (MIRALAX) 17 GM PACK PO PRN (10:05)
[2025-08-01] MEDS: POTASSIUM CHLORIDE CRTAB 20 MEQ TABCR PO STA (10:05)
[2025-08-01] MEDS: MICONAZOLE NITRATE POWDER 85 GM EXT PRN (10:06)
[2025-08-01] MEDS: IRON SUCROSE 200 MG in SODIUM CHLORIDE 0.9% 100 ML IV SCH (11:40)
[2025-08-01] MEDS: OMEPRAZOLE 40 MG CAP PO SCH (14:44)
--- NOTE | 2025-08-01 19:22 | Hospitalist Progress Note ---
Date of Service August 01, 2025 Assessment & Plan (1) Acute on chronic HFrEF (heart failure with reduced ejection fraction): Plan: 89-year-old male with past medical history significant for hypothyroidism, dyslipidemia, mild persistent asthma, chronic systolic CHF, status post ICD paroxysmal atrial fibrillation, history of CAD, CKD stage IIIb, paranoid schizophrenia, generalized anxiety disorder who lives at home and ambulates with a walker was brought in because of weakness. Patient states he could not walk today because of weakness. He is also getting shortness of breath on exertion. Has cough and sometimes brings up phlegm. Denies any fevers. Denies any chest pain. No dizziness. No earache or runny nose or sore throat. Appetite is okay. But he states he can eat only soft food. No nausea. No abdominal pain. States having trouble micturating. He is constipated. Has edema in the lower extremities. Recently saw [facility] pulmonary for cough and asthma and inhalers and nebs were changed. Patient thinks current inhalers and nebs are working better. Patient is concerned about getting asthmatic attack and states he needs nebs treatment as soon as possible so not to make it worse. Patient cannot take prednisone due to psychosis associated with it. Currently resting comfortably. Acute on chronic systolic CHF Dyspnea on exertion and also bilateral EXTR edema Weakness BNP 1200 Currently on home Lasix 80 mg daily Received IV Lasix 40 mg in the ER Boogie Continue with IV Lasix 40 mL twice daily Recent echo on July 21, 2025 shows EF of 15 to 20%, moderate to severe mitral regurgitation, moderate tricuspid regurgitation, severe global hypokinesis of the left ventricle Status post ICD Blood pressure is low on admission Close monitor blood pressure while getting IV Lasix Coreg with holding parameters Telemetry I's and O's and daily weights Consulted cardiology for further recommendations - contacted by cardiology PA that pt would like palliative care consult - placed. cont. w/ IV lasix for now while in the hospital. Currently denies any chest pain or shortness of breath, LE edema much improved/ resolved. Recommend to continue PO lasix on DC home w/ hospice. Possible acute bronchitis History of asthma Bilateral rhonchi exam Will continue home inhalers Will place on nebs [id number] and as needed Empiric doxycycline CT chest-possible pneumonia. added Rocephin SARAHY and CKD stage III/IV Baseline creatinine 1.7- 2.2 Presented with creatinine of 2.4 Close monitor while getting IV diuretics Patient says there is a plan for renal ultrasound next week. Will get while he is in the hospital Consult nephrology- appreciate their input, no plan for dialysis, diuretics as tolerated, plan for hospice Anemia chronic disease Hemoglobin 11.4 around baseline Continue iron supplements Will follow labs Hypertension Blood pressure is soft Coreg with holding parameters Close monitor while getting IV Lasix Holding clonidine Will monitor History of paranoid schizophrenia Generalized anxiety disorder Continue olanzapine Xanax as needed Hypothyroidism Consult Synthyroid GERD Continue Omeprazole A-fib and left bundle branch block Status post biventricular ICD On Coreg and Xarelto will monitor History of CAD status post LAD drug-eluting stent in 2012 On aspirin, statin and beta-igor Will monitor BPH On Flomax Currently placed on Boogie catheter Constipation Stool softeners DVT prophylaxis On Xarelto Disposition Telemetry CODE STATUS - DNR/DNI - see palliative note. Plan for DC w/ hospice Admission and Anticipated Discharge Date Admission Date: July 30, 2025 Subjective Pt seen in follow up Presents with weakness, shortness of breath on exertion, CHF, CKD Cardiology and nephrology consulted Pt seen sitting in bed in NAD, with his present at the bedside I was contacted by cardiology PA yesterday - that pt wishes for palliative consult - pt wishes to leave home on hospice, code status was changed to DNR/DNI (pls see their note for full detail) Pt currently fairly comfortable, denies any chest pain, or shortness of breath, he is on RA, LE edema is much improved/ resolved, pt is feeling better overall but weak- confirms with me that they are planning for hospice Review of Systems Review of Systems: All systems reviewed & are unremarkable except as noted in Subjective Physical Exam Physical Exam: General- frail, elderly M in NAD Head- atraumatic Eyes- PERRL. Neck- supple, no JVD. Lungs- +mild b/l rhonchi noted, no wheezing Heart- regular rhythm; no murmur Abdomen- normal bowel sounds, soft, nontender, no distension Extremities- b/l lower extremity +1 edema present, no erythema seen Neuro- alert, oriented ; PERRL, no facial palsy; no dysarthria; moves extremities Results & Data Results & Data Vital Signs (Past 12 Hours) Vital Signs Temp Pulse Pulse Resp BP BP Pulse Ox 08/01/25 15:54 36.5 C 59 L 12 101/67 96 08/01/25 15:13 90 16 95 08/01/25 13:54 61 08/01/25 11:44 36.3 C L 108 H 12 100/71 99 08/01/25 08:00 103 H 08/01/25 07:55 36.4 C L 87 16 103/72 100 O2 Del Method 08/01/25 15:54 Room Air 08/01/25 15:13 Room Air 08/01/25 13:54 08/01/25 11:44 Room Air 08/01/25 08:00 08/01/25 07:55 Room Air Laboratory Results 08/01/25 Range/Units 05:44 Sodium 138 (136-145) mmol/L Potassium 3.7 (3.5-5.1) mmol/L Chloride 99 (98-107) mmol/L Carbon Dioxide 31 (21-32) mmol/L Anion Gap 8 (3-11) BUN 48 H (6-23) mg/dl Creatinine 2.35 H (0.6-1.4) mg/dl Est Cr Clr Drug Dosing 18.7 ml/min eGFR 25.97 BUN/Creatinine Ratio 20.4 H (10-20) Glucose 96 (70-99(Fasting)) mg/dl Calcium 8.5 L (8.6-10.3) mg/dl Phosphorus 4.4 (2.5-4.9) mg/dl Iron 28 L (35-175) mcg/dl TIBC 260 (250-450) mcg/dl Transferrin 186 L (200-360) mg/dl Transferrin % Sat 11 L (20-50) % Ferritin 84.6 (8-388) ng/ml Albumin 3.1 L (3.4-5.0) gm/dl Medications Administered Current Inpatient Medications Acetaminophen (Acetaminophen 325 Mg Tab) 650 mg PO Q4H PRN PRN Reason: Pain or Fever Stop: 08/30/25 01:36 Albuterol (Albuterol Hfa 8 Gm Inhaler) 2 puffs INH Q4H PRN PRN Reason: shortness of breath or wheezin Stop: 08/30/25 01:36 Allopurinol (Allopurinol 100 Mg Tab) [facility] Stop: 08/30/25 08:59 Last Admin: 08/01/25 10:08 Dose: 100 mg Alprazolam (Alprazolam 0.25 Mg Tablet) 0.25 mg PO BID ANOOP Stop: 08/30/25 08:59 Last Admin: 08/01/25 10:05 Dose: 0.25 mg Alprazolam (Alprazolam 0.5 Mg Tablet) 0.5 mg PO DAILY@1500 ANOOP Stop: 08/30/25 14:59 Last Admin: 08/01/25 14:44 Dose: 0.5 mg Artificial Tears (Artificial Tears) 1 drops OP BID PRN PRN Reason: Dry Eyes Stop: 08/30/25 01:50 Ascorbic Acid (Ascorbic Acid 500 Mg Tab) 500 mg PO QAM ANOOP Stop: 08/30/25 08:59 Last Admin: 08/01/25 10:08 Dose: 500 mg Aspirin (Aspirin 81 Mg Ectab) 81 mg PO MoWeFr@0900 ANOOP Stop: 08/30/25 08:59 Last Admin: 07/31/25 09:05 Dose: 81 mg Atorvastatin Calcium (Atorvastatin 40 Mg Tab) 40 mg PO HS ANOOP Stop: 08/30/25 20:59 Last Admin: 07/31/25 20:49 Dose: 40 mg Calcitriol (Calcitriol 0.25 Mcg Capsule) 0.25 mcg PO DAILY ANOOP Stop: 08/30/25 08:59 Last Admin: 08/01/25 10:07 Dose: 0.25 mcg Carvedilol (Carvedilol 12.5 Mg Tab) 12.5 mg PO BIDM ANOOP Stop: 08/30/25 07:59 Last Admin: 08/01/25 17:41 Dose: 12.5 mg Doxycycline Hyclate (Doxycycline Hyclate 100 Mg Cap) 100 mg PO BID ANOOP Stop: 08/05/25 08:59 Last Admin: 08/01/25 10:08 Dose: 100 mg Ferrous Sulfate (Ferrous Sulfate 325 Mg Tab) 325 mg PO BID ANOOP Stop: 08/30/25 08:59 Last Admin: 08/01/25 10:08 Dose: 325 mg Fluticasone/Vilanterol (Fluticasone/Vilanterol 200/25mcg 14 Puffs/Inhaler) 1 puffs INH DAILY ANOOP Stop: 08/30/25 08:59 Last Admin: 08/01/25 10:06 Dose: 1 puffs Furosemide (Furosemide 40 Mg/4 Ml Vial) 40 mg IV BID17 ANOOP Stop: 08/30/25 08:59 Last Admin: 08/01/25 17:43 Dose: 40 mg Ceftriaxone Sodium (Rocephin) 2,000 mg in 50 mls @ 100 mls/hr IV Q24H ANOOP Stop: 08/05/25 07:14 Last Infusion: 08/01/25 08:26 Dose: Infused Iron Sucrose 200 mg/ Sodium (Chloride) 110 mls @ 220 mls/hr IV DAILY ANOOP Stop: 08/05/25 10:59 Last Infusion: 08/01/25 12:10 Dose: Infused Levalbuterol HCl (Levalbuterol 1.25 Mg/3 Ml Neb) 1.25 mg NEB Q4H PRN PRN Reason: Shortness Of Breath Or Wheezing Stop: 08/30/25 01:36 Levalbuterol HCl (Levalbuterol Hcl 0.63 Mg/3 Ml Neb) 0.63 mg NEB Q8R ANOOP; Protocol Stop: 08/30/25 06:59 Last Admin: 08/01/25 15:13 Dose: 0.63 mg Levothyroxine Sodium (Levothyroxine Sodium 75 Mcg Tablet) 75 mcg PO DAILYBB ANOOP Stop: 08/30/25 06:29 Last Admin: 08/01/25 05:53 Dose: 75 mcg Miconazole Nitrate (Miconazole Nitrate Powder 85 Gm) 1 appln EXT PRN PRN PRN Reason: Affected Skin Folds Stop: 08/30/25 15:59 Last Admin: 08/01/25 10:06 Dose: 1 appln Olanzapine (Olanzapine 10 Mg Tab) 10 mg PO HS ANOOP Stop: 08/30/25 20:59 Last Admin: 07/31/25 20:49 Dose: 10 mg Omeprazole (Omeprazole 40 Mg Cap) 40 mg PO DAILY ANOOP Stop: 08/31/25 08:59 Last Admin: 08/01/25 14:44 Dose: 40 mg Polyethylene Glycol (Polyethylene (Miralax) 17 Gm Pack) 17 gm PO DAILY PRN PRN Reason: Constipation Stop: 08/30/25 01:36 Last Admin: 08/01/25 10:05 Dose: 17 gm Psyllium Hydrophilic Mucilloid (Psyllium Husk 4gm Packet) 4 gm PO DAILY ANOOP Stop: 08/30/25 08:59 Last Admin: 08/01/25 10:08 Dose: 4 gm Rivaroxaban (Rivaroxaban 15 Mg Tab) 15 mg PO DAILY ANOOP Stop: 08/30/25 08:59 Last Admin: 08/01/25 10:08 Dose: 15 mg Tamsulosin HCl (Tamsulosin Hcl 0.4 Mg Cap) 0.4 mg PO QAM ANOOP Stop: 08/30/25 08:59 Last Admin: 08/01/25 10:08 Dose: 0.4 mg Umeclidinium [place] (Umeclidinium [place] 62.5mcg/Blister 7 Puffs/Inhaler) 1 puffs INH QAM ANOOP Stop: 08/30/25 08:59 Last Admin: 08/01/25 10:06 Dose: 1 puffs Vitamin D (Cholecalciferol 25 Mcg (1000 Units) Tab) 50 mcg PO DAILY ANOOP Stop: 08/30/25 08:59 Last Admin: 08/01/25 10:07 Dose: 50 mcg
[2025-08-02 06:50] LABS: Anion Gap 10.0 (3-11); Blood Urea Nitrogen 47.0 mg/dl (6-23); Calcium 8.9 mg/dl (8.6-10.3); Carbon Dioxide 32.0 mmol/L (21-32); Chloride 98.0 mmol/L (98-107); Creatinine Clr Calc Pharmacy 20.1 ml/min; Glucose 95.0 mg/dl (70-99(Fasting)); Potassium 4.0 mmol/L (3.5-5.1); Sodium 140.0 mmol/L (136-145)
--- NOTE | 2025-08-02 10:04 | Nephrology Progress Note ---
Date of Service August 02, 2025 Assessment & Plan (1) Acute kidney injury: (2) Acute on chronic HFrEF (heart failure with reduced ejection fraction): (3) Anemia of chronic disease: (4) Bilateral leg edema: (5) Hypertension, benign: (6) Pneumonia: (7) Generalized muscle weakness: Plan 89 yo gentleman with stage 3B/4 CKD , b/l cr 2.0 mg/dl, admitted to the hospital with shortness of breath, volume overload and generalized weakness, and left lower lobe pneumonia, empirically started on ceftriaxone and doxycycline. started on Lasix 40 mg IV twice a day. Had decent urine output, more than 1200 ml overnight. Cr was 32.4 mg/dl on admission, staying relatively stable at 2.5 mg/dl this am , electrolyte acceptable. BP fair. Volume status acceptable. Kidney function staying relatively stable. --Evaluated by palliative care and after discussion of goals of care, Mr. Fountain decided to go home with hospice care considering underlying severe cardiomyopathy. --Okay to discontinue Boogie catheter --Continue on venofer daily while inpatient but okay to discontinue on discharge. W # ill sign off Admission and Anticipated Discharge Date Admission Date: July 30, 2025 Subjective Adam was seen and evaluated this morning. He reports feeling better, appetite decent. Blood pressure relatively low but asymptomatic. Decent response to diuretics. Kidney function staying relatively stable, electrolyte acceptable. Review of Systems Review of Systems: Detailed review of system was done and pertinent positives and negatives are mentioned above. Physical Exam Constitutional: WD/WN, vitals as above no acute distress Eyes: + anicteric sclerae Respiratory: no respiratory distress Auscultation: + crackles; no wheezes Cardiovascular: Rate/Rhythm: + irregularly irregular Heart Sounds: normal S1 and normal S2 Extremities: + edema Skin: no rashes, warm and dry Neurologic: no focal motor deficits Psychiatric: Orientation: alert and oriented x 3 Affect: euthymic affect Results & Data Vital Signs (Past 12 Hours) Vital Signs Temp Pulse Pulse Resp BP BP Pulse Ox 08/02/25 07:36 91 H 16 97 08/02/25 03:37 36.4 C L 105 H 16 117/83 98 08/02/25 02:05 91 H 08/01/25 23:47 36.4 C L 103 H 16 107/75 99 08/01/25 22:34 112 H 16 96 O2 Del Method 08/02/25 07:36 Room Air 08/02/25 03:37 Room Air 08/02/25 02:05 08/01/25 23:47 Room Air 08/01/25 22:34 Room Air PG Care Time/CCT Total # of Minutes Spent Total Time Spent with Patient: Total time spent is greater than 50% in coordination of care (as documented) at patient's floor/unit and/or counseling patient: Coding Level of Care Code 90189 SUB INP/OBS CARE 2/35MIN Diagnoses Acute kidney injury N17.9 Acute on chronic HFrEF (heart failure with reduced ejection fraction) I50.23 Anemia of chronic disease D63.8 Bilateral leg edema R60.0 Hypertension, benign I10 Pneumonia J18.9 Laterality: unspecified laterality Lung location: unspecified part of lung Pneumonia type: due to unspecified organism Generalized muscle weakness M62.81 (6) Pneumonia Laterality: unspecified laterality Lung location: unspecified part of lung Pneumonia type: due to unspecified organism Qualified Code(s): J18.9 - Pneumonia, unspecified organism
--- NOTE | 2025-08-02 15:47 | Hospitalist Progress Note ---
Date of Service August 02, 2025 Assessment & Plan (1) Acute on chronic HFrEF (heart failure with reduced ejection fraction): Plan: 89-year-old male with past medical history significant for hypothyroidism, dyslipidemia, mild persistent asthma, chronic systolic CHF, status post ICD paroxysmal atrial fibrillation, history of CAD, CKD stage IIIb, paranoid schizophrenia, generalized anxiety disorder who lives at home and ambulates with a walker was brought in because of weakness. Patient states he could not walk today because of weakness. He is also getting shortness of breath on exertion. Has cough and sometimes brings up phlegm. Denies any fevers. Denies any chest pain. No dizziness. No earache or runny nose or sore throat. Appetite is okay. But he states he can eat only soft food. No nausea. No abdominal pain. States having trouble micturating. He is constipated. Has edema in the lower extremities. Recently saw [facility] pulmonary for cough and asthma and inhalers and nebs were changed. Patient thinks current inhalers and nebs are working better. Patient is concerned about getting asthmatic attack and states he needs nebs treatment as soon as possible so not to make it worse. Patient cannot take prednisone due to psychosis associated with it. Currently resting comfortably. Acute on chronic systolic CHF Valvular heart disease S/P ICD Dyspnea on exertion and also bilateral lower extremity edema Generalized weakness BNP 1200 --CXR:Airspace opacities of the left lower lobe could represent atelectasis, can not exclude pneumonia or aspiration. Small left pleural effusion. Cardiomegaly. --ECHO: Left ventricle systolic function is severely reduced. Severe global hypokinesis of left ventricle. Mild concentric LVH. EF 15 to 20%. Moderate to severe mitral regurgitation. Moderate tricuspid regurgitation. Compared to prior study, left ventricle systolic function now severely reduced. -- Continue IV Lasix 40 mg twice a day Continue carvedilol with holding parameters I's and O's and daily weights --Appreciate cardiology, nephrology input Patient is planned to be transition to hospice on discharge Evaluated by palliative care Likely discharge tomorrow Possible acute bronchitis Normal procalcitonin H/O asthma continue home inhalers Continue nebs, doxycycline, Rocephin Saturating well on room air SARAHY and CKD stage III/IV Baseline creatinine 1.7- 2.2 Right kidney nodule--cannot rule out malignancy Presented with creatinine of 2.4 --Renal USD:The kidneys are atrophic and echogenic indicative of medical renal disease. There is no hydronephrosis. A 1.3 cm solid-appearing nodule arises from the lower pole of right kidney. A renal cell carcinoma is to be excluded. A nonemergent contrast-enhanced renal protocol abdominal CT scan or MRI is recommended for further assessment. The bladder is decompressed around a Boogie catheter and appears thick walled. Correlate with clinical findings and urinalysis. -- Appreciate nephrology input Anemia chronic disease Received IV Venofer No acute bleeding issues currently Monitor CBC Hypertension Blood pressure relatively low Asymptomatic Continue Coreg with holding parameters Hold clonidine for now Monitor blood pressure History of paranoid schizophrenia Generalized anxiety disorder Continue olanzapine Xanax as needed Hypothyroidism Continue levothyroxine GERD Continue PPI A-fib and left bundle branch block Status post biventricular ICD On Coreg and Xarelto monitor History of CAD status post LAD drug-eluting stent in 2012 On aspirin, statin and beta-igor monitor BPH On Flomax Currently placed on Boogie catheter Constipation Continue bowel regimen DVT prophylaxis On Xarelto CODE STATUS DNI DNR Disposition Home with hospice likely tomorrow Admission and Anticipated Discharge Date Admission Date: July 30, 2025 Subjective Patient is seen and examined at bedside Subjectively feels better today Less dyspnea, leg edema improving Discussed in detail with patient and patient's family at bedside Patient denies any chest pain, nausea, vomiting, abdominal pain No other complaints today Review of Systems Review of Systems: All systems reviewed & are unremarkable except as noted in Subjective Physical Exam Physical Exam: Physical Exam: Vitals signs as noted above General Appearance: Thin, frail, elderly, ill-appearing, no apparent distress Head: normocephalic, Atraumatic Eyes: normal inspection, EOMI Neck: supple, Trachea midline Respiratory/Chest: Normal breath sounds, B/L wheezes, No accessory muscle use Cardiovascular: Irregularly irregular, + murmur Abdomen/GI:Soft, Non tender, Bowel sounds present Extremities/Musculoskeletal:normal inspection, + B/L LE edema Neurologic/Psych:AAOX3, grossly no focal neurological deficits Skin: normal color, warm Results & Data Results & Data Vital Signs (Past 12 Hours) Vital Signs Temp Pulse Resp BP Pulse Ox O2 Del Method 08/02/25 15:20 36.4 C L 86 16 96/84 L 98 Room Air 08/02/25 15:01 105 H 18 95 Room Air 08/02/25 10:53 36.5 C 98 H 18 85/64 L 96 Room Air 08/02/25 08:00 Room Air 08/02/25 07:36 91 H 16 97 Room Air Laboratory Results [facility] 08/02/25 05:58 Sodium 140 Potassium 4.0 Chloride 98 Carbon Dioxide 32 BUN 47 H Creatinine 2.14 H Glucose 95 Calcium 8.9 Liver Function 08/02/25 Range/Units 05:58 Albumin 3.4 (3.4-5.0) gm/dl
[2025-08-03 05:53] LABS: Hematocrit (blood only) 32.4 % (42.0-52.0); Hemoglobin 10.5 g/dl (14.0-18.0); Mean Corpuscular Hemoglobin 28.9 pg (25.0-34.0); Mean Corpuscular Volume 89.3 fL (80.0-100.0); Platelet Count 133 K/uL (130-400); RDW Standard Deviation 48.9 fL (36.4-46.3); Red Blood Count 3.63 M/uL (4.70-6.10); White Blood Count 4.93 K/ul (4.8-10.8)
[2025-08-03 06:05] LABS: Anion Gap 6.0 (3-11); Blood Urea Nitrogen 50.0 mg/dl (6-23); Calcium 8.9 mg/dl (8.6-10.3); Carbon Dioxide 33.0 mmol/L (21-32); Chloride 98.0 mmol/L (98-107); Creatinine Clr Calc Pharmacy 20.2 ml/min; Glucose 104.0 mg/dl (70-99(Fasting)); Potassium 3.7 mmol/L (3.5-5.1); Sodium 137.0 mmol/L (136-145)
--- NOTE | 2025-08-03 08:46 | Cardiology Progress Note ---
Date of Service August 03, 2025 Assessment & Plan (1) HFrEF (heart failure with reduced ejection fraction): (2) Cardiomyopathy: (3) CAD in [place] artery: (4) H/O heart artery stent: (5) Hypertension, benign: (6) Hyperlipidemia: (7) Mitral valve insufficiency: (8) Shortness of breath on exertion: (9) 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: Plan -Per his echo from 07/21/2025, his ejection fracture has worsened and is now 10 to 15%. -Patient does not wish to pursue any further treatments -Palliative care is now involved. It seems like home on hospice is the plan. -May continue his current medication cardiac regimen as seen fit Admission and Anticipated Discharge Date Admission Date: July 30, 2025 Subjective Patient was seen and evaluated at bedside this morning. Chart was reviewed. His ICD was deactivated yesterday evening. He tells me this morning he feels, "surprisingly well." Palliative care is involved. He believes he is going home today. Review of Systems Review of Systems: per HPI Physical Exam Physical Exam: Physical Exam: AOx3. Mood affect appear normal. All questions appropriately. HEENT: Sclerae are anicteric. Pupils are equal and reactive to light and accommodation. Extraocular movements were intact. Neuro: Cranial nerves intact Lungs: Normal respiratory effort without use of accessory muscles. Cardiac: JVD present at 45 degrees Extremities: There is no evidence cyanosis or clubbing. Skin: There are no rashes noted on examination today. Results & Data Vital Signs (Past 12 Hours) Vital Signs Temp Pulse Resp BP Pulse Ox O2 Del Method 08/03/25 07:44 110 H 18 98 Room Air 08/03/25 07:25 36.4 C L 96 H 17 94/67 L 98 Room Air 08/03/25 02:23 36.4 C L 99 H 18 114/77 98 Room Air 08/02/25 22:59 36.4 C L 99 H 18 103/72 93 Room Air 08/02/25 22:40 83 16 96 Room Air 08/02/25 20:45 Room Air PG Care Time/CCT Total # of Minutes Spent Total Time Spent with Patient: Total time spent is greater than 50% in coordination of care (as documented) at patient's floor/unit and/or counseling patient: C[place] [address] SUB INP/OBS CARE 12/10MIN Patient Type Established History Problem Focused Exam Problem Focused Medical Decision Making Straight Forward Diagnoses HFrEF (heart failure with reduced ejection fraction) I50.20 Ischemic cardiomyopathy I25.5 Cardiomyopathy type: ischemic CAD in [place] artery I25.10 H/O heart artery stent Z95.5 Hypertension, benign I10 Mixed hyperlipidemia E78.2 Hyperlipidemia type: mixed hyperlipidemia Nonrheumatic mitral valve regurgitation I34.0 Cardiac valve disease etiology: nonrheumatic Shortness of breath on exertion R06.02 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 Z45.02 (2) Cardiomyopathy Cardiomyopathy type: ischemic Qualified Code(s): I25.5 - Ischemic cardiomyopathy (6) Hyperlipidemia Hyperlipidemia type: mixed hyperlipidemia Qualified Code(s): E78.2 - Mixed hyperlipidemia (7) Mitral valve insufficiency Cardiac valve disease etiology: nonrheumatic Qualified Code(s): I34.0 - Nonrheumatic mitral (valve) insufficiency
[2025-08-03 11:30] VITALS: TEMP 98.1
--- NOTE | 2025-08-03 11:39 | Hospitalist Progress Note ---
Date of Service August 03, 2025 Assessment & Plan (1) Acute on chronic HFrEF (heart failure with reduced ejection fraction): Plan: 89-year-old male with past medical history significant for hypothyroidism, dyslipidemia, mild persistent asthma, chronic systolic CHF, status post ICD paroxysmal atrial fibrillation, history of CAD, CKD stage IIIb, paranoid schizophrenia, generalized anxiety disorder who lives at home and ambulates with a walker was brought in because of weakness. Patient states he could not walk today because of weakness. He is also getting shortness of breath on exertion. Has cough and sometimes brings up phlegm. Denies any fevers. Denies any chest pain. No dizziness. No earache or runny nose or sore throat. Appetite is okay. But he states he can eat only soft food. No nausea. No abdominal pain. States having trouble micturating. He is constipated. Has edema in the lower extremities. Recently saw [facility] pulmonary for cough and asthma and inhalers and nebs were changed. Patient thinks current inhalers and nebs are working better. Patient is concerned about getting asthmatic attack and states he needs nebs treatment as soon as possible so not to make it worse. Patient cannot take prednisone due to psychosis associated with it. Currently resting comfortably. Acute on chronic systolic CHF Valvular heart disease S/P ICD Dyspnea on exertion and also bilateral lower extremity edema Generalized weakness BNP 1200 --CXR:Airspace opacities of the left lower lobe could represent atelectasis, can not exclude pneumonia or aspiration. Small left pleural effusion. Cardiomegaly. --ECHO: Left ventricle systolic function is severely reduced. Severe global hypokinesis of left ventricle. Mild concentric LVH. EF 15 to 20%. Moderate to severe mitral regurgitation. Moderate tricuspid regurgitation. Compared to prior study, left ventricle systolic function now severely reduced. --ICD deactivated on 08/02/2025 -- Continue IV Lasix 40 mg twice a day> transition to oral diuretics on d ischarge> Continue carvedilol with holding parameters I's and O's and daily weights --Appreciate cardiology, nephrology input Patient is planned to be transition to hospice on discharge Evaluated by palliative care--Appreciate input Plan to discharge home on hospice today Possible acute bronchitis Normal procalcitonin H/O asthma continue home inhalers Continue nebs, doxycycline, Rocephin Saturating well on room air SARAHY and CKD stage III/IV Baseline creatinine 1.7- 2.2 Right kidney nodule--cannot rule out malignancy Presented with creatinine of 2.4 --Renal USD:The kidneys are atrophic and echogenic indicative of medical renal disease. There is no hydronephrosis. A 1.3 cm solid-appearing nodule arises from the lower pole of right kidney. A renal cell carcinoma is to be excluded. A nonemergent contrast-enhanced renal protocol abdominal CT scan or MRI is recommended for further assessment. The bladder is decompressed around a Boogie catheter and appears thick walled. Correlate with clinical findings and urinalysis. --Creatinine 2.2 today -- Appreciate nephrology input Anemia chronic disease Received IV Venofer No acute bleeding issues currently Monitor CBC Hypertension Blood pressure low Asymptomatic Continue Coreg with holding parameters Hold clonidine for now Monitor blood pressure History of paranoid schizophrenia Generalized anxiety disorder Continue olanzapine Xanax as needed Hypothyroidism Continue levothyroxine GERD Continue PPI A-fib and left bundle branch block Status post biventricular ICD On Coreg and Xarelto monitor History of CAD status post LAD drug-eluting stent in 2012 On aspirin, statin and beta-igor monitor BPH On Flomax Currently placed on Boogie catheter Constipation Continue bowel regimen DVT prophylaxis On Xarelto CODE STATUS DNI DNR Disposition Home with hospice Admission and Anticipated Discharge Date Admission Date: July 30, 2025 Subjective Patient is seen and examined at bedside Mildly tachycardic today as his Coreg was held due to low blood pressure Subjectively feels well today Sitting in chair Denies any chest pain, dyspnea, palpitations, nausea, vomiting, abdominal pain, dizziness Leg edema slowly improving Plan to be discharged home today on hospice Review of Systems Review of Systems: All systems reviewed & are unremarkable except as noted in Subjective Physical Exam Physical Exam: Physical Exam: Vitals signs as noted above General Appearance: Thin, frail, elderly, ill-appearing, no apparent distress Head: normocephalic, Atraumatic Eyes: normal inspection, EOMI Neck: supple, Trachea midline Respiratory/Chest: Normal breath sounds, B/L wheezes, No accessory muscle use Cardiovascular: Irregularly irregular, + murmur Abdomen/GI:Soft, Non tender, Bowel sounds present Extremities/Musculoskeletal:normal inspection, + B/L LE edema Neurologic/Psych:AAOX3, grossly no focal neurological deficits Skin: normal color, warm Results & Data Results & Data Vital Signs (Past 12 Hours) Vital Signs Temp Pulse Resp BP Pulse Ox O2 Del Method 08/03/25 11:29 36.7 C 92 H 17 92/66 L 97 Room Air 08/03/25 08:00 Room Air 08/03/25 07:44 110 H 18 98 Room Air 08/03/25 07:25 36.4 C L 96 H 17 94/67 L 98 Room Air 08/03/25 02:23 36.4 C L 99 H 18 114/77 98 Room Air Laboratory Results Short CBC 08/03/25 Range/Units 05:25 WBC 4.93 (4.8-10.8) K/ul Hgb 10.5 L (14.0-18.0) g/dl Hct 32.4 L (42.0-52.0) % Plt Count 133 (130-400) K/uL BMP 08/03/25 05:25 Sodium 137 Potassium 3.7 Chloride 98 Carbon Dioxide 33 H BUN 50 H Creatinine 2.21 H Glucose 104 H Calcium 8.9 Liver Function 08/03/25 Range/Units 05:25 Albumin 3.0 L (3.4-5.0) gm/dl
--- NOTE | 2025-08-03 12:03 | Discharge Summary ---
Date of Service August 03, 2025 Admission HPI Per Admitting Provider 89-year-old male with past medical history significant for hypothyroidism, dyslipidemia, mild persistent asthma, chronic systolic CHF, status post ICD paroxysmal atrial fibrillation, history of CAD, CKD stage IIIb, paranoid schizophrenia, generalized anxiety disorder who lives at home and ambulates with a walker was brought in because of weakness. Patient states he could not walk today because of weakness. He is also getting shortness of breath on exertion. Has cough and sometimes brings up phlegm. Denies any fevers. Denies any chest pain. No dizziness. No earache or runny nose or sore throat. Appetite is okay. But he states he can eat only soft food. No nausea. No abdominal pain. States having trouble micturating. He is constipated. Has edema in the lower extremities. [facility] for cough and asthma and inhalers and nebs were changed. Patient thinks current inhalers and nebs are working better. Patient is concerned about getting asthmatic attack and states he needs nebs treatment as soon as possible so not to make it worse. Patient cannot take prednisone due to psychosis associated with it. Currently resting comfortably. Past medical history. As mentioned above Past surgical history. Colonoscopy and EGD. ICD. Social history. . Quit smoking 1971. Smoked 1.5 pack a day for 10 years. No alcohol. No drug use. Family history. No family history on file. Admission Exam Per Admitting Provider General- Not in distress Head- atraumatic Eyes- PERRL. ENT- oropharynx clear Neck- supple, no JVD. Lungs- clear to auscultation mild b/l rhonchi heard Heart- regular rhythm; no murmur, no gallop. Abdomen- normal bowel sounds, soft, nontender, no distension Extremities- b/l lower extremity +2 edema present, no erythema seen Neuro- alert, oriented ; PERRL, no facial palsy; no dysarthria; moves extremities Principal Diagnosis Acute on chronic systolic CHF Valvular heart disease SARAHY and CKD stage III/IV Hypotension Discharge Data Allergies Allergy/AdvReac Type Severity Reaction Status Date / Time pantoprazole [From Protonix] AdvReac Intermediate Diarrhea Verified 07/30/25 21:14 prednisone AdvReac Intermediate crazy Verified 07/30/25 21:14 sertraline AdvReac Intermediate Swollen Verified 07/30/25 21:14 Ankles ticagrelor AdvReac Intermediate bleeding Verified 07/30/25 21:14 Consultations 07/30/25 21:24 ED Decision to Admit Stat 07/31/25 08:00 Consult Cardiology Routine Consult Nephrology Routine 07/31/25 13:33 Consult Palliative Care Routine Procedures Performed Laboratory Results WBC 4.93 K/ul (4.8-10.8) 08/03/25 05:25 RBC 3.63 M/uL (4.70-6.10) L 08/03/25 05:25 Hgb 10.5 g/dl (14.0-18.0) L 08/03/25 05:25 Hct 32.4 % (42.0-52.0) L 08/03/25 05:25 MCV 89.3 fL (80.0-100.0) 08/03/25 05:25 MCH 28.9 pg (25.0-34.0) 08/03/25 05:25 MCHC 32.4 g/dL (32.0-36.0) 08/03/25 05:25 RDW Std Deviation 48.9 fL (36.4-46.3) H 08/03/25 05:25 RDW Coeff of Ruth 14.9 % (11.5-14.5) H 08/03/25 05:25 Plt Count 133 K/uL (130-400) 08/03/25 05:25 MPV 11.0 fL (9.4-12.4) 08/03/25 05:25 Immature Gran % (Auto) 0.6 % 07/31/25 05:01 Neut % (Auto) 70.8 % 07/31/25 05:01 Lymph % (Auto) 20.3 % 07/31/25 05:01 [place] % (Auto) 7.2 % 07/31/25 05:01 Eos % (Auto) 0.7 % 07/31/25 05:01 Baso % (Auto) 0.4 % 07/31/25 05:01 Neut # (Auto) 5.02 K/uL (1.40-6.50) 07/31/25 05:01 Lymph # (Auto) 1.44 K/uL (1.20-3.40) 07/31/25 05:01 [place] # (Auto) 0.51 K/uL (0.11-0.59) 07/31/25 05:01 Eos # (Auto) 0.05 K/uL (0.00-0.50) 07/31/25 05:01 Baso # (Auto) 0.03 K/uL (0.00-0.20) 07/31/25 05:01 Immature Gran # (Auto) 0.04 K/uL (0.01-0.20) 07/31/25 05:01 PT 17.1 Seconds (9.0-12.0) H 07/30/25 19:32 INR 1.6 (0.9-1.1) H 07/30/25 19:32 Sodium 137 mmol/L (136-145) 08/03/25 05:25 Potassium 3.7 mmol/L (3.5-5.1) 08/03/25 05:25 Chloride 98 mmol/L (98-107) 08/03/25 05:25 Carbon Dioxide 33 mmol/L (21-32) H 08/03/25 05:25 Anion Gap 6 (3-11) 08/03/25 05:25 BUN 50 mg/dl (6-23) H 08/03/25 05:25 Creatinine 2.21 mg/dl (0.6-1.4) H 08/03/25 05:25 Est Cr Clr Drug Dosing 20.2 ml/min 08/03/25 05:25 eGFR 27.95 08/03/25 05:25 BUN/Creatinine Ratio 22.6 (10-20) H 08/03/25 05:25 Glucose 104 mg/dl (70-99(Fasting)) H 08/03/25 05:25 Calcium 8.9 mg/dl (8.6-10.3) 08/03/25 05:25 Phosphorus 5.4 mg/dl (2.5-4.9) H 08/03/25 05:25 Magnesium 2.2 mg/dl (1.7-2.4) 07/31/25 05:01 Iron 28 mcg/dl (35-175) L 08/01/25 05:44 TIBC 260 mcg/dl (250-450) 08/01/25 05:44 Transferrin 186 mg/dl (200-360) L 08/01/25 05:44 Transferrin % Sat 11 % (20-50) L 08/01/25 05:44 Ferritin 84.6 ng/ml (8-388) 08/01/25 05:44 Total Bilirubin 0.7 mg/dl (0.2-1.0) 07/30/25 19:32 AST 20 U/L (13-39) 07/30/25 19:32 ALT 36 U/L (7-52) 07/30/25 19:32 Alkaline Phosphatase 104 U/L (34-104) 07/30/25 19:32 Troponin I High Sens 31.7 pg/ml (0-20) H 07/30/25 21:32 B-Natriuretic Peptide 1200 pg/ml (0-100) H 07/30/25 19:32 Total Protein 6.1 gm/dl (6.0-8.3) 07/30/25 19:32 Albumin 3.0 gm/dl (3.4-5.0) L 08/03/25 05:25 Globulin 2.6 gm/dl (2.5-4.0) 07/30/25 19:32 Albumin/Globulin Ratio 1.3 (0.9-2) 07/30/25 19:32 Procalcitonin 0.29 ng/ml (0-0.5) 07/31/25 05:01 TSH 4.590 uIu/ml (0.300-4.500) H 07/30/25 19:32 Free T4 1.05 ng/dl (0.61-1.60) 07/30/25 19:32 Urine Color Yellow 07/31/25 00:01 Urine Appearance Clear (Clear) 07/31/25 00:01 Urine pH 6.0 (4.5-7.5) 07/31/25 00:01 Ur Specific [place] 1.008 (1.000-1.030) 07/31/25 00:01 Urine Protein Negative (Negative) 07/31/25 00:01 Urine Glucose (UA) Negative (Negative) 07/31/25 00:01 Urine Ketones Negative (Negative) 07/31/25 00:01 Urine Blood Negative (Negative) 07/31/25 00:01 Urine Nitrite Negative (Negative) 07/31/25 00:01 Urine Bilirubin Negative (Negative) 07/31/25 00:01 Urine Urobilinogen Negative (Negative) 07/31/25 00:01 Ur Leukocyte Esterase Negative (Negative) 07/31/25 00:01 Urine Comment 07/31/25 00:01 Adenovirus (PCR) Not Detected (NotDetected) 07/30/25 19:33 B. pertussis DNA (PCR) Not Detected (NotDetected) 07/30/25 19:33 B.parapertussis DNA PCR Not Detected (NotDetected) 07/30/25 19:33 C. pneumoniae DNA (PCR) Not Detected (NotDetected) 07/30/25 19:33 Coronavirus OC43 (PCR) Not Detected (NotDetected) 07/30/25 19:33 Coronavirus HKU1 (PCR) Not Detected (NotDetected) 07/30/25 19:33 Coronavirus 229E (PCR) Not Detected (NotDetected) 07/30/25 19:33 SARS-CoV-2 (PCR) Not Detected (NotDetected) 07/30/25 19:33 Coronavirus NL63 (PCR) Not Detected (NotDetected) 07/30/25 19:33 Human Metapneumovir PCR Not Detected (NotDetected) 07/30/25 19:33 Influenza Type A (PCR) Not Detected (NotDetected) 07/30/25 19:33 Influenza Type B (PCR) Not Detected (NotDetected) 07/30/25 19:33 M. pneumoniae (PCR) Not Detected (NotDetected) 07/30/25 19:33 Parainfluenza 1 (PCR) Not Detected (NotDetected) 07/30/25 19:33 Parainfluenza 2 (PCR) Not Detected (NotDetected) 07/30/25 19:33 Parainfluenza 3 (PCR) Not Detected (NotDetected) 07/30/25 19:33 Parainfluenza 4 (PCR) Not Detected (NotDetected) 07/30/25 19:33 RSV (PCR) Not Detected (NotDetected) 07/30/25 19:33 Entero/Rhino (PCR) Not Detected (NotDetected) 07/30/25 19:33 Impressions Chest X-Ray 07/30/25 19:26 Exam(s): XR CXR 1 VIEW EXAM: XR Chest, 1 View CLINICAL HISTORY: Shortness of breath, swelling. TECHNIQUE: Frontal view of the chest. COMPARISON: Chest radiographs 09/02/2024 FINDINGS: Lungs: Airspace opacities of the left lower lobe could represent atelectasis, can not exclude pneumonia or aspiration. Pleural space: Small left pleural effusion. No pneumothorax. Heart: Cardiomegaly. Mediastinum: Unremarkable. Normal mediastinal contour. Bones/joints: There are degenerative changes of the spine. No acute fracture. Tubes, lines and devices: There is a left cardiac defibrillator. IMPRESSION: 1. Airspace opacities of the left lower lobe could represent atelectasis, can not exclude pneumonia or aspiration. 2. Small left pleural effusion. 3. Cardiomegaly. Electronically signed by: Radha Parra MD 07/30/25 23:[address] 07/30/25 19:35 Exam(s): CT HEAD Without Contrast EXAM: CT Head Without Intravenous Contrast CLINICAL HISTORY: Weakness. TECHNIQUE: Axial computed tomography images of the head/brain without intravenous contrast. CTDI is 37 mGy and DLP is 546 mGy-cm. Automated exposure control was utilized for the study. A dose lowering technique was utilized adhering to the principles of ALARA. COMPARISON: No relevant prior studies available. FINDINGS: Brain: No intracranial hemorrhage, mass-effect or midline shift. No abnormal extra axial fluid. No evidence of acute infarct. Mild periventricular white matter hypodensities are most consistent with chronic microangiopathy. Ventricles: Unremarkable. No ventriculomegaly. Bones/joints: Unremarkable. No acute fracture. Soft tissues: Unremarkable. Sinuses: Unremarkable as visualized. No acute sinusitis. Mastoid air cells: Unremarkable as visualized. No mastoid effusion. IMPRESSION: No acute intracranial finding. Electronically signed by: Radha Parra MD 07/30/25 23:[address] 07/30/25 23:37 EXAM: CT chest diagnostic wo con CLINICAL HISTORY: WOOD, cough TECHNIQUE: Contiguous axial images were obtained from the neck base through the upper abdomen without contrast. In addition, sagittal and coronal reconstructions were performed to potentially increase the sensitivity for the detection of disease. CT scan was performed according to ALARA (as low as reasonably achievable). COMPARISON: 10:28:02 CABLE RESPOOLER. FINDINGS: Patchy nodular infiltrates are noted involving superior and basal segment of left lower lobe, lingula and right middle lobe. Mild left and minimal right pleural effusion with basal subsegmental collapse of both lower lobes are seen. The central airways are patent. Evaluation of the mediastinum and malina is limited due to the lack of intravenous contrast. No axillary or mediastinal adenopathy is identified. The thyroid is unremarkable. The heart, aorta, and pulmonary arteries are of normal size and configuration. There are appreciable coronary artery and aortic atherosclerotic calcifications. No pericardial effusion is identified. Imaged portions of the upper abdomen are unremarkable. No aggressive appearing osseous lesions are identified. Spondylodegenerative changes in visualised spine. IMPRESSION: Patchy nodular infiltrates are noted involving superior and basal segment of left lower lobe, lingula and right middle lobe.- possibility of infective etiology. - clinical correlation suggested.- reduced compared to prior study. Mild left and minimal right pleural effusion with basal subsegmental collapse of both lower lobes are seen. - increased on left side and reduced on right side. Electronically signed by Vance Swann 07-31-2025 02:02 AM Renal Ultrasound 07/31/25 09:00 ULTRASOUND KIDNEYS AND BLADDER CLINICAL HISTORY: Acute on chronic kidney disease. COMPARISON STUDY: No priors TECHNIQUE: Real-time, grayscale, and color flow sonography of the kidneys and bladder is performed. Images are reviewed in the transverse and longitudinal planes. FINDINGS: Kidneys: The kidneys are atrophic echogenic. The right kidney measures 9.0 x 4.0 x 4.3 cm and the left kidney measures 9.2 x 3.2 x 3.6 cm. There is no hydronephrosis. No shadowing renal calculi are identified. A 1.3 cm solid- appearing nodule arises from the lower pole of the right kidney. Left renal cysts measure up to 1.3 cm. No perinephric fluid is identified. Bladder: The bladder is decompressed around a Boogie catheter and appears thick walled. IMPRESSION: 1. The kidneys are atrophic and echogenic indicative of medical renal disease. 2. There is no hydronephrosis. 3. A 1.3 cm solid-appearing nodule arises from the lower pole of right kidney. A renal cell carcinoma is to be excluded. A nonemergent contrast-enhanced renal protocol abdominal CT scan or MRI is recommended for further assessment. 4. The bladder is decompressed around a Boogie catheter and appears thick walled. Correlate with clinical findings and urinalysis. ACT 112: Positive. There are findings on this exam that require communication between the performing entity and the patient following Patient Test Result Information Act ([place] Act 112) guidelines. Electronically signed by: Mario Mccord M.D. 07/31/2025 9:08 AM Ordered Studies 07/30/25 19:35 CT head/brain wo con Stat 07/30/25 23:37 CT chest diagnostic wo con Routine 07/31/25 09:00 US Renal Bladder [US renal/blad retro comp] Routine Hospital Course (1) Acute on chronic HFrEF (heart failure with reduced ejection fraction): 89-year-old male with past medical history significant for hypothyroidism, dyslipidemia, mild persistent asthma, chronic systolic CHF, status post ICD paroxysmal atrial fibrillation, history of CAD, CKD stage IIIb, paranoid schizophrenia, generalized anxiety disorder who lives at home and ambulates with a walker was brought in because of weakness. Patient states he could not walk today because of weakness. He is also getting shortness of breath on exertion. Has cough and sometimes brings up phlegm. Denies any fevers. Denies any chest pain. No dizziness. No earache or runny nose or sore throat. Appetite is okay. But he states he can eat only soft food. No nausea. No abdominal pain. States having trouble micturating. He is constipated. Has edema in the lower extremities. Recently saw [facility] pulmonary for cough and asthma and inhalers and nebs were changed. Patient thinks current inhalers and nebs are working better. Patient is concerned about getting asthmatic attack and states he needs nebs treatment as soon as possible so not to make it worse. Patient cannot take prednisone due to psychosis associated with it. Currently resting comfortably. Acute on chronic systolic CHF Valvular heart disease S/P ICD Dyspnea on exertion and also bilateral lower extremity edema Generalized weakness BNP 1200 --CXR:Airspace opacities of the left lower lobe could represent atelectasis, can not exclude pneumonia or aspiration. Small left pleural effusion. Cardiomegaly. --ECHO: Left ventricle systolic function is severely reduced. Severe global hypokinesis of left ventricle. Mild concentric LVH. EF 15 to 20%. Moderate to severe mitral regurgitation. Moderate tricuspid regurgitation. Compared to prior study, left ventricle systolic function now severely reduced. --ICD deactivated on 08/02/2025 -- Continue IV Lasix 40 mg twice a day> transition to oral diuretics on discharge> Continue carvedilol with holding parameters I's and O's and daily weights --Appreciate cardiology, nephrology input Patient is planned to be transition to hospice on discharge Evaluated by palliative care--Appreciate input Plan to discharge home on hospice today Possible acute bronchitis Normal procalcitonin H/O asthma continue home inhalers Continue nebs, doxycycline, Rocephin Saturating well on room air SARAHY and CKD stage III/IV Baseline creatinine 1.7- 2.2 Right kidney nodule--cannot rule out malignancy Presented with creatinine of 2.4 --Renal USD:The kidneys are atrophic and echogenic indicative of medical renal disease. There is no hydronephrosis. A 1.3 cm solid-appearing nodule arises from the lower pole of right kidney. A renal cell carcinoma is to be excluded. A nonemergent contrast-enhanced renal protocol abdominal CT scan or MRI is recommended for further assessment. The bladder is decompressed around a Boogie catheter and appears thick walled. Correlate with clinical findings and urinalysis. --Creatinine 2.2 today -- Appreciate nephrology input Anemia chronic disease Received IV Venofer No acute bleeding issues currently Monitor CBC Hypertension Blood pressure low Asymptomatic Continue Coreg with holding parameters Hold clonidine for now Monitor blood pressure History of paranoid schizophrenia Generalized anxiety disorder Continue olanzapine Xanax as needed Hypothyroidism Continue levothyroxine GERD Continue PPI A-fib and left bundle branch block Status post biventricular ICD On Coreg and Xarelto monitor History of CAD status post LAD drug-eluting stent in 2012 On aspirin, statin and beta-igor monitor BPH On Flomax Currently placed on Boogie catheter Constipation Continue bowel regimen DVT prophylaxis On Xarelto CODE STATUS DNI DNR Disposition Home with hospice Total Time Total Time Spent Total Time Spent (In Minutes): 55 minutes Discharge Plan Discharge Items Patient Disposition: Hospice - Home Reason For Visit: ACUTE CHF Discharge Diagnosis: Acute on chronic systolic CHF Valvular heart disease SARAHY and CKD stage III/IV Hypotension Condition on Discharge: Fair Activity: Per Instructions section Exercise/Sports: Gradually increase as tolerated Non-emergency contact: Primary Care Provider Call non-emergency contact if: you have any medication questions, your symptoms worsen, your pain is concerning for you and you have a fever Follow-up/Referrals: Indra Asif MD [Primary Care Provider] - Diet: Heart Healthy Diet Texture: Dental soft (bite-sized) Sabrina Attending Provider Instructions: --Follow up with your Primary Care physician in 1 week -- Follow-up with your hospice physician for further recommendations Seek immediate medical attention if your symptoms reoccur or worsen Please review medication list provided on discharge for any medication changes as instructed. Please call if you have any questions or problems. You can reach a [facility] hospitalist on duty at [facility] [address] 24 hours a day by calling [phone] [facility] Appointment Clerk Provider Instructions: Call your Primary Care doctor if any of the following symptoms or problems start or get worse: * Shortness of breath or difficulty breathing * Wake up at night short of breath * Chest pain * Cough * Swelling of your hands, feet, or legs * More fatigued or tired with your normal activity * Palpitations - sudden fast heart beats WEIGHT * Weigh yourself every morning after using the bathroom. * Use the same scale. * Wear the same amount of clothing. * Write your weight down on a chart. * Call your Primary Care doctor if you gain more than 2-3 pounds in 1-2 days. MEDICATIONS * Use this discharge instruction sheet for medication instructions. * Take your medications at the time your doctor ordered. * Do not skip a dose of your medicines. * If you miss a dose of medicine, take it as soon as possible, but DO NOT DOUBLE A DOSE. * Read your medicine information when you get home. * Know all of the side effects of your medicine. If in doubt, ask your pharmacist * Call your Primary Care doctor's office if you have any side effects. * Be sure all of your doctors know what medicine and herbs you take (including cold, flu, and herbal medicine). Take the following with you to your follow-up doctor appointments: * Weight Chart * Medication List * List of questions Do not drink excessive alcohol, beer or wine. Pending Studies at Discharge: No Stand-Alone Forms: My [facility] Medications and DC Order Prescriptions: New doxycycline hyclate 100 mg Capsule 100 mg PO BID Qty: 4 0RF Continued allopurinol 100 mg tablet 100 mg PO QAM Qty: 90 3RF cholecalciferol (vitamin D3) 50 mcg (2,000 unit) capsule 50 mcg PO DAILY Qty: 90 2RF carvedilol 12.5 mg tablet 12.5 mg PO BIDM Qty: 180 3RF Rx Instructions: must administer with a meal/food Xarelto 15 mg tablet 15 mg PO DAILY Qty: 30 5RF aspirin 81 mg tablet,delayed release (DR/EC) 81 mg PO 3XWK Rx Instructions: Mon, Wed, Fri in the morning ascorbate calcium (vitamin C) 500 mg tablet 500 mg PO QAM omeprazole 40 mg capsule,delayed release(DR/EC) 40 mg PO DAILY ferrous sulfate 325 mg (65 mg iron) tablet 325 mg PO BID Systane Complete 0.6 % drops 1 drp ophthalmic (eye) BID PRN (Reason: Dry Eyes) furosemide 40 mg tablet 80 mg PO DAILY calcitriol 0.25 mcg capsule 0.25 mcg PO DAILY Qty: 90 3RF atorvastatin 40 mg tablet 40 mg PO HS tamsulosin [Flomax] 0.4 mg capsule 0.4 mg PO QAM acetaminophen 500 mg Tablet 1,000 mg PO DAILY PRN (Reason: pain or fever) levothyroxine 75 mcg tablet 75 mcg PO QAM albuterol sulfate 0.63 mg/3 mL solution for nebulization 0.63 mg inhalation DIRECTED PRN (Reason: Shortness Of Breath Or Wheezing) fluticasone propion-salmeterol 250-50 mcg/dose blister with device 1 inh INHALATION BID olanzapine 10 mg tablet 10 mg PO HS Spiriva Respimat 2.5 mcg/actuation mist 2 inh INHALATION QAM Metamucil 3.4 gram/5.4 gram Powder 1 tbsp PO DAILY Rx Instructions: mix into at least 8 oz of water or juice before administering alprazolam [Xanax] 0.25 mg tablet 0.25 mg PO USEASDIRECTD Qty: 0 0RF Rx Instructions: TAKES 1 TAB QAM, THEN 2 TABS AT 1500, THEN 1 TAB QHS albuterol sulfate 90 mcg/actuation HFA aerosol inhaler 2 inh inhalation Q4H PRN (Reason: shortness of breath or wheezing) Qty: 0 0RF Held clonidine HCl 0.1 mg tablet 0.05 mg PO BID Qty: 30 5RF Hold Instructions: Your blood pressure was low while you are hospitalized. Continue to hold until further recommendations from your physician. Rx Instructions: ON HOLD Per patient take 1/2 tablet twice daily Discharge Orders: Discharge Order (Routine); Ordered 08/03/25 Ordered By: Fran White Admission Data Admit Date/Time: 07/30/25 23:00 Attending Provider: Fran White Admit Provider: Josh Sr Primary Care Provider: Indra Asif Other Providers: Josh Sr; Marcos Westfall; Ty Stone; Lashonda Rangel; [facility],Hospice
[2025-08-03 15:45] VITALS: RESP 18; O2SAT 98
[2025-08-03 15:48] VITALS: BP 107/75; PULSE 92
--- NOTE | 2025-08-04 15:01 | Electrocardiogram Report ---
Test Reason : Blood Pressure : */* mmHG Vent. Rate : 98 BPM Atrial Rate : * BPM P-R Int : * ms QRS Dur : 142 ms QT Int : 378 ms P-R-T Axes : * -20 174 degrees QTcB Int : 482 ms Atrial fibrillation with occasional ventricular-paced complexes and with premature ventricular or emmanuel rrantly conducted complexes Non-specific intra-ventricular conduction block Minimal voltage criteria for LVH, may be normal variant ( [place] product ) T wave abnormality, consider lateral ischemia Abnormal ECG When compared with ECG of 07-Mar-2025 11:19, Vent. rate has increased by 38 bpm Confirmed by Marcial Garber ([id number]) on 08/04/2025 3:01:11 PM Referred By: REFERRED SELF Confirmed By: Marcial Garber
== END 2025-08-03 17:11 | disposition hospice, home (50) | DRG 291 ==
LOC: ED 19:15 → EDINP 23:00 → SUATTDRO 23:00 → 4W 07-31 01:37